=== PATIENT | male | born 1935 | race Two or more races ===

== ENCOUNTER 2019-01-18 22:38 | Inpatient (IN) | payer MEDICAID ==
[~2019-01-18] VITALS: Ht 167.6 cm; Wt 70.4 kg
[2019-01-18 23:00] VITALS: BP 146/59
[2019-01-18] MEDS ORDERED: Sodium Bicarbonate 50ml Carp IV ONE (23:00)
--- NOTE | 2019-01-18 23:00 | NUR ---
ER Nurse Note: Pt [facility] c/o lethargy. Pt EMS, pt missed his appointment d/t increasing lethargy. Pt unable to assess mental status, VSS, on NC with O2 >94%. No skin breakdown; red and purple discoloration on RT groin area. Pt unable to turn, incontinent. Active HD shunt in RT upper arm; former shunt in LT upper arm. IV established by Jade Charge Nurse. Will continue to [facility].
--- NOTE | 2019-01-18 23:19 | Emergency Room Report ---
History of Present Illness General Chief Complaint: Generalized Weakness Source: Medical Record, EMS Present Illness HPI Is an 83-year-old male with multiple medical problems including renal failure on hemodialysis. He was brought in by EMS with chief complaint of lethargy. He missed dialysis today because of increasing lethargy. At baseline he is confused but able to talk. Now he is now unresponsive with sonorous pollock. Unable to get any other history. There is no fever chills but no cough congestion. No pain complaint. No vomiting. Allergies: Coded Allergies: MORPHINE (Verified Allergy, Unknown, 01/18/19) Patient History Past Medical History: see triage record, old chart reviewed Past Surgical History: other Pertinent Family History: none Social History: Denies: smoking Immunizations: other Reviewed Nursing Documentation: PMH: Agreed; PSxH: Agreed Nursing Documentation-PMH Past Medical History: No History, Except For Hx Dialysis: Yes - RIGHT AND LEFT AV SHUNT, RIGHT SIDE ACTIVE Review of Systems All Other Systems: limited - SEcondary to patient's condition Physical Exam vitals with mild hypotension and bradycardia Sp02 EP Interpretation: reviewed, normal General Appearance: mild distress, cachetic, Chronically Ill, Stupor Head: normocephalic, atraumatic Eyes: bilateral eye PERRL, bilateral eye EOMI ENT: hearing grossly normal, normal pharynx Neck: full range of motion, supple, no meningismus Respiratory: chest non-tender, lungs clear, normal breath sounds Cardiovascular #1: regular rate, rhythm, systolic murmur Gastrointestinal: normal bowel sounds, non tender, no mass, no organomegaly, no bruit, non-distended Musculoskeletal: back normal Neurologic: grossly normal - Withdrawal to painful stimuli Procedures Critical Care Time Critical Care Time Critical care is mandated in this patient who presented with respiratory failure secondary to pulmonary edema. Patient require my urgent intervention to attenuate the risks of respiratory collapse which may lead to cardiovascular collapse and . Critical care time is 35 minutes excluding any reportable procedure. Critical care time included evaluation, multiple reevaluation, looking at old charts, interpreting laboratory and diagnostic data, discussing case with patient and family and consultants, and charting. Medical Decision Making Diagnostic Impression: Primary Impression: Respiratory failure with hypoxia and hypercapnia Qualified Codes: J96.01 - Acute respiratory failure with hypoxia; J96.02 - Acute respiratory failure with hypercapnia Additional Impressions: Pulmonary edema Qualified Codes: J81.0 - Acute pulmonary edema Hyperkalemia Anemia in chronic kidney disease Qualified Codes: N18.6 - End stage renal disease; D63.1 - Anemia in chronic kidney disease; Z99.2 - Dependence on renal dialysis UTI (urinary tract infection) Qualified Codes: N30.00 - Acute cystitis without hematuria ACS (acute coronary syndrome) ER Course Patient with respiratory failure secondary to pulmonary edema. Initial ABG show respiratory acidosis with high CO2. Repeat ABG showed worsening acidosis and CO2. Pt intubated for airway protection. Potassium is slightly elevated. No EKG changes. Initially he was bradycardic but with 2 A of bicarb heart rate went from 50s to 70s. He will need dialysis. Clinically no evidence of pneumonia. His chest x-ray show pulmonary edema and pleural effusion mostly right-sided. Antibiotics given for UTI. I discussed the case with Dr. Samson at his insurance. Agreed that patient is unstable for transfer. Will be admitted here. I discussed case with Dr. Villa who is covering for Dr. Conley for admission. Pt admitted to Dr. Conley service due to insurance. Lab Results Impression Labs with elevated BNP and potassium EKG Diagnostic Results Rate: bradycardiac Rhythm: NSR ST Segments: other - ST depression anteriorly. RBBB Rhythm Strip Diag. Results EP Interpretation: yes Rate: 76 Chest X-Ray Diagnostic Results Chest X-Ray Diagnostic Results #1: Chest X-Ray Ordered: Yes # of Views/Limited/Complete: 1 View Indication: Shortness of Breath EP Interpretation: Yes Interpretation: no pneumothorax, other - Cardiomegaly with pulmonary edema and large right-sided pleural effusion Impression: Other - large right effusion Electronically Signed by: Onofre Hector MD Chest X-Ray Diagnostic Results #2: Chest X-Ray Ordered: Yes # of Views/Limited/Complete: 1 View Indication: Shortness of Breath EP Interpretation: Yes Interpretation: no pneumothorax, other - s/p ETT. large rt effusion Impression: Other - s/p intubation. Electronically Signed by: Onofre Hector MD Status: improved Disposition: ADMITTED INPATIENT Condition: Critical Onofre Hector MD Jan 18, 2019 23:19
[2019-01-18 23:21] LABS: HEMATOCRIT 34.3 % (42.0-52.0); HEMOGLOBIN 11.3 G/DL (14.2-18.0); LYMPHOCYTES % (AUTO) 10.7 % (20.0-45.0); MEAN CORPUSCULAR VOLUME 102 FL (80-99); MONOCYTES % (AUTO) 6.9 % (1.0-10.0); NEUTROPHILS % (AUTO) 78.3 % (45.0-75.0); PLATELET COUNT 297 K/UL (150-450); RED BLOOD COUNT 3.38 M/UL (4.70-6.10); RED CELL DISTRIBUTION WIDTH 14.9 % (11.6-14.8); WHITE BLOOD COUNT 9.1 K/UL (4.8-10.8)
[2019-01-18 23:30] LABS: ANION GAP 7 mmol/L (5-15); BLOOD UREA NITROGEN 75 mg/dL (7-18); CALCIUM 8.8 MG/DL (8.5-10.1); CARBON DIOXIDE 30 MMOL/L (21-32); CHLORIDE 93 MMOL/L (98-107); CREATININE 8.8 MG/DL (0.55-1.30); POTASSIUM 5.7 MMOL/L (3.5-5.1); SODIUM 130 MMOL/L (136-145)
[2019-01-18 23:44] LABS: ALANINE AMINOTRANSFERASE 22 U/L (12-78); ALBUMIN/GLOBULIN RATIO 0.5 (1.0-2.7); ALKALINE PHOSPHATASE 141 U/L (46-116); ASPARTATE AMINO TRANSFERASE 38 U/L (15-37); BILIRUBIN,TOTAL 0.4 MG/DL (0.2-1.0); CKMB 8.5 NG/ML (0.0-3.6); CREATINE KINASE 232 U/L (26-308)
[2019-01-18 23:55] LABS: APPEARANCE,URINE TURBID; BILIRUBIN, URINE NEGATIVE (NEGATIVE); GLUCOSE, URINE (UA) 1+ (NEGATIVE); KETONES,URINE NEGATIVE (NEGATIVE); LEUKOCYTE ESTERASE ,URINE 3+ (NEGATIVE); NITRITE,URINE NEGATIVE (NEGATIVE); PH,URINE 8 (4.5-8.0); PROTEIN,URINE 4+ (NEGATIVE); UROBILINOGEN,URINE NORMAL MG/DL (0.0-1.0)
[2019-01-19] VITALS (53 sets, daily range): BP systolic 92–169; BP diastolic 22–126
--- NOTE | 2019-01-19 | NUR ---
ED Nurse Note: Dr. Hector informed of ABG results.
--- NOTE | 2019-01-19 00:03 | NUR ---
RESPIRATORY NOTE: reported ABG results to MD Hector and Placed Bipap per MD Hector order Settings of IPAP 20, EPAP 5, FiO2 16 and backup rate of 16. pt tolerating so far. pt on Full facial mask. no s/s of respiratory distress noted. will continue to monitor pt. ABG in an hour.
[2019-01-19 00:12] LABS: COLOR,URINE RED
[2019-01-19] MEDS ORDERED: cefTRIAXone 1 GM in NS 55 ML IVPB ONE (00:30)
--- NOTE | 2019-01-19 00:38 | NUR ---
ER Nurse Note: All orders completed per ERMD orders. Pt on BiPap, ABG collected and results with MD. Will continue to markos.
--- NOTE | 2019-01-19 01:09 | NUR ---
ER Nurse Note: Pt asleep, calm. Pt on Bipap. Repeat ABG taken, awaiting results. Pending admission. All safety measrues met; will continue to motnitor.
--- NOTE | 2019-01-19 01:35 | NUR ---
RESPIRATORY NOTE: Pt was intubated and placed on vent settings of AC/VC 15, 500 Vt, 100% FiO2, PEEP +5. Bilateral rales breath sounds upon auscultation. Airway is secured by anchorfast and patent. ETT is 7.5 cm and 24 at the lip. Ambubag present at bedside. Alarms on and audible. ABG to be drawn. Will continue to monitor.
--- NOTE | 2019-01-19 01:43 | NUR ---
ER Nurse Note: ERMD aware of ABG results; pH 6.9, pCO2 142. Pt intubated at 0135 by ERMD, RT and RN at bedside. 7 1/2 size tube, 24 at lip; vent settings: rate 15, vol 500, peep 5. X-ray being taken for confirmation. Will continue to montior.
[2019-01-19] MEDS ORDERED: AMLODIPINE BESYL5 MG ORAL (01:50)
[2019-01-19] MEDS ORDERED: ATIVAN2 MG ORAL (01:50)
[2019-01-19] MEDS ORDERED: ASPIRIN EC81 MG ORAL (01:50)
[2019-01-19] MEDS ORDERED: Midazolam 2mg/2ml Inj IVP ONE (02:00)
[2019-01-19] MEDS ORDERED: Succinylcholine 20mg/ml 10ml vial IV ONE (02:00)
[2019-01-19] MEDS ORDERED: Sodium Bicarbonate 50ml Carp IV ONE (02:00)
--- NOTE | 2019-01-19 02:00 | NUR ---
ER Nurse Note: 1mg Versed given; tolerating well. Verbal order to hold sodium bicarb but administer 100 mg of succinylcholine. Pt calm and relaxed.
[2019-01-19] MEDS ORDERED: LACTULOSE20 GM/301 ORAL (02:13)
[2019-01-19] MEDS ORDERED: NEXIUM40 MG ORAL (02:13)
[2019-01-19] MEDS ORDERED: GABAPENTIN100 MG ORAL (02:13)
[2019-01-19] MEDS ORDERED: CALCITRIOL1 MCG/1 ML PO (02:13)
[2019-01-19] MEDS ORDERED: BISACODYL5 MG RC (02:13)
[2019-01-19] MEDS ORDERED: VITAMIN D250000 UNI1 ORAL (02:13)
[2019-01-19] MEDS ORDERED: ATORVASTATIN CA40 MG ORAL (02:13)
[2019-01-19] MEDS ORDERED: Calcium Gluconate 10% 1 GM in NS 110 ML IVPB ONE (02:15)
--- NOTE | 2019-01-19 02:29 | NUR ---
ER Nurse Note: Report given to TESHA Wetzel in ICU for continuity of care. All belongings given. Med recon completed, swabs sent. Salvador in place per ERMD orders.
[2019-01-19] MEDS ORDERED: PRO-STAT LIQUID30 ML ORAL (02:31)
[2019-01-19] MEDS ORDERED: LEVOTHYROXINE125 MCG ORAL (02:31)
[2019-01-19] MEDS ORDERED: TRAMADOL HCL50 MG ORAL (02:31)
[2019-01-19] MEDS ORDERED: QUETIAPINE FUMA25 MG ORAL (02:31)
[2019-01-19] MEDS ORDERED: SEROQUEL100 MG ORAL (02:31)
[2019-01-19] MEDS ORDERED: MELATONIN 3 MG1 EAC1 PO (02:31)
[2019-01-19] MEDS ORDERED: ACETAMINOPHEN500 M3 ORAL (02:31)
[2019-01-19] MEDS ORDERED: LIDODERM700 M1 TOPIC (02:31)
[2019-01-19] MEDS ORDERED: RENA-VITE RX T1 EAC1 PO (02:31)
[2019-01-19] MEDS ORDERED: RENVELA0.8 GM ORAL (02:31)
[2019-01-19] MEDS ORDERED: NITROSTAT0.4 M1 SL (02:31)
--- NOTE | 2019-01-19 04:30 | NUR ---
NURSE NOTES: hemodilysis started pt tolerated well
[2019-01-19] MEDS ORDERED: NS 250 ML IVPB PRN (06:15)
--- NOTE | 2019-01-19 06:34 | NUR ---
NURSE NOTES: Received various telephone orders from Dr. Frausto. Will follow through orders.
--- NOTE | 2019-01-19 07:15 | NUR ---
RESPIRATORY NOTE: received pt orally intubated with ETT 7.5, placed 24cm at the lip. ETT secured via anchor fast with no redness or skin tears visible around mouth. pt currently receiving dialysis with no resp distress noted at this time. vent plugged into redoutlet with alarms set and audible. will cont to monitor
--- NOTE | 2019-01-19 07:39 | NUR ---
HAND-OFF: Report given to humble mccarty.
--- NOTE | 2019-01-19 07:40 | NUR ---
NURSE NOTES: Received patient from TESHA Leone. Patient witnessed lying in bed with eyes closed. Patient reported to be slightly restless at this time. Patient on bilateral soft wrist restraint. Patient witnessed trying to pull out ETT. Patient admitted for altered mental status and respiratory distress. Patient intubated with ETT 7.5 with 24cm at the lip line. Patient on ventilator with setting AC 18, tidal volume 500, FiO2 80%, and PEEP 5. Patient NPO at this time. Patient receiving dialysis at this time. Blood pressure 138/105, cafeteria monitor showing sinus rhythm with rate of 65, RR 18, and SpO2 100%. Patient tolerating ventilator setting with no sign of acute distress. Patient on dialysis at this time. Patient has an order for fentanyl drip to be started this morning. Will clarify with MD if fentanyl is still necessary. Patient skin intact except for perineal redness. patient has right and left upper arm AV shunt. right AV shunt being used for dialysis at this time. Patient has left hand peripheral IV that is patent and saline locked at this time. Patient has orders for repeat labs, urine culture, sputum culture, PICC line insertion, thoracentesis, ad NGT insertion post dialysis. Will follow up. Patient bed in low position with bed alarm on and call light in reach.
[2019-01-19] MEDS ORDERED: Heparin1,000 units/500ml Premix(Conc:2 units/ml) IV PRN (08:00)
[2019-01-19] MEDS ORDERED: Lidocaine 1% Plain 30 ml INJ PRN (08:00)
--- NOTE | 2019-01-19 08:11 | Pulmonolgy Critical Care Note ---
Critical Care - Asmt/Plan Assessment/Plan: Pulmonary CCM Consultation HPI Patient is a 83-year-old man with past medical history of chronic renal failure on hemodialysis. Admitted in lethargic state, note to have Respiratory and Metabolic acidosis, large right pleural effusion, Urinary Tract Infection. He previously missed dialysis because of increasing lethargy. At baseline he is confused but able to talk. No history available, per chart review no fever chills,no cough congestion, no pain complain, no vomiting. Noted to have elevated troponin Allergies: MORPHINE Past Medical History: CKD on HD Past Surgical History: Bilateral AV shunt All Other Systems: limited Physical Exam General Appearance: Sedated on mechanical ventilator. chronically ill appearing , cachetic Head: normocephalic, atraumatic Eyes: bilateral eye PERRL, bilateral eye EOMI ENT: intubated, moist mm Neck: no masses, no LN Respiratory: chest non-tender, lungs clear,breath sounds noted bilaterally anteriorly, reduced BS RLZ Cardiovascular: regular rate, rhythm, HS1, HS2 normal, systolic murmur Gastrointestinal: normal bowel sounds, non tender, no mass, no organomegaly, no bruit, non-distended Musculoskeletal: No edema, wasted Neurologic: Sedated, no focal signs,no seizures Impression: Respiratory failure with hypoxia and hypercapnia Large right pleural effusion End stage renal disease on HD Pulmonary edema Hyperkalemia Anemia in chronic kidney disease Urinary tract infection Acute coronary syndrome Plan AC ventilation, increase RR Wean FIO2 Right US guided thoracentesis HD per Renal Monitor labs IVF PRN Continue Ceftriaxone PICC line - may need pressors 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 RBBB Chest X-Ray: no pneumothorax, other - Cardiomegaly with pulmonary edema and large right-sided pleural effusion, no pneumothorax, other, s/p ETT. Respiratory: monitor respiratory rate, CXR Infectious Disease: check cultures, continue antibiotics, add antibiotics Disposition: keep in ICU Time Spent (Minutes): 70 Critical Care - Objective Last 24 Hour Vital Signs Date Time Temp Pulse Resp B/P (MAP) Pulse Ox O2 Delivery O2 Flow Rate FiO2 01/19/19 07:08 55 18 50 01/19/19 07:00 97.4 148 16 148/56 (86) 98 01/19/19 06:30 60 16 98/40 (59) 98 01/19/19 06:00 60 16 95/33 (53) 98 01/19/19 05:30 60 16 99/33 (55) 98 01/19/19 05:25 73 17 50 01/19/19 05:00 60 16 95/29 (51) 98 01/19/19 04:00 96.6 60 16 95/45 (62) 98 01/19/19 04:00 96.6 60 16 95/45 (62) 98 01/19/19 04:00 57 01/19/19 04:00 Mechanical Ventilator 01/19/19 03:58 Mechanical Ventilator 01/19/19 03:54 67 15 100 01/19/19 03:52 100 01/19/19 03:30 96.6 60 16 96/36 (56) 98 01/19/19 03:00 96.6 64 16 111/36 (61) 98 01/19/19 03:00 96.6 01/19/19 02:30 97.6 61 20 121/60 99 Mechanical Ventilator 100 01/19/19 02:30 97.6 61 20 121/60 99 Mechanical Ventilator 100 01/19/19 01:35 61 23 121/60 99 Mechanical Ventilator 01/19/19 01:35 49 23 100 01/19/19 01:14 70 16 154/80 95 Bi-pap 50 01/19/19 00:13 73 14 143/62 Bi-pap 01/19/19 00:03 74 16 90 Bi-Pap 50 01/19/19 00:03 74 16 90 Full Face 50 01/18/19 23:00 78 12 Bi-pap 01/18/19 23:00 78 12 146/59 95 Bi-pap 50 Micro: Microbiology Date/Time Source Procedure Growth Status 01/19/19 00:20 Rectum Received Critical Care - Subjective ROS Limited/Unobtainable: Yes Condition: critical FI02: 50 Vent Support Breath Rate: 18 Vent Support Mode: AC Vent Tidal Volume: 500 Sputum Amount: Scant PEEP: 5.0 PIP: 27 I&O: Intake and Output 01/18/19 01/19/19 19:00 07:00 Intake Total 110 ml Balance 110 ml Intake Oral 0 ml IV Total 110 ml # Voids 50 ET-Tube: 7.5 ET Position: 24 Eric Frausto MD Jan 19, 2019 08:11
--- NOTE | 2019-01-19 08:39 | NUR ---
NURSE NOTES: Hemodialysis complete. Blood pressure 158/55, HR 61, SpO2 100%, and RR 18. Total 2L out. Addendum: 01/19/19 at 0842 by Marly Samano RN Fentanyl held at this time. Patient only restless when he is being touched or suctioned. Patient eyes closed. Patient tolerating ventilator setting and is not fighting the ventilator or biting the ET tube.
[2019-01-19] MEDS: Heparin 5000 units/ml inj SUBQ SCH ×2 (09:00→20:45)
[2019-01-19 09:40] LABS: ALANINE AMINOTRANSFERASE 19 U/L (12-78); ALBUMIN 2.4 G/DL (3.4-5.0); ALBUMIN/GLOBULIN RATIO 0.5 (1.0-2.7); ALKALINE PHOSPHATASE 120 U/L (46-116); ANION GAP 6 mmol/L (5-15); ASPARTATE AMINO TRANSFERASE 39 U/L (15-37); BILIRUBIN,TOTAL 0.4 MG/DL (0.2-1.0); BLOOD UREA NITROGEN 35 mg/dL (7-18); CALCIUM 8.3 MG/DL (8.5-10.1); CARBON DIOXIDE 31 MMOL/L (21-32); CHLORIDE 99 MMOL/L (98-107); CREATININE 4.4 MG/DL (0.55-1.30); POTASSIUM 3.5 MMOL/L (3.5-5.1); SODIUM 136 MMOL/L (136-145)
[2019-01-19 10:07] LABS: HEMATOCRIT 29.4 % (42.0-52.0); HEMOGLOBIN 9.9 G/DL (14.2-18.0); MEAN CORPUSCULAR VOLUME 99 FL (80-99); PLATELET COUNT 183 K/UL (150-450); RED BLOOD COUNT 2.98 M/UL (4.70-6.10); RED CELL DISTRIBUTION WIDTH 15.5 % (11.6-14.8); WHITE BLOOD COUNT 7.7 K/UL (4.8-10.8)
--- NOTE | 2019-01-19 10:39 | NUR ---
NURSE NOTES: Patient has not voided since last night. Upon bladder scan, patient found to have 206mL of retained urine. Dr Villa notified. He stated that he would be here to see the patient soon. Will follow up when he arrives. OGT placed at this time. Placement verified with aspiration and auscultation. Will follow up with abdominal x-ray. Patient restless at this time. When patient is touched for any reason, he starts to move and kick but his eyes remain closed. Fentanyl held at this time due to low HR of 61-65. Will ask MD if it is safe to give.
--- NOTE | 2019-01-19 10:44 | NUR ---
Social Work This SW met with patient, currently in the ICU who is confused, intubated, and requires total care. Patient is from [facility] and remains full code, full treatment (chart reviewed). Patient has son, Mingo Vaca listed as her decision maker @ [phone]. There is no family currently at bedside; SW to follow for emotional support, as needed. Addendum: 01/19/19 at 1111 by OLIVIA TONY This SW left a message for son to verify any needs or concerns (awaiting call back at this time).
[2019-01-19] MEDS: Aspirin Baby 81mg NG SCH (11:15)
--- NOTE | 2019-01-19 12:00 | NUR ---
NURSE NOTES: Patient witnessed lying in bed with eyes closed. Patient on bilateral soft wrist restraint. Patient combative and strong. Patient witnessed trying to pull out ETT. Patient Fentanyl drip held due to low HR of <65. Will follow up with prepress technician if it is safe to give. ETT 7.5 with 24cm at the lip line. Patient on ventilator with setting AC 16, tidal volume 450, FiO2 40%, and PEEP 5. Patient now has OGT with placement verified with abdominal x-ray. Patient has right side rib fracture and pleural effusion. Blood pressure 150/57, telemetry monitor showing sinus rhythm with rate of 63, RR 20, and SpO2 100%. Patient tolerating ventilator setting with no sign of acute distress except occasional coughing at which time patient attempts to remove ET tube. Patient skin remains intact. No perineal redness noted. patient has right and left upper arm AV shunt. right AV shunt has pressure dressing from dialysis this morning. Dressing intact with no sign of bleeding. Patient has left hand 20 gauge peripheral IV that is patent and saline locked at this time. Patient has an order for thoracentesis. Will follow up. Patient bed in low position with bed alarm on and call light in reach.
[2019-01-19] MEDS ORDERED: Etomidate 40mg/20ml Inj IV ONE (12:30)
[2019-01-19] MEDS ORDERED: Succinylcholine 20mg/ml 10ml vial ONE (12:30)
[2019-01-19] MEDS: Calcitriol 0.25mcg Cap NG SCH (12:44)
--- NOTE | 2019-01-19 12:56 | Cardiac Electrophysiology PN ---
Subjective Subjective [id number] Objective Last 24 Hour Vital Signs Date Time Temp Pulse Resp B/P (MAP) Pulse Ox O2 Delivery O2 Flow Rate FiO2 01/19/19 12:44 61 153/53 01/19/19 12:44 153/53 01/19/19 12:00 61 01/19/19 11:08 63 20 50 01/19/19 09:06 58 18 50 01/19/19 08:00 63 01/19/19 08:00 50 01/19/19 08:00 Mechanical Ventilator 01/19/19 07:08 55 18 50 01/19/19 07:00 97.4 148 16 148/56 (86) 98 01/19/19 06:30 60 16 98/40 (59) 98 01/19/19 06:00 60 16 95/33 (53) 98 01/19/19 05:30 60 16 99/33 (55) 98 01/19/19 05:25 73 17 50 01/19/19 05:00 60 16 95/29 (51) 98 01/19/19 04:00 96.6 60 16 95/45 (62) 98 01/19/19 04:00 96.6 60 16 95/45 (62) 98 01/19/19 04:00 57 01/19/19 04:00 Mechanical Ventilator 01/19/19 03:58 Mechanical Ventilator 01/19/19 03:54 67 15 100 01/19/19 03:52 100 01/19/19 03:30 96.6 60 16 96/36 (56) 98 01/19/19 03:00 96.6 64 16 111/36 (61) 98 01/19/19 03:00 96.6 01/19/19 02:30 97.6 61 20 121/60 99 Mechanical Ventilator 100 01/19/19 02:30 97.6 61 20 121/60 99 Mechanical Ventilator 100 01/19/19 01:35 61 23 121/60 99 Mechanical Ventilator 01/19/19 01:35 49 23 100 01/19/19 01:14 70 16 154/80 95 Bi-pap 50 01/19/19 00:13 73 14 143/62 Bi-pap 01/19/19 00:03 74 16 90 Bi-Pap 50 01/19/19 00:03 74 16 90 Full Face 50 01/18/19 23:00 78 12 Bi-pap 01/18/19 23:00 78 12 146/59 95 Bi-pap 50 Intake and Output 01/18/19 01/19/19 19:00 07:00 Intake Total 110 ml Balance 110 ml Intake Oral 0 ml IV Total 110 ml # Voids 50 Laboratory Tests Test 01/18/19 23:00 01/18/19 23:42 01/18/19 23:45 01/19/19 01:05 White Blood Count 9.1 K/UL (4.8-10.8) Red Blood Count 3.38 M/UL (4.70-6.10) L Hemoglobin 11.3 G/DL (14.2-18.0) L Hematocrit 34.3 % (42.0-52.0) L Mean Corpuscular Volume 102 FL (80-99) H Mean Corpuscular Hemoglobin 33.4 PG (27.0-31.0) H Mean Corpuscular Hemoglobin Concent 32.8 G/DL (32.0-36.0) Red Cell Distribution Width 14.9 % (11.6-14.8) H Platelet Count 297 K/UL (150-450) Mean Platelet Volume 5.5 FL (6.5-10.1) L Neutrophils (%) (Auto) 78.3 % (45.0-75.0) H Lymphocytes (%) (Auto) 10.7 % (20.0-45.0) L Monocytes (%) (Auto) 6.9 % (1.0-10.0) Eosinophils (%) (Auto) 3.0 % (0.0-3.0) Basophils (%) (Auto) 1.0 % (0.0-2.0) Prothrombin Time 10.6 SEC (9.30-11.50) Prothromb Time International Ratio 1.0 (0.9-1.1) Activated Partial Thromboplast Time 32 SEC (23-33) Sodium Level 130 MMOL/L (136-145) L Potassium Level 5.7 MMOL/L (3.5-5.1) H Chloride Level 93 MMOL/L (98-107) L Carbon Dioxide Level 30 MMOL/L (21-32) Anion Gap 7 mmol/L (5-15) Blood Urea Nitrogen 75 mg/dL (7-18) H Creatinine 8.8 MG/DL (0.55-1.30) H Estimat Glomerular Filtration Rate mL/min (>60) Glucose Level 121 MG/DL (74-106) H Calcium Level 8.8 MG/DL (8.5-10.1) Total Bilirubin 0.4 MG/DL (0.2-1.0) Aspartate Amino Transf (AST/SGOT) 38 U/L (15-37) H Alanine Aminotransferase (ALT/SGPT) 22 U/L (12-78) Alkaline Phosphatase 141 U/L (46-116) H Total Creatine Kinase 232 U/L (26-308) Creatine Kinase MB 8.5 NG/ML (0.0-3.6) H Creatine Kinase MB Relative Index 3.6 Troponin I 0.136 ng/mL (0.000-0.056) Pro-B-Type Natriuretic Peptide > 98802 pg/mL (0-125) H Total Protein 8.8 G/DL (6.4-8.2) H Albumin 3.0 G/DL (3.4-5.0) L Globulin 5.8 g/dL Albumin/Globulin Ratio 0.5 (1.0-2.7) L Arterial Blood pH 7.133 (7.350-7.450) 6.979 (7.350-7.450) Arterial Blood Partial Pressure CO2 95.2 mmHg (35.0-45.0) *H 142.5 mmHg (35.0-45.0) *H Arterial Blood Partial Pressure O2 85.0 mmHg (75.0-100.0) 62.4 mmHg (75.0-100.0) L Arterial Blood HCO3 31.2 mmol/L (22.0-26.0) H 32.7 mmol/L (22.0-26.0) H Arterial Blood Oxygen Saturation 93.4 % (95-100) L 79.0 % (95-100) *L Arterial Blood Base Excess 0.1 (-2-2) -2.0 (-2-2) Nino Test Positive Positive Urine Color Red Urine Appearance Turbid Urine pH 8 (4.5-8.0) Urine Specific [place] 1.010 (1.005-1.035) Urine Protein 4+ (NEGATIVE) H Urine Glucose (UA) 1+ (NEGATIVE) H Urine Ketones Negative (NEGATIVE) Urine Blood 5+ (NEGATIVE) H Urine Nitrite Negative (NEGATIVE) Urine Bilirubin Negative (NEGATIVE) Urine Urobilinogen Normal MG/DL (0.0-1.0) Urine Leukocyte Esterase 3+ (NEGATIVE) H Urine RBC Tntc /HPF (0 - 0) H Urine WBC 20-30 /HPF (0 - 0) H Urine Squamous Epithelial Cells None /LPF (NONE/OCC) Urine Bacteria Few /HPF (NONE) Test 01/19/19 04:18 01/19/19 07:35 Arterial Blood pH 7.322 (7.350-7.450) Arterial Blood Partial Pressure CO2 59.9 mmHg (35.0-45.0) *H Arterial Blood Partial Pressure O2 442.2 mmHg (75.0-100.0) H Arterial Blood HCO3 30.3 mmol/L (22.0-26.0) H Arterial Blood Oxygen Saturation 99.8 % (95-100) Arterial Blood Base Excess 3.3 (-2-2) H Nino Test Positive White Blood Count 7.7 K/UL (4.8-10.8) Red Blood Count 2.98 M/UL (4.70-6.10) L Hemoglobin 9.9 G/DL (14.2-18.0) L Hematocrit 29.4 % (42.0-52.0) L Mean Corpuscular Volume 99 FL (80-99) Mean Corpuscular Hemoglobin 33.1 PG (27.0-31.0) H Mean Corpuscular Hemoglobin Concent 33.5 G/DL (32.0-36.0) Red Cell Distribution Width 15.5 % (11.6-14.8) H Platelet Count 183 K/UL (150-450) Mean Platelet Volume 6.0 FL (6.5-10.1) L Neutrophils (%) (Auto) % (45.0-75.0) Lymphocytes (%) (Auto) % (20.0-45.0) Monocytes (%) (Auto) % (1.0-10.0) Eosinophils (%) (Auto) % (0.0-3.0) Basophils (%) (Auto) % (0.0-2.0) Differential Total Cells Counted 100 Neutrophils % (Manual) 87 % (45-75) H Lymphocytes % (Manual) 4 % (20-45) L Monocytes % (Manual) 5 % (1-10) Eosinophils % (Manual) 0 % (0-3) Basophils % (Manual) 0 % (0-2) Band Neutrophils 4 % (0-8) Platelet Estimate Adequate Platelet Morphology Normal Hypochromasia 1+ Anisocytosis 1+ Prothrombin Time 10.7 SEC (9.30-11.50) Prothromb Time International Ratio 1.0 (0.9-1.1) Activated Partial Thromboplast Time 29 SEC (23-33) Sodium Level 136 MMOL/L (136-145) Potassium Level 3.5 MMOL/L (3.5-5.1) Chloride Level 99 MMOL/L (98-107) Carbon Dioxide Level 31 MMOL/L (21-32) Anion Gap 6 mmol/L (5-15) Blood Urea Nitrogen 35 mg/dL (7-18) H Creatinine 4.4 MG/DL (0.55-1.30) H Estimat Glomerular Filtration Rate mL/min (>60) Glucose Level 73 MG/DL (74-106) L Calcium Level 8.3 MG/DL (8.5-10.1) L Total Bilirubin 0.4 MG/DL (0.2-1.0) Aspartate Amino Transf (AST/SGOT) 39 U/L (15-37) H Alanine Aminotransferase (ALT/SGPT) 19 U/L (12-78) Alkaline Phosphatase 120 U/L (46-116) H Troponin I 0.151 ng/mL (0.000-0.056) Total Protein 7.4 G/DL (6.4-8.2) Albumin 2.4 G/DL (3.4-5.0) L Globulin 5.0 g/dL Albumin/Globulin Ratio 0.5 (1.0-2.7) L Hepatitis B Surface Antigen Pending Microbiology Date/Time Source Procedure Growth Status 01/19/19 00:20 Rectum Received Sawyer Christie MD Jan 19, 2019 12:56
--- NOTE | 2019-01-19 13:34 | NUR ---
NURSE NOTES: Reported ABG result to Dr Frausto via telephone call. Received order for change of ventilator setting to AC 16, TV 450 and repeat ABG at 1999. Telephone order read back and verified. Order placed at this time.
--- NOTE | 2019-01-19 13:38 | NUR ---
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
--- NOTE | 2019-01-19 13:42 | Pre-Procedure Note/Attestation ---
Pre-Procedure Note/Attestation Complete Prior to Procedure Planned Procedure: right Procedure Narrative: Thoracentesis with ultrasound guidance Indications for Procedure Pre-Operative Diagnosis: Right pleural effusion Attestation I attest that appropriate consent obtained from patient's son was reviewed prior to procedure. Multiple attempts were made to reach the son for further discussion by telephone but he could not be reached prior to procedure. I attest that I re-evaluated the patient just prior to the surgery and that there has been no change in the patient's H&P, except as documented below: Gerson Roberts M.D. Jan 19, 2019 13:42
--- NOTE | 2019-01-19 14:00 | General Progress Note ---
Progress Note Progress Note Patient attended bedside with US technologists and ICU nursing. After initial US scan demonstrating large right pleural effusion and adjacent right anterolateral acute rib fractures, patient became combative and attempted to self-extubate even after temporary restraints placed. Patient is likely tender at area of acute right rib fractures. Recommend defering thoracentesis until patient's pain can be adequately managed and appropriate sedation considered. Gerson Roberts M.D. Jan 19, 2019 14:00
--- NOTE | 2019-01-19 14:35 | NUR ---
RD ASSESSMENT & RECOMMENDATIONS SEE CARE ACTIVITY FOR COMPLETE ASSESSMENT DAILY ESTIMATED NEEDS: Needs based on Critical care, HD/ 63.6kg 22-30 kcals/kg 9113-9838 total kcals 1.2-2 g protein/kg 76-127 g total protein 20-22 mL/kg 5943-1932 total fluid mLs NUTRITION DIAGNOSIS: * Swallowing difficulty R/T respiratory status as evidenced by orally intubated, on OGT feeding. * Increased kcal/prot needs R/T renal dysfunction as evidenced by ESRD dx, on HD. CURRENT TF:Nepro @ 40ml/hr x 24 hrs PO DIET RECOMMENDATIONS: INTERNET DEVELOPER eval post extubation ENTERAL NUTRITION RECOMMENDATIONS: Nepro @ 40ml/hr x 24 hrs to provide 960ml, 1728kcal, 78g prot, 698ml free water * Maintain current TF order * Initiate @ 20ml/hr x 6 hrs, advance 10ml q 4-6 hrs as tolerated to goal * HOB Over 30 degrees/ water flush per MD ADDITIONAL RECOMMENDATIONS: * Obtain dry, calibrated bedscale wt post HD : Per [facility], HT=68", EV=527oze (01/04/19) * Monitor lytes daily w/ TF, replete as needed
--- NOTE | 2019-01-19 14:45 | NUR ---
NURSE NOTES: Patient restless at this time. Radiologist attempted to start thoracentesis procedure but was unable to do so because the patient was restless and showing signs of pain on the right side where the procedure was to be done. Patient started on Fentanyl drip. Dr Christie consulted via phone call. Patient's HR is less than 65 and the fentanyl order states that the drip must be held if the patient's HR is less than 65. Per Dr Christie's telephone order, fentanyl can be given if HR is greater than 55. Order read back and order adjusted to reflect the new parameter. Fentanyl drip started at 10mcg/hr. Will monitor patient's sedation level and adjust every 5 minutes per protocol. Addendum: 01/19/19 at 1916 by Marly Samano RN Blood pressure 152/53, HR 64, SpO2 100% on ventilator, and RR 18. Sinus rhythm on the cardiac technologist. Patient repositioned and oral care performed at this time.
--- NOTE | 2019-01-19 16:30 | NUR ---
NURSE NOTES: Patient continues to be restless. RASS score -1 with fentanyl drip increased to 100mcg/hr. Will continue to monitor sedation level and titrate per protocol. Patient cleaned at this time. When patient turned, he immediately grabbed his ET tube and attempted to self extubate. Patient was restrained and ET tube was determined to be in place. Breath sounds heard bilaterally. Ventilator showing volumes received. Feeding held at this time. Stat chest x-ray and abdominal x-ray ordered at this time to ensure patency of ET tube and OGT. Will follow up with result. Patient on bilateral soft wrist restraint. Patient combative and strong. Patient on ventilator with setting AC 16, tidal volume 450, FiO2 40%, and PEEP 5. Patient now has OGT with placement verified with abdominal x-ray. Thoracentesis unable to be performed today. Radiologist will follow up tomorrow when patient's pain is better controlled. Blood pressure 128/23, phototypesetting equipment monitor showing sinus rhythm with rate of 67, RR 17, and SpO2 100%. Patient skin remains intact with ecchymosis and swelling on the right side from rib fractures. Condom catheter in place. Patient has not yet urinated. Dr Villa is aware. AM bladder scan ordered and in and out catheter when residual greater than 300. Right AV shunt has pressure dressing from dialysis this morning. Dressing intact with no sign of bleeding. Patient has left hand 20 gauge peripheral IV that is patent and saline locked at this time. Patient bed in low position with bed alarm on and call light in reach. Patient cleaned, repositioned, and oral care performed at this time.
--- NOTE | 2019-01-19 16:43 | NUR ---
RESPIRATORY NOTE: pt ETT was pulled out slightly out due to agitation and changing. RN and RT were in the room and able to catch pt. anchor fast was changed. Xray was order to confirm placement. will cont to monitor.
--- NOTE | 2019-01-19 17:33 | Cardiology Report ---
APPROVED REPORT EXAM: Two-dimensional and M-mode echocardiogram with Doppler and color Doppler. INDICATION Chest Pain M-Mode DIMENSIONS IVSd1.3 (0.7-1.1cm)Left Atrium (MM)5.0 (1.6-4.0cm) LVDd4.3 (3.5-5.6cm)Aortic Root3.2 (2.0-3.7cm) PWd0.8 (0.7-1.1cm)Aortic Cusp Exc.1.2 (1.5-2.0cm) IVSs1.3 cm LVDs2.4 (2.5-4.0cm) PWs1.2 cm Technically difficult study due to combative patient . Normal left ventricular chamber size, systolic function and wall motion to extent visualized. Left ventricular ejection fraction estimated to be 50%. Mild left ventricular hypertrophy . Moderate circumferential pericardial effusion. Mild left atrilar enlargement . Right cardiac chamber sizes are within normal limits. Aortic valve calcification with decreased cusp excursion c/w aortic stenosis. Thickened mitral valve leaflets with normal excursion. Mitral annulus and aortic root calcification. Pulmonic valve not well visualized. Normal tricuspid valve structure. IVC at size 1.8 cm with physiologic collapse . A color flow and spectral Doppler study was performed and revealed: Mild aortic regurgitation. Peak aortic valve gradient of 50 mm Hg and a mean of 26 mmHg. Aortic valve area 0.6 cm2 calculated by continuity equation, c/w severe A.S. Mild mitral regurgitation. Mitral diastolic velocities suggest reduced left ventricular relaxation c/w mild LV diastolic dysfunction (Grade I ). Mild tricuspid regurgitation. Tricuspid systolic velocities suggests peak right ventricular systolic pressure of 44mmHg,consistent with mild pulmonary HTN . Pulmonic regurgitation present . Note: notified.
--- NOTE | 2019-01-19 17:53 | Diagnostic Imaging Report ---
Indication: NG tube placement Comparison: None Single view of the abdomen obtained Findings: NG tube proximal port and tip are well situated several centimeters below the EG junction within the stomach lumen. Upper portions of bilateral ureteral stents are noted on this study. IMPRESSION: NG tube satisfactory in position
--- NOTE | 2019-01-19 17:57 | Diagnostic Imaging Report ---
Indication: Dyspnea Comparison: None A single view chest radiograph was obtained. Findings: Endotracheal tube is in the upper trachea approximately 7 cm above the sebastien. NG tube is in good position. Interstitial opacities likely pulmonary edema and a moderate to large right pleural effusion noted. IMPRESSION: Endotracheal tube is high in location. CHF
--- NOTE | 2019-01-19 18:00 | NUR ---
NURSE NOTES: Patient blood pressure 142/50, HR 69, RR 20, SpO2 100% on mechanical ventilator. Chest x-ray post attempted self-extubation shows that the ET tube is too high and OGT in good position. Radiologist ordered for the tube to be advanced 4cm. RT notified and will advance the tube. Repeat chest x-ray will be ordered at this time. Will follow up with repeat chest x-ray. Patient RASS score -1 at this time with fentanyl drip increased to 130mcg/hr. Patient repositioned at this time. Bed in low position with bed alarm on and call light in reach at this time.
[2019-01-19] MEDS: Metoprolol Tartrate 12.5mg TAB NG SCH (18:33)
--- NOTE | 2019-01-19 19:16 | NUR ---
RESPIRATORY NOTE: Received pt orally intubated on vent settings of AC/VC RR 16, Vt 450. FIO2 40%, and peep +5. Pt is intubated with 7.5 size ett at 24 at the lip. ETT secured by anchor fast. ABG scheduled at 1999. Pt on bilateral restraints. Ambu bag on the bed side. Vent is plugged into red outlet. Will continue to monitor
--- NOTE | 2019-01-19 19:29 | Diagnostic Imaging Report ---
Indication: Malpositioned endotracheal tube. The tube was repositioned. Respiratory failure. Dyspnea. Comparison: 17:08 A single view chest radiograph was obtained. Findings: 18:48 time of current exam. Endotracheal tube is 1 cm above the sebastien in good position. NG tube is stable in good position. No change otherwise. IMPRESSION: Endotracheal tube in good position
--- NOTE | 2019-01-19 19:40 | NUR ---
HAND-OFF: Report given to TESHA Mock. Patient RASS -2 on Fentanyl 130mcg/hr at this time. Still awaiting repeat chest x-ray to verify ET tube placement. Feeding held at this time for repeat chest x-ray result. Endorsed to follow up.
--- NOTE | 2019-01-19 19:46 | NUR ---
NURSE NOTES: pt orally intubated o2 sat 100 o/o usama soft wrest restraint nan complaint on fent drip at 120 mg/hr reposition and suction
[2019-01-19] MEDS: Atorvastatin 80mg tab NG SCH (20:42)
[2019-01-19] MEDS: Dyna-Hex 2% Top Sol 2oz TOPIC SCH (20:42)
--- NOTE | 2019-01-19 22:00 | NUR ---
NURSE NOTES: reposition and suction tube feeding started at 10 cc /hr verify with 2 rn ngt position no urinary out put
[2019-01-20] VITALS (37 sets, daily range): BP systolic 74–150; BP diastolic 18–88
--- NOTE | 2019-01-20 | NUR ---
NURSE NOTES: asleep on fent drip at 130mcg/hr hr 54-59 sb
[2019-01-20] MEDS: cefTRIAXone 1gm/D5W 55ml IVPB SCH ×2 (00:10)
--- NOTE | 2019-01-20 02:00 | NUR ---
NURSE NOTES: blader scan done 50 cc iin and out cath insertion not done
--- NOTE | 2019-01-20 03:51 | Consultation ---
DATE OF CONSULTATION: 01/19/2019 CARDIOLOGY CONSULTATION CONSULTING PHYSICIAN: Sawyer Christie M.D. REFERRING PHYSICIAN: Danis Conley M.D. ADDITIONAL REFERRING PHYSICIAN: David Villa M.D. REASON FOR CONSULTATION: Congestive heart failure and elevated troponin. HISTORY OF PRESENT ILLNESS: The patient is an 83-year-old gentleman with history of end-stage renal disease on hemodialysis, was admitted for lethargy and was found to be in presumed metabolic acidosis, large right-sided pleural effusion. The patient missed dialysis. He presented with increased lethargy. The patient was intubated in the ER and was admitted to intensive care unit. Also noted to have elevated troponin. Cardiology consultation was obtained for further evaluation. REVIEW OF SYSTEMS: Cannot be obtained. PAST MEDICAL HISTORY: 1. Hypertension. 2. End-stage renal disease, on hemodialysis. FAMILY HISTORY: Noncontributory. SOCIAL HISTORY: [facility] resident. Does not smoke or drink alcohol. PHYSICAL EXAMINATION: VITAL SIGNS: Show blood pressure of , pulse is , respirations 18, and he is afebrile. HEAD AND NECK: Shows positive JVD. He is orally intubated. LUNGS: Coarse rhonchi. CARDIOVASCULAR: Regular S1 and S2 with no gallop. ABDOMEN: Soft. EXTREMITIES: A 1+ pitting edema. LABORATORY DATA: White count 7.7, hemoglobin 9.9, hematocrit of 29, and platelet count 183. Sodium is 136, potassium 3.5, BUN of 35, creatinine , glucose of 73. Troponin is 0.123 and 0.151. ASSESSMENT AND PLAN: 1. Elevated troponin, possible acute coronary syndrome. Elevated troponin, however, could be due to dialysis. The patient will be on Lipitor and aspirin and add low-dose beta-winnie to his medical regimen. We will get an echocardiogram. 2. Respiratory failure. Echocardiogram will be repeated, likely due to volume overload. The patient will be getting dialysis. 3. Hypertension on amlodipine 5 mg daily and add metoprolol to the medical regimen. The patient will be getting hemodialysis also. 4. End-stage renal disease, on hemodialysis. 5. Respiratory failure, on the ventilator. 6. Large right-sided pleural effusion. 7. renal failure. Thank you very much for allowing me to participate in the care of this patient. Please do not hesitate to contact for any questions regarding my evaluation. Sincerely, Sawyer Christie M.D. DR: Caty JOB#: [id number] CC:
--- NOTE | 2019-01-20 03:51 | History and Physical Report ---
DATE OF ADMISSION: 01/19/2019 REASON FOR ADMISSION: 1. Hyperkalemia. 2. Respiratory failure. CONSULTANTS: 1. Rambo Llanos M.D., Pulmonary. 2. Sawyer Christie M.D., Cardiology. HISTORY OF PRESENT ILLNESS: The patient is an 83-year-old gentleman with multiple chronic medical problems on hemodialysis three times a week. He was brought in due to acute encephalopathy, lethargy by EMS. He had missed dialysis because of his worsening condition today. Upon presentation, noted to be hyperkalemic at 5.7. He was having difficulty breathing. With an elevated pCO2. He was intubated and placed on mechanical ventilation and transferred to the intensive care unit. ALLERGIES: Morphine. PAST MEDICAL HISTORY: 1. End-stage renal disease, on hemodialysis. 2. Hyperlipidemia. 3. Hypertension. 4. Secondary hyperparathyroidism. 5. Hypothyroidism. FAMILY HISTORY: Positive for diabetes and hypertension. PAST SURGICAL HISTORY: Dialysis access placement left and right AV shunt. REVIEW OF SYSTEMS: Cannot obtain as the patient intubated, sedated, on mechanical ventilation. LABORATORY AND DIAGNOSTIC DATA: Laboratories dated January 19, 2019, sodium 138, potassium 5.7, BUN 75, creatinine 8.8. BNP greater than 35,000. Hemoglobin 9.9, white cell count 7.7, and platelet count 183. The patient noted to have pleural effusion. PHYSICAL EXAMINATION: VITAL SIGNS: Blood pressure 148/56, respiratory rate 16, pulse 60, temperature 97.4. GENERAL: The patient intubated, sedated, mechanical ventilation. HEENT: Extraocular muscles intact. No lymphadenopathy noted. Oropharyngeal mucosa is clear and dry. CARDIOVASCULAR: S1, S2. No rubs or gallops. PULMONARY: Mild upper airway rhonchi with decreased breath sounds in bilateral lower lobes. ABDOMEN: Nondistended and nontender. EXTREMITIES: No edema noted. ASSESSMENT AND PLAN: 1. End-stage renal disease. The patient was emergently dialyzed overnight. 2. Severe hyperkalemia, potassium 5.7. The patient was emergently dialyzed overnight. 3. Respiratory failure, hypercapnic in origin with a pCO2 142. Much improved. The patient intubated, sedated on mechanical ventilation. 4. Hypertension. We will adjust medications as deemed appropriate. 5. Hypothyroidism. We will continue Synthroid. 6. DVT prophylaxis. Heparin subcutaneous. David Villa MD DR: Ayan JOB#: [id number] CC:
--- NOTE | 2019-01-20 04:00 | NUR ---
NURSE NOTES: complete bed bath done oral care done reposition and suction
[2019-01-20 05:18] LABS: HEMOGLOBIN 9.8 G/DL (14.2-18.0); MEAN CORPUSCULAR VOLUME 101 FL (80-99); PLATELET COUNT 181 K/UL (150-450); RED BLOOD COUNT 2.98 M/UL (4.70-6.10); RED CELL DISTRIBUTION WIDTH 15.2 % (11.6-14.8); WHITE BLOOD COUNT 8.8 K/UL (4.8-10.8)
[2019-01-20 05:51] LABS: ALANINE AMINOTRANSFERASE 20 U/L (12-78); ALBUMIN 2.2 G/DL (3.4-5.0); ALBUMIN/GLOBULIN RATIO 0.6 (1.0-2.7); ALKALINE PHOSPHATASE 102 U/L (46-116); ANION GAP 7 mmol/L (5-15); ASPARTATE AMINO TRANSFERASE 37 U/L (15-37); BILIRUBIN,TOTAL 0.4 MG/DL (0.2-1.0); BLOOD UREA NITROGEN 59 mg/dL (7-18); CARBON DIOXIDE 29 MMOL/L (21-32); CHLORIDE 99 MMOL/L (98-107); CREATININE 7.6 MG/DL (0.55-1.30); POTASSIUM 4.5 MMOL/L (3.5-5.1); SODIUM 135 MMOL/L (136-145)
[2019-01-20] MEDS: Levothyroxine 125mcg tab NG SCH (05:57)
--- NOTE | 2019-01-20 07:28 | NUR ---
HAND-OFF: Report given to michael mccarty using sbar.
--- NOTE | 2019-01-20 07:30 | NUR ---
NURSE NOTES: Received change of shift report from Jefry PARKINSON. Pt is lightly sedated on RASS score -2, while on Fentanyl drip currently at 130mcg/hr. Pt is orally intubated, ETT 7.5 at 24cm right lipline with vent settings at AC16, VT450, Peep 5.0, FIO2 40% with O2sat at 100% and bilateral diminished breath sounds on auscultation. ammunition assembly laborer displays SB with heart rate fluctuating in the upper 50's. Weak peripheral pulses on palpation with no edema noted. Oral gastric tube in place with feeding Nepro 1.8 infusing at a current rate of 30ml/hr. Pt is tolerating feeding well with no residual noted. Abdomen is round, soft, nontender to touch with hypoactive bowel sounds on auscultation. Pt has condom-cath in place currently with zero urine output. Bilateral soft wrist restraints are in place to prevent pt from self extubation due to pt attempting during previous shift and being at high risk to reattempt currently. Skin integrity at restraint site is within normal limits. Bed is locked with three side rails up, head of bed at 30 degrees, bed in lowest position and call light within reach. Will continue to monitor pt and follow plan of care per MD orders and protocol.
--- NOTE | 2019-01-20 08:20 | NUR ---
NURSE NOTES: ECG was done at bedside per Dr Christei's order. ECG tracing showed Sinus Bradycardia with right bundle branch block, same as the previous and current readings from the electronic operator. Bladder scan was also done per Dr Villa's order; 1st scan resulted in 173ml, 2nd scan was repeated immediately for confirmation was 234ml and 3rd scan for confirmation was also 234ml; will be reported to MD.
--- NOTE | 2019-01-20 08:35 | Critical Care Progress Note ---
Assessment/Plan Assessment/Plan Impression: Respiratory failure with hypoxia and hypercapnia Large right pleural effusion End stage renal disease on HD Pulmonary edema Hyperkalemia Anemia in chronic kidney disease Urinary tract infection Acute coronary syndrome Plan AC ventilation, hypervent Wean FIO2 as able Right US guided thoracentesis ordered HD per Renal Monitor labs keep negative antibiotics pressors as needed NGT feeds DVT prophylaxis medications/laboratory data/nursing notes/ICU care reviewed in detail note reviewed and edited care discussed with RN and RT ICU time spent 40 minutes Critical Care - Subjective ROS Limited/Unobtainable: Yes Condition: critical EKG Rhythm: Sinus Rhythm I&O: Intake and Output 01/19/19 01/20/19 19:00 07:00 Intake Total 155.5 ml 415 ml Output Total 2000 ml Balance -1844.5 ml 415 ml Intake Oral 0 ml Free Water 60 ml IV Total 95.5 ml 185 ml Tube Feeding 60 ml 170 ml Output Hemodialysis UF 2000 ml # Voids 20 Critical Care - Objective ET-Tube: 7.5 ET Position: 24 Last 24 Hour Vital Signs Date Time Temp Pulse Resp B/P (MAP) Pulse Ox O2 Delivery O2 Flow Rate FiO2 01/20/19 07:51 55 18 40 01/20/19 07:33 98.6 01/20/19 07:03 20 Mechanical Ventilator 40 01/20/19 07:00 56 20 141/46 (77) 100 01/20/19 06:30 56 20 131/48 (75) 100 01/20/19 06:00 22 Mechanical Ventilator 40 01/20/19 06:00 55 20 136/41 (72) 100 01/20/19 05:58 137/42 01/20/19 05:30 56 20 137/42 (73) 100 01/20/19 05:00 20 Mechanical Ventilator 01/20/19 05:00 56 20 136/43 (74) 100 01/20/19 04:59 58 16 40 01/20/19 04:30 56 20 131/48 (75) 100 01/20/19 04:00 58 01/20/19 04:00 98.6 54 20 130/46 (74) 100 01/20/19 04:00 20 Mechanical Ventilator 40 01/20/19 04:00 Mechanical Ventilator 01/20/19 04:00 40 01/20/19 03:30 63 22 150/46 (80) 100 01/20/19 03:14 59 20 40 01/20/19 03:00 53 20 147/26 (66) 100 01/20/19 03:00 21 Mechanical Ventilator 40 01/20/19 02:30 53 20 127/21 (56) 100 01/20/19 02:00 20 Mechanical Ventilator 40 01/20/19 02:00 53 21 129/18 (55) 100 01/20/19 01:30 54 20 119/26 (57) 100 01/20/19 01:00 53 17 119/26 (57) 100 01/20/19 01:00 17 Mechanical Ventilator 40 01/20/19 00:50 16 Mechanical Ventilator 40 01/20/19 00:49 63 17 40 01/20/19 00:30 53 17 126/26 (59) 100 01/20/19 00:00 40 01/20/19 00:00 60 01/20/19 00:00 98.4 53 17 119/23 (55) 100 01/20/19 00:00 17 Mechanical Ventilator 40 01/20/19 00:00 100/23 01/20/19 00:00 Mechanical Ventilator 01/19/19 23:30 53 17 100/22 (48) 100 01/19/19 23:01 15 40 01/19/19 23:00 53 17 110/80 (90) 100 01/19/19 22:54 56 16 40 01/19/19 22:00 56 17 128/24 (58) 100 01/19/19 21:30 56 17 110/26 (54) 100 01/19/19 21:00 56 17 127/30 (62) 100 01/19/19 21:00 17 Mechanical Ventilator 40 01/19/19 20:30 57 16 135/28 (63) 100 01/19/19 20:30 57 16 40 01/19/19 20:00 40 01/19/19 20:00 98.8 59 17 130/24 (59) 100 01/19/19 20:00 60 01/19/19 20:00 16 Mechanical Ventilator 40 01/19/19 20:00 Mechanical Ventilator 01/19/19 19:30 60 16 105/25 (51) 100 01/19/19 19:15 65 17 40 01/19/19 19:00 18 Mechanical Ventilator 40 01/19/19 19:00 63 16 113/39 (63) 100 01/19/19 18:45 74 17 153/53 (86) 100 01/19/19 18:33 66 152/136 01/19/19 18:33 152/136 01/19/19 18:30 65 20 153/53 (86) 100 01/19/19 18:30 18 Mechanical Ventilator 40 01/19/19 18:15 69 18 153/53 (86) 100 01/19/19 18:00 16 Mechanical Ventilator 40 01/19/19 18:00 69 17 142/50 (80) 100 01/19/19 17:51 70 19 40 01/19/19 17:45 63 17 113/96 (102) 100 01/19/19 17:30 62 17 131/40 (70) 100 01/19/19 17:15 61 16 125/36 (65) 100 01/19/19 17:00 68 17 169/49 (89) 100 01/19/19 17:00 Mechanical Ventilator 40 01/19/19 16:45 63 17 133/28 (63) 100 01/19/19 16:30 65 17 137/30 (65) 100 01/19/19 16:15 69 18 123/61 (81) 100 01/19/19 16:00 98.4 75 18 114/43 (66) 100 01/19/19 16:00 Mechanical Ventilator 01/19/19 16:00 18 Mechanical Ventilator 40 01/19/19 16:00 40 01/19/19 16:00 69 01/19/19 15:45 73 19 125/86 (99) 100 01/19/19 15:30 63 17 140/47 (78) 100 01/19/19 15:15 62 16 105/53 (70) 100 01/19/19 15:15 18 Mechanical Ventilator 40 01/19/19 15:10 18 Mechanical Ventilator 40 01/19/19 15:05 18 Mechanical Ventilator 40 01/19/19 15:01 64 18 40 01/19/19 15:00 62 17 122/50 (74) 100 01/19/19 15:00 18 Mechanical Ventilator 40 01/19/19 14:55 18 Mechanical Ventilator 40 01/19/19 14:50 18 Mechanical Ventilator 40 01/19/19 14:45 64 17 133/44 (73) 100 01/19/19 14:45 20 Mechanical Ventilator 40 01/19/19 14:40 20 Mechanical Ventilator 40 01/19/19 14:31 18 Mechanical Ventilator 40 01/19/19 14:30 66 17 102/65 (77) 100 01/19/19 14:00 65 16 125/49 (74) 100 01/19/19 13:57 40 01/19/19 13:30 68 19 128/49 (75) 100 01/19/19 13:25 68 19 50 01/19/19 13:00 67 21 92/72 (79) 100 01/19/19 12:44 61 153/53 01/19/19 12:44 153/53 01/19/19 12:30 61 17 125/61 (82) 100 01/19/19 12:00 61 01/19/19 12:00 Mechanical Ventilator 01/19/19 12:00 40 01/19/19 12:00 98.4 61 19 153/53 (86) 100 01/19/19 11:30 61 21 150/57 (88) 100 01/19/19 11:08 63 20 50 01/19/19 11:00 63 21 150/51 (84) 100 01/19/19 10:30 65 20 161/63 (95) 100 01/19/19 10:00 63 19 158/60 (92) 100 01/19/19 09:30 58 17 141/75 (97) 100 01/19/19 09:06 58 18 50 01/19/19 09:00 58 18 128/52 (77) 100 Labs: Labs Test 01/18/19 23:00 01/18/19 23:42 01/18/19 23:45 01/19/19 01:05 White Blood Count 9.1 K/UL (4.8-10.8) Red Blood Count 3.38 M/UL (4.70-6.10) Hemoglobin 11.3 G/DL (14.2-18.0) Hematocrit 34.3 % (42.0-52.0) Mean Corpuscular Volume 102 FL (80-99) Mean Corpuscular Hemoglobin 33.4 PG (27.0-31.0) Mean Corpuscular Hemoglobin Concent 32.8 G/DL (32.0-36.0) Red Cell Distribution Width 14.9 % (11.6-14.8) Platelet Count 297 K/UL (150-450) Mean Platelet Volume 5.5 FL (6.5-10.1) Neutrophils (%) (Auto) 78.3 % (45.0-75.0) Lymphocytes (%) (Auto) 10.7 % (20.0-45.0) Monocytes (%) (Auto) 6.9 % (1.0-10.0) Eosinophils (%) (Auto) 3.0 % (0.0-3.0) Basophils (%) (Auto) 1.0 % (0.0-2.0) Prothrombin Time 10.6 SEC (9.30-11.50) Prothromb Time International Ratio 1.0 (0.9-1.1) Activated Partial Thromboplast Time 32 SEC (23-33) Sodium Level 130 MMOL/L (136-145) Potassium Level 5.7 MMOL/L (3.5-5.1) Chloride Level 93 MMOL/L (98-107) Carbon Dioxide Level 30 MMOL/L (21-32) Anion Gap 7 mmol/L (5-15) Blood Urea Nitrogen 75 mg/dL (7-18) Creatinine 8.8 MG/DL (0.55-1.30) Estimat Glomerular Filtration Rate mL/min (>60) Glucose Level 121 MG/DL (74-106) Calcium Level 8.8 MG/DL (8.5-10.1) Total Bilirubin 0.4 MG/DL (0.2-1.0) Aspartate Amino Transf (AST/SGOT) 38 U/L (15-37) Alanine Aminotransferase (ALT/SGPT) 22 U/L (12-78) Alkaline Phosphatase 141 U/L (46-116) Total Creatine Kinase 232 U/L (26-308) Creatine Kinase MB 8.5 NG/ML (0.0-3.6) Creatine Kinase MB Relative Index 3.6 Troponin I 0.136 ng/mL (0.000-0.056) Pro-B-Type Natriuretic Peptide > 18415 pg/mL (0-125) Total Protein 8.8 G/DL (6.4-8.2) Albumin 3.0 G/DL (3.4-5.0) Globulin 5.8 g/dL Albumin/Globulin Ratio 0.5 (1.0-2.7) Arterial Blood pH 7.133 (7.350-7.450) 6.979 (7.350-7.450) Arterial Blood Partial Pressure CO2 95.2 mmHg (35.0-45.0) 142.5 mmHg (35.0-45.0) Arterial Blood Partial Pressure O2 85.0 mmHg (75.0-100.0) 62.4 mmHg (75.0-100.0) Arterial Blood HCO3 31.2 mmol/L (22.0-26.0) 32.7 mmol/L (22.0-26.0) Arterial Blood Oxygen Saturation 93.4 % (95-100) 79.0 % (95-100) Arterial Blood Base Excess 0.1 (-2-2) -2.0 (-2-2) Nino Test Positive Positive Urine Color Red Urine Appearance Turbid Urine pH 8 (4.5-8.0) Urine Specific [place] 1.010 (1.005-1.035) Urine Protein 4+ (NEGATIVE) Urine Glucose (UA) 1+ (NEGATIVE) Urine Ketones Negative (NEGATIVE) Urine Blood 5+ (NEGATIVE) Urine Nitrite Negative (NEGATIVE) Urine Bilirubin Negative (NEGATIVE) Urine Urobilinogen Normal MG/DL (0.0-1.0) Urine Leukocyte Esterase 3+ (NEGATIVE) Urine RBC Tntc /HPF (0 - 0) Urine WBC 20-30 /HPF (0 - 0) Urine Squamous Epithelial Cells None /LPF (NONE/OCC) Urine Bacteria Few /HPF (NONE) Test 01/19/19 04:18 01/19/19 07:35 01/19/19 10:30 01/19/19 13:20 Arterial Blood pH 7.322 (7.350-7.450) 7.500 (7.350-7.450) Arterial Blood Partial Pressure CO2 59.9 mmHg (35.0-45.0) 32.9 mmHg (35.0-45.0) Arterial Blood Partial Pressure O2 442.2 mmHg (75.0-100.0) 172.7 mmHg (75.0-100.0) Arterial Blood HCO3 30.3 mmol/L (22.0-26.0) 25.3 mmol/L (22.0-26.0) Arterial Blood Oxygen Saturation 99.8 % (95-100) 99.1 % (95-100) Arterial Blood Base Excess 3.3 (-2-2) 2.4 (-2-2) Nino Test Positive Positive White Blood Count 7.7 K/UL (4.8-10.8) Red Blood Count 2.98 M/UL (4.70-6.10) Hemoglobin 9.9 G/DL (14.2-18.0) Hematocrit 29.4 % (42.0-52.0) Mean Corpuscular Volume 99 FL (80-99) Mean Corpuscular Hemoglobin 33.1 PG (27.0-31.0) Mean Corpuscular Hemoglobin Concent 33.5 G/DL (32.0-36.0) Red Cell Distribution Width 15.5 % (11.6-14.8) Platelet Count 183 K/UL (150-450) Mean Platelet Volume 6.0 FL (6.5-10.1) Neutrophils (%) (Auto) % (45.0-75.0) Lymphocytes (%) (Auto) % (20.0-45.0) Monocytes (%) (Auto) % (1.0-10.0) Eosinophils (%) (Auto) % (0.0-3.0) Basophils (%) (Auto) % (0.0-2.0) Differential Total Cells Counted 100 Neutrophils % (Manual) 87 % (45-75) Lymphocytes % (Manual) 4 % (20-45) Monocytes % (Manual) 5 % (1-10) Eosinophils % (Manual) 0 % (0-3) Basophils % (Manual) 0 % (0-2) Band Neutrophils 4 % (0-8) Platelet Estimate Adequate Platelet Morphology Normal Hypochromasia 1+ Anisocytosis 1+ Prothrombin Time 10.7 SEC (9.30-11.50) Prothromb Time International Ratio 1.0 (0.9-1.1) Activated Partial Thromboplast Time 29 SEC (23-33) Sodium Level 136 MMOL/L (136-145) Potassium Level 3.5 MMOL/L (3.5-5.1) Chloride Level 99 MMOL/L (98-107) Carbon Dioxide Level 31 MMOL/L (21-32) Anion Gap 6 mmol/L (5-15) Blood Urea Nitrogen 35 mg/dL (7-18) Creatinine 4.4 MG/DL (0.55-1.30) Estimat Glomerular Filtration Rate mL/min (>60) Glucose Level 73 MG/DL (74-106) Calcium Level 8.3 MG/DL (8.5-10.1) Total Bilirubin 0.4 MG/DL (0.2-1.0) Aspartate Amino Transf (AST/SGOT) 39 U/L (15-37) Alanine Aminotransferase (ALT/SGPT) 19 U/L (12-78) Alkaline Phosphatase 120 U/L (46-116) Troponin I 0.151 ng/mL (0.000-0.056) Total Protein 7.4 G/DL (6.4-8.2) Albumin 2.4 G/DL (3.4-5.0) Globulin 5.0 g/dL Albumin/Globulin Ratio 0.5 (1.0-2.7) Hepatitis B Surface Antigen Negative (Negative) Lactate Dehydrogenase 258 U/L (81-234) Test 01/19/19 20:10 01/20/19 04:20 Arterial Blood pH 7.380 (7.350-7.450) Arterial Blood Partial Pressure CO2 48.6 mmHg (35.0-45.0) Arterial Blood Partial Pressure O2 114.9 mmHg (75.0-100.0) Arterial Blood HCO3 28.1 mmol/L (22.0-26.0) Arterial Blood Oxygen Saturation 98.0 % (95-100) Arterial Blood Base Excess 2.5 (-2-2) Nino Test Positive White Blood Count 8.8 K/UL (4.8-10.8) Red Blood Count 2.98 M/UL (4.70-6.10) Hemoglobin 9.8 G/DL (14.2-18.0) Hematocrit 30.0 % (42.0-52.0) Mean Corpuscular Volume 101 FL (80-99) Mean Corpuscular Hemoglobin 33.1 PG (27.0-31.0) Mean Corpuscular Hemoglobin Concent 32.9 G/DL (32.0-36.0) Red Cell Distribution Width 15.2 % (11.6-14.8) Platelet Count 181 K/UL (150-450) Mean Platelet Volume 5.4 FL (6.5-10.1) Neutrophils (%) (Auto) % (45.0-75.0) Lymphocytes (%) (Auto) % (20.0-45.0) Monocytes (%) (Auto) % (1.0-10.0) Eosinophils (%) (Auto) % (0.0-3.0) Basophils (%) (Auto) % (0.0-2.0) Sodium Level 135 MMOL/L (136-145) Potassium Level 4.5 MMOL/L (3.5-5.1) Chloride Level 99 MMOL/L (98-107) Carbon Dioxide Level 29 MMOL/L (21-32) Anion Gap 7 mmol/L (5-15) Blood Urea Nitrogen 59 mg/dL (7-18) Creatinine 7.6 MG/DL (0.55-1.30) Estimat Glomerular Filtration Rate mL/min (>60) Glucose Level 55 MG/DL (74-106) Calcium Level 8.0 MG/DL (8.5-10.1) Total Bilirubin 0.4 MG/DL (0.2-1.0) Aspartate Amino Transf (AST/SGOT) 37 U/L (15-37) Alanine Aminotransferase (ALT/SGPT) 20 U/L (12-78) Alkaline Phosphatase 102 U/L (46-116) Troponin I 0.201 ng/mL (0.000-0.056) Total Protein 6.1 G/DL (6.4-8.2) Albumin 2.2 G/DL (3.4-5.0) Globulin 3.9 g/dL Albumin/Globulin Ratio 0.6 (1.0-2.7) Objective: WDWN NAD reduced breath sounds R>L without rhonchi or wheeze [id number] without MRG NABS nontender no HSM no CCE nonfocal Micro: Microbiology Date/Time Source Procedure Growth Status 01/19/19 00:20 Rectum Received 01/18/19 23:22 Arm Left Blood Culture - Preliminary NO GROWTH AFTER 24 HOURS Resulted 01/18/19 23:07 Arm Left Blood Culture - Preliminary NO GROWTH AFTER 24 HOURS Resulted Rambo Llanos MD Jan 20, 2019 08:35
[2019-01-20] MEDS: Heparin 5000 units/ml inj SUBQ SCH ×2 (09:00→20:48)
[2019-01-20] MEDS: Aspirin Baby 81mg NG SCH (09:00)
[2019-01-20] MEDS: Metoprolol Tartrate 12.5mg TAB NG SCH ×2 (09:00→18:00)
--- NOTE | 2019-01-20 09:00 | NUR ---
RESPIRATORY NOTE: Received pt orally intubated on vent settings of AC 16, Vt 450. FIO2 40%, and peep +5. Pt is intubated with ETT 7.5 size at 24 lips line, secured by anchor fast. Pt is sedated, Pt on bilateral wrist restraints to prevent self extubation. Alarms are set and audiblr, ambu bag on the bed side, vent is plugged into red outlet. Vent circuits and suction tubing are secured and out of the way. Will try to wean pt later after thoracentesis procedure and off sedation. TESHA uRbio aware. Will continue to monitor
--- NOTE | 2019-01-20 09:05 | NUR ---
NURSE NOTES: Fentanyl drip was titrated down/decreased to 110mcg/hr to maintain pt on -2 light sedation on RASS score.
[2019-01-20] MEDS: Calcitriol 0.25mcg Cap NG SCH (09:06)
--- NOTE | 2019-01-20 09:15 | NUR ---
NURSE NOTES: AM meds were administered with the exception of Heparin and ASA held for pending thoracentesis planned for later this morning. Also Metoprolol was held due to pt's heart rate being in the lower 50's. Oral care was done. Pt was repositioned, and currently with stable VS and in no apparent distress.
--- NOTE | 2019-01-20 10:00 | NUR ---
NURSE NOTES: Pt is maintained on -2 light sedation per RASS score while on Fentanyl drip, currently at 110mcg/hr. RT was at bedside this morning to attempt weaning, however per RT pt unable to be weaned right now, resp rate increased significantly. Pt is scheduled for bedside ultrasound guided thoracentesis, which is planned for after 1100 today per civil drafting technician. Plan is to maintain pt on -2 light sedation for the procedure, then we can titrate Fentanyl down further and reattempt weaning once pt is more awake.
--- NOTE | 2019-01-20 11:10 | Cardiac Electrophysiology PN ---
Assessment/Plan Assessment/Plan 1. Elevated troponin, possible acute coronary syndrome but could be due to dialysis. The patient will be on Lipitor and aspirin and add Lopressor 12.5 bid Echocardiogram EF 50% 2. Respiratory failure. Due to volume overload. The patient will be getting dialysis. 3. Hypertension on amlodipine 5 mg daily and metoprolol The patient will be getting hemodialysis also. 4. End-stage renal disease, on hemodialysis. 5. Respiratory failure, on the ventilator. 6. Large right-sided pleural effusion.Thoracentesis pending DW RN Subjective Subjective On the Vent AC 16 TV 450. Thoracentesis pending. Off pressor. On fentanyl drip Objective Last 24 Hour Vital Signs Date Time Temp Pulse Resp B/P (MAP) Pulse Ox O2 Delivery O2 Flow Rate FiO2 01/20/19 11:00 56 18 129/43 (71) 100 01/20/19 10:30 57 18 134/47 (76) 100 01/20/19 10:00 19 Mechanical Ventilator 100 01/20/19 10:00 55 18 127/46 (73) 100 01/20/19 09:09 55 141/46 01/20/19 09:00 19 Mechanical Ventilator 100 01/20/19 09:00 56 19 146/44 (78) 100 01/20/19 09:00 56 19 40 01/20/19 08:30 58 19 138/72 (94) 100 01/20/19 08:00 56 01/20/19 08:00 40 01/20/19 08:00 19 Mechanical Ventilator 100 01/20/19 08:00 Mechanical Ventilator 01/20/19 08:00 98.8 57 19 74/51 (59) 100 01/20/19 07:51 55 18 40 01/20/19 07:33 98.6 01/20/19 07:03 20 Mechanical Ventilator 40 01/20/19 07:00 56 20 141/46 (77) 100 01/20/19 06:30 56 20 131/48 (75) 100 01/20/19 06:00 22 Mechanical Ventilator 40 01/20/19 06:00 55 20 136/41 (72) 100 01/20/19 05:58 137/42 01/20/19 05:30 56 20 137/42 (73) 100 01/20/19 05:00 20 Mechanical Ventilator 01/20/19 05:00 56 20 136/43 (74) 100 01/20/19 04:59 58 16 40 01/20/19 04:30 56 20 131/48 (75) 100 01/20/19 04:00 58 01/20/19 04:00 98.6 54 20 130/46 (74) 100 01/20/19 04:00 20 Mechanical Ventilator 40 01/20/19 04:00 Mechanical Ventilator 01/20/19 04:00 40 01/20/19 03:30 63 22 150/46 (80) 100 01/20/19 03:14 59 20 40 01/20/19 03:00 53 20 147/26 (66) 100 01/20/19 03:00 21 Mechanical Ventilator 40 01/20/19 02:30 53 20 127/21 (56) 100 01/20/19 02:00 20 Mechanical Ventilator 40 01/20/19 02:00 53 21 129/18 (55) 100 01/20/19 01:30 54 20 119/26 (57) 100 01/20/19 01:00 53 17 119/26 (57) 100 01/20/19 01:00 17 Mechanical Ventilator 40 01/20/19 00:50 16 Mechanical Ventilator 40 01/20/19 00:49 63 17 40 01/20/19 00:30 53 17 126/26 (59) 100 01/20/19 00:00 40 01/20/19 00:00 60 01/20/19 00:00 98.4 53 17 119/23 (55) 100 01/20/19 00:00 17 Mechanical Ventilator 40 01/20/19 00:00 100/23 01/20/19 00:00 Mechanical Ventilator 01/19/19 23:30 53 17 100/22 (48) 100 01/19/19 23:01 15 40 01/19/19 23:00 53 17 110/80 (90) 100 01/19/19 22:54 56 16 40 01/19/19 22:00 56 17 128/24 (58) 100 01/19/19 21:30 56 17 110/26 (54) 100 01/19/19 21:00 56 17 127/30 (62) 100 01/19/19 21:00 17 Mechanical Ventilator 40 01/19/19 20:30 57 16 135/28 (63) 100 01/19/19 20:30 57 16 40 01/19/19 20:00 40 01/19/19 20:00 98.8 59 17 130/24 (59) 100 01/19/19 20:00 60 01/19/19 20:00 16 Mechanical Ventilator 40 01/19/19 20:00 Mechanical Ventilator 01/19/19 19:30 60 16 105/25 (51) 100 01/19/19 19:15 65 17 40 01/19/19 19:00 18 Mechanical Ventilator 40 01/19/19 19:00 63 16 113/39 (63) 100 01/19/19 18:45 74 17 153/53 (86) 100 01/19/19 18:33 66 152/136 01/19/19 18:33 152/136 01/19/19 18:30 65 20 153/53 (86) 100 01/19/19 18:30 18 Mechanical Ventilator 40 01/19/19 18:15 69 18 153/53 (86) 100 01/19/19 18:00 16 Mechanical Ventilator 40 01/19/19 18:00 69 17 142/50 (80) 100 01/19/19 17:51 70 19 40 01/19/19 17:45 63 17 113/96 (102) 100 01/19/19 17:30 62 17 131/40 (70) 100 01/19/19 17:15 61 16 125/36 (65) 100 01/19/19 17:00 68 17 169/49 (89) 100 01/19/19 17:00 Mechanical Ventilator 40 01/19/19 16:45 63 17 133/28 (63) 100 01/19/19 16:30 65 17 137/30 (65) 100 01/19/19 16:15 69 18 123/61 (81) 100 01/19/19 16:00 98.4 75 18 114/43 (66) 100 01/19/19 16:00 Mechanical Ventilator 01/19/19 16:00 18 Mechanical Ventilator 40 01/19/19 16:00 40 01/19/19 16:00 69 01/19/19 15:45 73 19 125/86 (99) 100 01/19/19 15:30 63 17 140/47 (78) 100 01/19/19 15:15 62 16 105/53 (70) 100 01/19/19 15:15 18 Mechanical Ventilator 40 01/19/19 15:10 18 Mechanical Ventilator 40 01/19/19 15:05 18 Mechanical Ventilator 40 01/19/19 15:01 64 18 40 01/19/19 15:00 62 17 122/50 (74) 100 01/19/19 15:00 18 Mechanical Ventilator 40 01/19/19 14:55 18 Mechanical Ventilator 40 01/19/19 14:50 18 Mechanical Ventilator 40 01/19/19 14:45 64 17 133/44 (73) 100 01/19/19 14:45 20 Mechanical Ventilator 40 01/19/19 14:40 20 Mechanical Ventilator 40 01/19/19 14:31 18 Mechanical Ventilator 40 01/19/19 14:30 66 17 102/65 (77) 100 01/19/19 14:00 65 16 125/49 (74) 100 01/19/19 13:57 40 01/19/19 13:30 68 19 128/49 (75) 100 01/19/19 13:25 68 19 50 01/19/19 13:00 67 21 92/72 (79) 100 01/19/19 12:44 61 153/53 01/19/19 12:44 153/53 01/19/19 12:30 61 17 125/61 (82) 100 01/19/19 12:00 61 01/19/19 12:00 Mechanical Ventilator 01/19/19 12:00 40 01/19/19 12:00 98.4 61 19 153/53 (86) 100 01/19/19 11:30 61 21 150/57 (88) 100 01/19/19 11:08 63 20 50 Intake and Output 01/19/19 01/20/19 19:00 07:00 Intake Total 155.5 ml 415 ml Output Total 2000 ml Balance -1844.5 ml 415 ml Intake Oral 0 ml Free Water 60 ml IV Total 95.5 ml 185 ml Tube Feeding 60 ml 170 ml Hemodialysis UF 2000 ml # Voids 20 Laboratory Tests Test 01/19/19 13:20 01/19/19 20:10 01/20/19 04:20 Arterial Blood pH 7.500 (7.350-7.450) 7.380 (7.350-7.450) Arterial Blood Partial Pressure CO2 32.9 mmHg (35.0-45.0) L 48.6 mmHg (35.0-45.0) H Arterial Blood Partial Pressure O2 172.7 mmHg (75.0-100.0) H 114.9 mmHg (75.0-100.0) H Arterial Blood HCO3 25.3 mmol/L (22.0-26.0) 28.1 mmol/L (22.0-26.0) H Arterial Blood Oxygen Saturation 99.1 % (95-100) 98.0 % (95-100) Arterial Blood Base Excess 2.4 (-2-2) H 2.5 (-2-2) H Nino Test Positive Positive White Blood Count 8.8 K/UL (4.8-10.8) Red Blood Count 2.98 M/UL (4.70-6.10) L Hemoglobin 9.8 G/DL (14.2-18.0) L Hematocrit 30.0 % (42.0-52.0) L Mean Corpuscular Volume 101 FL (80-99) H Mean Corpuscular Hemoglobin 33.1 PG (27.0-31.0) H Mean Corpuscular Hemoglobin Concent 32.9 G/DL (32.0-36.0) Red Cell Distribution Width 15.2 % (11.6-14.8) H Platelet Count 181 K/UL (150-450) Mean Platelet Volume 5.4 FL (6.5-10.1) L Neutrophils (%) (Auto) % (45.0-75.0) Lymphocytes (%) (Auto) % (20.0-45.0) Monocytes (%) (Auto) % (1.0-10.0) Eosinophils (%) (Auto) % (0.0-3.0) Basophils (%) (Auto) % (0.0-2.0) Sodium Level 135 MMOL/L (136-145) L Potassium Level 4.5 MMOL/L (3.5-5.1) Chloride Level 99 MMOL/L (98-107) Carbon Dioxide Level 29 MMOL/L (21-32) Anion Gap 7 mmol/L (5-15) Blood Urea Nitrogen 59 mg/dL (7-18) H Creatinine 7.6 MG/DL (0.55-1.30) #H Estimat Glomerular Filtration Rate mL/min (>60) Glucose Level 55 MG/DL (74-106) L Calcium Level 8.0 MG/DL (8.5-10.1) L Total Bilirubin 0.4 MG/DL (0.2-1.0) Aspartate Amino Transf (AST/SGOT) 37 U/L (15-37) Alanine Aminotransferase (ALT/SGPT) 20 U/L (12-78) Alkaline Phosphatase 102 U/L (46-116) Troponin I 0.201 ng/mL (0.000-0.056) Total Protein 6.1 G/DL (6.4-8.2) L Albumin 2.2 G/DL (3.4-5.0) L Globulin 3.9 g/dL Albumin/Globulin Ratio 0.6 (1.0-2.7) L Microbiology Date/Time Source Procedure Growth Status 01/18/19 23:45 Urine,Clean Catch Urine Culture - Preliminary NO GROWTH AFTER 24 HOURS Resulted 01/19/19 00:20 Rectum Received 01/18/19 23:22 Arm Left Blood Culture - Preliminary NO GROWTH AFTER 24 HOURS Resulted 01/18/19 23:07 Arm Left Blood Culture - Preliminary NO GROWTH AFTER 24 HOURS Resulted Objective HEAD AND NECK: Shows positive JVD. He is orally intubated. LUNGS: Coarse rhonchi. CARDIOVASCULAR: Regular S1 and S2 with no gallop. ABDOMEN: Soft. EXTREMITIES: A 1+ pitting edema. Sawyer Christie MD Jan 20, 2019 11:09
--- NOTE | 2019-01-20 11:30 | NUR ---
NURSE NOTES: Pt remains -2 lightly sedated on RASS score. VS stable. Ultrasound techs are at bedside preparing pt for bedside thoracentesis, and waiting for radiologist arrival.
--- NOTE | 2019-01-20 12:30 | NUR ---
NURSE NOTES: Bedside ultrasound-guided thoracentesis was done by radiologist, 3L of fluid was removed per small electric engine technician. Follow up chest xray order is in place. During the procedure pt was maintained on RASS score of -2 light sedation. Pt tolerated procedure well with slight elevation of BP, which went back to baseline reading. Temp now 98.9F axillary. Vent settings maintained at AC 16, VT450, Peep 5.0, FIO2 40% with O2sat at 100%.
--- NOTE | 2019-01-20 12:31 | Nephrology Progress Note ---
Assessment/Plan Assessment/Plan: 1. End-stage renal disease. - HD tomorrow 2. Severe hyperkalemia- resolved post HD 3. Respiratory failure, hypercapnic in origin with a pCO2 142. - intubated per Pulm mgmt 4. Hypertension. We will adjust medications as deemed appropriate. 5. Hypothyroidism. We will continue Synthroid. 6. DVT prophylaxis. Heparin subcutaneous. 7. PL effusion- s/p 3L right thoracentesis Subjective Date patient seen: Jan 20, 2019 Time patient seen: 12:28 ROS Limited/Unobtainable: Yes Allergies: Coded Allergies: MORPHINE (Verified Allergy, Unknown, 01/18/19) Subjective patient remains intubated. 3L thoracentesis Objective Last 24 Hour Vital Signs Date Time Temp Pulse Resp B/P (MAP) Pulse Ox O2 Delivery O2 Flow Rate FiO2 01/20/19 12:02 22 Mechanical Ventilator 100 01/20/19 12:00 64 01/20/19 12:00 40 01/20/19 12:00 Mechanical Ventilator 01/20/19 11:00 19 Mechanical Ventilator 100 01/20/19 11:00 56 18 129/43 (71) 100 01/20/19 10:45 56 17 40 01/20/19 10:30 57 18 134/47 (76) 100 01/20/19 10:00 19 Mechanical Ventilator 100 01/20/19 10:00 55 18 127/46 (73) 100 01/20/19 09:09 55 141/46 01/20/19 09:00 19 Mechanical Ventilator 100 01/20/19 09:00 56 19 146/44 (78) 100 01/20/19 09:00 56 19 40 01/20/19 08:30 58 19 138/72 (94) 100 01/20/19 08:00 56 01/20/19 08:00 40 01/20/19 08:00 19 Mechanical Ventilator 100 01/20/19 08:00 Mechanical Ventilator 01/20/19 08:00 98.8 57 19 74/51 (59) 100 01/20/19 07:51 55 18 40 01/20/19 07:33 98.6 01/20/19 07:03 20 Mechanical Ventilator 40 01/20/19 07:00 56 20 141/46 (77) 100 01/20/19 06:30 56 20 131/48 (75) 100 01/20/19 06:00 22 Mechanical Ventilator 40 01/20/19 06:00 55 20 136/41 (72) 100 01/20/19 05:58 137/42 01/20/19 05:30 56 20 137/42 (73) 100 01/20/19 05:00 20 Mechanical Ventilator 01/20/19 05:00 56 20 136/43 (74) 100 01/20/19 04:59 58 16 40 01/20/19 04:30 56 20 131/48 (75) 100 01/20/19 04:00 58 01/20/19 04:00 98.6 54 20 130/46 (74) 100 01/20/19 04:00 20 Mechanical Ventilator 40 01/20/19 04:00 Mechanical Ventilator 01/20/19 04:00 40 01/20/19 03:30 63 22 150/46 (80) 100 01/20/19 03:14 59 20 40 01/20/19 03:00 53 20 147/26 (66) 100 01/20/19 03:00 21 Mechanical Ventilator 40 01/20/19 02:30 53 20 127/21 (56) 100 01/20/19 02:00 20 Mechanical Ventilator 40 01/20/19 02:00 53 21 129/18 (55) 100 01/20/19 01:30 54 20 119/26 (57) 100 01/20/19 01:00 53 17 119/26 (57) 100 01/20/19 01:00 17 Mechanical Ventilator 40 01/20/19 00:50 16 Mechanical Ventilator 40 01/20/19 00:49 63 17 40 01/20/19 00:30 53 17 126/26 (59) 100 01/20/19 00:00 40 01/20/19 00:00 60 01/20/19 00:00 98.4 53 17 119/23 (55) 100 01/20/19 00:00 17 Mechanical Ventilator 40 01/20/19 00:00 100/23 01/20/19 00:00 Mechanical Ventilator 01/19/19 23:30 53 17 100/22 (48) 100 01/19/19 23:01 15 40 01/19/19 23:00 53 17 110/80 (90) 100 01/19/19 22:54 56 16 40 01/19/19 22:00 56 17 128/24 (58) 100 01/19/19 21:30 56 17 110/26 (54) 100 01/19/19 21:00 56 17 127/30 (62) 100 01/19/19 21:00 17 Mechanical Ventilator 40 01/19/19 20:30 57 16 135/28 (63) 100 01/19/19 20:30 57 16 40 01/19/19 20:00 40 01/19/19 20:00 98.8 59 17 130/24 (59) 100 01/19/19 20:00 60 01/19/19 20:00 16 Mechanical Ventilator 40 01/19/19 20:00 Mechanical Ventilator 01/19/19 19:30 60 16 105/25 (51) 100 01/19/19 19:15 65 17 40 01/19/19 19:00 18 Mechanical Ventilator 40 01/19/19 19:00 63 16 113/39 (63) 100 01/19/19 18:45 74 17 153/53 (86) 100 01/19/19 18:33 66 152/136 01/19/19 18:33 152/136 01/19/19 18:30 65 20 153/53 (86) 100 01/19/19 18:30 18 Mechanical Ventilator 40 01/19/19 18:15 69 18 153/53 (86) 100 01/19/19 18:00 16 Mechanical Ventilator 40 01/19/19 18:00 69 17 142/50 (80) 100 01/19/19 17:51 70 19 40 01/19/19 17:45 63 17 113/96 (102) 100 01/19/19 17:30 62 17 131/40 (70) 100 01/19/19 17:15 61 16 125/36 (65) 100 01/19/19 17:00 68 17 169/49 (89) 100 01/19/19 17:00 Mechanical Ventilator 40 01/19/19 16:45 63 17 133/28 (63) 100 01/19/19 16:30 65 17 137/30 (65) 100 01/19/19 16:15 69 18 123/61 (81) 100 01/19/19 16:00 98.4 75 18 114/43 (66) 100 01/19/19 16:00 Mechanical Ventilator 01/19/19 16:00 18 Mechanical Ventilator 40 01/19/19 16:00 40 01/19/19 16:00 69 01/19/19 15:45 73 19 125/86 (99) 100 01/19/19 15:30 63 17 140/47 (78) 100 01/19/19 15:15 62 16 105/53 (70) 100 01/19/19 15:15 18 Mechanical Ventilator 40 01/19/19 15:10 18 Mechanical Ventilator 40 01/19/19 15:05 18 Mechanical Ventilator 40 01/19/19 15:01 64 18 40 01/19/19 15:00 62 17 122/50 (74) 100 01/19/19 15:00 18 Mechanical Ventilator 40 01/19/19 14:55 18 Mechanical Ventilator 40 01/19/19 14:50 18 Mechanical Ventilator 40 01/19/19 14:45 64 17 133/44 (73) 100 01/19/19 14:45 20 Mechanical Ventilator 40 01/19/19 14:40 20 Mechanical Ventilator 40 01/19/19 14:31 18 Mechanical Ventilator 40 01/19/19 14:30 66 17 102/65 (77) 100 01/19/19 14:00 65 16 125/49 (74) 100 01/19/19 13:57 40 01/19/19 13:30 68 19 128/49 (75) 100 01/19/19 13:25 68 19 50 01/19/19 13:00 67 21 92/72 (79) 100 01/19/19 12:44 61 153/53 01/19/19 12:44 153/53 01/19/19 12:30 61 17 125/61 (82) 100 Intake and Output 01/19/19 01/20/19 19:00 07:00 Intake Total 155.5 ml 415 ml Output Total 2000 ml Balance -1844.5 ml 415 ml Intake Oral 0 ml Free Water 60 ml IV Total 95.5 ml 185 ml Tube Feeding 60 ml 170 ml Hemodialysis UF 2000 ml # Voids 20 Laboratory Tests 01/19/19 13:20: Arterial Blood pH 7.500H, Arterial Blood Partial Pressure CO2 32.9L, Arterial Blood Partial Pressure O2 172.7H, Arterial Blood HCO3 25.3, Arterial Blood Oxygen Saturation 99.1, Arterial Blood Base Excess 2.4H, Nino Test Positive 01/19/19 20:10: Arterial Blood pH 7.380, Arterial Blood Partial Pressure CO2 48.6H, Arterial Blood Partial Pressure O2 114.9H, Arterial Blood HCO3 28.1H, Arterial Blood Oxygen Saturation 98.0, Arterial Blood Base Excess 2.5H, Nino Test Positive 01/20/19 04:20: White Blood Count 8.8, Red Blood Count 2.98L, Hemoglobin 9.8L, Hematocrit 30.0L , Mean Corpuscular Volume 101H, Mean Corpuscular Hemoglobin 33.1H, Mean Corpuscular Hemoglobin Concent 32.9, Red Cell Distribution Width 15.2H, Platelet Count 181, Mean Platelet Volume 5.4L, Neutrophils (%) (Auto) , Lymphocytes (%) (Auto) , Monocytes (%) (Auto) , Eosinophils (%) (Auto) , Basophils (%) (Auto) , Sodium Level 135L, Potassium Level 4.5, Chloride Level 99 , Carbon Dioxide Level 29, Anion Gap 7, Blood Urea Nitrogen 59H, Creatinine 7.6# H, Estimat Glomerular Filtration Rate , Glucose Level 55L, Calcium Level 8.0L, Total Bilirubin 0.4, Aspartate Amino Transf (AST/SGOT) 37, Alanine Aminotransferase (ALT/SGPT) 20, Alkaline Phosphatase 102, Troponin I 0.201H, Total Protein 6.1L, Albumin 2.2L, Globulin 3.9, Albumin/Globulin Ratio 0.6L Height (Feet): 5 Height (Inches): 6.00 Weight (Pounds): 145 General Appearance: other - intubated EENT: normal ENT inspection Neck: normal alignment, supple Cardiovascular: normal rate, regular rhythm Respiratory/Chest: rhonchi - bilaterally Abdomen: non tender, soft Edema: no edema noted Arm (L), no edema noted Arm (R), no edema noted Leg (L), no edema noted Leg (R), no edema noted Pedal (L), no edema noted Pedal (R), no edema noted Generalized David Villa MD Jan 20, 2019 12:30
--- NOTE | 2019-01-20 12:35 | NUR ---
NURSE NOTES: Post thoracentesis chest xray follow up result is reviewed/noted, shows no pneumothorax.
--- NOTE | 2019-01-20 12:46 | Diagnostic Imaging Report ---
Indications: Pleural effusion Technique: Ultrasound used to localize optimal puncture site. Sterile prepping and draping of the right lower chest performed. Local anesthesia with 1% lidocaine. Dermatotomy made. Puncture of the pleural space using thoracentesis needle. Stylet removed. Catheter placed to vacuum bottle suction. Fluid was aspirated. Patient tolerated procedure well, without immediate complication. Findings: Followup sonography demonstrates complete resolution of pleural fluid. Followup chest x-ray is pending. Impression: Successful ultrasound-guided right thoracentesis, yielding 3 liters of fluid
--- NOTE | 2019-01-20 12:48 | Diagnostic Imaging Report ---
Indication: Dyspnea Comparison: 01/19/2019 A single view chest radiograph was obtained. Findings: Endotracheal tube is in good position as is NG tube. Cardiomegaly and pulmonary vascular congestion demonstrated and showing some improvement. Right pleural effusion was aspirated by volume of about 3 L. There is no pneumothorax. IMPRESSION: Postthoracentesis chest x-ray showing no pneumothorax
--- NOTE | 2019-01-20 13:20 | NUR ---
RADIOLOGY DEPT., CHEST X-RAY POST THORA COMPLETED.-P.DYE
--- NOTE | 2019-01-20 13:30 | NUR ---
NURSE NOTES: OG feeding Nepro 1.8 bottle/tubing was replaced at 1230. Oral care done and pt was repositioned. BP was sporadically elevated to diastolic above 200 with facial frowning noted on pt and restless movements of extremities. Fentanyl drip was titrated up to 160mcg/hr during the last hour, and PRN dose of IV Hydralazine 10mg was administered however only 1/4 of the dose. While IV Hydralazine was being slowly pushed, pt's BP fluctuated down to normal baseline rate; the remaining Hydralazine dose in the syringe was discarded/wasted in the sharps container at the pt's bedside. Pt is now maintained at -2 light sedation on RASS score, currently resting in no apparent distress, while on Fentanyl drip at 110mcg/hr at this minute.
--- NOTE | 2019-01-20 15:00 | NUR ---
NURSE NOTES: Fentanyl drip has been titrated down to 90mcg/hr, pt remains at -2 light sedation RASS score. VS stable. Pt was repositioned and is now resting in no apparent distress.
--- NOTE | 2019-01-20 15:03 | NUR ---
ELECTRONIC TECHNICIANMAT ROLLER SI: RESP FAILURE ETT/VENT SUPPORT,PULMONARY EDEMA S/P THORACENTESIS T. 98.9 HR 55 RR 20 B/P 127/46 AC 16 TV 450 FIO2 100% PEEP 5 GLU 55 TROP 0.201 THORACENTESIS- 3LITERS REMOVED IS: CEFTRIAXONE IV FENTANYL GTT ICU STATUS
--- NOTE | 2019-01-20 15:11 | NUR ---
*-* INSURANCE *-* ALL CLINICALS AND REVIEWS HAVE BEEN FAXED TO: [employer] [facility] (BUT IS AFTER HRS CM, WILL NOTIFY CM SO THEY MAY REVIEW ACCT) #[phone] FAX#[phone] REVIEWS/CLINICALS
--- NOTE | 2019-01-20 17:00 | NUR ---
NURSE NOTES: Fentanyl bag was replaced with a new bag, and previous bag was taken down to the pharmacy. Pt has been cleaned, gown/linens changed, dressing changed. Oral care done. VS stable.
[2019-01-20] MEDS ORDERED: CALAMINE LOTIO177 ML TP (17:44)
[2019-01-20] MEDS ORDERED: ROCATROL0.25 MCG PO (17:47)
[2019-01-20] MEDS ORDERED: CALCIUM ACETAT667 M1 PO (17:48)
[2019-01-20] MEDS ORDERED: NEXIUM40 M2 ORAL (17:50)
[2019-01-20] MEDS ORDERED: HYDROXYZINE HCL25 M1 PO (17:52)
[2019-01-20] MEDS ORDERED: MELATONIN1 MG PO (17:55)
[2019-01-20] MEDS ORDERED: ACETAMINOPHEN325 M1 ORAL (17:59)
--- NOTE | 2019-01-20 18:53 | NUR ---
NURSE NOTES: Pt is currently on Fentanyl drip at 70mcg/hr, -2 light sedation RASS score. VS stable. Lower extremities elevated on pillows. Afebrile and tolerating OG feeding well with no residual noted. Condom cath remains in place with no output. Pt is scheduled to have bedside hemodialysis tomorrow by [facility] dialysis; center was called and spoke with Omer to set up HD for tomorrow. Pt's son called the nurse's station and was updated regarding pt's status. Per pt's son's request, office contact info was provided for Dr Villa.
--- NOTE | 2019-01-20 19:00 | NUR ---
RESPIRATORY NOTE:RESPIRATORY NOTE: Pt recieved on set values, no SOB or discomfort noted, ett tube @ 24 lip line, 7.5 ETT tube on the left side, pt is alert, sx PRN, alarms are on x audible x vent plugged into red outlet, will continue to monitor pts progress
--- NOTE | 2019-01-20 19:30 | NUR ---
NURSE NOTES:Received pt orally intubated on AC mode, sedated with Fentanyl drip at 70mcg/hr infusing to left Forearm,SB-SR with BBB on the monitor, Bp stable, afbrile.Pt with 2+ arm and leg edema. Voiding well via condom , very minimal amt of zonia yellow urine. Monitor I and O. Monitor lyts. Tolerated OGT fdg at this time, Nepro 1.8 at 40cc/hr.residuals from 4-10ml. Also Pt has big ecchymsis on his Rt fLANK mDS are aware, Will continue to monitor.
--- NOTE | 2019-01-20 19:38 | NUR ---
HAND-OFF: Report given to Emma PARKINSON. VS stable. Endorsed plan of care.
[2019-01-20] MEDS: Dyna-Hex 2% Top Sol 2oz TOPIC SCH (20:27)
[2019-01-20] MEDS: Atorvastatin 80mg tab NG SCH (20:49)
--- NOTE | 2019-01-20 21:30 | NUR ---
NURSE NOTES:Pt remained sedated with RASS score <2. Pt easily ariousable to tactile stimulation,
--- NOTE | 2019-01-20 23:30 | NUR ---
NURSE NOTES:Partial bath given. Pt arousable to tactile stimulation.
[2019-01-21] VITALS (35 sets, daily range): BP systolic 100–171; BP diastolic 44–72
[2019-01-21] MEDS: cefTRIAXone 1gm/D5W 55ml IVPB SCH ×2 (00:38)
--- NOTE | 2019-01-21 04:00 | NUR ---
NURSE NOTES:Fentanyl drip down to 60 mcg/min.
[2019-01-21 04:56] LABS: HEMATOCRIT 29.5 % (42.0-52.0); HEMOGLOBIN 9.6 G/DL (14.2-18.0); MEAN CORPUSCULAR VOLUME 102 FL (80-99); PLATELET COUNT 165 K/UL (150-450); RED BLOOD COUNT 2.89 M/UL (4.70-6.10); RED CELL DISTRIBUTION WIDTH 15.3 % (11.6-14.8)
--- NOTE | 2019-01-21 05:00 | NUR ---
NURSE NOTES: Fentanyl drip down to 50mcg.min, to maintain Raas score -2
[2019-01-21 05:16] LABS: ALANINE AMINOTRANSFERASE 14 U/L (12-78); ALBUMIN 1.8 G/DL (3.4-5.0); ALBUMIN/GLOBULIN RATIO 0.4 (1.0-2.7); ALKALINE PHOSPHATASE 109 U/L (46-116); ANION GAP 6 mmol/L (5-15); ASPARTATE AMINO TRANSFERASE 27 U/L (15-37); BILIRUBIN,TOTAL 0.3 MG/DL (0.2-1.0); BLOOD UREA NITROGEN 71 mg/dL (7-18); CALCIUM 7.8 MG/DL (8.5-10.1); CARBON DIOXIDE 29 MMOL/L (21-32); CHLORIDE 99 MMOL/L (98-107); CREATININE 8.6 MG/DL (0.55-1.30); POTASSIUM 4.8 MMOL/L (3.5-5.1); SODIUM 134 MMOL/L (136-145)
[2019-01-21] MEDS: Levothyroxine 125mcg tab NG SCH (06:28)
--- NOTE | 2019-01-21 07:00 | NUR ---
NURSE NOTES:Fentanyl drip down to 40mcg/min. to maintain Raas score <2. No resp distress noted.
--- NOTE | 2019-01-21 07:05 | NUR ---
RESPIRATORY NOTE: Received pt on ordered vent settings. Pt airway is patent and secured. No resp distress noted. Suctioned pt prn. Vent alarms are on and audible. Vent is plugged into red outlet. BVM at bedside. Will monitor pt progress.
--- NOTE | 2019-01-21 07:25 | NUR ---
HAND-OFF: Report given to Joanne PARKINSON.
--- NOTE | 2019-01-21 07:30 | NUR ---
NURSE NOTES: Received change of shift report from Emma PARKINSON. Pt is lightly sedated on RASS score -2, while on Fentanyl drip currently at 40mcg/hr. Pt is orally intubated, ETT 7.5 at 24cm left lipline with vent settings at AC16, VT450, Peep 5.0, FIO2 40% with O2sat at 100% and bilateral diminished breath sounds on auscultation. word processor operator displays SR with heart rate currently 60. Weak peripheral pulses with +2 edema on bilateral upper extremities. Oral gastric tube in place with feeding Nepro 1.8 infusing at a goal rate of 40ml/hr. Pt is tolerating feeding well with no residual noted. Abdomen is round, soft, nontender to touch with hypoactive bowel sounds on auscultation. Pt has condom-cath in place currently with zero urine output. Bilateral soft wrist restraints are in place to prevent pt from self extubation due to pt attempting during previous shift and being at high risk to reattempt currently. Skin integrity at restraint site is within normal limits. Bed is locked with three side rails up, head of bed at 30 degrees, bed in lowest position and call light within reach. Will continue to monitor pt and follow plan of care per MD orders and protocol.
--- NOTE | 2019-01-21 08:00 | NUR ---
NURSE NOTES: Fentanyl drip has been titrated down to 30mcg/hr to maintain -2 light sedation on RASS score. VS stable.
--- NOTE | 2019-01-21 08:13 | Diagnostic Imaging Report ---
Indication: Reason For Exam: MALPOSITN Technique: Single AP view of the chest. Comparison: Same day chest radiograph Findings: Cardiomediastinal silhouette is unchanged. Unchanged large right pleural effusion with associated airspace disease. Persistent mild interstitial edema. No significant change in position of endotracheal tube. Interval placement of enteric tube. Redemonstration of acute inferior right rib fractures. IMPRESSION: 1. Interval placement of enteric tube. 2. Unchanged endotracheal tube position.
--- NOTE | 2019-01-21 08:14 | Diagnostic Imaging Report ---
Indication: Reason For Exam: LINE Technique: 2 AP views of the abdomen Comparison: Same day chest radiograph Findings: Bowel gas pattern is nonobstructive. Enteric tube terminates below the diaphragm in the stomach. Bilateral ureteral stents in place. There is a moderate to large right pleural effusion with associated airspace disease. There are acute mildly displaced fractures of the right anterior ninth and 10th ribs. IMPRESSION: 1. Enteric tube in good position. 2. Moderate to large pleural effusion with associated airspace disease, as described on same-day chest radiograph. 3. Acute mildly displaced right ninth and tenth rib fractures; rib radiograph series is recommended for more complete evaluation if there is suspicion of additional fractures.
--- NOTE | 2019-01-21 08:14 | Diagnostic Imaging Report ---
Indication: Reason For Exam: SOB Technique: Single AP view of the chest. Comparison: Chest radiograph dated 01/18/2019 Findings: The cardiomediastinal silhouette is unchanged. Reinsertion of mild interstitial edema with large right pleural effusion and associated consolidations/atelectasis. Interval placement of endotracheal tube, which terminates 2 cm from the sebastien. No pneumothorax. Again seen are multiple acute inferior right rib fractures. IMPRESSION: 1. Interval placement of endotracheal tube. 2. Persistent large right pleural effusion with associated airspace disease likely representing atelectasis or pneumonia.
--- NOTE | 2019-01-21 08:14 | Diagnostic Imaging Report ---
Indication: Reason For Exam: SOB Technique: Single AP view of the chest. Comparison: None. Findings: The heart is enlarged. Low lung volumes. There is near complete opacification of the right hemithorax, likely due to combination of large right pleural effusion and atelectasis. Likely trace left pleural effusion. There is mild interstitial edema. No pneumothorax. IMPRESSION: 1. Large right pleural effusion with associated atelectasis; superimposed pneumonia is not excluded. 2. Mild interstitial edema. 3. Cardiomegaly.
[2019-01-21] MEDS: Aspirin Baby 81mg NG SCH (08:17)
[2019-01-21] MEDS: Heparin 5000 units/ml inj SUBQ SCH ×2 (08:19→21:00)
[2019-01-21] MEDS: Metoprolol Tartrate 12.5mg TAB NG SCH ×3 (08:20→20:59)
[2019-01-21] MEDS: Calcitriol 0.25mcg Cap NG SCH (08:22)
--- NOTE | 2019-01-21 09:00 | NUR ---
NURSE NOTES: Fentanyl drip has been titrated down to 10mcg/hr -2 light sedation RASS score. AM meds were administered with the except of BP meds in anticipation of hemodialysis treatment scheduled today. VS stable. Pt was repositioned, oral care done. Pt is resting in no apparent distress.
--- NOTE | 2019-01-21 09:30 | NUR ---
NURSE NOTES: Fentanyl drip has been stopped to allow pt to wake up, and attempt weaning from vent. VS stable.
[2019-01-21] MEDS ORDERED: NS 275ml ONE ×2 (10:53→14:34)
--- NOTE | 2019-01-21 11:00 | NUR ---
NURSE NOTES: Pt is asleep currently, remains drowsy/sedated when attempting to wake up pt. Fentanyl drip remains on hold currently. BP has slowly elevated, to current reading of 175/61 (BP meds were held this morning in anticipation of bedside hemodialysis treatment today) by [facility] dialysis. Dialysis center has been contacted yesterday and this morning, awaiting for orthopedic nurse to call back to confirm treatment time. Pt has been repositioned, with bilateral extremities elevated on pillows. Recent temp 99F axillary, blanket and top cover sheet are off now for cooling measures.
--- NOTE | 2019-01-21 11:26 | NUR ---
NURSE NOTES: RT at bedside, attempted to wean pt, however pt remains sleepy/drowsy/sedated. Per RT, will attempt to wean pt this afternoon.
--- NOTE | 2019-01-21 12:27 | Nephrology Progress Note ---
Assessment/Plan Assessment/Plan: 1. End-stage renal disease. - HD today ordered 2. Severe hyperkalemia- resolved 3. Respiratory failure, hypercapnic in origin with a pCO2 142. - intubated, per Pulm mgmt - s/p thoracentesis 4. Hypertension. We will adjust medications as deemed appropriate. 5. Hypothyroidism. Synthroid. 6. DVT prophylaxis. Heparin subcutaneous. 7. PL effusion- s/p 3L right thoracentesis SW to review home situation Subjective Date patient seen: Jan 21, 2019 Time patient seen: 12:26 ROS Limited/Unobtainable: Yes Allergies: Coded Allergies: MORPHINE (Verified Allergy, Unknown, 01/18/19) Subjective patient remains intubated. Weaning in process Objective Last 24 Hour Vital Signs Date Time Temp Pulse Resp B/P (MAP) Pulse Ox O2 Delivery O2 Flow Rate FiO2 01/21/19 12:00 40 01/21/19 12:00 Mechanical Ventilator 01/21/19 11:05 67 22 40 01/21/19 11:00 64 19 163/60 (94) 100 01/21/19 10:00 64 21 148/55 (86) 100 01/21/19 09:30 63 21 165/63 (97) 100 01/21/19 09:30 18 Mechanical Ventilator 100 01/21/19 09:02 68 17 40 01/21/19 09:00 63 21 165/63 (97) 100 01/21/19 09:00 17 Mechanical Ventilator 100 01/21/19 08:54 98.8 01/21/19 08:30 64 19 145/57 (86) 100 01/21/19 08:24 17 Endotracheal Tube 100 01/21/19 08:00 Mechanical Ventilator 01/21/19 08:00 40 01/21/19 08:00 17 Mechanical Ventilator 100 01/21/19 08:00 99.0 62 19 131/53 (79) 100 01/21/19 08:00 65 01/21/19 07:30 64 19 126/46 (72) 100 01/21/19 07:05 67 19 40 01/21/19 07:00 65 20 136/53 (80) 100 01/21/19 07:00 17 Mechanical Ventilator 40 01/21/19 06:00 17 Mechanical Ventilator 40 01/21/19 06:00 64 18 141/55 (83) 100 01/21/19 06:00 69 18 140/55 (83) 100 01/21/19 05:30 69 18 132/51 (78) 100 01/21/19 05:16 69 17 40 01/21/19 05:00 18 Mechanical Ventilator 40 01/21/19 05:00 69 18 140/55 (83) 100 01/21/19 04:30 68 18 148/55 (86) 100 01/21/19 04:00 65 01/21/19 04:00 Mechanical Ventilator 01/21/19 04:00 18 Mechanical Ventilator 40 01/21/19 04:00 40 01/21/19 04:00 98.8 65 18 150/55 (86) 100 01/21/19 03:30 63 18 128/51 (76) 100 01/21/19 03:00 65 17 122/49 (73) 100 01/21/19 03:00 18 Mechanical Ventilator 40 01/21/19 02:40 64 17 40 01/21/19 02:30 64 17 118/50 (72) 100 01/21/19 02:00 65 17 122/49 (73) 100 01/21/19 02:00 20 Mechanical Ventilator 40 01/21/19 01:30 63 18 119/50 (73) 100 01/21/19 01:10 59 19 40 01/21/19 01:00 20 Mechanical Ventilator 100.0 01/21/19 01:00 63 18 122/50 (74) 100 01/21/19 00:30 62 18 120/49 (72) 100 01/21/19 00:00 Mechanical Ventilator 01/21/19 00:00 20 Mechanical Ventilator 40 01/21/19 00:00 99.0 62 18 122/49 (73) 100 01/21/19 00:00 40 01/21/19 00:00 61 01/20/19 23:30 63 19 114/46 (68) 100 01/20/19 23:00 60 18 40 01/20/19 23:00 60 19 111/43 (65) 100 01/20/19 23:00 18 Mechanical Ventilator 40 01/20/19 22:30 62 18 100/41 (60) 100 01/20/19 22:00 76 18 117/49 (71) 100 01/20/19 22:00 21 Mechanical Ventilator 40 01/20/19 22:00 17 Mechanical Ventilator 40 01/20/19 21:30 64 18 105/41 (62) 100 01/20/19 21:29 60 18 40 01/20/19 21:00 63 18 117/41 (66) 100 01/20/19 21:00 18 Mechanical Ventilator 40 01/20/19 20:30 59 19 129/48 (75) 100 01/20/19 20:00 Mechanical Ventilator 01/20/19 20:00 19 Mechanical Ventilator 40 01/20/19 20:00 59 01/20/19 20:00 40 01/20/19 20:00 98.4 57 19 103/38 (59) 100 01/20/19 19:22 57 18 40 01/20/19 19:00 18 Mechanical Ventilator 100 01/20/19 19:00 57 19 103/38 (59) 100 01/20/19 18:00 18 Mechanical Ventilator 100 01/20/19 18:00 58 18 119/44 (69) 100 01/20/19 17:01 56 17 40 01/20/19 17:00 62 20 137/52 (80) 100 01/20/19 16:52 16 Mechanical Ventilator 100 01/20/19 16:00 98.7 55 17 106/43 (64) 100 01/20/19 16:00 56 01/20/19 16:00 18 Mechanical Ventilator 100 01/20/19 16:00 Mechanical Ventilator 01/20/19 16:00 40 01/20/19 15:20 60 19 40 01/20/19 15:00 58 19 125/48 (73) 100 01/20/19 15:00 19 Mechanical Ventilator 100 01/20/19 14:00 18 Mechanical Ventilator 100 01/20/19 14:00 58 17 110/43 (65) 100 01/20/19 13:00 58 18 105/42 (63) 100 01/20/19 13:00 18 Mechanical Ventilator 100 01/20/19 12:50 63 20 40 01/20/19 12:48 247/200 01/20/19 12:30 20 Mechanical Ventilator 100 Intake and Output 01/20/19 01/21/19 19:00 07:00 Intake Total 767.5 ml 611 ml Output Total 50 ml 0 ml Balance 717.5 ml 611 ml Free Water 180 ml 30 ml IV Total 117.5 ml 141 ml Tube Feeding 470 ml 440 ml Output Urine Total 50 ml 0 ml Laboratory Tests 01/20/19 12:30: Body Fluid Glucose 78, Body Fluid Total Protein 4.1, Body Fluid Lactate Dehydrogenase 168 01/21/19 04:05: White Blood Count 10.0, Red Blood Count 2.89L, Hemoglobin 9.6L, Hematocrit 29.5L , Mean Corpuscular Volume 102H, Mean Corpuscular Hemoglobin 33.2H, Mean Corpuscular Hemoglobin Concent 32.6, Red Cell Distribution Width 15.3H, Platelet Count 165, Mean Platelet Volume 5.8L, Neutrophils (%) (Auto) , Lymphocytes (%) (Auto) , Monocytes (%) (Auto) , Eosinophils (%) (Auto) , Basophils (%) (Auto) , Sodium Level 134L, Potassium Level 4.8, Chloride Level 99 , Carbon Dioxide Level 29, Anion Gap 6, Blood Urea Nitrogen 71H, Creatinine 8.6H , Estimat Glomerular Filtration Rate , Glucose Level 131H, Calcium Level 7.8L, Total Bilirubin 0.3, Aspartate Amino Transf (AST/SGOT) 27, Alanine Aminotransferase (ALT/SGPT) 14, Alkaline Phosphatase 109, Total Protein 6.1L, Albumin 1.8L, Globulin 4.3, Albumin/Globulin Ratio 0.4L Height (Feet): 5 Height (Inches): 6.00 Weight (Pounds): 141 General Appearance: other - intubated EENT: normal ENT inspection Neck: normal alignment, supple Cardiovascular: normal rate, regular rhythm Respiratory/Chest: rhonchi - bilaterally Abdomen: non tender, soft Edema: no edema noted Arm (L), no edema noted Arm (R), no edema noted Leg (L), no edema noted Leg (R), no edema noted Pedal (L), no edema noted Pedal (R), no edema noted Generalized David Villa MD Jan 21, 2019 12:27
--- NOTE | 2019-01-21 13:30 | NUR ---
NURSE NOTES: rehabilitation assistant at bedside, HD treatment started. VS stable with slightly elevated BP. Pt remains afebrile. Pt has been repositioned. Fentanyl drip remains on hold.
--- NOTE | 2019-01-21 13:47 | Cardiac Electrophysiology PN ---
Assessment/Plan Assessment/Plan 1. Elevated troponin, possible ACS but likely due to dialysis. On Lipitor and aspirin and Lopressor 12.5 bid. EF 50% 2. Respiratory failure. Due to volume overload. On dialysis. 3. Hypertension on amlodipine 5 mg daily, metoprolol 12.5 bid and HD 4. End-stage renal disease, on hemodialysis. 5. Respiratory failure, on the ventilator. 6. Large right-sided pleural effusion. S/p 3 liters R Thoracentesis 01/20/19 MAGGIE RN Subjective Subjective On the Vent . Had 3 liters Thoracentesis from right lung yesterday. Off pressor. Off fentanyl drip now Objective Last 24 Hour Vital Signs Date Time Temp Pulse Resp B/P (MAP) Pulse Ox O2 Delivery O2 Flow Rate FiO2 01/21/19 12:00 40 01/21/19 12:00 Mechanical Ventilator 01/21/19 11:05 67 22 40 01/21/19 11:00 64 19 163/60 (94) 100 01/21/19 10:00 64 21 148/55 (86) 100 01/21/19 09:30 63 21 165/63 (97) 100 01/21/19 09:30 18 Mechanical Ventilator 100 01/21/19 09:02 68 17 40 01/21/19 09:00 63 21 165/63 (97) 100 01/21/19 09:00 17 Mechanical Ventilator 100 01/21/19 08:54 98.8 01/21/19 08:30 64 19 145/57 (86) 100 01/21/19 08:24 17 Endotracheal Tube 100 01/21/19 08:00 Mechanical Ventilator 01/21/19 08:00 40 01/21/19 08:00 17 Mechanical Ventilator 100 01/21/19 08:00 99.0 62 19 131/53 (79) 100 01/21/19 08:00 65 01/21/19 07:30 64 19 126/46 (72) 100 01/21/19 07:05 67 19 40 01/21/19 07:00 65 20 136/53 (80) 100 01/21/19 07:00 17 Mechanical Ventilator 40 01/21/19 06:00 17 Mechanical Ventilator 40 01/21/19 06:00 64 18 141/55 (83) 100 01/21/19 06:00 69 18 140/55 (83) 100 01/21/19 05:30 69 18 132/51 (78) 100 01/21/19 05:16 69 17 40 01/21/19 05:00 18 Mechanical Ventilator 40 01/21/19 05:00 69 18 140/55 (83) 100 01/21/19 04:30 68 18 148/55 (86) 100 01/21/19 04:00 65 01/21/19 04:00 Mechanical Ventilator 01/21/19 04:00 18 Mechanical Ventilator 40 01/21/19 04:00 40 01/21/19 04:00 98.8 65 18 150/55 (86) 100 01/21/19 03:30 63 18 128/51 (76) 100 01/21/19 03:00 65 17 122/49 (73) 100 01/21/19 03:00 18 Mechanical Ventilator 40 01/21/19 02:40 64 17 40 01/21/19 02:30 64 17 118/50 (72) 100 01/21/19 02:00 65 17 122/49 (73) 100 01/21/19 02:00 20 Mechanical Ventilator 40 01/21/19 01:30 63 18 119/50 (73) 100 01/21/19 01:10 59 19 40 01/21/19 01:00 20 Mechanical Ventilator 100.0 01/21/19 01:00 63 18 122/50 (74) 100 01/21/19 00:30 62 18 120/49 (72) 100 01/21/19 00:00 Mechanical Ventilator 01/21/19 00:00 20 Mechanical Ventilator 40 01/21/19 00:00 99.0 62 18 122/49 (73) 100 01/21/19 00:00 40 01/21/19 00:00 61 01/20/19 23:30 63 19 114/46 (68) 100 01/20/19 23:00 60 18 40 01/20/19 23:00 60 19 111/43 (65) 100 01/20/19 23:00 18 Mechanical Ventilator 40 01/20/19 22:30 62 18 100/41 (60) 100 01/20/19 22:00 76 18 117/49 (71) 100 01/20/19 22:00 21 Mechanical Ventilator 40 01/20/19 22:00 17 Mechanical Ventilator 40 01/20/19 21:30 64 18 105/41 (62) 100 01/20/19 21:29 60 18 40 01/20/19 21:00 63 18 117/41 (66) 100 01/20/19 21:00 18 Mechanical Ventilator 40 01/20/19 20:30 59 19 129/48 (75) 100 01/20/19 20:00 Mechanical Ventilator 01/20/19 20:00 19 Mechanical Ventilator 40 01/20/19 20:00 59 01/20/19 20:00 40 01/20/19 20:00 98.4 57 19 103/38 (59) 100 01/20/19 19:22 57 18 40 01/20/19 19:00 18 Mechanical Ventilator 100 01/20/19 19:00 57 19 103/38 (59) 100 01/20/19 18:00 18 Mechanical Ventilator 100 01/20/19 18:00 58 18 119/44 (69) 100 01/20/19 17:01 56 17 40 01/20/19 17:00 62 20 137/52 (80) 100 01/20/19 16:52 16 Mechanical Ventilator 100 01/20/19 16:00 98.7 55 17 106/43 (64) 100 01/20/19 16:00 56 01/20/19 16:00 18 Mechanical Ventilator 100 01/20/19 16:00 Mechanical Ventilator 01/20/19 16:00 40 01/20/19 15:20 60 19 40 01/20/19 15:00 58 19 125/48 (73) 100 01/20/19 15:00 19 Mechanical Ventilator 100 01/20/19 14:00 18 Mechanical Ventilator 100 01/20/19 14:00 58 17 110/43 (65) 100 Intake and Output 01/20/19 01/21/19 19:00 07:00 Intake Total 767.5 ml 611 ml Output Total 50 ml 0 ml Balance 717.5 ml 611 ml Free Water 180 ml 30 ml IV Total 117.5 ml 141 ml Tube Feeding 470 ml 440 ml Output Urine Total 50 ml 0 ml Laboratory Tests Test 01/21/19 04:05 White Blood Count 10.0 K/UL (4.8-10.8) Red Blood Count 2.89 M/UL (4.70-6.10) L Hemoglobin 9.6 G/DL (14.2-18.0) L Hematocrit 29.5 % (42.0-52.0) L Mean Corpuscular Volume 102 FL (80-99) H Mean Corpuscular Hemoglobin 33.2 PG (27.0-31.0) H Mean Corpuscular Hemoglobin Concent 32.6 G/DL (32.0-36.0) Red Cell Distribution Width 15.3 % (11.6-14.8) H Platelet Count 165 K/UL (150-450) Mean Platelet Volume 5.8 FL (6.5-10.1) L Neutrophils (%) (Auto) % (45.0-75.0) Lymphocytes (%) (Auto) % (20.0-45.0) Monocytes (%) (Auto) % (1.0-10.0) Eosinophils (%) (Auto) % (0.0-3.0) Basophils (%) (Auto) % (0.0-2.0) Sodium Level 134 MMOL/L (136-145) L Potassium Level 4.8 MMOL/L (3.5-5.1) Chloride Level 99 MMOL/L (98-107) Carbon Dioxide Level 29 MMOL/L (21-32) Anion Gap 6 mmol/L (5-15) Blood Urea Nitrogen 71 mg/dL (7-18) H Creatinine 8.6 MG/DL (0.55-1.30) H Estimat Glomerular Filtration Rate mL/min (>60) Glucose Level 131 MG/DL (74-106) H Calcium Level 7.8 MG/DL (8.5-10.1) L Total Bilirubin 0.3 MG/DL (0.2-1.0) Aspartate Amino Transf (AST/SGOT) 27 U/L (15-37) Alanine Aminotransferase (ALT/SGPT) 14 U/L (12-78) Alkaline Phosphatase 109 U/L (46-116) Total Protein 6.1 G/DL (6.4-8.2) L Albumin 1.8 G/DL (3.4-5.0) L Globulin 4.3 g/dL Albumin/Globulin Ratio 0.4 (1.0-2.7) L Microbiology Date/Time Source Procedure Growth Status 01/19/19 10:00 Sputum Gram Stain - Final Complete 01/19/19 10:00 Sputum Sputum Culture - Final NORMAL UPPER RESPIRATORY JEREMIAH PRESENT Complete 01/19/19 00:20 Nasal Nares MRSA Culture - Final NO METHICILLIN RESISTANT STAPH AUREUS... Complete 01/18/19 23:45 Urine,Clean Catch Urine Culture - Final NO GROWTH AFTER 48 HOURS Complete 01/19/19 00:20 Rectum - Final NO CARBAPENEM-RESISTANT ENTEROBACTERI... Complete 01/19/19 00:20 Rectum VRE Culture - Final NO VANCOMYCIN RESISTANT ENTEROCOCCUS ... Complete 01/18/19 23:22 Arm Left Blood Culture - Preliminary Staphylococcus Sp Coag Neg Resulted 01/18/19 23:07 Arm Left Blood Culture - Preliminary NO GROWTH AFTER 48 HOURS Resulted Objective HEAD AND NECK: Positive JVD. He is orally intubated. LUNGS: Coarse rhonchi. CARDIOVASCULAR: Regular S1 and S2 with no gallop. ABDOMEN: Soft. EXTREMITIES: 1+ pitting edema. Sawyer Christie MD Jan 21, 2019 13:47
[2019-01-21] MEDS ORDERED: Tubing IV Secondary IV ONE (14:34)
--- NOTE | 2019-01-21 15:12 | NUR ---
RD ASSESSMENT & RECOMMENDATIONS SEE CARE ACTIVITY FOR COMPLETE ASSESSMENT DAILY ESTIMATED NEEDS: Needs based on Critical care, HD/ 63.6kg 22-30 kcals/kg 9842-7849 total kcals 1.2-2 g protein/kg 76-127 g total protein 20-22 mL/kg 2157-7898 total fluid mLs NUTRITION DIAGNOSIS: * Swallowing difficulty R/T respiratory status as evidenced by orally intubated, on OGT feeding. * Increased kcal/prot needs R/T renal dysfunction as evidenced by ESRD dx, on HD. 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
--- NOTE | 2019-01-21 16:00 | NUR ---
NURSE NOTES: Bedside hemodialysis treatment is now near complete with total of 2L removed by HD RN. Pt is tolerating well with stable VS.
--- NOTE | 2019-01-21 16:21 | NUR ---
[employer]ed [employer] SI: Respiratory Failure (ETT/Vent Support), Pulmonary Edema S/P Thoracentesis BP:163/60 HR:64 RR:19 T:99.0 AC:16 TV:450 PEEP:5 FIO2:40% S/P Thoracentesis 01/20/19 (3 liters removed) IS:Rocephin IV Fentanyl Drip ICU [facility]
--- NOTE | 2019-01-21 17:00 | NUR ---
NURSE NOTES: Pt was seen by Dr Frausto at bedside. Order received to stop OG feeding at 0400 in preparation for AM weaning determination/trial. Pt is to remain off of sedation (if possible) ini preparation/anticipation for weaning. VS stable. Pt's son is also at bedside. Per pt's son's verbal report, "pt fell at SNF around 5am in the morning a few days before hospital admission, however did not report it to the SNF staff".
--- NOTE | 2019-01-21 18:30 | NUR ---
NURSE NOTES: Pt remains off Fentanyl drip, (currently on hold). VS stable while pt remains on same vent settings from this morning. Pt was cleaned, gown/linens changed, and pt was repositioned, bilateral extremities elevated on pillows.
--- NOTE | 2019-01-21 18:42 | Pulmonolgy Critical Care Note ---
Critical Care - Asmt/Plan Assessment/Plan: Pulmonary CCM Progress Note HPI Patient is a 83-year-old man with past medical history of chronic renal failure on hemodialysis. Admitted in lethargic state, note to have Respiratory and Metabolic acidosis, large right pleural effusion, Urinary Tract Infection. He previously missed dialysis because of increasing lethargy. At baseline he is confused but able to talk. No history available, per chart review no fever chills,no cough congestion, no pain complain, no vomiting. Noted to have elevated troponin Past Medical History: CKD on HD Past Surgical History: Bilateral AV shunt Assessment/Plan Impression: Respiratory failure with hypoxia and hypercapnia Large right pleural effusion End stage renal disease on HD Pulmonary edema Hyperkalemia Anemia in chronic kidney disease Urinary tract infection Acute coronary syndrome Plan AC ventilation, hypervent Wean FIO2 as able Right US guided thoracentesis ordered HD per Renal Monitor labs keep negative antibiotics pressors as needed NGT feeds DVT prophylaxis medications/laboratory data/nursing notes/ICU care reviewed in detail note reviewed and edited care discussed with RN and RT ICU time spent 40 minutes Critical Care - Subjective ROS Limited/Unobtainable: Yes Condition: critical EKG Rhythm: Sinus Rhythm Critical Care - Objective ET-Tube: 7.5 ET Position: 24 Vital Signs Noted Labs Test 01/18/19 23:00 01/18/19 23:42 01/18/19 23:45 01/19/19 01:05 White Blood Count 9.1 K/UL (4.8-10.8) Red Blood Count 3.38 M/UL (4.70-6.10) Hemoglobin 11.3 G/DL (14.2-18.0) Hematocrit 34.3 % (42.0-52.0) Mean Corpuscular Volume 102 FL (80-99) Mean Corpuscular Hemoglobin 33.4 PG (27.0-31.0) Mean Corpuscular Hemoglobin Concent 32.8 G/DL (32.0-36.0) Red Cell Distribution Width 14.9 % (11.6-14.8) Platelet Count 297 K/UL (150-450) Mean Platelet Volume 5.5 FL (6.5-10.1) Neutrophils (%) (Auto) 78.3 % (45.0-75.0) Lymphocytes (%) (Auto) 10.7 % (20.0-45.0) Monocytes (%) (Auto) 6.9 % (1.0-10.0) Eosinophils (%) (Auto) 3.0 % (0.0-3.0) Basophils (%) (Auto) 1.0 % (0.0-2.0) Prothrombin Time 10.6 SEC (9.30-11.50) Prothromb Time International Ratio 1.0 (0.9-1.1) Activated Partial Thromboplast Time 32 SEC (23-33) Sodium Level 130 MMOL/L (136-145) Potassium Level 5.7 MMOL/L (3.5-5.1) Chloride Level 93 MMOL/L (98-107) Carbon Dioxide Level 30 MMOL/L (21-32) Anion Gap 7 mmol/L (5-15) Blood Urea Nitrogen 75 mg/dL (7-18) Creatinine 8.8 MG/DL (0.55-1.30) Estimat Glomerular Filtration Rate mL/min (>60) Glucose Level 121 MG/DL (74-106) Calcium Level 8.8 MG/DL (8.5-10.1) Total Bilirubin 0.4 MG/DL (0.2-1.0) Aspartate Amino Transf (AST/SGOT) 38 U/L (15-37) Alanine Aminotransferase (ALT/SGPT) 22 U/L (12-78) Alkaline Phosphatase 141 U/L (46-116) Total Creatine Kinase 232 U/L (26-308) Creatine Kinase MB 8.5 NG/ML (0.0-3.6) Creatine Kinase MB Relative Index 3.6 Troponin I 0.136 ng/mL (0.000-0.056) Pro-B-Type Natriuretic Peptide > 42820 pg/mL (0-125) Total Protein 8.8 G/DL (6.4-8.2) Albumin 3.0 G/DL (3.4-5.0) Globulin 5.8 g/dL Albumin/Globulin Ratio 0.5 (1.0-2.7) Arterial Blood pH 7.133 (7.350-7.450) 6.979 (7.350-7.450) Arterial Blood Partial Pressure CO2 95.2 mmHg (35.0-45.0) 142.5 mmHg (35.0-45.0) Arterial Blood Partial Pressure O2 85.0 mmHg (75.0-100.0) 62.4 mmHg (75.0-100.0) Arterial Blood HCO3 31.2 mmol/L (22.0-26.0) 32.7 mmol/L (22.0-26.0) Arterial Blood Oxygen Saturation 93.4 % (95-100) 79.0 % (95-100) Arterial Blood Base Excess 0.1 (-2-2) -2.0 (-2-2) Nino Test Positive Positive Urine Color Red Urine Appearance Turbid Urine pH 8 (4.5-8.0) Urine Specific [place] 1.010 (1.005-1.035) Urine Protein 4+ (NEGATIVE) Urine Glucose (UA) 1+ (NEGATIVE) Urine Ketones Negative (NEGATIVE) Urine Blood 5+ (NEGATIVE) Urine Nitrite Negative (NEGATIVE) Urine Bilirubin Negative (NEGATIVE) Urine Urobilinogen Normal MG/DL (0.0-1.0) Urine Leukocyte Esterase 3+ (NEGATIVE) Urine RBC Tntc /HPF (0 - 0) Urine WBC 20-30 /HPF (0 - 0) Urine Squamous Epithelial Cells None /LPF (NONE/OCC) Urine Bacteria Few /HPF (NONE) Test 01/19/19 04:18 01/19/19 07:35 01/19/19 10:30 01/19/19 13:20 Arterial Blood pH 7.322 (7.350-7.450) 7.500 (7.350-7.450) Arterial Blood Partial Pressure CO2 59.9 mmHg (35.0-45.0) 32.9 mmHg (35.0-45.0) Arterial Blood Partial Pressure O2 442.2 mmHg (75.0-100.0) 172.7 mmHg (75.0-100.0) Arterial Blood HCO3 30.3 mmol/L (22.0-26.0) 25.3 mmol/L (22.0-26.0) Arterial Blood Oxygen Saturation 99.8 % (95-100) 99.1 % (95-100) Arterial Blood Base Excess 3.3 (-2-2) 2.4 (-2-2) Nino Test Positive Positive White Blood Count 7.7 K/UL (4.8-10.8) Red Blood Count 2.98 M/UL (4.70-6.10) Hemoglobin 9.9 G/DL (14.2-18.0) Hematocrit 29.4 % (42.0-52.0) Mean Corpuscular Volume 99 FL (80-99) Mean Corpuscular Hemoglobin 33.1 PG (27.0-31.0) Mean Corpuscular Hemoglobin Concent 33.5 G/DL (32.0-36.0) Red Cell Distribution Width 15.5 % (11.6-14.8) Platelet Count 183 K/UL (150-450) Mean Platelet Volume 6.0 FL (6.5-10.1) Neutrophils (%) (Auto) % (45.0-75.0) Lymphocytes (%) (Auto) % (20.0-45.0) Monocytes (%) (Auto) % (1.0-10.0) Eosinophils (%) (Auto) % (0.0-3.0) Basophils (%) (Auto) % (0.0-2.0) Differential Total Cells Counted 100 Neutrophils % (Manual) 87 % (45-75) Lymphocytes % (Manual) 4 % (20-45) Monocytes % (Manual) 5 % (1-10) Eosinophils % (Manual) 0 % (0-3) Basophils % (Manual) 0 % (0-2) Band Neutrophils 4 % (0-8) Platelet Estimate Adequate Platelet Morphology Normal Hypochromasia 1+ Anisocytosis 1+ Prothrombin Time 10.7 SEC (9.30-11.50) Prothromb Time International Ratio 1.0 (0.9-1.1) Activated Partial Thromboplast Time 29 SEC (23-33) Sodium Level 136 MMOL/L (136-145) Potassium Level 3.5 MMOL/L (3.5-5.1) Chloride Level 99 MMOL/L (98-107) Carbon Dioxide Level 31 MMOL/L (21-32) Anion Gap 6 mmol/L (5-15) Blood Urea Nitrogen 35 mg/dL (7-18) Creatinine 4.4 MG/DL (0.55-1.30) Estimat Glomerular Filtration Rate mL/min (>60) Glucose Level 73 MG/DL (74-106) Calcium Level 8.3 MG/DL (8.5-10.1) Total Bilirubin 0.4 MG/DL (0.2-1.0) Aspartate Amino Transf (AST/SGOT) 39 U/L (15-37) Alanine Aminotransferase (ALT/SGPT) 19 U/L (12-78) Alkaline Phosphatase 120 U/L (46-116) Troponin I 0.151 ng/mL (0.000-0.056) Total Protein 7.4 G/DL (6.4-8.2) Albumin 2.4 G/DL (3.4-5.0) Globulin 5.0 g/dL Albumin/Globulin Ratio 0.5 (1.0-2.7) Hepatitis B Surface Antigen Negative (Negative) Lactate Dehydrogenase 258 U/L (81-234) Test 01/19/19 20:10 01/20/19 04:20 Arterial Blood pH 7.380 (7.350-7.450) Arterial Blood Partial Pressure CO2 48.6 mmHg (35.0-45.0) Arterial Blood Partial Pressure O2 114.9 mmHg (75.0-100.0) Arterial Blood HCO3 28.1 mmol/L (22.0-26.0) Arterial Blood Oxygen Saturation 98.0 % (95-100) Arterial Blood Base Excess 2.5 (-2-2) Nino Test Positive White Blood Count 8.8 K/UL (4.8-10.8) Red Blood Count 2.98 M/UL (4.70-6.10) Hemoglobin 9.8 G/DL (14.2-18.0) Hematocrit 30.0 % (42.0-52.0) Mean Corpuscular Volume 101 FL (80-99) Mean Corpuscular Hemoglobin 33.1 PG (27.0-31.0) Mean Corpuscular Hemoglobin Concent 32.9 G/DL (32.0-36.0) Red Cell Distribution Width 15.2 % (11.6-14.8) Platelet Count 181 K/UL (150-450) Mean Platelet Volume 5.4 FL (6.5-10.1) Neutrophils (%) (Auto) % (45.0-75.0) Lymphocytes (%) (Auto) % (20.0-45.0) Monocytes (%) (Auto) % (1.0-10.0) Eosinophils (%) (Auto) % (0.0-3.0) Basophils (%) (Auto) % (0.0-2.0) Sodium Level 135 MMOL/L (136-145) Potassium Level 4.5 MMOL/L (3.5-5.1) Chloride Level 99 MMOL/L (98-107) Carbon Dioxide Level 29 MMOL/L (21-32) Anion Gap 7 mmol/L (5-15) Blood Urea Nitrogen 59 mg/dL (7-18) Creatinine 7.6 MG/DL (0.55-1.30) Estimat Glomerular Filtration Rate mL/min (>60) Glucose Level 55 MG/DL (74-106) Calcium Level 8.0 MG/DL (8.5-10.1) Total Bilirubin 0.4 MG/DL (0.2-1.0) Aspartate Amino Transf (AST/SGOT) 37 U/L (15-37) Alanine Aminotransferase (ALT/SGPT) 20 U/L (12-78) Alkaline Phosphatase 102 U/L (46-116) Troponin I 0.201 ng/mL (0.000-0.056) Total Protein 6.1 G/DL (6.4-8.2) Albumin 2.2 G/DL (3.4-5.0) Globulin 3.9 g/dL Albumin/Globulin Ratio 0.6 (1.0-2.7) Objective: WDWN NAD reduced breath sounds R>L without rhonchi or wheeze [id number] without MRG NABS nontender no HSM no CCE nonfocal Micro: Microbiology Date/Time Source Procedure Growth Status 01/19/19 00:20 Rectum Received 01/18/19 23:22 Arm Left Blood Culture - Preliminary NO GROWTH AFTER 24 HOURS Resulted 01/18/19 23:07 Arm Left Blood Culture - Preliminary NO GROWTH AFTER 24 HOURS Resulted Critical Care - Objective Last 24 Hour Vital Signs Date Time Temp Pulse Resp B/P (MAP) Pulse Ox O2 Delivery O2 Flow Rate FiO2 01/21/19 16:51 75 01/21/19 16:45 74 30 40 01/21/19 16:00 40 01/21/19 16:00 98.6 73 21 161/64 (96) 100 01/21/19 16:00 Mechanical Ventilator 01/21/19 15:19 78 22 40 01/21/19 15:00 76 22 161/67 (98) 100 01/21/19 14:00 66 22 168/68 (101) 100 01/21/19 13:10 64 23 40 01/21/19 13:00 69 22 171/65 (100) 100 01/21/19 12:00 64 01/21/19 12:00 98.8 66 21 159/67 (97) 100 01/21/19 12:00 40 01/21/19 12:00 Mechanical Ventilator 01/21/19 11:05 67 22 40 01/21/19 11:00 64 19 163/60 (94) 100 01/21/19 10:00 64 21 148/55 (86) 100 01/21/19 09:30 63 21 165/63 (97) 100 01/21/19 09:30 18 Mechanical Ventilator 100 01/21/19 09:02 68 17 40 01/21/19 09:00 63 21 165/63 (97) 100 01/21/19 09:00 17 Mechanical Ventilator 100 01/21/19 08:54 98.8 01/21/19 08:30 64 19 145/57 (86) 100 01/21/19 08:24 17 Endotracheal Tube 100 01/21/19 08:00 Mechanical Ventilator 01/21/19 08:00 40 01/21/19 08:00 17 Mechanical Ventilator 100 01/21/19 08:00 99.0 62 19 131/53 (79) 100 01/21/19 08:00 65 01/21/19 07:30 64 19 126/46 (72) 100 01/21/19 07:05 67 19 40 01/21/19 07:00 65 20 136/53 (80) 100 01/21/19 07:00 17 Mechanical Ventilator 40 01/21/19 06:00 17 Mechanical Ventilator 40 01/21/19 06:00 64 18 141/55 (83) 100 01/21/19 06:00 69 18 140/55 (83) 100 01/21/19 05:30 69 18 132/51 (78) 100 01/21/19 05:16 69 17 40 01/21/19 05:00 18 Mechanical Ventilator 40 01/21/19 05:00 69 18 140/55 (83) 100 01/21/19 04:30 68 18 148/55 (86) 100 01/21/19 04:00 65 01/21/19 04:00 Mechanical Ventilator 01/21/19 04:00 18 Mechanical Ventilator 40 01/21/19 04:00 40 01/21/19 04:00 98.8 65 18 150/55 (86) 100 01/21/19 03:30 63 18 128/51 (76) 100 01/21/19 03:00 65 17 122/49 (73) 100 01/21/19 03:00 18 Mechanical Ventilator 40 01/21/19 02:40 64 17 40 01/21/19 02:30 64 17 118/50 (72) 100 01/21/19 02:00 65 17 122/49 (73) 100 01/21/19 02:00 20 Mechanical Ventilator 40 01/21/19 01:30 63 18 119/50 (73) 100 01/21/19 01:10 59 19 40 01/21/19 01:00 20 Mechanical Ventilator 100.0 01/21/19 01:00 63 18 122/50 (74) 100 01/21/19 00:30 62 18 120/49 (72) 100 01/21/19 00:00 Mechanical Ventilator 01/21/19 00:00 20 Mechanical Ventilator 40 01/21/19 00:00 99.0 62 18 122/49 (73) 100 01/21/19 00:00 40 01/21/19 00:00 61 01/20/19 23:30 63 19 114/46 (68) 100 01/20/19 23:00 60 18 40 01/20/19 23:00 60 19 111/43 (65) 100 01/20/19 23:00 18 Mechanical Ventilator 40 01/20/19 22:30 62 18 100/41 (60) 100 01/20/19 22:00 76 18 117/49 (71) 100 01/20/19 22:00 21 Mechanical Ventilator 40 01/20/19 22:00 17 Mechanical Ventilator 40 01/20/19 21:30 64 18 105/41 (62) 100 01/20/19 21:29 60 18 40 01/20/19 21:00 63 18 117/41 (66) 100 01/20/19 21:00 18 Mechanical Ventilator 40 01/20/19 20:30 59 19 129/48 (75) 100 01/20/19 20:00 Mechanical Ventilator 01/20/19 20:00 19 Mechanical Ventilator 40 01/20/19 20:00 59 01/20/19 20:00 40 01/20/19 20:00 98.4 57 19 103/38 (59) 100 01/20/19 19:22 57 18 40 01/20/19 19:00 18 Mechanical Ventilator 100 01/20/19 19:00 57 19 103/38 (59) 100 Micro: Microbiology Date/Time Source Procedure Growth Status 01/19/19 10:00 Sputum Gram Stain - Final Complete 01/19/19 10:00 Sputum Sputum Culture - Final NORMAL UPPER RESPIRATORY JEREMIAH PRESENT Complete 01/19/19 00:20 Nasal Nares MRSA Culture - Final NO METHICILLIN RESISTANT STAPH AUREUS... Complete 01/18/19 23:45 Urine,Clean Catch Urine Culture - Final NO GROWTH AFTER 48 HOURS Complete 01/19/19 00:20 Rectum - Final NO CARBAPENEM-RESISTANT ENTEROBACTERI... Complete 01/19/19 00:20 Rectum VRE Culture - Final NO VANCOMYCIN RESISTANT ENTEROCOCCUS ... Complete 01/18/19 23:22 Arm Left Blood Culture - Preliminary Staphylococcus Sp Coag Neg Resulted 01/18/19 23:07 Arm Left Blood Culture - Preliminary NO GROWTH AFTER 48 HOURS Resulted Critical Care - Subjective ROS Limited/Unobtainable: No FI02: 40 Vent Support Breath Rate: 16 Vent Support Mode: AC Vent Tidal Volume: 450 Sputum Amount: Scant PEEP: 5.0 PIP: 22 Tube Feeding Amount: 40 I&O: Intake and Output 01/20/19 01/21/19 19:00 07:00 Intake Total 767.5 ml 611 ml Output Total 50 ml 0 ml Balance 717.5 ml 611 ml Free Water 180 ml 30 ml IV Total 117.5 ml 141 ml Tube Feeding 470 ml 440 ml Output Urine Total 50 ml 0 ml ET-Tube: 7.5 ET Position: 24 Eric Frausto MD Jan 21, 2019 18:41
--- NOTE | 2019-01-21 19:30 | NUR ---
HAND-OFF: Report given to Emma PARKINSON. VS stable. Endorsed plan of care including hold feeding at 0400 for weaning.
--- NOTE | 2019-01-21 19:30 | NUR ---
NURSE NOTES:Received pt with eyes close, pt is easily arousable to tactile stimulation, and been fro Levophed drip SB-SR on the monitor, bp stable afebrile. Tolerated OGT fdg at40ml/hr, no residuals. HOB kept elevated. On aspiration precaution. Bilateral soft wrist restrained for safety to avoid self extubation.- Will continue to observe.
[2019-01-21] MEDS: Dyna-Hex 2% Top Sol 2oz TOPIC SCH (20:15)
[2019-01-21] MEDS: Atorvastatin 80mg tab NG SCH (20:58)
--- NOTE | 2019-01-21 21:30 | NUR ---
NURSE NOTES:Suctioned tk brownish secretions minimal in amt. Oral care done. HOB kept elevated. Watch for ay resp,distress.
--- NOTE | 2019-01-21 23:00 | NUR ---
NURSE NOTES:Turned q 2hrs PRN with good skin care done.
[2019-01-22] VITALS (23 sets, daily range): BP systolic 101–161; BP diastolic 39–70
[2019-01-22] MEDS: cefTRIAXone 1gm/D5W 55ml IVPB SCH ×4 (00:03→23:58)
--- NOTE | 2019-01-22 01:00 | NUR ---
NURSE NOTES: Remained on SB-SR with BBB, bp stable. Resting well at this time.
--- NOTE | 2019-01-22 03:00 | NUR ---
NURSE NOTES:Complete bath with bed changed done. sacral area covered with optifoam for protection.
--- NOTE | 2019-01-22 03:57 | NUR ---
NURSE NOTES:Tube fdg on hold ,in preparation of weaning preparation.
--- NOTE | 2019-01-22 06:00 | NUR ---
NURSE NOTES: No resp distress noted for weaning determination this am.
[2019-01-22] MEDS: Levothyroxine 125mcg tab NG SCH (06:16)
[2019-01-22 06:31] LABS: HEMATOCRIT 32.9 % (42.0-52.0); HEMOGLOBIN 10.9 G/DL (14.2-18.0); MEAN CORPUSCULAR VOLUME 101 FL (80-99); PLATELET COUNT 174 K/UL (150-450); RED BLOOD COUNT 3.25 M/UL (4.70-6.10); RED CELL DISTRIBUTION WIDTH 14.9 % (11.6-14.8); WHITE BLOOD COUNT 11.7 K/UL (4.8-10.8)
--- NOTE | 2019-01-22 07:16 | NUR ---
RESPIRATORY NOTE: received pt orally intubate with ETT 7.5, placed 24cm at the lip. ETT secured via anchor fast with no redness or visible skin tears around facial area. pt is in no resp distress at this time. will attempt to wean later this morning. alarms are set and audible with ambu bag at bedside. will cont to monitor.
--- NOTE | 2019-01-22 07:21 | NUR ---
HAND-OFF: Report given to Theron PARKINSON.
--- NOTE | 2019-01-22 07:30 | NUR ---
NURSE NOTES: Received the patient from TESHA Carter. Patient is asleep, easily arousable. Orally intubated, ETT size 7.5, 24cm at lip line. vent settings: AC 16, TV 450, FIO2 40%, PEEP 5. O2 sat 100%. No acute distress noted. white secretion noted from endotracheal suction. SR noted on the cardiac exercise physiologist. OGT intact, tube feeding on hold for weaning trial today. HOB kept elevated. condom cath intact, no urine output. right upper arm AV shunt noted, left upper arm old AV shunt noted. left forearm 20G and left wrist 20G intact, patent, saline locked. On bilateral soft wrist restraints. Pulses present, no skin breakdown noted. bed in lowest position, locked, side rails upx3. Bed in lowest position. Call light within reach. Will continue to monitor.
[2019-01-22 07:47] LABS: ANION GAP 7 mmol/L (5-15); BLOOD UREA NITROGEN 53 mg/dL (7-18); CALCIUM 7.9 MG/DL (8.5-10.1); CARBON DIOXIDE 32 MMOL/L (21-32); CHLORIDE 97 MMOL/L (98-107); CREATININE 6.8 MG/DL (0.55-1.30); POTASSIUM 4.3 MMOL/L (3.5-5.1); SODIUM 136 MMOL/L (136-145)
--- NOTE | 2019-01-22 08:55 | NUR ---
RESPIRATORY NOTE: pt agitated at this time. will attempt to wean later again. RN notified
--- NOTE | 2019-01-22 09:18 | Critical Care Progress Note ---
Assessment/Plan Assessment/Plan Impression: Respiratory failure with hypoxia and hypercapnia Large right pleural effusion s/p tap End stage renal disease on HD Pulmonary edema Hyperkalemia Anemia in chronic kidney disease Urinary tract infection Acute coronary syndrome Plan AC ventilation, Wean FIO2 HD per Renal Monitor labs keep negative antibiotics wean NGT feeds DVT prophylaxis medications/laboratory data/nursing notes/ICU care reviewed in detail note reviewed and edited care discussed with RN and RT ICU time spent 40 minutes Critical Care - Subjective Interval Events: still on vent ROS Limited/Unobtainable: Yes Condition: critical EKG Rhythm: Sinus Rhythm I&O: Intake and Output 01/21/19 01/22/19 19:00 07:00 Intake Total 517 ml 350 ml Output Total 0 ml 0 ml Balance 517 ml 350 ml Free Water 30 ml 30 ml IV Total 7 ml Tube Feeding 480 ml 320 ml Output Urine Total 0 ml 0 ml Critical Care - Objective ET-Tube: 7.5 ET Position: 24 Last 24 Hour Vital Signs Date Time Temp Pulse Resp B/P (MAP) Pulse Ox O2 Delivery O2 Flow Rate FiO2 01/22/19 08:48 95 36 40 01/22/19 07:14 70 19 40 01/22/19 06:00 76 24 150/54 (86) 100 01/22/19 05:06 74 22 40 01/22/19 05:00 76 24 156/54 (88) 100 01/22/19 04:00 98.8 68 17 125/47 (73) 100 01/22/19 04:00 70 01/22/19 04:00 40 01/22/19 04:00 Mechanical Ventilator 01/22/19 03:22 69 22 40 01/22/19 02:00 64 17 108/70 (83) 100 01/22/19 01:44 64 20 40 01/22/19 01:00 63 18 120/49 (72) 100 01/22/19 00:00 40 01/22/19 00:00 Mechanical Ventilator 01/22/19 00:00 98.2 64 20 109/46 (67) 100 01/22/19 00:00 64 01/21/19 23:17 65 21 40 01/21/19 23:00 63 20 109/46 (67) 100 01/21/19 22:34 80 23 156/61 (92) 100 01/21/19 22:00 62 23 100/44 (62) 100 01/21/19 21:03 80 24 40 01/21/19 21:00 80 23 156/64 (94) 100 01/21/19 20:59 82 152/61 01/21/19 20:30 80 23 152/61 (91) 100 01/21/19 20:00 40 01/21/19 20:00 Mechanical Ventilator 01/21/19 20:00 75 01/21/19 20:00 98.0 77 23 148/58 (88) 100 01/21/19 20:00 75 01/21/19 19:19 77 19 40 01/21/19 19:00 77 21 166/58 (94) 100 01/21/19 18:00 73 21 154/57 (89) 100 01/21/19 17:00 73 24 168/72 (104) 100 01/21/19 16:51 75 01/21/19 16:45 74 30 40 01/21/19 16:00 40 01/21/19 16:00 98.6 73 21 161/64 (96) 100 01/21/19 16:00 Mechanical Ventilator 01/21/19 15:19 78 22 40 01/21/19 15:00 76 22 161/67 (98) 100 01/21/19 14:00 66 22 168/68 (101) 100 01/21/19 13:10 64 23 40 01/21/19 13:00 69 22 171/65 (100) 100 01/21/19 12:00 64 01/21/19 12:00 98.8 66 21 159/67 (97) 100 01/21/19 12:00 40 01/21/19 12:00 Mechanical Ventilator 01/21/19 11:05 67 22 40 01/21/19 11:00 64 19 163/60 (94) 100 01/21/19 10:00 64 21 148/55 (86) 100 01/21/19 09:30 63 21 165/63 (97) 100 01/21/19 09:30 18 Mechanical Ventilator 100 Labs: Laboratory Tests Test 01/22/19 05:30 White Blood Count 11.7 K/UL (4.8-10.8) H Red Blood Count 3.25 M/UL (4.70-6.10) L Hemoglobin 10.9 G/DL (14.2-18.0) L Hematocrit 32.9 % (42.0-52.0) L Mean Corpuscular Volume 101 FL (80-99) H Mean Corpuscular Hemoglobin 33.5 PG (27.0-31.0) H Mean Corpuscular Hemoglobin Concent 33.1 G/DL (32.0-36.0) Red Cell Distribution Width 14.9 % (11.6-14.8) H Platelet Count 174 K/UL (150-450) Mean Platelet Volume 5.9 FL (6.5-10.1) L Neutrophils (%) (Auto) % (45.0-75.0) Lymphocytes (%) (Auto) % (20.0-45.0) Monocytes (%) (Auto) % (1.0-10.0) Eosinophils (%) (Auto) % (0.0-3.0) Basophils (%) (Auto) % (0.0-2.0) Differential Total Cells Counted 100 Neutrophils % (Manual) 88 % (45-75) H Lymphocytes % (Manual) 3 % (20-45) L Monocytes % (Manual) 8 % (1-10) Eosinophils % (Manual) 1 % (0-3) Basophils % (Manual) 0 % (0-2) Band Neutrophils 0 % (0-8) Platelet Estimate Adequate Platelet Morphology Normal Anisocytosis 1+ Macrocytosis 1+ Sodium Level 136 MMOL/L (136-145) Potassium Level 4.3 MMOL/L (3.5-5.1) Chloride Level 97 MMOL/L (98-107) L Carbon Dioxide Level 32 MMOL/L (21-32) Anion Gap 7 mmol/L (5-15) Blood Urea Nitrogen 53 mg/dL (7-18) H Creatinine 6.8 MG/DL (0.55-1.30) H Estimat Glomerular Filtration Rate mL/min (>60) Glucose Level 139 MG/DL (74-106) H Calcium Level 7.9 MG/DL (8.5-10.1) L Objective: WDWN NAD reduced breath sounds without rhonchi or wheeze [id number] without MRG NABS nontender no HSM no CCE nonfocal on vent Micro: Microbiology Date/Time Source Procedure Growth Status 01/20/19 12:30 Pleural Fluid Gram Stain - Final Resulted 01/20/19 12:30 Pleural Fluid Body Fluid Culture - Preliminary NO GROWTH Resulted 01/19/19 10:00 Sputum Gram Stain - Final Complete 01/19/19 10:00 Sputum Sputum Culture - Final NORMAL UPPER RESPIRATORY JEREMIAH PRESENT Complete Rambo Llanos MD Jan 22, 2019 09:18
[2019-01-22] MEDS: Metoprolol Tartrate 12.5mg TAB NG SCH ×2 (09:24→20:58)
[2019-01-22] MEDS: Aspirin Baby 81mg NG SCH (09:24)
[2019-01-22] MEDS: Calcitriol 0.25mcg Cap NG SCH (09:24)
[2019-01-22] MEDS: Heparin 5000 units/ml inj SUBQ SCH ×2 (09:27→20:59)
[2019-01-22] MEDS: LORazepam Inj 2mg/ml 1ml IV PRN (09:51)
--- NOTE | 2019-01-22 09:55 | NUR ---
NURSE NOTES: Patient is agitated and restless. unable to try weaning. Ativan prn given. will continue to monitor.
--- NOTE | 2019-01-22 10:36 | NUR ---
RADIOLOGY DEPT., CHEST X-RAY DONE.-P.DYE
[2019-01-22] MEDS ORDERED: NS 500ML ONE (10:42)
[2019-01-22] MEDS ORDERED: Tubing IV Secondary IV ONE (10:42)
--- NOTE | 2019-01-22 10:52 | Diagnostic Imaging Report ---
EXAM: XR Chest, 1 View CLINICAL HISTORY: F/U TECHNIQUE: Frontal view of the chest. COMPARISON: No relevant prior studies available. FINDINGS: Lungs: Reduced lung volumes with accentuation of interstitial markings. Pleural space: Right pleural effusion or thickening. No pneumothorax. Heart: Unremarkable. No cardiomegaly. Mediastinum: Large paramediastinal silhouette. Bones/joints: No acute fracture. Tubes, lines and devices: Endotracheal tube in the distal trachea just above the orifice of the right mainstem bronchus. Enteric tube in the stomach. IMPRESSION: Endotracheal tube in the distal trachea just above the orifice of the right mainstem bronchus. <MYCVCSECTION> Critical Value Communications 01/22/19 11:18 Verify Receipt with Nurse Verified receipt with TESHA Crump on 01/22 11:19 (-07:00)
--- NOTE | 2019-01-22 11:20 | NUR ---
NURSE NOTES: Patient is resting in bed comfortably. VSS. No acute distress noted.
--- NOTE | 2019-01-22 11:35 | NUR ---
NURSE NOTES: Dr. Conley made aware of chest xray report. Per MD, ETT to be adjusted by RT. RT informed.
--- NOTE | 2019-01-22 11:59 | NUR ---
NURSE NOTES: ETT adjusted by RT. 22cm at lip line. no acute distress noted.
--- NOTE | 2019-01-22 12:00 | NUR ---
NURSE NOTES: Patient noted with axillary temp 99.5. cooling measure provided.
--- NOTE | 2019-01-22 12:26 | NUR ---
RESPIRATORY NOTE: withdrew ETT. now placed at 22cm at the lip.
--- NOTE | 2019-01-22 12:56 | Diagnostic Imaging Report ---
EXAM: XR Chest, 1 View CLINICAL HISTORY: MALPOSITION TECHNIQUE: Frontal view of the chest. COMPARISON: Chest x-ray, 01/22/19 1010 FINDINGS: Lungs: Similar bilateral interstitial prominence. No consolidation. Pleural space: Tiny right pleural effusion. No pneumothorax. Heart: Cardiomegaly. Mediastinum: Unremarkable. Bones/joints: Unremarkable. Tubes, lines and devices: Endotracheal tube has been pulled back and is now 2.7 cm above the sebastien. NG tube traverses diaphragm, tip is not seen. IMPRESSION: 1. Endotracheal tube has been pulled back and is now 2.7 cm above the sebastien. 2. Similar bilateral interstitial prominence and tiny right pleural effusion.
--- NOTE | 2019-01-22 13:00 | NUR ---
NURSE NOTES: Cooling measure provided. Resumed Nepro at 40ml/hr. no residual noted. HOB kept elevated. VSS.
--- NOTE | 2019-01-22 13:19 | Nephrology Progress Note ---
Assessment/Plan Assessment/Plan: 1. End-stage renal disease. - HD MWF 2. Severe hyperkalemia- resolved - HD MWF 3. Respiratory failure, hypercapnic in origin with a pCO2 142. - intubated, per Pulm mgmt - s/p thoracentesis 3 L 4. Hypertension. - stable 5. Hypothyroidism. Synthroid. 6. PL effusion- s/p 3L right thoracentesis Subjective Date patient seen: Jan 22, 2019 Time patient seen: 13:11 ROS Limited/Unobtainable: Yes Allergies: Coded Allergies: MORPHINE (Verified Allergy, Unknown, 01/18/19) Subjective Patient intubated. On vent. Weaning Objective Last 24 Hour Vital Signs Date Time Temp Pulse Resp B/P (MAP) Pulse Ox O2 Delivery O2 Flow Rate FiO2 01/22/19 13:00 64 19 117/50 (72) 100 01/22/19 12:33 69 21 40 01/22/19 12:00 99.5 66 18 143/52 (82) 100 01/22/19 12:00 67 01/22/19 12:00 40 01/22/19 12:00 Mechanical Ventilator 01/22/19 11:22 62 16 40 01/22/19 11:00 77 14 106/47 (66) 100 01/22/19 10:00 73 22 117/45 (69) 100 01/22/19 09:24 78 126/53 01/22/19 09:24 78 126/53 01/22/19 09:00 76 22 126/53 (77) 100 01/22/19 08:48 95 36 40 01/22/19 08:00 98.7 72 21 118/49 (72) 100 01/22/19 08:00 Mechanical Ventilator 01/22/19 08:00 69 01/22/19 08:00 40 01/22/19 07:14 70 19 40 01/22/19 07:00 70 20 124/46 (72) 100 01/22/19 06:00 76 24 150/54 (86) 100 01/22/19 05:06 74 22 40 01/22/19 05:00 76 24 156/54 (88) 100 01/22/19 04:00 98.8 68 17 125/47 (73) 100 01/22/19 04:00 70 01/22/19 04:00 40 01/22/19 04:00 Mechanical Ventilator 01/22/19 03:22 69 22 40 01/22/19 02:00 64 17 108/70 (83) 100 01/22/19 01:44 64 20 40 01/22/19 01:00 63 18 120/49 (72) 100 01/22/19 00:00 40 01/22/19 00:00 Mechanical Ventilator 01/22/19 00:00 98.2 64 20 109/46 (67) 100 01/22/19 00:00 64 01/21/19 23:17 65 21 40 01/21/19 23:00 63 20 109/46 (67) 100 01/21/19 22:34 80 23 156/61 (92) 100 01/21/19 22:00 62 23 100/44 (62) 100 01/21/19 21:03 80 24 40 01/21/19 21:00 80 23 156/64 (94) 100 01/21/19 20:59 82 152/61 01/21/19 20:30 80 23 152/61 (91) 100 01/21/19 20:00 40 01/21/19 20:00 Mechanical Ventilator 01/21/19 20:00 75 01/21/19 20:00 98.0 77 23 148/58 (88) 100 01/21/19 20:00 75 01/21/19 19:19 77 19 40 01/21/19 19:00 77 21 166/58 (94) 100 01/21/19 18:00 73 21 154/57 (89) 100 01/21/19 17:00 73 24 168/72 (104) 100 01/21/19 16:51 75 01/21/19 16:45 74 30 40 01/21/19 16:00 40 01/21/19 16:00 98.6 73 21 161/64 (96) 100 01/21/19 16:00 Mechanical Ventilator 01/21/19 15:19 78 22 40 01/21/19 15:00 76 22 161/67 (98) 100 01/21/19 14:00 66 22 168/68 (101) 100 Intake and Output 01/21/19 01/22/19 18:59 06:59 Intake Total 482 ml 390 ml Output Total 0 ml 0 ml Balance 482 ml 390 ml Free Water 30 ml 30 ml IV Total 12 ml Tube Feeding 440 ml 360 ml Output Urine Total 0 ml 0 ml Laboratory Tests 01/22/19 05:30: White Blood Count 11.7H, Red Blood Count 3.25L, Hemoglobin 10.9L, Hematocrit 32.9L, Mean Corpuscular Volume 101H, Mean Corpuscular Hemoglobin 33.5H, Mean Corpuscular Hemoglobin Concent 33.1, Red Cell Distribution Width 14.9H, Platelet Count 174, Mean Platelet Volume 5.9L, Neutrophils (%) (Auto) , Lymphocytes (%) (Auto) , Monocytes (%) (Auto) , Eosinophils (%) (Auto) , Basophils (%) (Auto) , Differential Total Cells Counted 100, Neutrophils % ( Manual) 88H, Lymphocytes % (Manual) 3L, Monocytes % (Manual) 8, Eosinophils % ( Manual) 1, Basophils % (Manual) 0, Band Neutrophils 0, Platelet Estimate Adequate, Platelet Morphology Normal, Anisocytosis 1+, Macrocytosis 1+, Sodium Level 136, Potassium Level 4.3, Chloride Level 97L, Carbon Dioxide Level 32, Anion Gap 7, Blood Urea Nitrogen 53H, Creatinine 6.8H, Estimat Glomerular Filtration Rate , Glucose Level 139H, Calcium Level 7.9L Height (Feet): 5 Height (Inches): 6.00 Weight (Pounds): 138 General Appearance: no apparent distress, alert EENT: normal ENT inspection Neck: normal alignment, supple Cardiovascular: normal rate, regular rhythm Respiratory/Chest: rhonchi - bilaterally Abdomen: non tender, soft Edema: no edema noted Arm (L), no edema noted Arm (R), no edema noted Leg (L), no edema noted Leg (R), no edema noted Pedal (L), no edema noted Pedal (R), no edema noted Generalized David Villa MD Jan 22, 2019 13:19
--- NOTE | 2019-01-22 15:30 | NUR ---
NURSE NOTES: Patient was turned and repositioned. On bilateral soft wrist restraints. Patient attempted to remove ETT. No skin breakdown noted, pulses present. Patient kept clean and dry.
--- NOTE | 2019-01-22 16:18 | Cardiac Electrophysiology PN ---
Assessment/Plan Assessment/Plan 1. Elevated troponin, possible ACS but likely due to ESRD on dialysis. On Lipitor and aspirin and Lopressor 12.5 bid. EF 50% 2. Respiratory failure. Due to volume overload. On dialysis. 3. Hypertension on amlodipine 5 mg daily, metoprolol 12.5 bid and HD 4. End-stage renal disease, on hemodialysis. 5. Respiratory failure, on the ventilator. 6. Large right-sided pleural effusion. S/p 3 liters R Thoracentesis 01/20/19 DW RN Subjective Subjective On the Vent in ICU . Had 3 liters Thoracentesis from right lung 01/20/19. Off pressor. Off fentanyl drip. Failed weaning today Objective Last 24 Hour Vital Signs Date Time Temp Pulse Resp B/P (MAP) Pulse Ox O2 Delivery O2 Flow Rate FiO2 01/22/19 16:00 Mechanical Ventilator 01/22/19 15:04 72 23 40 01/22/19 15:00 70 18 156/58 (90) 100 01/22/19 14:00 64 18 129/60 (83) 100 01/22/19 13:00 64 19 117/50 (72) 100 01/22/19 12:33 69 21 40 01/22/19 12:00 99.5 66 18 143/52 (82) 100 01/22/19 12:00 67 01/22/19 12:00 40 01/22/19 12:00 Mechanical Ventilator 01/22/19 11:22 62 16 40 01/22/19 11:00 77 14 106/47 (66) 100 01/22/19 10:00 73 22 117/45 (69) 100 01/22/19 09:24 78 126/53 01/22/19 09:24 78 126/53 01/22/19 09:00 76 22 126/53 (77) 100 01/22/19 08:48 95 36 40 01/22/19 08:00 98.7 72 21 118/49 (72) 100 01/22/19 08:00 Mechanical Ventilator 01/22/19 08:00 69 01/22/19 08:00 40 01/22/19 07:14 70 19 40 01/22/19 07:00 70 20 124/46 (72) 100 01/22/19 06:00 76 24 150/54 (86) 100 01/22/19 05:06 74 22 40 01/22/19 05:00 76 24 156/54 (88) 100 01/22/19 04:00 98.8 68 17 125/47 (73) 100 01/22/19 04:00 70 01/22/19 04:00 40 01/22/19 04:00 Mechanical Ventilator 01/22/19 03:22 69 22 40 01/22/19 02:00 64 17 108/70 (83) 100 01/22/19 01:44 64 20 40 01/22/19 01:00 63 18 120/49 (72) 100 01/22/19 00:00 40 01/22/19 00:00 Mechanical Ventilator 01/22/19 00:00 98.2 64 20 109/46 (67) 100 01/22/19 00:00 64 01/21/19 23:17 65 21 40 01/21/19 23:00 63 20 109/46 (67) 100 01/21/19 22:34 80 23 156/61 (92) 100 01/21/19 22:00 62 23 100/44 (62) 100 01/21/19 21:03 80 24 40 01/21/19 21:00 80 23 156/64 (94) 100 01/21/19 20:59 82 152/61 01/21/19 20:30 80 23 152/61 (91) 100 01/21/19 20:00 40 01/21/19 20:00 Mechanical Ventilator 01/21/19 20:00 75 01/21/19 20:00 98.0 77 23 148/58 (88) 100 01/21/19 20:00 75 01/21/19 19:19 77 19 40 01/21/19 19:00 77 21 166/58 (94) 100 01/21/19 18:00 73 21 154/57 (89) 100 01/21/19 17:00 73 24 168/72 (104) 100 01/21/19 16:51 75 01/21/19 16:45 74 30 40 Intake and Output 01/21/19 01/22/19 18:59 06:59 Intake Total 482 ml 390 ml Output Total 0 ml 0 ml Balance 482 ml 390 ml Free Water 30 ml 30 ml IV Total 12 ml Tube Feeding 440 ml 360 ml Output Urine Total 0 ml 0 ml Laboratory Tests Test 01/22/19 05:30 White Blood Count 11.7 K/UL (4.8-10.8) H Red Blood Count 3.25 M/UL (4.70-6.10) L Hemoglobin 10.9 G/DL (14.2-18.0) L Hematocrit 32.9 % (42.0-52.0) L Mean Corpuscular Volume 101 FL (80-99) H Mean Corpuscular Hemoglobin 33.5 PG (27.0-31.0) H Mean Corpuscular Hemoglobin Concent 33.1 G/DL (32.0-36.0) Red Cell Distribution Width 14.9 % (11.6-14.8) H Platelet Count 174 K/UL (150-450) Mean Platelet Volume 5.9 FL (6.5-10.1) L Neutrophils (%) (Auto) % (45.0-75.0) Lymphocytes (%) (Auto) % (20.0-45.0) Monocytes (%) (Auto) % (1.0-10.0) Eosinophils (%) (Auto) % (0.0-3.0) Basophils (%) (Auto) % (0.0-2.0) Differential Total Cells Counted 100 Neutrophils % (Manual) 88 % (45-75) H Lymphocytes % (Manual) 3 % (20-45) L Monocytes % (Manual) 8 % (1-10) Eosinophils % (Manual) 1 % (0-3) Basophils % (Manual) 0 % (0-2) Band Neutrophils 0 % (0-8) Platelet Estimate Adequate Platelet Morphology Normal Anisocytosis 1+ Macrocytosis 1+ Sodium Level 136 MMOL/L (136-145) Potassium Level 4.3 MMOL/L (3.5-5.1) Chloride Level 97 MMOL/L (98-107) L Carbon Dioxide Level 32 MMOL/L (21-32) Anion Gap 7 mmol/L (5-15) Blood Urea Nitrogen 53 mg/dL (7-18) H Creatinine 6.8 MG/DL (0.55-1.30) H Estimat Glomerular Filtration Rate mL/min (>60) Glucose Level 139 MG/DL (74-106) H Calcium Level 7.9 MG/DL (8.5-10.1) L Microbiology Date/Time Source Procedure Growth Status 01/20/19 12:30 Pleural Fluid Gram Stain - Final Resulted 01/20/19 12:30 Pleural Fluid Body Fluid Culture - Preliminary NO GROWTH Resulted Objective HEAD AND NECK: Positive JVD. He is orally intubated. LUNGS: Coarse rhonchi. CARDIOVASCULAR: Regular S1 and S2 with no gallop. ABDOMEN: Soft. EXTREMITIES: 1+ pitting edema. Sawyer Christie MD Jan 22, 2019 16:18
--- NOTE | 2019-01-22 17:00 | NUR ---
NURSE NOTES: Patient is asleep, easily arousable. no acute distress noted. tolerating tube feeding. HOB kept elevated.
--- NOTE | 2019-01-22 19:13 | NUR ---
HAND-OFF: Report given to TESHA Galicia.
--- NOTE | 2019-01-22 19:15 | History and Physical Report ---
DATE OF ADMISSION: 01/19/2019 HISTORY OF PRESENT ILLNESS: This is an 83-year-old male, who was admitted to the hospital with respiratory failure. He is on hemodialysis several times a week and he was brought in because of lethargy and altered mental status. He had missed dialysis because of this condition. In the ER, he was noted to be hyperkalemic. He is also having difficulty with breathing and was intubated due to elevated pCO2. Currently, he is on AC mode, poorly responsive this morning. The endotracheal tube was found to be in the right main stem and was pulled back appropriately. PAST MEDICAL HISTORY: ESRD on dialysis, hyperlipidemia, hypertension, and hypothyroidism. PREVIOUS SURGERY: Dialysis fistula placement. FAMILY HISTORY: Hypertension and diabetes. REVIEW OF SYSTEMS: Not obtainable. PHYSICAL EXAMINATION: GENERAL: Revealed an elderly male. HEENT: Unremarkable. CHEST: Clear breath sounds bilaterally. HEART: Normal heart sounds. ABDOMEN: Soft. EXTREMITIES: There is no peripheral edema. LABORATORY DATA: Potassium 5.7, now corrected to 4.3. Most recent ABG shows pH 7.38, pCO2 48, pO2 114. White count 11,000 and hemoglobin 10.9. IMAGING: X-ray of the chest obtained today shows right pleural effusion, enlarged mediastinal silhouette, and endotracheal tube. IMPRESSION: 1. Respiratory failure. 2. Pulmonary edema. 3. COPD. 4. Hyperkalemia. 5. Hypertension. 6. Hypothyroidism. DISCUSSION: Continue present medications and care. Of note, the patient has been started on dialysis, which I will continue. He is also on empiric antibiotics and antihypertensives. Continue DVT and GI prophylaxis. We will follow carefully. Danis Conley M.D. DR: IBAN JOB#: [id number] CC:
--- NOTE | 2019-01-22 19:30 | NUR ---
NURSE NOTES: Recvd.on a Vent.orally intubated.See settings.Lungs few scatt.Rh.Diminished BS at bases.P.Ox.-100%.Suctioned Tk.beige sec.NS Lavaged.Pos.chg.Kept comfortable.Agitated Off/On.Bila.soft wrist restraints on prev.self-injury.OGT intact.Feeding to Re-started.Anuric HD patient.None Odilon.for Tomorrow.AVF (R) arm pos.Thrill and Bruit.
[2019-01-22] MEDS: Dyna-Hex 2% Top Sol 2oz TOPIC SCH (19:52)
[2019-01-22] MEDS: Atorvastatin 80mg tab NG SCH (20:57)
--- NOTE | 2019-01-22 22:10 | NUR ---
NURSE NOTES: HS Care provided.Pos.chg.Suctioned.Due Meds admin.No distress.
[2019-01-23] VITALS (24 sets, daily range): BP systolic 105–150; BP diastolic 43–62
--- NOTE | 2019-01-23 00:10 | NUR ---
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
--- NOTE | 2019-01-23 02:10 | NUR ---
NURSE NOTES: Pos.chg.Suctioned.Prema.OGT Feeding.No distress.Cont.Plan of care.
--- NOTE | 2019-01-23 04:30 | NUR ---
NURSE NOTES: Mehnaz Steen.Blood drawn for BMP spec.to lab.Suctioned.Prema.Vent settings.VSS.Scope rhythm same.No CP.
[2019-01-23] MEDS: Levothyroxine 125mcg tab NG SCH (06:25)
--- NOTE | 2019-01-23 06:34 | NUR ---
RESPIRATORY NOTE: Received pt on current vent settings: AC 16-450ml- 40%- peep 5. Pt orally intubated with ETT size 7.5 @23cm lips line, secured by anchor fast. Rodolfo diminished breath sounds heard upon auscultation, suctioned scant thick white/oliva secretions, oral suctioned moderated amt of thick frothy white clear secretions without incidents. Alarms are set and audible, vent is plugged into the red outlet, ambu bag is at bedside. Pt is stable, open eyes but unable to follow commands, agitated when touch but no SOB or resp distress noted. Will continue to monitor pt.
--- NOTE | 2019-01-23 07:16 | NUR ---
HAND-OFF: Report given to MG KEY.
[2019-01-23 07:28] LABS: ANION GAP 9 mmol/L (5-15); BLOOD UREA NITROGEN 68 mg/dL (7-18); CARBON DIOXIDE 27 MMOL/L (21-32); CHLORIDE 97 MMOL/L (98-107); POTASSIUM 5.1 MMOL/L (3.5-5.1); SODIUM 133 MMOL/L (136-145)
--- NOTE | 2019-01-23 07:30 | NUR ---
NURSE NOTES: Received the patient from TESHA Carter. Patient is asleep, easily arousable. Orally intubated, ETT size 7.5, 22cm at lip line. vent settings: AC 16, TV 450, FIO2 40%, PEEP 5. O2 sat 100%. No acute distress noted. white secretion noted from endotracheal suction. SR noted on the horizontal drill operator. OGT intact, tube feeding on hold for weaning trial today. HOB kept elevated. Right upper arm AV shunt noted, left upper arm old AV shunt noted. left forearm 20G and left wrist 20G intact, patent, saline locked. On bilateral soft wrist restraints. Pulses present, no skin breakdown noted. bed in lowest position, locked, side rails upx3. Bed alarm on. Call light within reach. Will continue to monitor.
[2019-01-23] MEDS: Heparin 5000 units/ml inj SUBQ SCH ×2 (08:32→20:32)
[2019-01-23] MEDS: Calcitriol 0.25mcg Cap NG SCH (08:32)
[2019-01-23] MEDS: Metoprolol Tartrate 12.5mg TAB NG SCH ×2 (08:32→20:30)
[2019-01-23] MEDS: Aspirin Baby 81mg NG SCH (08:32)
--- NOTE | 2019-01-23 09:02 | NUR ---
RESPIRATORY NOTE: Placed pt on CPAP PS 8 per weaning protocol to see if pt can be wean. Pt failed weaning criteria: RR 19- Vt 245ml- RSBI 83- NIF -10. Pt is unable to follow commands. 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 Placed pt back on ACVC mode with the same previous settings. Pt still agitated, Ppeak went up to 50. Changed to ACVC+ mode with the same ordered settings with It=1.1s. Pt calms down, Ppeak went down to 25, resting in bed, no SOB or resp distress noted. RN Francheska Corley made aware.
--- NOTE | 2019-01-23 09:22 | NUR ---
NURSE NOTES: patient failed weaning per RT. resumed tube feeding at 40ml/hr. HOB kept elevated.
--- NOTE | 2019-01-23 11:52 | NUR ---
NURSE NOTES: Patient seen by Dr. Conley. made aware that patient failed weaning this am. To try weaning tomorrow.
--- NOTE | 2019-01-23 11:55 | Pulmonology Progress Note ---
Assessment/Plan Assessment/Plan IMPRESSION: 1. Respiratory failure. 2. Pulmonary edema. 3. COPD. 4. Hyperkalemia. 5. Hypertension. 6. Hypothyroidism. DISCUSSION: Continue present medications and care. Dialysis per renal. He is also on empiric antibiotics and antihypertensives. Continue DVT and GI prophylaxis. I will follow carefully. Attempt wean Continue tube feedings HD in AM Ativan prn Danis Conley M.D. Subjective Interval Events: Remains intubated; failed wean today Constitutional: Reports: no symptoms HEENT: Repors: no symptoms Respiratory: Reports: no symptoms Cardiovascular: Reports: no symptoms Gastrointestinal/Abdominal: Reports: no symptoms Allergies: Coded Allergies: MORPHINE (Verified Allergy, Unknown, 01/18/19) Objective Last 24 Hour Vital Signs Date Time Temp Pulse Resp B/P (MAP) Pulse Ox O2 Delivery O2 Flow Rate FiO2 01/23/19 11:07 62 17 30 01/23/19 11:00 60 17 143/62 (89) 100 01/23/19 10:00 61 16 125/43 (70) 100 01/23/19 09:05 62 19 40 01/23/19 09:00 61 16 150/57 (88) 100 01/23/19 08:59 61 18 40 01/23/19 08:32 64 142/51 01/23/19 08:32 64 142/51 01/23/19 08:00 40 01/23/19 08:00 64 17 142/51 (81) 100 01/23/19 08:00 69 01/23/19 08:00 Mechanical Ventilator 01/23/19 07:00 98.7 70 22 143/51 (81) 100 01/23/19 06:34 66 18 40 01/23/19 06:00 64 22 129/50 (76) 100 01/23/19 05:24 69 19 40 01/23/19 05:00 68 19 130/50 (76) 100 01/23/19 04:00 Mechanical Ventilator 01/23/19 04:00 40 01/23/19 04:00 65 01/23/19 04:00 63 19 121/49 (73) 100 01/23/19 03:25 68 20 40 01/23/19 03:00 66 18 134/48 (76) 100 01/23/19 02:00 58 18 115/45 (68) 100 01/23/19 01:28 58 19 40 01/23/19 01:00 62 21 113/44 (67) 100 01/23/19 00:00 98.9 58 18 115/45 (68) 100 01/23/19 00:00 58 01/23/19 00:00 Mechanical Ventilator 01/23/19 00:00 40 01/22/19 23:55 59 20 40 01/22/19 23:00 57 19 109/44 (65) 100 01/22/19 22:00 56 15 101/39 (59) 100 01/22/19 21:10 65 22 40 01/22/19 21:00 60 15 145/50 (81) 100 01/22/19 20:58 62 148/54 01/22/19 20:00 69 01/22/19 20:00 40 01/22/19 20:00 99.2 69 20 148/54 (85) 100 01/22/19 20:00 Mechanical Ventilator 01/22/19 19:58 69 21 40 01/22/19 19:00 70 15 157/57 (90) 100 01/22/19 18:00 71 19 161/62 (95) 100 01/22/19 17:18 62 20 40 01/22/19 17:00 69 21 130/53 (78) 100 01/22/19 16:00 69 01/22/19 16:00 Mechanical Ventilator 01/22/19 16:00 98.8 64 19 135/50 (78) 100 01/22/19 16:00 40 01/22/19 15:04 72 23 40 01/22/19 15:00 70 18 156/58 (90) 100 01/22/19 14:00 64 18 129/60 (83) 100 01/22/19 13:00 64 19 117/50 (72) 100 01/22/19 12:33 69 21 40 01/22/19 12:00 99.5 66 18 143/52 (82) 100 01/22/19 12:00 67 01/22/19 12:00 40 01/22/19 12:00 Mechanical Ventilator Intake and Output 01/22/19 01/23/19 19:00 07:00 Intake Total 350 ml 625 ml Output Total 0 ml 0 ml Balance 350 ml 625 ml Free Water 70 ml 90 ml IV Total 55 ml Tube Feeding 280 ml 480 ml Output Urine Total 0 ml 0 ml Bladder Scan Volume Amount 153ml General Appearance: no acute distress HEENT: normocephalic Respiratory/Chest: chest wall non-tender Cardiovascular: normal rate Abdomen: normal bowel sounds Microbiology Date/Time Source Procedure Growth Status 01/20/19 12:30 Pleural Fluid Gram Stain - Final Resulted 01/20/19 12:30 Pleural Fluid Body Fluid Culture - Preliminary NO GROWTH AFTER 48 HOURS Resulted Laboratory Tests 01/23/19 05:30: Sodium Level 133L, Potassium Level 5.1, Chloride Level 97L, Carbon Dioxide Level 27, Anion Gap 9, Blood Urea Nitrogen 68H, Creatinine 8.0H, Estimat Glomerular Filtration Rate , Glucose Level 87, Calcium Level 8.0L Current Medications Medications (Trade) Dose Ordered Sig/Odilon Route PRN Reason Start Time Stop Time Status Last Admin Dose Admin Amlodipine Besylate (Norvasc) 5 mg DAILY NG 01/19/19 11:15 02/18/19 11:14 01/23/19 08:32 Aspirin (ASA) 81 mg DAILY NG 01/19/19 11:15 02/18/19 11:14 01/23/19 08:32 Atorvastatin Calcium (Lipitor) 40 mg BEDTIME NG 01/19/19 21:00 02/18/19 20:59 01/22/19 20:57 Calcitriol (Rocatrol) 0.25 mcg DAILY NG 01/19/19 11:15 02/18/19 11:14 01/23/19 08:32 Ceftriaxone Sodium 1 gm/ Dextrose 55 ml @ 110 mls/hr Q24H IVPB 01/20/19 00:00 01/27/19 00:00 01/22/19 23:58 Chlorhexidine Gluconate (Cecily-Hex 2%) 1 applic DAILY@2000 TOPIC 01/19/19 20:00 02/18/19 19:59 01/22/19 19:52 Dextrose (Dextrose 50%) 25 ml Q30M PRN IV Hypoglycemia 01/19/19 02:00 02/18/19 01:59 Dextrose (Dextrose 50%) 50 ml Q30M PRN IV Hypoglycemia 01/19/19 02:00 02/18/19 01:59 Fentanyl Citrate 1000 mcg/Sodium Chloride 100 ml @ 0 mls/hr Q24H IV 01/19/19 14:24 01/26/19 14:23 01/21/19 08:24 Heparin Sodium (Porcine) (Heparin 5000 units/ml) 5,000 units EVERY 12 HOURS SUBQ 01/19/19 09:00 02/18/19 08:59 01/23/19 08:32 Hydralazine HCl (Apresoline) 10 mg Q4H PRN IV For High Blood Pressure 01/20/19 11:15 02/19/19 11:14 01/20/19 12:48 Levothyroxine Sodium (Synthroid) 125 mcg DAILY@0630 NG 01/20/19 06:30 02/19/19 06:29 01/23/19 06:25 Lorazepam (Ativan 2mg/ml 1ml) 0.5 mg Q4H PRN IV For Anxiety 01/19/19 06:15 01/26/19 06:14 01/22/19 09:51 Metoprolol Tartrate (Lopressor) 12.5 mg Q12HR NG 01/21/19 12:00 02/18/19 17:59 01/23/19 08:32 Pantoprazole (Protonix) 40 mg DAILY ORAL 01/20/19 09:00 02/19/19 08:59 01/23/19 08:32 Quetiapine Fumarate (SEROquel) 100 mg QHS NG 01/19/19 21:00 02/18/19 20:59 01/22/19 20:58 Danis Conley MD Jan 23, 2019 11:55
--- NOTE | 2019-01-23 12:00 | NUR ---
NURSE NOTES: Patient was turned and repositioned. Oral care provided. VSS.
--- NOTE | 2019-01-23 13:03 | Nephrology Progress Note ---
Assessment/Plan Assessment/Plan: 1. End-stage renal disease. - HD MWF. Orders placed for tomorrow 2. Severe hyperkalemia- resolved - HD MWF 3. Respiratory failure, hypercapnic in origin with a pCO2 142. - intubated, per Pulm mgmt 4. Hypertension. - stable 5. Hypothyroidism. Synthroid. 6. PL effusion- s/p 3L right thoracentesis Subjective Date patient seen: Jan 23, 2019 Time patient seen: 13:00 ROS Limited/Unobtainable: Yes Allergies: Coded Allergies: MORPHINE (Verified Allergy, Unknown, 01/18/19) Subjective Patient remains intubated. On vent. Objective Last 24 Hour Vital Signs Date Time Temp Pulse Resp B/P (MAP) Pulse Ox O2 Delivery O2 Flow Rate FiO2 01/23/19 12:00 Mechanical Ventilator 01/23/19 12:00 40 01/23/19 12:00 98.8 61 18 150/50 (83) 100 01/23/19 11:07 62 17 30 01/23/19 11:00 60 17 143/62 (89) 100 01/23/19 10:00 61 16 125/43 (70) 100 01/23/19 09:05 62 19 40 01/23/19 09:00 61 16 150/57 (88) 100 01/23/19 08:59 61 18 40 01/23/19 08:32 64 142/51 01/23/19 08:32 64 142/51 01/23/19 08:00 40 01/23/19 08:00 64 17 142/51 (81) 100 01/23/19 08:00 69 01/23/19 08:00 Mechanical Ventilator 01/23/19 07:00 98.7 70 22 143/51 (81) 100 01/23/19 06:34 66 18 40 01/23/19 06:00 64 22 129/50 (76) 100 01/23/19 05:24 69 19 40 01/23/19 05:00 68 19 130/50 (76) 100 01/23/19 04:00 Mechanical Ventilator 01/23/19 04:00 40 01/23/19 04:00 65 01/23/19 04:00 63 19 121/49 (73) 100 01/23/19 03:25 68 20 40 01/23/19 03:00 66 18 134/48 (76) 100 01/23/19 02:00 58 18 115/45 (68) 100 01/23/19 01:28 58 19 40 01/23/19 01:00 62 21 113/44 (67) 100 01/23/19 00:00 98.9 58 18 115/45 (68) 100 01/23/19 00:00 58 01/23/19 00:00 Mechanical Ventilator 01/23/19 00:00 40 01/22/19 23:55 59 20 40 01/22/19 23:00 57 19 109/44 (65) 100 01/22/19 22:00 56 15 101/39 (59) 100 01/22/19 21:10 65 22 40 01/22/19 21:00 60 15 145/50 (81) 100 01/22/19 20:58 62 148/54 01/22/19 20:00 69 01/22/19 20:00 40 01/22/19 20:00 99.2 69 20 148/54 (85) 100 01/22/19 20:00 Mechanical Ventilator 01/22/19 19:58 69 21 40 01/22/19 19:00 70 15 157/57 (90) 100 01/22/19 18:00 71 19 161/62 (95) 100 01/22/19 17:18 62 20 40 01/22/19 17:00 69 21 130/53 (78) 100 01/22/19 16:00 69 01/22/19 16:00 Mechanical Ventilator 01/22/19 16:00 98.8 64 19 135/50 (78) 100 01/22/19 16:00 40 01/22/19 15:04 72 23 40 01/22/19 15:00 70 18 156/58 (90) 100 01/22/19 14:00 64 18 129/60 (83) 100 Intake and Output 01/22/19 01/23/19 19:00 07:00 Intake Total 350 ml 625 ml Output Total 0 ml 0 ml Balance 350 ml 625 ml Free Water 70 ml 90 ml IV Total 55 ml Tube Feeding 280 ml 480 ml Output Urine Total 0 ml 0 ml Bladder Scan Volume Amount 153ml Laboratory Tests 01/23/19 05:30: Sodium Level 133L, Potassium Level 5.1, Chloride Level 97L, Carbon Dioxide Level 27, Anion Gap 9, Blood Urea Nitrogen 68H, Creatinine 8.0H, Estimat Glomerular Filtration Rate , Glucose Level 87, Calcium Level 8.0L Height (Feet): 5 Height (Inches): 6.00 Weight (Pounds): 141 General Appearance: no apparent distress, alert EENT: normal ENT inspection Neck: normal alignment, supple Cardiovascular: normal rate Respiratory/Chest: rhonchi - bilaterally Abdomen: non tender, soft Edema: no edema noted Arm (L), no edema noted Arm (R), no edema noted Leg (L), no edema noted Leg (R), no edema noted Pedal (L), no edema noted Pedal (R), no edema noted Generalized David Villa MD Jan 23, 2019 13:03
--- NOTE | 2019-01-23 13:10 | NUR ---
NURSE NOTES: Called [facility] dialysis center, notified HD order for tomorrow.
--- NOTE | 2019-01-23 14:28 | NUR ---
NURSE NOTES: Patient resting in bed comfortably. Tube feeding running at 40ml/hr. HOB kept elevated. No acute distress noted.
--- NOTE | 2019-01-23 14:56 | Cardiology Report ---
APPROVED REPORT EKG Measurement Heart [id number] Normal sinus rhythm Right bundle branch block T wave abnormality, consider inferolateral ischemia Abnormal ECG
--- NOTE | 2019-01-23 16:00 | NUR ---
NURSE NOTES: Patient was turned and repositioned. patient attempted to pull out ETT. Patient on bilateral soft wrist restraints for safety. No skin breakdown noted, pulses present.
--- NOTE | 2019-01-23 17:53 | NUR ---
NURSE NOTES: Patient is asleep, easily arousable. No acute distress noted. oral care and mujica care provided. VSS. patient kept clean and dry. patient tolerating tube feeding, HOB kept clean and dry.
--- NOTE | 2019-01-23 19:27 | NUR ---
HAND-OFF: Report given to TESHA Batista.
--- NOTE | 2019-01-23 19:35 | NUR ---
NURSE NOTES: Received the patient and report from TESHA Crump. Patient is asleep, easily arousable. Orally intubated, ETT size 7.5, 22cm at lip line, vent settings: AC 16, TV 450, FIO2 30%, PEEP 5. O2 sat 100%. No acute distress noted. SR noted on the radiation monitor. OGT intact, tube feeding Nepro running at 40ml/hr. HOB kept elevated. Right upper arm AV shunt noted, left upper arm old AV shunt noted. left forearm 20G and left wrist 20G intact, patent, saline locked. On bilateral soft wrist restraints. Pulses present, no skin breakdown noted. bed in lowest position, locked, side rails upx3. Bed alarm on. Call light within reach. Will continue to monitor.
[2019-01-23] MEDS: Dyna-Hex 2% Top Sol 2oz TOPIC SCH (20:30)
[2019-01-23] MEDS: Atorvastatin 80mg tab NG SCH (20:31)
--- NOTE | 2019-01-23 22:00 | NUR ---
NURSE NOTES: Pt's resting in bed, asleep, in no acute distress. VS stable. Will continue to monitor.
[2019-01-24] VITALS (24 sets, daily range): BP systolic 93–173; BP diastolic 24–63
--- NOTE | 2019-01-24 | NUR ---
NURSE NOTES: Pt's resting in bed, asleep, in no acute distress. VS stable. Will continue to monitor.
[2019-01-24] MEDS: cefTRIAXone 1gm/D5W 55ml IVPB SCH ×2 (00:19)
--- NOTE | 2019-01-24 02:00 | NUR ---
NURSE NOTES: Pt's resting in bed, asleep, in no acute distress. VS stable. Will continue to monitor.
--- NOTE | 2019-01-24 04:00 | NUR ---
NURSE NOTES: Pt's resting in bed, in no acute distress. VS stable. Will continue to monitor.
[2019-01-24] MEDS: LORazepam Inj 2mg/ml 1ml IV PRN ×3 (04:48→18:33)
[2019-01-24] MEDS: Levothyroxine 125mcg tab NG SCH (05:59)
--- NOTE | 2019-01-24 07:00 | NUR ---
HAND-OFF: Report given to TESHA Luke.
--- NOTE | 2019-01-24 07:18 | NUR ---
NURSE NOTES: Received patient from TESHA Batista. Patient receiving hemodialysis at this time. Blood pressure 98/52, HR 74 with sinus rhythm with BBB on the bus monitor, oxygen saturation 100%, and RR 21. Will continue to monitor blood pressure during dialysis. Patient eyes closed with no sign of acute distress. Patient was given Ativan to calm him at 0448 this morning. Patient intubated with 22cm at the lip line with ventilator setting AC 16, tidal volume, FiO2 30%, and PEEP 5. Patient breathing against the ventilator at this time with stable oxygen saturation of 100%. Patient has bilateral upper arm AV shunt. The right AV shunt is functional and currently being used for dialysis at this time. Patient has oral gastric tube that is patent, asymptomatic, and clamped at this time. Patient has an order for tube feeding of Nepro at 40mL/hr. Tube feeding held for ventilator weaning trial this morning. Will follow up with respiratory therapist after hemodialysis. Patent has bruises on his right side from rib fractures. Fractures occurred prior to admission. Patient has bilateral soft wrist restraint with intact skin and pulses. Patient witnessed attempting to self-extubate multiple times. Patient has left wrist and left forearm 20 gauge peripheral IV that are both patent, asymptomatic, and saline locked at this time. Patient is oliguric with an order to bladder scan every am. Will follow up with bladder scan and straight catheter if needed. Patient has a serum potassium level of 5.1 this morning. Patient on dialysis at this time. Will ask MD if they want to order post dialysis labs. Bed in low position with bed alarm on and call light in reach at this time. Addendum: 01/24/19 at 1034 by Marly Samano RN Patient has non-pitting edema of the right upper extremity. NO redness, tenderness, or warmth noted. Patient receiving dialysis via the AV shunt on this arm. Will continue to monitor and ensure MD aware.
--- NOTE | 2019-01-24 07:39 | NUR ---
RESPIRATORY NOTES: Received Patient on Vent settings ACVC 16, VT 450, Fio2 30%, PEEP +5. Patient currently intubated with 7.5 ETT at 23 cm lip line. Patient awake, disorientated and combative. Breath sounds are bilateral diminished throughout both lung joya. Suctioned small amount of clear thin secretions. Will continue to monitor throughout the day.
--- NOTE | 2019-01-24 07:48 | Nephrology Progress Note ---
Assessment/Plan Assessment/Plan: 1. End-stage renal disease. - HD MWF. - tolerating HD session 2. Severe hyperkalemia- resolved - HD today 3. Respiratory failure - intubated 4. Hypertension. - stable 5. Hypothyroidism. - Synthroid. 6. PL effusion- s/p 3L right thoracentesis Subjective Date patient seen: Jan 24, 2019 Time patient seen: 07:44 ROS Limited/Unobtainable: Yes Allergies: Coded Allergies: MORPHINE (Verified Allergy, Unknown, 01/18/19) Subjective Patient intubated on vent. Undergoing HD Objective Last 24 Hour Vital Signs Date Time Temp Pulse Resp B/P (MAP) Pulse Ox O2 Delivery O2 Flow Rate FiO2 01/24/19 07:02 75 24 30 01/24/19 07:00 75 19 101/52 (68) 100 01/24/19 06:00 98.9 66 19 110/53 (72) 100 01/24/19 05:15 80 24 30 01/24/19 05:00 75 19 134/56 (82) 100 01/24/19 04:00 76 01/24/19 04:00 Mechanical Ventilator 01/24/19 04:00 75 19 133/63 (86) 100 01/24/19 04:00 30 01/24/19 03:10 65 18 30 01/24/19 03:00 69 19 140/53 (82) 100 01/24/19 02:00 63 19 134/56 (82) 100 01/24/19 01:00 61 19 134/48 (76) 100 01/24/19 00:56 60 18 30 01/24/19 00:00 Mechanical Ventilator 01/24/19 00:00 62 18 132/55 (80) 100 01/24/19 00:00 30 01/24/19 00:00 62 01/23/19 23:00 61 19 112/50 (70) 100 01/23/19 22:57 60 18 30 01/23/19 22:00 60 19 115/53 (73) 100 01/23/19 21:00 58 17 105/48 (67) 100 01/23/19 20:48 67 18 30 01/23/19 20:30 68 142/55 01/23/19 20:00 30 01/23/19 20:00 Mechanical Ventilator 01/23/19 20:00 68 01/23/19 20:00 63 17 120/56 (77) 100 01/23/19 19:10 62 16 30 01/23/19 19:00 63 17 139/56 (83) 100 01/23/19 18:00 60 17 149/54 (85) 100 01/23/19 17:00 98.6 65 18 132/53 (79) 99 01/23/19 16:41 65 19 30 01/23/19 16:00 66 01/23/19 16:00 62 18 134/53 (80) 100 01/23/19 16:00 30 01/23/19 16:00 Mechanical Ventilator 01/23/19 15:01 68 18 30 01/23/19 15:00 64 20 141/52 (81) 100 01/23/19 14:00 63 18 143/56 (85) 100 01/23/19 13:18 67 18 30 01/23/19 13:00 63 19 124/50 (74) 100 01/23/19 12:00 Mechanical Ventilator 01/23/19 12:00 40 01/23/19 12:00 98.8 61 18 150/50 (83) 100 01/23/19 12:00 62 01/23/19 11:07 62 17 30 01/23/19 11:00 60 17 143/62 (89) 100 01/23/19 10:00 61 16 125/43 (70) 100 01/23/19 09:05 62 19 40 01/23/19 09:00 61 16 150/57 (88) 100 01/23/19 08:59 61 18 40 01/23/19 08:32 64 142/51 01/23/19 08:32 64 142/51 01/23/19 08:00 40 01/23/19 08:00 64 17 142/51 (81) 100 01/23/19 08:00 62 01/23/19 08:00 Mechanical Ventilator Intake and Output 01/23/19 01/24/19 19:00 07:00 Intake Total 480 ml 375 ml Output Total 0 ml 0 ml Balance 480 ml 375 ml Free Water 80 ml IV Total 55 ml Tube Feeding 400 ml 320 ml Output Urine Total 0 ml 0 ml Bladder Scan Volume Amount 251ml Height (Feet): 5 Height (Inches): 6.00 Weight (Pounds): 141 General Appearance: no apparent distress EENT: normal ENT inspection Neck: normal alignment, supple Cardiovascular: normal rate, regular rhythm Respiratory/Chest: lungs clear, normal breath sounds Abdomen: non tender, soft Edema: no edema noted Arm (L), no edema noted Arm (R), no edema noted Leg (L), no edema noted Leg (R), no edema noted Pedal (L), no edema noted Pedal (R), no edema noted Generalized David Villa MD Jan 24, 2019 07:48
[2019-01-24] MEDS: Metoprolol Tartrate 12.5mg TAB NG SCH ×2 (08:39→20:36)
[2019-01-24] MEDS: Aspirin Baby 81mg NG SCH (08:39)
[2019-01-24] MEDS: Heparin 5000 units/ml inj SUBQ SCH ×2 (08:40→20:31)
[2019-01-24] MEDS: Calcitriol 0.25mcg Cap NG SCH (08:40)
--- NOTE | 2019-01-24 08:51 | NUR ---
NURSE NOTES: Hemodialysis complete with 2L out. Patient blood pressure 134/83 at this time. Patient showing no sign of acute distress. Rhonchi heard in bilateral upper and lower lobes of lungs. Will follow up with RT regarding weaning trial. OGT verified prior to medication administration with aspiration of stomach content which was green in color and auscultation. Protonix is ordered in PO form at this time. Dr Villa notified that this medication cannot be crushed in order to be administered through the OGT. Dr Villa ordered for the medication to be given IV. Order read back and verified via telephone order/read back. Order placed at this time. Feeding remains held at this time for ventilator weaning trial. Oral care and repositioning done.
[2019-01-24] MEDS: Pantoprazole Inj IVP SCH (08:56)
--- NOTE | 2019-01-24 09:09 | Pulmonology Progress Note ---
Assessment/Plan Assessment/Plan IMPRESSION: 1. Respiratory failure. 2. Pulmonary edema. 3. COPD. 4. Hyperkalemia. 5. Hypertension. 6. Hypothyroidism. DISCUSSION: Continue present medications and care. Dialysis per renal. He is also on empiric antibiotics and antihypertensives. Continue DVT and GI prophylaxis. I will follow carefully. Attempt wean today; he is now post HD Continue tube feedings Ativan prn Danis Conley M.D. Subjective Interval Events: none new Constitutional: Reports: no symptoms HEENT: Repors: no symptoms Respiratory: Reports: no symptoms Cardiovascular: Reports: no symptoms Gastrointestinal/Abdominal: Reports: no symptoms Allergies: Coded Allergies: MORPHINE (Verified Allergy, Unknown, 01/18/19) Objective Last 24 Hour Vital Signs Date Time Temp Pulse Resp B/P (MAP) Pulse Ox O2 Delivery O2 Flow Rate FiO2 01/24/19 08:39 70 149/77 01/24/19 08:39 70 149/77 01/24/19 08:00 Mechanical Ventilator 01/24/19 08:00 75 01/24/19 08:00 30 01/24/19 08:00 98.0 74 24 93/41 (58) 100 01/24/19 07:02 75 24 30 01/24/19 07:00 75 19 101/52 (68) 100 01/24/19 06:00 98.9 66 19 110/53 (72) 100 01/24/19 05:15 80 24 30 01/24/19 05:00 75 19 134/56 (82) 100 01/24/19 04:00 76 01/24/19 04:00 Mechanical Ventilator 01/24/19 04:00 75 19 133/63 (86) 100 01/24/19 04:00 30 01/24/19 03:10 65 18 30 01/24/19 03:00 69 19 140/53 (82) 100 01/24/19 02:00 63 19 134/56 (82) 100 01/24/19 01:00 61 19 134/48 (76) 100 01/24/19 00:56 60 18 30 01/24/19 00:00 Mechanical Ventilator 01/24/19 00:00 62 18 132/55 (80) 100 01/24/19 00:00 30 01/24/19 00:00 62 01/23/19 23:00 61 19 112/50 (70) 100 01/23/19 22:57 60 18 30 01/23/19 22:00 60 19 115/53 (73) 100 01/23/19 21:00 58 17 105/48 (67) 100 01/23/19 20:48 67 18 30 01/23/19 20:30 68 142/55 01/23/19 20:00 30 01/23/19 20:00 Mechanical Ventilator 01/23/19 20:00 68 01/23/19 20:00 63 17 120/56 (77) 100 01/23/19 19:10 62 16 30 01/23/19 19:00 63 17 139/56 (83) 100 01/23/19 18:00 60 17 149/54 (85) 100 01/23/19 17:00 98.6 65 18 132/53 (79) 99 01/23/19 16:41 65 19 30 01/23/19 16:00 66 01/23/19 16:00 62 18 134/53 (80) 100 01/23/19 16:00 30 01/23/19 16:00 Mechanical Ventilator 01/23/19 15:01 68 18 30 01/23/19 15:00 64 20 141/52 (81) 100 01/23/19 14:00 63 18 143/56 (85) 100 01/23/19 13:18 67 18 30 01/23/19 13:00 63 19 124/50 (74) 100 01/23/19 12:00 Mechanical Ventilator 01/23/19 12:00 40 01/23/19 12:00 98.8 61 18 150/50 (83) 100 01/23/19 12:00 62 01/23/19 11:07 62 17 30 01/23/19 11:00 60 17 143/62 (89) 100 01/23/19 10:00 61 16 125/43 (70) 100 Intake and Output 01/23/19 01/24/19 19:00 07:00 Intake Total 480 ml 375 ml Output Total 0 ml 0 ml Balance 480 ml 375 ml Free Water 80 ml IV Total 55 ml Tube Feeding 400 ml 320 ml Output Urine Total 0 ml 0 ml Bladder Scan Volume Amount 251ml General Appearance: no acute distress HEENT: normocephalic Respiratory/Chest: chest wall non-tender, lungs clear Cardiovascular: normal peripheral pulses, normal rate Abdomen: soft, non tender Current Medications Medications (Trade) Dose Ordered Sig/Odilon Route PRN Reason Start Time Stop Time Status Last Admin Dose Admin Amlodipine Besylate (Norvasc) 5 mg DAILY NG 01/19/19 11:15 02/18/19 11:14 01/24/19 08:39 Aspirin (ASA) 81 mg DAILY NG 01/19/19 11:15 02/18/19 11:14 01/24/19 08:39 Atorvastatin Calcium (Lipitor) 40 mg BEDTIME NG 01/19/19 21:00 02/18/19 20:59 01/23/19 20:31 Calcitriol (Rocatrol) 0.25 mcg DAILY NG 01/19/19 11:15 02/18/19 11:14 01/24/19 08:40 Ceftriaxone Sodium 1 gm/ Dextrose 55 ml @ 110 mls/hr Q24H IVPB 01/20/19 00:00 01/27/19 00:00 01/24/19 00:19 Chlorhexidine Gluconate (Cecily-Hex 2%) 1 applic DAILY@2000 TOPIC 01/19/19 20:00 02/18/19 19:59 01/23/19 20:30 Dextrose (Dextrose 50%) 25 ml Q30M PRN IV Hypoglycemia 01/19/19 02:00 02/18/19 01:59 Dextrose (Dextrose 50%) 50 ml Q30M PRN IV Hypoglycemia 01/19/19 02:00 02/18/19 01:59 Fentanyl Citrate 1000 mcg/Sodium Chloride 100 ml @ 0 mls/hr Q24H IV 01/19/19 14:24 01/26/19 14:23 01/21/19 08:24 Heparin Sodium (Porcine) (Heparin 5000 units/ml) 5,000 units EVERY 12 HOURS SUBQ 01/19/19 09:00 02/18/19 08:59 01/24/19 08:40 Hydralazine HCl (Apresoline) 10 mg Q4H PRN IV For High Blood Pressure 01/20/19 11:15 02/19/19 11:14 01/20/19 12:48 Levothyroxine Sodium (Synthroid) 125 mcg DAILY@0630 NG 01/20/19 06:30 02/19/19 06:29 01/24/19 05:59 Lorazepam (Ativan 2mg/ml 1ml) 0.5 mg Q4H PRN IV For Anxiety 01/19/19 06:15 01/26/19 06:14 01/24/19 04:48 Metoprolol Tartrate (Lopressor) 12.5 mg Q12HR NG 01/21/19 12:00 02/18/19 17:59 01/24/19 08:39 Pantoprazole (Protonix) 40 mg DAILY IVP 01/24/19 09:00 02/23/19 08:59 01/24/19 08:56 Quetiapine Fumarate (SEROquel) 100 mg QHS NG 01/19/19 21:00 02/18/19 20:59 01/23/19 20:31 Danis Conley MD Jan 24, 2019 09:09
--- NOTE | 2019-01-24 09:15 | Cardiac Electrophysiology PN ---
Assessment/Plan Assessment/Plan 1. Elevated troponin, possible ACS but likely due to ESRD on dialysis. On Lipitor, aspirin and Lopressor 12.5 bid. EF 50% 2. Respiratory failure. Due to volume overload. On dialysis. Failed weaning yesterday Being weaned again today 3. Hypertension on amlodipine 5 mg daily, metoprolol 12.5 bid and HD 4. End-stage renal disease, on hemodialysis. 5. Respiratory failure, on the ventilator. 6. Large right-sided pleural effusion. S/p 3 liters R Thoracentesis 01/20/19 DW RN Subjective Subjective On the Vent in ICU . Had 3 liters Thoracentesis from right lung 01/20/19. Off pressor. Off fentanyl drip. Failed weaning yesterday. Just had HD today with 2 liters out RN at bedside Objective Last 24 Hour Vital Signs Date Time Temp Pulse Resp B/P (MAP) Pulse Ox O2 Delivery O2 Flow Rate FiO2 01/24/19 08:39 70 149/77 01/24/19 08:39 70 149/77 01/24/19 08:00 Mechanical Ventilator 01/24/19 08:00 75 01/24/19 08:00 30 01/24/19 08:00 98.0 74 24 93/41 (58) 100 01/24/19 07:02 75 24 30 01/24/19 07:00 75 19 101/52 (68) 100 01/24/19 06:00 98.9 66 19 110/53 (72) 100 01/24/19 05:15 80 24 30 01/24/19 05:00 75 19 134/56 (82) 100 01/24/19 04:00 76 01/24/19 04:00 Mechanical Ventilator 01/24/19 04:00 75 19 133/63 (86) 100 01/24/19 04:00 30 01/24/19 03:10 65 18 30 01/24/19 03:00 69 19 140/53 (82) 100 01/24/19 02:00 63 19 134/56 (82) 100 01/24/19 01:00 61 19 134/48 (76) 100 01/24/19 00:56 60 18 30 01/24/19 00:00 Mechanical Ventilator 01/24/19 00:00 62 18 132/55 (80) 100 01/24/19 00:00 30 01/24/19 00:00 62 01/23/19 23:00 61 19 112/50 (70) 100 01/23/19 22:57 60 18 30 01/23/19 22:00 60 19 115/53 (73) 100 01/23/19 21:00 58 17 105/48 (67) 100 01/23/19 20:48 67 18 30 01/23/19 20:30 68 142/55 01/23/19 20:00 30 01/23/19 20:00 Mechanical Ventilator 01/23/19 20:00 68 01/23/19 20:00 63 17 120/56 (77) 100 01/23/19 19:10 62 16 30 01/23/19 19:00 63 17 139/56 (83) 100 01/23/19 18:00 60 17 149/54 (85) 100 01/23/19 17:00 98.6 65 18 132/53 (79) 99 01/23/19 16:41 65 19 30 01/23/19 16:00 66 01/23/19 16:00 62 18 134/53 (80) 100 01/23/19 16:00 30 01/23/19 16:00 Mechanical Ventilator 01/23/19 15:01 68 18 30 01/23/19 15:00 64 20 141/52 (81) 100 01/23/19 14:00 63 18 143/56 (85) 100 01/23/19 13:18 67 18 30 01/23/19 13:00 63 19 124/50 (74) 100 01/23/19 12:00 Mechanical Ventilator 01/23/19 12:00 40 01/23/19 12:00 98.8 61 18 150/50 (83) 100 01/23/19 12:00 62 01/23/19 11:07 62 17 30 01/23/19 11:00 60 17 143/62 (89) 100 01/23/19 10:00 61 16 125/43 (70) 100 Intake and Output 01/23/19 01/24/19 19:00 07:00 Intake Total 480 ml 375 ml Output Total 0 ml 0 ml Balance 480 ml 375 ml Free Water 80 ml IV Total 55 ml Tube Feeding 400 ml 320 ml Output Urine Total 0 ml 0 ml Bladder Scan Volume Amount 251ml Objective HEAD AND NECK: Positive JVD. He is orally intubated with NG tube in LUNGS: Coarse rhonchi. CARDIOVASCULAR: Regular S1 and S2 with no gallop. ABDOMEN: Soft. EXTREMITIES: 1+ pitting edema. Sawyer Christie MD Jan 24, 2019 09:15
--- NOTE | 2019-01-24 09:25 | NUR ---
RESPIRATORY NOTES: Patient failed weaning criteria. Patient will remain on ACVC.
--- NOTE | 2019-01-24 09:37 | NUR ---
NURSE NOTES: Patient failed weaning trial. Patient lasted 3 minutes per respiratory therapist and then became tachypneic, restless, and oxygen saturation began to drop. Patient placed back on AC 16, tidal volume 450, FiO2 30%, and PEEP 5. Will continue to monitor.
--- NOTE | 2019-01-24 10:00 | NUR ---
NURSE NOTES: Blood pressure elevated at 164/57 at this time. Patient receiving Norvasc and Lopressor scheduled medications at 0900 this morning. Will continue to monitor BP and administer PRN blood pressure medications as needed/per order parameters. Patient received Ativan at this time due to tachypnea and restlessness. Patient respiratory rate increased to a max of 40 breathes per minute for a short time. In addition to Ativan, tracheal suction was performed at this time. The bed that the patient was on was not functioning correctly. Patient was moved to a new bed. Patient resting with no sign of acute distress at this time. HOB at 30 degrees. Repositioning done at this time. HR 61, SpO2 100%, RR 17 post suction and ativan. Bed in low position with bed alarm on and call light in reach. Bilateral soft wrist restraints in place. Bilateral radial pulses present. Skin intact. Addendum: 01/24/19 at 1035 by Marly Samano RN Dr Conley made aware of the swelling in right arm. NO new orders received.
[2019-01-24] MEDS ORDERED: NS 275ml ONE (10:27)
--- NOTE | 2019-01-24 10:52 | NUR ---
GAGE MAKERKNIT GOODS PRESS HAND SI: PULMONARY EDEMA, RESP FAILURE ETT/VENT SUPPORT T. 98.0 HR 74 RR 29 B/P 149/77 AC 16 TV 450 FIO2 30% PEEP 5 CXR=Reduced lung volumes with basilar atelectasis/pneumonitis. IS: PROTONIX IVP CEFTRIAXONE IV HEPARIN SUBC SEROQUEL NGT ICU STATUS
--- NOTE | 2019-01-24 11:15 | NUR ---
RD ASSESSMENT & RECOMMENDATIONS SEE CARE ACTIVITY FOR COMPLETE ASSESSMENT DAILY ESTIMATED NEEDS: Needs based on Critical care, HD/ 63.6kg 22-30 kcals/kg 7531-7138 total kcals 1.2-2 g protein/kg 76-127 g total protein 20-22 mL/kg 7997-4501 total fluid mLs NUTRITION DIAGNOSIS: * Swallowing difficulty R/T respiratory status as evidenced by orally intubated, on OGT feeding. * Increased kcal/prot needs R/T renal dysfunction as evidenced by ESRD dx, on HD, w/ BL LE severe wasting. CURRENT TF: Nepro @ 40ml/hr x 22 hrs (PO DIET RECOMMENDATIONS: TOP POLISHER eval post extubation) ENTERAL NUTRITION RECOMMENDATIONS: Nepro @ 45ml/hr x 22 hrs to provide 990ml, 1782kcal, 80g prot, 720ml free water * Rec to increase TF rate to 45ml/hr (pt now on Synthroid, TF to run max 22 hrs, hold 1 hr before and after Synthroid med) * HOB Over 30 degrees/ water flush per MD ADDITIONAL RECOMMENDATIONS: * Obtain dry, calibrated bedscale wt post HD Per SNF, HT=68", OX=[id number] (01/04/19) * Monitor lytes daily w/ TF, replete as needed * Monitor for hypoglycemia- good glycemic control * Last bm possible [employer] SUPER[employer]OR, rec stool softener
--- NOTE | 2019-01-24 12:07 | NUR ---
NURSE NOTES: Patient resting with eyes closed. Patient arousable to shaking and light pain. Blood pressure 125/25, Temp 98.2 HR 67 with sinus rhythm with BBB on the director of cardiac cath lab, oxygen saturation 100%, and RR 19. no sign of acute distress. Patient was given Ativan to calm him and alleviate tachypnea around 10am. see eMAR for exact administration time. Will monitor patient for further signs of restlessness and administer ativan as ordered. Patient remains intubated with ETT with 22cm at the lip line with ventilator setting AC 16, tidal volume, FiO2 30%, and PEEP 5. Patient has copious oral and endotracheal secretions. Patient suctioned frequently. Bilateral upper arm AV shunt intact and asymptomatic at this time. Pressure dressing remains on right upper arm AV shunt post dialysis. No sign of bleeding at this time. oral gastric tube that is patent, asymptomatic, and verified with auscultation and aspiration at this time. Tube feeding of Nepro running at 40mL/hr with <20mL residual after first two hours of resumed feeding. Bruises remain on patient's right side from rib fractures. NO other evidence of skin breakdown. Bilateral soft wrist restraint in place to prevent patient from self-extubating. Bilateral wrist intact skin and pulses present. Left wrist and left forearm 20 gauge peripheral IVs remain patent, asymptomatic, and saline locked at this time. Patient has not voided or had a bowel movement yet this morning. Bladder scan was performed this morning with 209mL urine found in bladder. Patient repositioned, oral care performed, and endotracheal suctioned. Bed in low position with bed alarm on and call light in reach at this time. Bilateral heels floated.
--- NOTE | 2019-01-24 14:00 | NUR ---
NURSE NOTES: Blood pressure 137/52, HR 65, SpO2 100% on mechanical ventilator, and RR 18. Patient showing no sign of acute distress. Patient repositioned at this time. Tube feeding residual <20mL. Bed in low position with bed alarm on and call light in reach at this time. Will continue to monitor and administer Ativan as needed.
--- NOTE | 2019-01-24 16:00 | NUR ---
NURSE NOTES: Patient resting with eyes closed. Patient arousable to shaking and light pain. Blood pressure 145/52, Temp 98.9, HR 67 with sinus rhythm with BBB on the technical artist, oxygen saturation 100%, and RR 16. no sign of acute distress. Ativan has not been needed since 10am. Patient remains intubated with ETT with 22cm at the lip line with ventilator setting AC 16, tidal volume, FiO2 30%, and PEEP 5. Bilateral upper arm AV shunt intact and asymptomatic at this time. Pressure dressing remains on right upper arm AV shunt post dialysis. No sign of bleeding at this time. oral gastric tube that is patent, asymptomatic, and verified with auscultation and aspiration at this time. Tube feeding of Nepro running at 40mL/hr with <20mL residual. Bruises remain on patient's right side from rib fractures. NO other evidence of skin breakdown. Bilateral soft wrist restraint in place to prevent patient from self-extubating. Bilateral wrist intact skin and pulses present. Left wrist and left forearm 20 gauge peripheral IVs remain patent, asymptomatic, and saline locked at this time. Patient has not voided or had a bowel movement yet this morning. Bladder scan was performed this morning with 209mL urine found in bladder. Patient repositioned, oral care performed, and endotracheal suctioned. Bed in low position with bed alarm on and call light in reach at this time. Bilateral heels floated.
--- NOTE | 2019-01-24 18:00 | NUR ---
NURSE NOTES: Patient sleeping with no sign of acute distress. Vital signs stable.
--- NOTE | 2019-01-24 19:15 | NUR ---
HAND-OFF: Report given to TESHA Batista. Patient vital signs stable at this time. No sign of acute distress. Endorsed to follow up.
--- NOTE | 2019-01-24 19:30 | NUR ---
NURSE NOTES: Received the patient and report from TESHA Luke. Patient is asleep, easily arousable. Orally intubated, ETT size 7.5, 22cm at lip line, vent settings: AC 16, TV 450, FIO2 30%, PEEP 5. O2 sat 100%. No acute distress noted. SR noted on the manager cardiac cath. OGT intact, tube feeding Nepro running at 40ml/hr. HOB kept elevated. Right upper arm AV shunt noted, left upper arm old AV shunt noted. left forearm 20G and left wrist 20G intact, patent, saline locked. On bilateral soft wrist restraints. Pulses present, no skin breakdown noted. bed in lowest position, locked, side rails upx3. Bed alarm on. Call light within reach. Will continue to monitor.
[2019-01-24] MEDS: Dyna-Hex 2% Top Sol 2oz TOPIC SCH (20:29)
[2019-01-24] MEDS: Atorvastatin 80mg tab NG SCH (20:29)
--- NOTE | 2019-01-24 22:00 | NUR ---
NURSE NOTES: Pt's resting in bed, in no acute distress. VS stable. Will continue to monitor.
[2019-01-25] VITALS (24 sets, daily range): BP systolic 114–174; BP diastolic 41–71
--- NOTE | 2019-01-25 | NUR ---
NURSE NOTES: Pt's resting in bed, in no acute distress. VS stable. Will continue to monitor.
[2019-01-25] MEDS: cefTRIAXone 1gm/D5W 55ml IVPB SCH ×2 (00:15)
--- NOTE | 2019-01-25 02:00 | NUR ---
NURSE NOTES: Pt's resting in bed, in no acute distress. VS stable. Will continue to monitor.
--- NOTE | 2019-01-25 04:00 | NUR ---
NURSE NOTES: Pt's resting in bed, in no acute distress. VS stable. Will continue to monitor.
[2019-01-25] MEDS: Levothyroxine 125mcg tab NG SCH (05:55)
--- NOTE | 2019-01-25 06:00 | NUR ---
HAND-OFF: Pt's resting in bed, in no acute. VS stable. Will try to wean of the vent today.
[2019-01-25 06:16] LABS: ANION GAP 9 mmol/L (5-15); BLOOD UREA NITROGEN 66 mg/dL (7-18); CALCIUM 8.3 MG/DL (8.5-10.1); CARBON DIOXIDE 29 MMOL/L (21-32); CHLORIDE 98 MMOL/L (98-107); POTASSIUM 4.4 MMOL/L (3.5-5.1); SODIUM 136 MMOL/L (136-145)
--- NOTE | 2019-01-25 07:00 | NUR ---
RESPIRATORY NOTES: Received Patient on Vent settings ACVC 16, VT 450, Fio2 30%, PEEP +5. Patient currently intubated with 7.5 ETT at 23 cm lip line. Patient alert and awake. Breath sounds are bilateral diminished throughout both lung joya. Suctioned small amount of clear thin secretions. Vent plugged into red outlet. Alarms are on and audible. Will continue to monitor throughout the day.
--- NOTE | 2019-01-25 07:17 | NUR ---
HAND-OFF: Report given to Angie. PARKINSON .
--- NOTE | 2019-01-25 07:30 | NUR ---
NURSE NOTES: Received change of shift report from Lester RN. Pt is asleep, opens eyes to touch. Pt is orally intubated ETT 7.5 at 22cm left lipline with vent settings AC16, VT450, Peep 5.0, FIO2 30% with O2sat 100%. Bilateral inspiratory/expiratory rhonchi present on auscultation. telemetry monitor displays NSR with heart rate in the 80's with bounding pulses and no noted edema. Peripheral IV access is present on left FA #20G and left wrist #20G, both saline locks, patent/intact. Bilateral AV shunts present on upper extremities with noted thrill/bruit. Temp 98.2F axillary. Oral gastric tube is in place with feeding Nepro 1.8 infusing at 60ml/hr at goal rate. Pt is tolerating feeding well with only 5ml residual. Abdomen is round, soft/nontender to touch with hypoactive bowel sounds in all quadrants. Pt is anuric, last hemodialysis treatment was yesterday with 2L out. Bilateral soft wrist restraints are in place to prevent pt from self extubation as he is restless and attempting to reach for ET tube. Skin integrity at restraint site is within normal limits. Bed is locked, head of bed at 30degrees, three side rails up and call light within reach. Will continue to monitor pt and follow plan of care per MD orders and protocol.
--- NOTE | 2019-01-25 07:33 | NUR ---
RESPIRATORY NOTES: Placed patient on PS +8 PEEP +5 FIO2 30%. Patient failed weaning criteria, however he lasted 13 minutes on PS +8 PEEP +5 before i had to place him back onto ACVC settings. Yesterday, 01/24/19, he lasted only 3 minutes. Patient is showing slow progress. TESHA sweeney.
--- NOTE | 2019-01-25 07:40 | Nephrology Progress Note ---
Assessment/Plan Assessment/Plan: 1. End-stage renal disease. - HD MWF. 2. Severe hyperkalemia- resolved 3. Respiratory failure - intubated. Improving on weaning trials 4. Hypertension. - stable 5. Hypothyroidism. - Synthroid. 6. PL effusion- s/p 3L right thoracentesis Subjective Date patient seen: Jan 25, 2019 Time patient seen: 07:38 ROS Limited/Unobtainable: Yes Allergies: Coded Allergies: MORPHINE (Verified Allergy, Unknown, 01/18/19) Subjective Patient awake and intubated, slowly improving Objective Last 24 Hour Vital Signs Date Time Temp Pulse Resp B/P (MAP) Pulse Ox O2 Delivery O2 Flow Rate FiO2 01/25/19 07:23 81 40 30 01/25/19 07:00 98.8 69 19 149/54 (85) 100 01/25/19 06:00 62 19 145/56 (85) 100 01/25/19 05:03 74 19 30 01/25/19 05:00 66 19 132/45 (74) 100 01/25/19 04:00 62 19 130/45 (73) 100 01/25/19 04:00 Mechanical Ventilator 01/25/19 04:00 30 01/25/19 04:00 70 01/25/19 03:00 62 19 140/48 (78) 100 01/25/19 02:42 69 18 30 01/25/19 02:00 62 19 129/51 (77) 100 01/25/19 01:00 62 19 114/44 (67) 100 01/25/19 00:53 61 17 30 01/25/19 00:00 62 19 130/45 (73) 100 01/25/19 00:00 30 01/25/19 00:00 Mechanical Ventilator 01/25/19 00:00 62 01/24/19 23:00 63 19 123/45 (71) 100 01/24/19 22:45 65 18 30 01/24/19 22:00 62 19 122/48 (72) 100 01/24/19 21:04 62 18 30 01/24/19 21:00 63 19 106/46 (66) 100 01/24/19 20:36 74 173/60 01/24/19 20:00 66 19 173/60 (97) 100 01/24/19 20:00 Mechanical Ventilator 01/24/19 20:00 30 8/12/19 20:00 67 01/24/19 19:00 72 19 138/61 (86) 100 01/24/19 18:44 73 21 30 01/24/19 18:00 71 19 161/58 (92) 100 01/24/19 17:20 65 18 30 01/24/19 17:00 67 19 160/56 (90) 100 01/24/19 16:00 98.9 67 16 145/52 (83) 100 01/24/19 16:00 65 01/24/19 16:00 Mechanical Ventilator 01/24/19 16:00 30 01/24/19 15:41 68 20 30 01/24/19 15:00 67 18 136/49 (78) 100 01/24/19 14:00 65 18 137/52 (80) 100 01/24/19 13:10 72 27 30 01/24/19 13:00 66 20 135/47 (76) 100 01/24/19 12:00 Mechanical Ventilator 01/24/19 12:00 62 01/24/19 12:00 30 01/24/19 12:00 98.2 69 18 139/27 (64) 100 01/24/19 11:14 62 18 30 01/24/19 11:00 69 18 139/27 (64) 100 01/24/19 10:00 64 17 154/24 (67) 100 01/24/19 09:22 73 29 30 01/24/19 09:00 71 27 161/58 (92) 100 01/24/19 08:39 70 149/77 01/24/19 08:39 70 149/77 01/24/19 08:00 Mechanical Ventilator 01/24/19 08:00 75 01/24/19 08:00 30 01/24/19 08:00 98.0 74 24 93/41 (58) 100 Intake and Output 01/24/19 01/25/19 19:00 07:00 Intake Total 400 ml 375 ml Output Total 2000 ml 0 ml Balance -1600 ml 375 ml IV Total 55 ml Tube Feeding 400 ml 320 ml Output Urine Total 0 ml 0 ml Hemodialysis UF 2000 ml Bladder Scan Volume Amount 209mL # Bowel Movements 1 Laboratory Tests 01/25/19 05:10: Sodium Level 136, Potassium Level 4.4, Chloride Level 98, Carbon Dioxide Level 29, Anion Gap 9, Blood Urea Nitrogen 66H, Creatinine 7.0H, Estimat Glomerular Filtration Rate , Glucose Level 110H, Calcium Level 8.3L Height (Feet): 5 Height (Inches): 6.00 Weight (Pounds): 134 General Appearance: no apparent distress, agitated EENT: normal ENT inspection Neck: normal alignment, supple Cardiovascular: normal rate, regular rhythm Respiratory/Chest: rhonchi - bilaterally Abdomen: non tender, soft Edema: no edema noted Arm (L), no edema noted Arm (R), no edema noted Leg (L), no edema noted Leg (R), no edema noted Pedal (L), no edema noted Pedal (R), no edema noted Generalized David Villa MD Jan 25, 2019 07:40
--- NOTE | 2019-01-25 08:30 | NUR ---
NURSE NOTES: Pt was seen by Dr Masterson. aware regarding weaning trial today. Pt tolerated only 12 minutes, after which tidal volume dropped below 200 and pt became very tachypneic. Order in place for bedside hemodialysis to be scheduled for tomorrow. Pt is currently back on AC settings with stable VS.
[2019-01-25] MEDS: Metoprolol Tartrate 12.5mg TAB NG SCH ×2 (09:00→21:20)
[2019-01-25] MEDS: Pantoprazole Inj IVP SCH (09:08)
[2019-01-25] MEDS: Aspirin Baby 81mg NG SCH (09:09)
[2019-01-25] MEDS: Calcitriol 0.25mcg Cap NG SCH (09:09)
[2019-01-25] MEDS: Heparin 5000 units/ml inj SUBQ SCH ×2 (09:10→21:24)
--- NOTE | 2019-01-25 09:40 | NUR ---
*-* INSURANCE *-* UPDATED CLINICALS AND REVIEWS HAVE BEEN FAXED TO: [facility] [employer] [facility] (BUT IS AFTER HRS CM, WILL NOTIFY CM SO THEY MAY REVIEW ACCT) #[phone] FAX#[phone] REVIEWS/CLINICALS
--- NOTE | 2019-01-25 10:04 | Pulmonology Progress Note ---
Assessment/Plan Assessment/Plan IMPRESSION: 1. Respiratory failure. 2. Pulmonary edema. 3. COPD. 4. Hyperkalemia. 5. Hypertension. 6. Hypothyroidism. DISCUSSION: Continue present medications and care. Dialysis per renal. He is also on empiric antibiotics and antihypertensives. Continue DVT and GI prophylaxis. I will follow carefully. Continue weaning efforts; HD tomorrow Continue tube feedings Ativan prn Danis Conley M.D. Subjective Interval Events: Failed wean again today Constitutional: Reports: no symptoms HEENT: Repors: no symptoms Respiratory: Reports: no symptoms Cardiovascular: Reports: no symptoms Gastrointestinal/Abdominal: Reports: no symptoms Genitourinary: Reports: no symptoms Neurologic: Reports: no symptoms Allergies: Coded Allergies: MORPHINE (Verified Allergy, Unknown, 01/18/19) Objective Last 24 Hour Vital Signs Date Time Temp Pulse Resp B/P (MAP) Pulse Ox O2 Delivery O2 Flow Rate FiO2 01/25/19 09:09 64 161/54 01/25/19 09:00 66 20 139/41 (73) 100 01/25/19 08:42 64 19 30 01/25/19 08:00 98.2 69 21 160/55 (90) 100 01/25/19 07:23 81 40 30 01/25/19 07:00 98.8 69 19 149/54 (85) 100 01/25/19 06:00 62 19 145/56 (85) 100 01/25/19 05:03 74 19 30 01/25/19 05:00 66 19 132/45 (74) 100 01/25/19 04:00 62 19 130/45 (73) 100 01/25/19 04:00 Mechanical Ventilator 01/25/19 04:00 30 01/25/19 04:00 70 01/25/19 03:00 62 19 140/48 (78) 100 01/25/19 02:42 69 18 30 01/25/19 02:00 62 19 129/51 (77) 100 01/25/19 01:00 62 19 114/44 (67) 100 01/25/19 00:53 61 17 30 01/25/19 00:00 62 19 130/45 (73) 100 01/25/19 00:00 30 01/25/19 00:00 Mechanical Ventilator 01/25/19 00:00 62 01/24/19 23:00 63 19 123/45 (71) 100 01/24/19 22:45 65 18 30 01/24/19 22:00 62 19 122/48 (72) 100 01/24/19 21:04 62 18 30 01/24/19 21:00 63 19 106/46 (66) 100 01/24/19 20:36 74 173/60 01/24/19 20:00 66 19 173/60 (97) 100 01/24/19 20:00 Mechanical Ventilator 01/24/19 20:00 30 01/24/19 20:00 67 01/24/19 19:00 72 19 138/61 (86) 100 01/24/19 18:44 73 21 30 01/24/19 18:00 71 19 161/58 (92) 100 01/24/19 17:20 65 18 30 01/24/19 17:00 67 19 160/56 (90) 100 01/24/19 16:00 98.9 67 16 145/52 (83) 100 01/24/19 16:00 65 01/24/19 16:00 Mechanical Ventilator 01/24/19 16:00 30 01/24/19 15:41 68 20 30 01/24/19 15:00 67 18 136/49 (78) 100 01/24/19 14:00 65 18 137/52 (80) 100 01/24/19 13:10 72 27 30 01/24/19 13:00 66 20 135/47 (76) 100 01/24/19 12:00 Mechanical Ventilator 01/24/19 12:00 62 01/24/19 12:00 30 01/24/19 12:00 98.2 69 18 139/27 (64) 100 01/24/19 11:14 62 18 30 01/24/19 11:00 69 18 139/27 (64) 100 Intake and Output 01/24/19 01/25/19 19:00 07:00 Intake Total 400 ml 375 ml Output Total 2000 ml 0 ml Balance -1600 ml 375 ml IV Total 55 ml Tube Feeding 400 ml 320 ml Output Urine Total 0 ml 0 ml Hemodialysis UF 2000 ml Bladder Scan Volume Amount 209mL # Bowel Movements 1 General Appearance: no acute distress HEENT: normocephalic Respiratory/Chest: chest wall non-tender, lungs clear Cardiovascular: normal peripheral pulses, normal rate Abdomen: normal bowel sounds Laboratory Tests 01/25/19 05:10: Sodium Level 136, Potassium Level 4.4, Chloride Level 98, Carbon Dioxide Level 29, Anion Gap 9, Blood Urea Nitrogen 66H, Creatinine 7.0H, Estimat Glomerular Filtration Rate , Glucose Level 110H, Calcium Level 8.3L Current Medications Medications (Trade) Dose Ordered Sig/Odilon Route PRN Reason Start Time Stop Time Status Last Admin Dose Admin Amlodipine Besylate (Norvasc) 5 mg DAILY NG 01/19/19 11:15 02/18/19 11:14 01/25/19 09:09 Aspirin (ASA) 81 mg DAILY NG 01/19/19 11:15 02/18/19 11:14 01/25/19 09:09 Atorvastatin Calcium (Lipitor) 40 mg BEDTIME NG 01/19/19 21:00 02/18/19 20:59 01/24/19 20:29 Calcitriol (Rocatrol) 0.25 mcg DAILY NG 01/19/19 11:15 02/18/19 11:14 01/25/19 09:09 Ceftriaxone Sodium 1 gm/ Dextrose 55 ml @ 110 mls/hr Q24H IVPB 01/20/19 00:00 01/27/19 00:00 01/25/19 00:15 Chlorhexidine Gluconate (Cecily-Hex 2%) 1 applic DAILY@2000 TOPIC 01/19/19 20:00 02/18/19 19:59 01/24/19 20:29 Dextrose (Dextrose 50%) 25 ml Q30M PRN IV Hypoglycemia 01/19/19 02:00 02/18/19 01:59 Dextrose (Dextrose 50%) 50 ml Q30M PRN IV Hypoglycemia 01/19/19 02:00 02/18/19 01:59 Fentanyl Citrate 1000 mcg/Sodium Chloride 100 ml @ 0 mls/hr Q24H IV 01/19/19 14:24 01/26/19 14:23 01/21/19 08:24 Heparin Sodium (Porcine) (Heparin 5000 units/ml) 5,000 units EVERY 12 HOURS SUBQ 01/19/19 09:00 02/18/19 08:59 01/25/19 09:10 Hydralazine HCl (Apresoline) 10 mg Q4H PRN IV For High Blood Pressure 01/20/19 11:15 02/19/19 11:14 01/20/19 12:48 Levothyroxine Sodium (Synthroid) 125 mcg DAILY@0630 NG 01/20/19 06:30 02/19/19 06:29 01/25/19 05:55 Lorazepam (Ativan 2mg/ml 1ml) 0.5 mg Q4H PRN IV For Anxiety 01/19/19 06:15 01/26/19 06:14 01/24/19 18:33 Metoprolol Tartrate (Lopressor) 12.5 mg Q12HR NG 01/21/19 12:00 02/18/19 17:59 01/24/19 20:36 Pantoprazole (Protonix) 40 mg DAILY IVP 01/24/19 09:00 02/23/19 08:59 01/25/19 09:08 Quetiapine Fumarate (SEROquel) 100 mg QHS NG 01/19/19 21:00 02/18/19 20:59 01/24/19 20:29 Danis Conley MD Jan 25, 2019 10:04
--- NOTE | 2019-01-25 10:15 | NUR ---
NURSE NOTES: AM meds were administered with the exception of Metoprolol due to low heart rate fluctuating from 50's to low 60's. Oral care done and pt suctioned.
--- NOTE | 2019-01-25 12:20 | NUR ---
NURSE NOTES: Pt is awake, alert, confused, attempting to reach/pull out ET tube. Bilateral soft wrist restraints remain in place to prevent self-extubation. Oral care was done and pt repositioned. VS stable. Pt remains afebrile with Temp 98.2F axillary.
--- NOTE | 2019-01-25 12:42 | NUR ---
NURSE NOTES: Contacted [facility] nephrology and spoke with Wade to inform and set up tomorrow's bedside hemodialysis treatment per MD order. Per Wade, the astronautical engineer transition advisor will be notified.
--- NOTE | 2019-01-25 13:05 | NUR ---
Social Work Chart reviewed; met with patient currently in the ICU who remains intubated, sedated. Patient is from [facility] and remains full code at this time. This Sw left a message with son, Mingo Johnson @ [phone] (awaiting call return at this time).
--- NOTE | 2019-01-25 13:36 | NUR ---
RESPIRATORY NOTES: Weaning ended at 1320. Placed back onto ACVC per Dr. Frausto.
--- NOTE | 2019-01-25 13:42 | NUR ---
MAINTENANCE SERVICE DISPATCHER REVIEWCASE EXPRESS CLERK SI: PULMONARY EDEMA, RESP FAILURE ETT/VENT SUPPORT T. 98.2 HR 68 RR 21 B/P 136/50 AC 16 TV 450 FIO2 30% PEEP 5 WBC 11.7 IS: PROTONIX IVP CEFTRIAXONE IV HEPARIN SUBC SEROQUEL NGT ICU STATUS
--- NOTE | 2019-01-25 14:39 | NUR ---
SS note SonGeraldo [phone] contacted this SW. Son explains he has spoken with other son in [place] who is a nurse and they are both in agreement to change patient to DNR. This SW updated ICU nursing, Joanne.
--- NOTE | 2019-01-25 15:00 | NUR ---
NURSE NOTES: Pt is resting with stable VS. Pt is more awake and alert now, however still restless and attempting to reach and pull out the ET tube. Bilateral soft wrist restraints remain on to prevent self-extubation. Pt is tolerating OGT feeding well with no residual. Remains anuric. HD scheduled for tomorrow.
--- NOTE | 2019-01-25 16:43 | Cardiac Electrophysiology PN ---
Assessment/Plan Assessment/Plan 1. Elevated troponin, possible ACS but likely due to ESRD on dialysis. On Lipitor, aspirin and Lopressor 12.5 bid. EF 50% 2. Respiratory failure. Due to volume overload. On dialysis. Failed weaning 3. Hypertension on amlodipine 5 mg daily, metoprolol 12.5 bid and HD 4. End-stage renal disease, on hemodialysis. 5. Respiratory failure, on the ventilator. 6. Large right-sided pleural effusion. S/p 3 liters R Thoracentesis 01/20/19 7. DNR DW RN Subjective Subjective On the Vent in ICU . Had 3 liters Thoracentesis from right lung 01/20/19. Off pressor. Off fentanyl drip. Failed weaning today. Had HD yesterday with 2 liters out RN at bedside. Family made him DNR Objective Last 24 Hour Vital Signs Date Time Temp Pulse Resp B/P (MAP) Pulse Ox O2 Delivery O2 Flow Rate FiO2 01/25/19 16:00 71 21 139/58 (85) 100 01/25/19 15:29 70 21 30 01/25/19 15:00 70 21 155/56 (89) 100 01/25/19 14:00 68 23 166/56 (92) 100 01/25/19 13:00 66 23 141/48 (79) 100 01/25/19 12:56 67 24 30 01/25/19 12:00 67 01/25/19 12:00 Mechanical Ventilator 01/25/19 12:00 98.2 68 21 136/50 (78) 100 01/25/19 12:00 30 01/25/19 11:00 71 25 139/48 (78) 100 01/25/19 10:43 69 23 30 01/25/19 10:00 68 22 127/46 (73) 100 01/25/19 09:09 64 161/54 01/25/19 09:00 66 20 139/41 (73) 100 01/25/19 08:42 64 19 30 01/25/19 08:00 76 01/25/19 08:00 30 01/25/19 08:00 Mechanical Ventilator 01/25/19 08:00 98.2 69 21 160/55 (90) 100 01/25/19 07:23 81 40 30 01/25/19 07:00 98.8 69 19 149/54 (85) 100 01/25/19 06:00 62 19 145/56 (85) 100 01/25/19 05:03 74 19 30 01/25/19 05:00 66 19 132/45 (74) 100 01/25/19 04:00 62 19 130/45 (73) 100 01/25/19 04:00 Mechanical Ventilator 01/25/19 04:00 30 01/25/19 04:00 70 01/25/19 03:00 62 19 140/48 (78) 100 01/25/19 02:42 69 18 30 01/25/19 02:00 62 19 129/51 (77) 100 01/25/19 01:00 62 19 114/44 (67) 100 01/25/19 00:53 61 17 30 01/25/19 00:00 62 19 130/45 (73) 100 01/25/19 00:00 30 01/25/19 00:00 Mechanical Ventilator 01/25/19 00:00 62 01/24/19 23:00 63 19 123/45 (71) 100 01/24/19 22:45 65 18 30 01/24/19 22:00 62 19 122/48 (72) 100 01/24/19 21:04 62 18 30 01/24/19 21:00 63 19 106/46 (66) 100 01/24/19 20:36 74 173/60 01/24/19 20:00 66 19 173/60 (97) 100 01/24/19 20:00 Mechanical Ventilator 01/24/19 20:00 30 01/24/19 20:00 67 01/24/19 19:00 72 19 138/61 (86) 100 01/24/19 18:44 73 21 30 01/24/19 18:00 71 19 161/58 (92) 100 01/24/19 17:20 65 18 30 01/24/19 17:00 67 19 160/56 (90) 100 Intake and Output 01/24/19 01/25/19 19:00 07:00 Intake Total 400 ml 375 ml Output Total 2000 ml 0 ml Balance -1600 ml 375 ml IV Total 55 ml Tube Feeding 400 ml 320 ml Output Urine Total 0 ml 0 ml Hemodialysis UF 2000 ml Bladder Scan Volume Amount 209mL # Bowel Movements 1 Laboratory Tests Test 01/25/19 05:10 Sodium Level 136 MMOL/L (136-145) Potassium Level 4.4 MMOL/L (3.5-5.1) Chloride Level 98 MMOL/L (98-107) Carbon Dioxide Level 29 MMOL/L (21-32) Anion Gap 9 mmol/L (5-15) Blood Urea Nitrogen 66 mg/dL (7-18) H Creatinine 7.0 MG/DL (0.55-1.30) H Estimat Glomerular Filtration Rate mL/min (>60) Glucose Level 110 MG/DL (74-106) H Calcium Level 8.3 MG/DL (8.5-10.1) L Objective HEAD AND NECK: Positive JVD. He is orally intubated with NG tube in LUNGS: Coarse rhonchi. CARDIOVASCULAR: Regular S1 and S2 with no gallop. ABDOMEN: Soft. EXTREMITIES: 1+ pitting edema. Sawyer Christie MD Jan 25, 2019 16:43
--- NOTE | 2019-01-25 17:00 | NUR ---
NURSE NOTES: cinder crew worker contacted the nurse's station and informed me that pt's son is requesting to switch code status to DNR. Per child welfare social worker, son requests for now to keep pt intubated and reattempt weaning trials. Dr Conley was contacted and informed regarding pt's son's request. Telephone order was received from Dr Conley to officially switch code status to DNR. Order processed, charge nurse informed. Pt is now resting with stable VS. Addendum: 01/25/19 at 1935 by KIRBY DOMINGUEZ RN POLST form was filled out and filed in pt's paper chart awaiting for completion of form upon arrival of Md and pt's son to our facility.
--- NOTE | 2019-01-25 18:30 | NUR ---
NURSE NOTES: Pt had BM x1, formed/soft/brown moderate. Pt was cleaned, gown/linens were changed. Oral care done. Pt was repositioned with bilateral extremities elevated on pillows. VS stable.
--- NOTE | 2019-01-25 19:30 | NUR ---
HAND-OFF: Report given to Jefry PARKINSON. VS stable. Endorsed plan of care.
--- NOTE | 2019-01-25 20:00 | NUR ---
NURSE NOTES: pt awake follows simple command orraly intubated o2 sat 100 0/o no acute respiratory distress noted reposition and suctoin on usama soft restraint nan complaint
[2019-01-25] MEDS: Dyna-Hex 2% Top Sol 2oz TOPIC SCH (21:19)
[2019-01-25] MEDS: Atorvastatin 80mg tab NG SCH (21:25)
--- NOTE | 2019-01-25 23:02 | NUR ---
NURSE NOTES: reposition and suctionasleep
[2019-01-26] VITALS (24 sets, daily range): BP systolic 120–175; BP diastolic 50–85
[2019-01-26] MEDS: cefTRIAXone 1gm/D5W 55ml IVPB SCH ×4 (00:03→23:34)
--- NOTE | 2019-01-26 02:00 | NUR ---
NURSE NOTES: repositiom and suction tolerating tube feeding no residual
--- NOTE | 2019-01-26 04:00 | NUR ---
NURSE NOTES: complete bed batn done tube feeding off for loli myers
[2019-01-26 05:22] LABS: BASOPHILS % (AUTO) 0.9 % (0.0-2.0); EOSINOPHILS % (AUTO) 3.2 % (0.0-3.0); HEMATOCRIT 29.9 % (42.0-52.0); HEMOGLOBIN 9.7 G/DL (14.2-18.0); LYMPHOCYTES % (AUTO) 5.5 % (20.0-45.0); MEAN CORPUSCULAR VOLUME 100 FL (80-99); MONOCYTES % (AUTO) 8.7 % (1.0-10.0); NEUTROPHILS % (AUTO) 81.8 % (45.0-75.0); PLATELET COUNT 187 K/UL (150-450); RED BLOOD COUNT 2.98 M/UL (4.70-6.10); RED CELL DISTRIBUTION WIDTH 13.7 % (11.6-14.8); WHITE BLOOD COUNT 7.6 K/UL (4.8-10.8)
[2019-01-26] MEDS: Levothyroxine 125mcg tab NG SCH (05:55)
--- NOTE | 2019-01-26 07:20 | NUR ---
RESPIRATORY NOTE: Received patient on ACVC R 16, VT 450, FiO2 30%, PEEP +5. patient is currently intubated with 7.5 ETT at 23 cm lip line. Suctioned with moderate amount of white thick secretions through ETT. Vent plugged into red outlet. Alarms are on and audible. Will continue to monitor.
--- NOTE | 2019-01-26 07:36 | NUR ---
HAND-OFF: Report given to oralia mccarty using sbar.
--- NOTE | 2019-01-26 07:37 | NUR ---
NURSE NOTES: RECEIVED PATIENT FROM Lucian REID RN. PATIENT IS LYING IN BED, ASLEEP. HOOKED TO NURSE AIDE EVALUATOR. ORALLY INTUBATED 7.0. AT 22CM LIP LINE WITH VENT SETTINGS AC 16, TV 450, FiO2 30%, PEEP 5. NO SIGNS OF DISTRESS OF THE MOMENT. GT NOTED BUT HELD FEEDING FOR WEANING TODAY. SCHEDULED FOR DIALYSIS TODAY. ON OVERLAY MATTRESS. L FA AND L HAND G20, SL. R UA AV SHUNT NOTED FOR HD PORT AND L AV SHUNT. CALL LIGHT WITHIN REACH. BED AT LOWEST POSITION. SIDE RAILS UP. WILL CONTINUE TO MONITOR.
--- NOTE | 2019-01-26 07:59 | Nephrology Progress Note ---
Assessment/Plan Assessment/Plan: 1. End-stage renal disease. - HD today. MWF 2. Severe hyperkalemia- resolved. HD MWF 3. Respiratory failure - intubated. - failed Extubation 4. Hypertension. - stable 5. Hypothyroidism. - Synthroid. 6. PL effusion- s/p 3L right thoracentesis Subjective Date patient seen: Jan 26, 2019 Time patient seen: 07:57 ROS Limited/Unobtainable: Yes Allergies: Coded Allergies: MORPHINE (Verified Allergy, Unknown, 01/18/19) Subjective Patient remains intubated on vent Objective Last 24 Hour Vital Signs Date Time Temp Pulse Resp B/P (MAP) Pulse Ox O2 Delivery O2 Flow Rate FiO2 01/26/19 07:23 65 20 30 30 01/26/19 06:00 61 19 146/62 (90) 100 01/26/19 05:16 60 17 30 30 01/26/19 05:00 60 19 135/64 (87) 100 01/26/19 04:00 30 01/26/19 04:00 98.4 60 19 148/66 (93) 100 01/26/19 04:00 Mechanical Ventilator 01/26/19 04:00 141 01/26/19 03:21 66 17 30 30 01/26/19 03:00 68 15 120/62 (81) 100 01/26/19 02:00 66 14 132/53 (79) 100 01/26/19 01:15 65 25 30 30 01/26/19 01:00 60 19 120/62 (81) 100 01/26/19 00:00 141 01/26/19 00:00 Mechanical Ventilator 01/26/19 00:00 30 01/26/19 00:00 98.5 63 20 125/58 (80) 100 01/25/19 23:13 61 18 30 30 01/25/19 23:00 60 18 123/49 (73) 100 01/25/19 22:00 66 18 120/42 (68) 100 01/25/19 21:20 79 138/47 01/25/19 21:19 78 20 30 30 01/25/19 21:00 75 18 139/60 (86) 100 01/25/19 20:00 30 01/25/19 20:00 141 01/25/19 20:00 Mechanical Ventilator 01/25/19 20:00 65 18 141/56 (84) 100 01/25/19 19:00 66 18 174/62 (99) 100 01/25/19 18:57 71 30 30 30 01/25/19 18:00 68 18 150/63 (92) 100 01/25/19 17:16 66 21 30 01/25/19 17:00 98.1 67 20 158/71 (100) 100 01/25/19 16:00 68 01/25/19 16:00 Mechanical Ventilator 01/25/19 16:00 30 01/25/19 16:00 71 21 139/58 (85) 100 01/25/19 15:29 70 21 30 01/25/19 15:00 70 21 155/56 (89) 100 01/25/19 14:00 68 23 166/56 (92) 100 01/25/19 13:00 66 23 141/48 (79) 100 01/25/19 12:56 67 24 30 01/25/19 12:00 67 01/25/19 12:00 Mechanical Ventilator 01/25/19 12:00 98.2 68 21 136/50 (78) 100 01/25/19 12:00 30 01/25/19 11:00 71 25 139/48 (78) 100 01/25/19 10:43 69 23 30 01/25/19 10:00 68 22 127/46 (73) 100 01/25/19 09:09 64 161/54 01/25/19 09:00 66 20 139/41 (73) 100 01/25/19 08:42 64 19 30 01/25/19 08:00 76 01/25/19 08:00 30 01/25/19 08:00 Mechanical Ventilator 01/25/19 08:00 98.2 69 21 160/55 (90) 100 Intake and Output 01/25/19 01/26/19 19:00 07:00 Intake Total 570 ml 410 ml Output Total 0 ml 0 ml Balance 570 ml 410 ml Free Water 90 ml 50 ml Tube Feeding 480 ml 360 ml Output Urine Total 0 ml 0 ml Bladder Scan Volume Amount 221ml # Bowel Movements 1 1 Laboratory Tests 01/26/19 04:10: White Blood Count 7.6, Red Blood Count 2.98L, Hemoglobin 9.7L, Hematocrit 29.9L , Mean Corpuscular Volume 100H, Mean Corpuscular Hemoglobin 32.6H, Mean Corpuscular Hemoglobin Concent 32.5, Red Cell Distribution Width 13.7, Platelet Count 187, Mean Platelet Volume 5.8L, Neutrophils (%) (Auto) 81.8H, Lymphocytes (%) (Auto) 5.5L, Monocytes (%) (Auto) 8.7, Eosinophils (%) (Auto) 3.2H, Basophils (%) (Auto) 0.9 Height (Feet): 5 Height (Inches): 6.00 Weight (Pounds): 600 General Appearance: no apparent distress, alert EENT: normal ENT inspection Neck: normal alignment, supple Cardiovascular: normal rate, regular rhythm Respiratory/Chest: rhonchi - bilaterally Abdomen: non tender, soft Edema: no edema noted Arm (L), no edema noted Arm (R), no edema noted Leg (L), no edema noted Leg (R), no edema noted Pedal (L), no edema noted Pedal (R), no edema noted Generalized David Villa MD Jan 26, 2019 07:59
--- NOTE | 2019-01-26 08:02 | NUR ---
NURSE NOTES: SEEN AND EXAMINED BY DR CENTENO WITH NEW ORDERS MADE. CALLED AND SPOKE WITH VIC FROM [facility] FOR THE SCHEDULED DIALYSIS. WILL CONTINUE TO MONITOR.
--- NOTE | 2019-01-26 08:35 | NUR ---
RESPIRATORY NOTE: Placed patient on PS +5, PEEP +5 at 0835am. Patient is tolerating weaning well. Will continue to monitor.
--- NOTE | 2019-01-26 08:35 | Cardiology Progress Note ---
Assessment/Plan Status: stable Assessment/Plan Assessment/Plan Assessment/Plan 1. Elevated troponin, possible ACS but likely due to ESRD on dialysis. Continue to trend Stress test when stable Defer cardiac cath Continue aspirin Continue metoprolol LVEF preserved 2. Respiratory failure. Due to volume overload. On dialysis. Failed weaning HD per nephrology 3. Hypertension Continue amlodipine 5 mg daily, metoprolol 12.5 bid and HD 4. End-stage renal disease, on hemodialysis. 5. Respiratory failure, on the ventilator. 6. Large right-sided pleural effusion. S/p 3 liters R Thoracentesis 01/20/19 7. DNR Subjective Cardiovascular: Reports: no symptoms Respiratory: Reports: no symptoms Gastrointestinal/Abdominal: Reports: no symptoms Genitourinary: Reports: no symptoms Subjective Coverage for [place] Events reviewed, remains in ICU Objective Last 24 Hour Vital Signs Date Time Temp Pulse Resp B/P (MAP) Pulse Ox O2 Delivery O2 Flow Rate FiO2 01/26/19 07:23 65 20 30 30 01/26/19 06:00 61 19 146/62 (90) 100 01/26/19 05:16 60 17 30 30 01/26/19 05:00 60 19 135/64 (87) 100 01/26/19 04:00 30 01/26/19 04:00 98.4 60 19 148/66 (93) 100 01/26/19 04:00 Mechanical Ventilator 01/26/19 04:00 141 01/26/19 03:21 66 17 30 30 01/26/19 03:00 68 15 120/62 (81) 100 01/26/19 02:00 66 14 132/53 (79) 100 01/26/19 01:15 65 25 30 30 01/26/19 01:00 60 19 120/62 (81) 100 01/26/19 00:00 141 01/26/19 00:00 Mechanical Ventilator 01/26/19 00:00 30 01/26/19 00:00 98.5 63 20 125/58 (80) 100 01/25/19 23:13 61 18 30 30 01/25/19 23:00 60 18 123/49 (73) 100 01/25/19 22:00 66 18 120/42 (68) 100 01/25/19 21:20 79 138/47 01/25/19 21:19 78 20 30 30 01/25/19 21:00 75 18 139/60 (86) 100 01/25/19 20:00 30 01/25/19 20:00 141 01/25/19 20:00 Mechanical Ventilator 01/25/19 20:00 65 18 141/56 (84) 100 01/25/19 19:00 66 18 174/62 (99) 100 01/25/19 18:57 71 30 30 30 01/25/19 18:00 68 18 150/63 (92) 100 01/25/19 17:16 66 21 30 01/25/19 17:00 98.1 67 20 158/71 (100) 100 01/25/19 16:00 68 01/25/19 16:00 Mechanical Ventilator 01/25/19 16:00 30 01/25/19 16:00 71 21 139/58 (85) 100 01/25/19 15:29 70 21 30 01/25/19 15:00 70 21 155/56 (89) 100 01/25/19 14:00 68 23 166/56 (92) 100 01/25/19 13:00 66 23 141/48 (79) 100 01/25/19 12:56 67 24 30 01/25/19 12:00 67 01/25/19 12:00 Mechanical Ventilator 01/25/19 12:00 98.2 68 21 136/50 (78) 100 01/25/19 12:00 30 01/25/19 11:00 71 25 139/48 (78) 100 01/25/19 10:43 69 23 30 01/25/19 10:00 68 22 127/46 (73) 100 01/25/19 09:09 64 161/54 01/25/19 09:00 66 20 139/41 (73) 100 01/25/19 08:42 64 19 30 General Appearance: mild distress, on vent EENT: PERRL/EOMI, normal ENT inspection, TMs normal, pharynx normal Neck: non-tender, normal alignment, supple, normal inspection, no JVD Rhythm: NSR Cardiovascular: normal peripheral pulses, normal rate, regular rhythm Respiratory/Chest: chest wall non-tender, accessory muscle use, crackles/rales Abdomen: normal bowel sounds, non tender, soft, no organomegaly, no mass Extremities: normal range of motion, non-tender, normal inspection Neurologic: sail repairer II-XII grossly normal, no motor/sensory deficits Intake and Output 01/25/19 01/26/19 19:00 07:00 Intake Total 570 ml 410 ml Output Total 0 ml 0 ml Balance 570 ml 410 ml Free Water 90 ml 50 ml Tube Feeding 480 ml 360 ml Output Urine Total 0 ml 0 ml Bladder Scan Volume Amount 221ml # Bowel Movements 1 1 Laboratory Tests Test 01/26/19 04:10 White Blood Count 7.6 K/UL (4.8-10.8) Red Blood Count 2.98 M/UL (4.70-6.10) L Hemoglobin 9.7 G/DL (14.2-18.0) L Hematocrit 29.9 % (42.0-52.0) L Mean Corpuscular Volume 100 FL (80-99) H Mean Corpuscular Hemoglobin 32.6 PG (27.0-31.0) H Mean Corpuscular Hemoglobin Concent 32.5 G/DL (32.0-36.0) Red Cell Distribution Width 13.7 % (11.6-14.8) Platelet Count 187 K/UL (150-450) Mean Platelet Volume 5.8 FL (6.5-10.1) L Neutrophils (%) (Auto) 81.8 % (45.0-75.0) H Lymphocytes (%) (Auto) 5.5 % (20.0-45.0) L Monocytes (%) (Auto) 8.7 % (1.0-10.0) Eosinophils (%) (Auto) 3.2 % (0.0-3.0) H Basophils (%) (Auto) 0.9 % (0.0-2.0) Eric Thompson MD Jan 26, 2019 08:35
--- NOTE | 2019-01-26 08:35 | NUR ---
NURSE NOTES: STARTED WEANING TRIAL. ON PS 8, PEEP 5. WILL CONTINUE TO MONITOR.
[2019-01-26] MEDS: Metoprolol Tartrate 12.5mg TAB NG SCH ×2 (09:00→21:00)
--- NOTE | 2019-01-26 09:03 | Pulmonology Progress Note ---
Assessment/Plan Assessment/Plan IMPRESSION: 1. Respiratory failure. 2. Pulmonary edema. 3. COPD. 4. Hyperkalemia. 5. Hypertension. 6. Hypothyroidism. DISCUSSION: Continue present medications and care. Dialysis per renal. He is also on empiric antibiotics and antihypertensives. Continue DVT and GI prophylaxis. I will follow carefully. S/p thoracentesis on 01/20/19 Continue weaning efforts; HD per renal Continue tube feedings Ativan prn Now DNR Danis Conley M.D. Subjective Interval Events: Failed wean Constitutional: Reports: no symptoms HEENT: Repors: no symptoms Respiratory: Reports: no symptoms Cardiovascular: Reports: no symptoms Gastrointestinal/Abdominal: Reports: no symptoms Allergies: Coded Allergies: MORPHINE (Verified Allergy, Unknown, 01/18/19) Objective Last 24 Hour Vital Signs Date Time Temp Pulse Resp B/P (MAP) Pulse Ox O2 Delivery O2 Flow Rate FiO2 01/26/19 08:35 66 31 30 30 01/26/19 07:23 65 20 30 30 01/26/19 06:00 61 19 146/62 (90) 100 01/26/19 05:16 60 17 30 30 01/26/19 05:00 60 19 135/64 (87) 100 01/26/19 04:00 30 01/26/19 04:00 98.4 60 19 148/66 (93) 100 01/26/19 04:00 Mechanical Ventilator 01/26/19 04:00 141 01/26/19 03:21 66 17 30 30 01/26/19 03:00 68 15 120/62 (81) 100 01/26/19 02:00 66 14 132/53 (79) 100 01/26/19 01:15 65 25 30 30 01/26/19 01:00 60 19 120/62 (81) 100 01/26/19 00:00 141 01/26/19 00:00 Mechanical Ventilator 01/26/19 00:00 30 01/26/19 00:00 98.5 63 20 125/58 (80) 100 01/25/19 23:13 61 18 30 30 01/25/19 23:00 60 18 123/49 (73) 100 01/25/19 22:00 66 18 120/42 (68) 100 01/25/19 21:20 79 138/47 01/25/19 21:19 78 20 30 30 01/25/19 21:00 75 18 139/60 (86) 100 01/25/19 20:00 30 01/25/19 20:00 141 01/25/19 20:00 Mechanical Ventilator 01/25/19 20:00 65 18 141/56 (84) 100 01/25/19 19:00 66 18 174/62 (99) 100 01/25/19 18:57 71 30 30 30 01/25/19 18:00 68 18 150/63 (92) 100 01/25/19 17:16 66 21 30 01/25/19 17:00 98.1 67 20 158/71 (100) 100 01/25/19 16:00 68 01/25/19 16:00 Mechanical Ventilator 01/25/19 16:00 30 01/25/19 16:00 71 21 139/58 (85) 100 01/25/19 15:29 70 21 30 01/25/19 15:00 70 21 155/56 (89) 100 01/25/19 14:00 68 23 166/56 (92) 100 01/25/19 13:00 66 23 141/48 (79) 100 01/25/19 12:56 67 24 30 01/25/19 12:00 67 01/25/19 12:00 Mechanical Ventilator 01/25/19 12:00 98.2 68 21 136/50 (78) 100 01/25/19 12:00 30 01/25/19 11:00 71 25 139/48 (78) 100 01/25/19 10:43 69 23 30 01/25/19 10:00 68 22 127/46 (73) 100 01/25/19 09:09 64 161/54 Intake and Output 01/25/19 01/26/19 19:00 07:00 Intake Total 570 ml 410 ml Output Total 0 ml 0 ml Balance 570 ml 410 ml Free Water 90 ml 50 ml Tube Feeding 480 ml 360 ml Output Urine Total 0 ml 0 ml Bladder Scan Volume Amount 221ml # Bowel Movements 1 1 General Appearance: no acute distress HEENT: normocephalic Respiratory/Chest: chest wall non-tender, decreased breath sounds Cardiovascular: normal peripheral pulses, normal rate Abdomen: normal bowel sounds Laboratory Tests 01/26/19 04:10: White Blood Count 7.6, Red Blood Count 2.98L, Hemoglobin 9.7L, Hematocrit 29.9L , Mean Corpuscular Volume 100H, Mean Corpuscular Hemoglobin 32.6H, Mean Corpuscular Hemoglobin Concent 32.5, Red Cell Distribution Width 13.7, Platelet Count 187, Mean Platelet Volume 5.8L, Neutrophils (%) (Auto) 81.8H, Lymphocytes (%) (Auto) 5.5L, Monocytes (%) (Auto) 8.7, Eosinophils (%) (Auto) 3.2H, Basophils (%) (Auto) 0.9 Current Medications Medications (Trade) Dose Ordered Sig/Odilon Route PRN Reason Start Time Stop Time Status Last Admin Dose Admin Amlodipine Besylate (Norvasc) 5 mg DAILY NG 01/19/19 11:15 02/18/19 11:14 01/25/19 09:09 Aspirin (ASA) 81 mg DAILY NG 01/19/19 11:15 02/18/19 11:14 01/25/19 09:09 Atorvastatin Calcium (Lipitor) 40 mg BEDTIME NG 01/19/19 21:00 02/18/19 20:59 01/25/19 21:25 Calcitriol (Rocatrol) 0.25 mcg DAILY NG 01/19/19 11:15 02/18/19 11:14 01/25/19 09:09 Ceftriaxone Sodium 1 gm/ Dextrose 55 ml @ 110 mls/hr Q24H IVPB 01/20/19 00:00 01/27/19 00:00 01/26/19 00:03 Chlorhexidine Gluconate (Cecily-Hex 2%) 1 applic DAILY@2000 TOPIC 01/19/19 20:00 02/18/19 19:59 01/25/19 21:19 Dextrose (Dextrose 50%) 25 ml Q30M PRN IV Hypoglycemia 01/19/19 02:00 02/18/19 01:59 Dextrose (Dextrose 50%) 50 ml Q30M PRN IV Hypoglycemia 01/19/19 02:00 02/18/19 01:59 Fentanyl Citrate 1000 mcg/Sodium Chloride 100 ml @ 0 mls/hr Q24H IV 01/19/19 14:24 01/26/19 14:23 01/21/19 08:24 Heparin Sodium (Porcine) (Heparin 5000 units/ml) 5,000 units EVERY 12 HOURS SUBQ 01/19/19 09:00 02/18/19 08:59 01/25/19 21:24 Hydralazine HCl (Apresoline) 10 mg Q4H PRN IV For High Blood Pressure 01/20/19 11:15 02/19/19 11:14 01/20/19 12:48 Levothyroxine Sodium (Synthroid) 125 mcg DAILY@0630 NG 01/20/19 06:30 02/19/19 06:29 01/26/19 05:55 Metoprolol Tartrate (Lopressor) 12.5 mg Q12HR NG 01/21/19 12:00 02/18/19 17:59 01/25/19 21:20 Pantoprazole (Protonix) 40 mg DAILY IVP 01/24/19 09:00 02/23/19 08:59 01/25/19 09:08 Quetiapine Fumarate (SEROquel) 100 mg QHS NG 01/19/19 21:00 02/18/19 20:59 01/25/19 21:20 Danis Conley MD Jan 26, 2019 09:03
[2019-01-26] MEDS: Aspirin Baby 81mg NG SCH (09:46)
[2019-01-26] MEDS: Pantoprazole Inj IVP SCH (09:46)
[2019-01-26] MEDS: Heparin 5000 units/ml inj SUBQ SCH ×2 (09:47→22:29)
[2019-01-26] MEDS: Calcitriol 0.25mcg Cap NG SCH (10:02)
--- NOTE | 2019-01-26 10:40 | NUR ---
NURSE NOTES: TOLERATING WEANING. NO SIGNS OF DISTRESS OF THE MOMENT. TURNED AND REPOSITIONED PATIENT. WILL CONTINUE TO MONITOR.
--- NOTE | 2019-01-26 12:12 | NUR ---
NURSE NOTES: STILL TOLERATING WEANING. ON PS 5, PEEP 5. NO SIGNS OF DISTRESS. ON RESTRAINTS DUE TO PULLING OF ETT. TOLERATING TUBE FEEDING. WILL CONTINUE TO MONITOR.
--- NOTE | 2019-01-26 12:21 | NUR ---
RELIGIOUS ACTIVITIES DIRECTORFOLDER MACHINE OPERATOR SI: RESP FAILURE ETT/VENT SUPPORT T. 99.3 HR 72 RR 27 B/P 160/55 AC 16 TV 450 FIO2 30% PEEP 5 IS: CEFTRIAXONE IV PROTONIX IV LOPRESSOR HEPARIN SUBC ICU STATUS
--- NOTE | 2019-01-26 14:00 | NUR ---
NURSE NOTES: PATIENT KEPT DRY AND INTACT. NOTED 2 LARGE SOFT BM. SKIN ISSUE NOTED DUE TO INCONTINENCE. WILL CONTINUE TO MONITOR.
--- NOTE | 2019-01-26 14:02 | NUR ---
*-* INSURANCE *-* UPDATED CLINICALS AND REVIEWS HAVE BEEN FAXED TO: [employer] (BUT IS AFTER HRS CM, WILL NOTIFY CM SO THEY MAY REVIEW ACCT) #[phone] FAX#[phone] REVIEWS/CLINICALS
--- NOTE | 2019-01-26 15:26 | NUR ---
NURSE NOTES: TURNED AND REPOSITIONED PATIENT. ANOTHER SOFT BM NOTED. WILL CONTINUE TO MONITOR.
--- NOTE | 2019-01-26 16:25 | NUR ---
NURSE NOTES:WOUND CARE NOTES:Pt skin assessed along with primary nurse. Non-blanching erythema with partial thickness shearing noted to sacrococcygeal prominence(L)1.5cm x (W)1cm. Darker skin tone without induration noted to R and L ischium. Non-blanching erythema with fluctuance noted to R heel. Non-blanching erythema with fluctuance noted to L heel. Small ulcer noted to lateral L 1st metatarsal. Base of wound pink and dry.(L)0.8cm x (W)0.4cm. Small blood blister noted to dorsal L 4th metatarsal.(L)0.2cm x (W)0.2cm. Tx.Plan: Apply Triad Paste to sacrum. Cover with Optifoam drsg. Change every 3 days and prn. Apply Cavilon Skin Barrier to R and L heels. Cover each heel with Optifoam drsg. Change every 7 days and prn. Apply Cavilon Skin Barrier to L st metatarsal. Cover with Optifoam drsg. Change every 7 days and prn. APM/SCOTTY Mattress overlay. Reposition at least every 2hours or as tolerated. Off-load heels with pillow.
--- NOTE | 2019-01-26 16:45 | NUR ---
RESPIRATORY NOTE: Pt self extubated while being cleaned. Pt placed on CA 50% 12LPM. Dr ordered ABG after 1 hr.
--- NOTE | 2019-01-26 16:45 | NUR ---
NURSE NOTES: WHILE CLEANING THE PATIENT WITH ANOTHER NURSE, HE WAS TURNED ON HIS LEFT SIDE AND HE PULLED THE ETT OUT. PLACED THE PATIENT ON COOL AEROSOL AND SATING AT 100% AND NOTIFIED DR RUSSELL AND SIGIFREDO TO FOLLOW. WILL CONTINUE TO MONITOR.
--- NOTE | 2019-01-26 18:15 | NUR ---
NURSE NOTES: PATIENT TOLERATED COOL AEROSOL AT 30%, 12L. STILL AWAITING FOR DIALYSIS. NO SIGNS OF DISTRESS OF THE MOMENT. FOR ABG. WILL CONTINUE TO MONITOR.
--- NOTE | 2019-01-26 18:45 | NUR ---
NURSE NOTES: CALLED AND LEFT A MESSAGE TO DR RUSSELL RE ABG RESULT. NO SIGNS OF DISTRESS OF THE MOMENT. WILL CONTINUE TO MONITOR.
--- NOTE | 2019-01-26 19:22 | NUR ---
HAND-OFF: Report given to Kris Castellon RN.
--- NOTE | 2019-01-26 19:22 | NUR ---
RESPIRATORY NOTE: Received pt on 50% Cool Aerosol via mask. Pt is alert/awake, follows commands. Pt self-extubated earlier this afternoon. ABG already done(see lab for results). B/S usama. diminished, no stridor noted at this time. Ventilator on standby at bedside. Pt resting comfortably, in no apparent distress at this time. Will continue to monitor pt.
[2019-01-26] MEDS: Dyna-Hex 2% Top Sol 2oz TOPIC SCH (19:42)
--- NOTE | 2019-01-26 19:45 | NUR ---
NURSE NOTES: PT'S SON STAYED AT BEDSIDE, PATIENT AWOKE, DENIED PAIN AT THIS TIME, RESPIRATION REGULAR, ON O2 12LMP VIA COOL AEROSOL SIMPLE MASK, O2 SATURATION 100% NOTED, KEPT NPO, ABDOMEN SOFT, BOWEL MOVEMENT STATUS, AV SHUNT TO BOTH UPPER ARM, RIGHT ARM PRECAUTION, PERIPHERAL LINE TO LEFT FA AND HAND 20G INTACT AND PATENT, KEPT 2 POINT SOFT RESTRAINTS FOR SAFETY, MADE HOB 30 DEGREES, LOWER BED AND ON BED ALARM, PROVIDED CALL LIGHT WITHIN REACH, WAITING DIALYSIS STATUS, WILL CONTINUE TO MONITOR.
--- NOTE | 2019-01-26 20:00 | NUR ---
NURSE NOTES: DIALYSIS NURSE CAME AT THIS TIME.
[2019-01-26] MEDS: Atorvastatin 80mg tab NG SCH (21:00)
--- NOTE | 2019-01-26 22:20 | NUR ---
NURSE NOTES: FINISHED DIALYSIS AT THIS TIME, 2,000ML WAS REMOVED.
--- NOTE | 2019-01-26 22:40 | NUR ---
NURSE NOTES: PATIENT CALM, FOLLOWED COMMANDS AT THIS TIME, DISCONTINUED RESTRAINTS ORDERED.
--- NOTE | 2019-01-26 22:50 | NUR ---
NURSE NOTES: CHANGED O2 3LPM VIA NC BY RT, O2 SATURATION 100% NOTED AT THIS TIME.
[2019-01-27] VITALS (24 sets, daily range): BP systolic 138–176; BP diastolic 41–96
--- NOTE | 2019-01-27 00:12 | NUR ---
NURSE NOTES:, PATIENT ALERT, DISORIENTED TO PALACE, TIME AND SITUATION, TRIED TO OUT OF BED THAT DID NOT FOLLOWED COMMANDS, AGITATED AT THIS TIME, WILL CONTINUE TO MONITOR.
--- NOTE | 2019-01-27 00:17 | NUR ---
NURSE NOTES: PATIENT TRIED TO REMOVE LINE AND NC THAT APPLIED 2 POINT SOFT RESTRAINTS FOR SAFETY ORDERED.
--- NOTE | 2019-01-27 02:15 | NUR ---
NURSE NOTES: PATIENT TRIED TO OUT OF BED, RESIST TO CARE AND DID NOT FOLLOWED COMMANDS, WILL CONTINUE TO MONITOR.
--- NOTE | 2019-01-27 03:50 | NUR ---
NURSE NOTES: MORNING CARE WAS DONE, PATIENT TRIED TO OUT OF BED AND RESISTANCE TO CARE, SECURED 2 POINT RESTRAINTS, WILL CONTINUE TO MONITOR.
--- NOTE | 2019-01-27 05:40 | NUR ---
NURSE NOTES: NOTED SMALL BM SOFT BROWN COLOR, CLEANED THE PATIENT. PATIENT COMPLAINED BACK PAIN WHEN TURNING, WILL CONTINUE TO MONITOR.
[2019-01-27 05:49] LABS: ANION GAP 10 mmol/L (5-15); BLOOD UREA NITROGEN 61 mg/dL (7-18); CALCIUM 8.9 MG/DL (8.5-10.1); CARBON DIOXIDE 27 MMOL/L (21-32); CHLORIDE 97 MMOL/L (98-107); CREATININE 6.9 MG/DL (0.55-1.30); POTASSIUM 4.4 MMOL/L (3.5-5.1); SODIUM 134 MMOL/L (136-145)
[2019-01-27] MEDS: Levothyroxine 125mcg tab NG SCH (06:25)
--- NOTE | 2019-01-27 06:25 | NUR ---
NURSE NOTES: SBP OVER 170MMHG NOTED X2 THAT GIVEN APRESOLINE 10MG BY IVP PRN ORDER FOR HIGH BP, PATIENT5 DENIED PAIN AT THIS TIME, MADE HOB OVER 30 DEGREES, WILL CONTINUE TO MONITOR.
--- NOTE | 2019-01-27 07:18 | NUR ---
HAND-OFF: Report given to TESHA LEYVA.
--- NOTE | 2019-01-27 07:25 | NUR ---
NURSE NOTES: Received the patient from TESHA Ross. Patient is awake, confused, resting in bed. On 3L O2 via NC, O2 sat 100%. breathing even and unlabored. SR noted on the monitor. No acute distress noted. patient kept NPO. left forearm 20G and left wrist 20G intact, saline locked. on P200 mattress. right upper arm AV shunt and left upper arm AV shunt noted. Patient on bilateral soft wrist restraints. no skin breakdown noted, pulses present. Bed in lowest position, locked, side rails upx3. Bed alarm on. Call light within reach. Will continue to monitor.
[2019-01-27] MEDS: Metoprolol Tartrate 12.5mg TAB NG SCH ×2 (08:19→21:00)
[2019-01-27] MEDS: Aspirin Baby 81mg NG SCH (08:19)
[2019-01-27] MEDS: Calcitriol 0.25mcg Cap NG SCH (08:20)
--- NOTE | 2019-01-27 08:45 | NUR ---
NURSE NOTES: Dr. Thompson made aware that patient unable to take po meds. Per , okay to hold po meds and continue hydralazine prn.
[2019-01-27] MEDS: Pantoprazole Inj IVP SCH (08:53)
[2019-01-27] MEDS: Heparin 5000 units/ml inj SUBQ SCH ×2 (08:57→20:59)
--- NOTE | 2019-01-27 09:10 | NUR ---
NURSE NOTES: patient was turned and repositioned. patient kept clean and dry.
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
--- NOTE | 2019-01-27 09:51 | Nephrology Progress Note ---
Assessment/Plan Status: stable Assessment/Plan: 1. End-stage renal disease. - Continue Hd MWF 2. Severe hyperkalemia- resolved. 3. Respiratory failure - now extubated 4. Hypertension. - stable 5. Hypothyroidism. - Synthroid. 6. PL effusion- s/p 3L right thoracentesis Subjective Date patient seen: Jan 27, 2019 Time patient seen: 09:49 ROS Limited/Unobtainable: No Allergies: Coded Allergies: MORPHINE (Verified Allergy, Unknown, 01/18/19) Subjective Patient now extubated. try to verbalize Objective Last 24 Hour Vital Signs Date Time Temp Pulse Resp B/P (MAP) Pulse Ox O2 Delivery O2 Flow Rate FiO2 01/27/19 09:00 70 23 160/64 (96) 100 01/27/19 08:00 3.0 01/27/19 08:00 98.6 69 20 157/57 (90) 100 01/27/19 08:00 71 01/27/19 08:00 Nasal Cannula 3.0 01/27/19 07:00 75 23 138/41 (73) 100 01/27/19 06:25 173/56 01/27/19 06:00 69 19 176/57 (96) 100 01/27/19 05:00 70 18 164/50 (88) 100 01/27/19 04:00 Simple Mask 12.0 01/27/19 04:00 3.0 01/27/19 04:00 98.2 70 23 144/49 (80) 99 01/27/19 03:21 71 01/27/19 03:00 71 20 164/50 (88) 100 01/27/19 02:00 76 13 165/51 (89) 100 01/27/19 01:00 67 13 144/83 (103) 100 01/27/19 00:00 3.0 01/27/19 00:00 Simple Mask 12.0 01/27/19 00:00 97.8 69 20 156/69 (98) 100 01/26/19 23:34 175/56 01/26/19 23:24 68 01/26/19 23:00 67 20 175/56 (95) 100 01/26/19 22:00 68 23 143/60 (87) 100 01/26/19 21:00 71 25 157/62 (93) 100 01/26/19 21:00 66 140/58 01/26/19 20:00 Simple Mask 12.0 01/26/19 20:00 98.2 72 24 165/65 (98) 100 01/26/19 20:00 12.0 01/26/19 19:23 70 01/26/19 19:20 100 Cool Aerosol 12.0 50 01/26/19 19:00 70 18 164/58 (93) 100 01/26/19 18:00 70 28 164/62 (96) 100 01/26/19 17:00 71 25 170/85 (113) 100 01/26/19 16:53 71 17 01/26/19 16:45 Simple Mask 12.0 01/26/19 16:45 12.0 50 01/26/19 16:00 Mechanical Ventilator 01/26/19 16:00 99.0 64 20 161/60 (93) 100 01/26/19 16:00 30 01/26/19 16:00 65 01/26/19 15:22 64 20 30 01/26/19 15:00 66 20 153/80 (104) 100 01/26/19 14:00 68 17 170/68 (102) 100 01/26/19 13:21 30 01/26/19 13:08 69 24 30 01/26/19 13:00 70 22 162/60 (94) 100 01/26/19 12:00 Mechanical Ventilator 01/26/19 12:00 70 01/26/19 12:00 30 01/26/19 12:00 99.3 68 24 160/55 (90) 100 01/26/19 11:16 69 27 30 30 01/26/19 11:00 72 22 151/56 (87) 100 01/26/19 10:00 70 22 158/54 (88) 100 01/26/19 09:57 100 Intake and Output 01/26/19 01/27/19 19:00 07:00 Intake Total 370 ml 55 ml Output Total 2000 ml Balance 370 ml -1945 ml Free Water 50 ml IV Total 55 ml Tube Feeding 320 ml Hemodialysis UF 2000 ml Bladder Scan Volume Amount 233 # Bowel Movements 4 5 Laboratory Tests 01/26/19 13:06: Arterial Blood pH 7.345L, Arterial Blood Partial Pressure CO2 55.4*H, Arterial Blood Partial Pressure O2 110.7H, Arterial Blood HCO3 29.6H, Arterial Blood Oxygen Saturation 97.8, Arterial Blood Base Excess 2.9H, Nino Test Positive 01/26/19 18:23: Arterial Blood pH 7.400, Arterial Blood Partial Pressure CO2 44.6, Arterial Blood Partial Pressure O2 191.2H, Arterial Blood HCO3 27.0H, Arterial Blood Oxygen Saturation 99.0, Arterial Blood Base Excess 1.9, Nino Test 01/27/19 04:15: Sodium Level 134L, Potassium Level 4.4, Chloride Level 97L, Carbon Dioxide Level 27, Anion Gap 10, Blood Urea Nitrogen 61H, Creatinine 6.9H, Estimat Glomerular Filtration Rate , Glucose Level 74, Calcium Level 8.9 Height (Feet): 5 Height (Inches): 6.00 Weight (Pounds): 127 General Appearance: no apparent distress EENT: normal ENT inspection Neck: normal alignment, supple Cardiovascular: regular rhythm Respiratory/Chest: rhonchi - bilaterally Abdomen: non tender, soft Edema: no edema noted Arm (L), no edema noted Arm (R), no edema noted Leg (L), no edema noted Leg (R), no edema noted Pedal (L), no edema noted Pedal (R), no edema noted Generalized David Villa MD Jan 27, 2019 09:51
--- NOTE | 2019-01-27 09:53 | NUR ---
NURSE NOTES: Patient seen by Dr. Villa. Per , okay to discontinue daily bladder scan.
--- NOTE | 2019-01-27 10:06 | NUR ---
NURSE NOTES: Called [facility] dialysis center. notified HD order for tomorrow.
--- NOTE | 2019-01-27 10:29 | Cardiology Progress Note ---
Assessment/Plan Status: stable Assessment/Plan Assessment/Plan Assessment/Plan 1. Elevated troponin, possible ACS but likely due to ESRD on dialysis. Continue to trend Stress test when stable Defer cardiac cath Continue aspirin Continue metoprolol LVEF preserved 2. Respiratory failure. Due to volume overload. On dialysis. Failed weaning HD per nephrology 3. Hypertension Continue amlodipine 5 mg daily, metoprolol 12.5 bid and HD 4. End-stage renal disease, on hemodialysis. 5. Respiratory failure, on the ventilator. 6. Large right-sided pleural effusion. S/p 3 liters R Thoracentesis 01/20/19 7. DNR Subjective Cardiovascular: Reports: no symptoms Respiratory: Reports: no symptoms Gastrointestinal/Abdominal: Reports: no symptoms Genitourinary: Reports: no symptoms Subjective Coverage for [place] Events reviewed, remains in ICU altered and disoriented, HD scheduled for tomm Objective Last 24 Hour Vital Signs Date Time Temp Pulse Resp B/P (MAP) Pulse Ox O2 Delivery O2 Flow Rate FiO2 01/27/19 10:00 72 21 171/53 (92) 100 01/27/19 09:00 70 23 160/64 (96) 100 01/27/19 08:00 3.0 01/27/19 08:00 98.6 69 20 157/57 (90) 100 01/27/19 08:00 71 01/27/19 08:00 Nasal Cannula 3.0 01/27/19 07:00 75 23 138/41 (73) 100 01/27/19 06:25 173/56 01/27/19 06:00 69 19 176/57 (96) 100 01/27/19 05:00 70 18 164/50 (88) 100 01/27/19 04:00 Simple Mask 12.0 01/27/19 04:00 3.0 01/27/19 04:00 98.2 70 23 144/49 (80) 99 01/27/19 03:21 71 01/27/19 03:00 71 20 164/50 (88) 100 01/27/19 02:00 76 13 165/51 (89) 100 01/27/19 01:00 67 13 144/83 (103) 100 01/27/19 00:00 3.0 01/27/19 00:00 Simple Mask 12.0 01/27/19 00:00 97.8 69 20 156/69 (98) 100 01/26/19 23:34 175/56 01/26/19 23:24 68 01/26/19 23:00 67 20 175/56 (95) 100 01/26/19 22:00 68 23 143/60 (87) 100 01/26/19 21:00 71 25 157/62 (93) 100 01/26/19 21:00 66 140/58 01/26/19 20:00 Simple Mask 12.0 01/26/19 20:00 98.2 72 24 165/65 (98) 100 01/26/19 20:00 12.0 01/26/19 19:23 70 01/26/19 19:20 100 Cool Aerosol 12.0 50 01/26/19 19:00 70 18 164/58 (93) 100 01/26/19 18:00 70 28 164/62 (96) 100 01/26/19 17:00 71 25 170/85 (113) 100 01/26/19 16:53 71 17 01/26/19 16:45 Simple Mask 12.0 01/26/19 16:45 12.0 50 01/26/19 16:00 Mechanical Ventilator 01/26/19 16:00 99.0 64 20 161/60 (93) 100 01/26/19 16:00 30 01/26/19 16:00 65 01/26/19 15:22 64 20 30 01/26/19 15:00 66 20 153/80 (104) 100 01/26/19 14:00 68 17 170/68 (102) 100 01/26/19 13:21 30 01/26/19 13:08 69 24 30 01/26/19 13:00 70 22 162/60 (94) 100 01/26/19 12:00 Mechanical Ventilator 01/26/19 12:00 70 01/26/19 12:00 30 01/26/19 12:00 99.3 68 24 160/55 (90) 100 01/26/19 11:16 69 27 30 30 01/26/19 11:00 72 22 151/56 (87) 100 General Appearance: no apparent distress EENT: PERRL/EOMI, normal ENT inspection, TMs normal, pharynx normal Neck: non-tender, normal alignment, supple, normal inspection, no JVD Rhythm: NSR Cardiovascular: normal peripheral pulses, normal rate, regular rhythm Respiratory/Chest: chest wall non-tender, lungs clear Abdomen: normal bowel sounds, non tender, no organomegaly, no mass Extremities: normal range of motion, non-tender Neurologic: duct cleaner II-XII grossly normal, unresponsiveness Intake and Output 01/26/19 01/27/19 19:00 07:00 Intake Total 370 ml 55 ml Output Total 2000 ml Balance 370 ml -1945 ml Free Water 50 ml IV Total 55 ml Tube Feeding 320 ml Hemodialysis UF 2000 ml Bladder Scan Volume Amount 233 # Bowel Movements 4 5 Laboratory Tests Test 01/26/19 13:06 01/26/19 18:23 01/27/19 04:15 Arterial Blood pH 7.345 (7.350-7.450) 7.400 (7.350-7.450) Arterial Blood Partial Pressure CO2 55.4 mmHg (35.0-45.0) *H 44.6 mmHg (35.0-45.0) Arterial Blood Partial Pressure O2 110.7 mmHg (75.0-100.0) H 191.2 mmHg (75.0-100.0) H Arterial Blood HCO3 29.6 mmol/L (22.0-26.0) H 27.0 mmol/L (22.0-26.0) H Arterial Blood Oxygen Saturation 97.8 % (95-100) 99.0 % (95-100) Arterial Blood Base Excess 2.9 (-2-2) H 1.9 (-2-2) Nino Test Positive Sodium Level 134 MMOL/L (136-145) L Potassium Level 4.4 MMOL/L (3.5-5.1) Chloride Level 97 MMOL/L (98-107) L Carbon Dioxide Level 27 MMOL/L (21-32) Anion Gap 10 mmol/L (5-15) Blood Urea Nitrogen 61 mg/dL (7-18) H Creatinine 6.9 MG/DL (0.55-1.30) H Estimat Glomerular Filtration Rate mL/min (>60) Glucose Level 74 MG/DL (74-106) Calcium Level 8.9 MG/DL (8.5-10.1) Eric Thompson MD Jan 27, 2019 10:29
--- NOTE | 2019-01-27 10:35 | NUR ---
NURSE NOTES: hydralazine prn given for BP 171/53.
--- NOTE | 2019-01-27 11:10 | NUR ---
NURSE NOTES: Patient asleep in bed comfortably, no acute distress noted. BP 138/48.
--- NOTE | 2019-01-27 11:23 | NUR ---
RD ASSESSMENT & RECOMMENDATIONS SEE CARE ACTIVITY FOR COMPLETE ASSESSMENT DAILY ESTIMATED NEEDS: Needs based on ESRD on HD, pulmonary/ 63.6kg 30-35 kcals/kg 3145-9113 total kcals 1.25-1.8 g protein/kg 80-115 g total protein Fluid per MD, on HD NUTRITION DIAGNOSIS: * Swallowing difficulty R/T respiratory status as evidenced by orally intubated, on OGT feeding- pt now s/p extubation, NPO possible pending ESCALATOR ATTENDANT eval.(UPDATED) * Increased kcal/prot needs R/T renal dysfunction and wound healing as evidenced by ESRD dx, on HD, w/ BL LE severe wasting, w/ multiple areas of non blanching erythema (refer to wound care eval). PO DIET RECOMMENDATIONS: ESCALATOR ATTENDANT eval post extubation-> REC RENAL DIET ADDITIONAL RECOMMENDATIONS: * Obtain dry, calibrated bedscale wt post HD Per SNF, HT=68", XB=208sga (01/04/19) * Monitor lytes daily w/ TF, replete as needed * Monitor for hypoglycemia- good glycemic control * Add NEPRO 1 tetra krysta TID w/ meals for oral diet
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
--- NOTE | 2019-01-27 11:59 | Pulmonology Progress Note ---
Assessment/Plan Assessment/Plan IMPRESSION: 1. Respiratory failure. Extubated. 2. Pulmonary edema. Improved. 3. COPD. 4. Hyperkalemia. Corrected. 5. Hypertension. 6. Hypothyroidism. DISCUSSION: Continue present medications and care. Dialysis per renal. I will follow carefully. S/p thoracentesis on 01/20/19 To [facility] Now DNR/DNI Danis Conley M.D. Subjective Interval Events: Acidently extubated yesterdsay while being changed Constitutional: Reports: no symptoms HEENT: Repors: no symptoms Respiratory: Reports: no symptoms Cardiovascular: Reports: no symptoms Gastrointestinal/Abdominal: Reports: no symptoms Genitourinary: Reports: no symptoms Allergies: Coded Allergies: MORPHINE (Verified Allergy, Unknown, 01/18/19) Objective Last 24 Hour Vital Signs Date Time Temp Pulse Resp B/P (MAP) Pulse Ox O2 Delivery O2 Flow Rate FiO2 01/27/19 11:00 73 16 138/48 (78) 100 01/27/19 10:32 171/53 01/27/19 10:00 72 21 171/53 (92) 100 01/27/19 09:00 70 23 160/64 (96) 100 01/27/19 08:00 3.0 01/27/19 08:00 98.6 69 20 157/57 (90) 100 01/27/19 08:00 71 01/27/19 08:00 Nasal Cannula 3.0 01/27/19 07:00 75 23 138/41 (73) 100 01/27/19 06:25 173/56 01/27/19 06:00 69 19 176/57 (96) 100 01/27/19 05:00 70 18 164/50 (88) 100 01/27/19 04:00 Simple Mask 12.0 01/27/19 04:00 3.0 01/27/19 04:00 98.2 70 23 144/49 (80) 99 01/27/19 03:21 71 01/27/19 03:00 71 20 164/50 (88) 100 01/27/19 02:00 76 13 165/51 (89) 100 01/27/19 01:00 67 13 144/83 (103) 100 01/27/19 00:00 3.0 01/27/19 00:00 Simple Mask 12.0 01/27/19 00:00 97.8 69 20 156/69 (98) 100 01/26/19 23:34 175/56 01/26/19 23:24 68 01/26/19 23:00 67 20 175/56 (95) 100 01/26/19 22:00 68 23 143/60 (87) 100 01/26/19 21:00 71 25 157/62 (93) 100 01/26/19 21:00 66 140/58 01/26/19 20:00 Simple Mask 12.0 01/26/19 20:00 98.2 72 24 165/65 (98) 100 01/26/19 20:00 12.0 01/26/19 19:23 70 01/26/19 19:20 100 Cool Aerosol 12.0 50 01/26/19 19:00 70 18 164/58 (93) 100 01/26/19 18:00 70 28 164/62 (96) 100 01/26/19 17:00 71 25 170/85 (113) 100 01/26/19 16:53 71 17 01/26/19 16:45 Simple Mask 12.0 01/26/19 16:45 12.0 50 01/26/19 16:00 Mechanical Ventilator 01/26/19 16:00 99.0 64 20 161/60 (93) 100 01/26/19 16:00 30 01/26/19 16:00 65 01/26/19 15:22 64 20 30 01/26/19 15:00 66 20 153/80 (104) 100 01/26/19 14:00 68 17 170/68 (102) 100 01/26/19 13:21 30 01/26/19 13:08 69 24 30 01/26/19 13:00 70 22 162/60 (94) 100 01/26/19 12:00 Mechanical Ventilator 01/26/19 12:00 70 01/26/19 12:00 30 01/26/19 12:00 99.3 68 24 160/55 (90) 100 Intake and Output 01/26/19 01/27/19 19:00 07:00 Intake Total 370 ml 55 ml Output Total 2000 ml Balance 370 ml -1945 ml Free Water 50 ml IV Total 55 ml Tube Feeding 320 ml Hemodialysis UF 2000 ml Bladder Scan Volume Amount 233 # Bowel Movements 4 5 General Appearance: no acute distress HEENT: normocephalic Respiratory/Chest: chest wall non-tender Cardiovascular: normal peripheral pulses, normal rate Laboratory Tests 01/26/19 13:06: Arterial Blood pH 7.345L, Arterial Blood Partial Pressure CO2 55.4*H, Arterial Blood Partial Pressure O2 110.7H, Arterial Blood HCO3 29.6H, Arterial Blood Oxygen Saturation 97.8, Arterial Blood Base Excess 2.9H, Nino Test Positive 01/26/19 18:23: Arterial Blood pH 7.400, Arterial Blood Partial Pressure CO2 44.6, Arterial Blood Partial Pressure O2 191.2H, Arterial Blood HCO3 27.0H, Arterial Blood Oxygen Saturation 99.0, Arterial Blood Base Excess 1.9, Nino Test 01/27/19 04:15: Sodium Level 134L, Potassium Level 4.4, Chloride Level 97L, Carbon Dioxide Level 27, Anion Gap 10, Blood Urea Nitrogen 61H, Creatinine 6.9H, Estimat Glomerular Filtration Rate , Glucose Level 74, Calcium Level 8.9 Current Medications Medications (Trade) Dose Ordered Sig/Odilon Route PRN Reason Start Time Stop Time Status Last Admin Dose Admin Amlodipine Besylate (Norvasc) 5 mg DAILY NG 01/19/19 11:15 02/18/19 11:14 01/25/19 09:09 Aspirin (ASA) 81 mg DAILY NG 01/19/19 11:15 02/18/19 11:14 01/26/19 09:46 Atorvastatin Calcium (Lipitor) 40 mg BEDTIME NG 01/19/19 21:00 02/18/19 20:59 01/25/19 21:25 Calcitriol (Rocatrol) 0.25 mcg DAILY NG 01/19/19 11:15 02/18/19 11:14 01/26/19 10:02 Chlorhexidine Gluconate (Cecily-Hex 2%) 1 applic DAILY@2000 TOPIC 01/19/19 20:00 02/18/19 19:59 01/26/19 19:42 Dextrose (Dextrose 50%) 25 ml Q30M PRN IV Hypoglycemia 01/19/19 02:00 02/18/19 01:59 Dextrose (Dextrose 50%) 50 ml Q30M PRN IV Hypoglycemia 01/19/19 02:00 02/18/19 01:59 Heparin Sodium (Porcine) (Heparin 5000 units/ml) 5,000 units EVERY 12 HOURS SUBQ 01/19/19 09:00 02/18/19 08:59 01/27/19 08:57 Hydralazine HCl (Apresoline) 10 mg Q4H PRN IV For High Blood Pressure 01/20/19 11:15 02/19/19 11:14 01/27/19 10:32 Levothyroxine Sodium (Synthroid) 125 mcg DAILY@0630 NG 01/20/19 06:30 02/19/19 06:29 01/26/19 05:55 Metoprolol Tartrate (Lopressor) 12.5 mg Q12HR NG 01/21/19 12:00 02/18/19 17:59 01/25/19 21:20 Pantoprazole (Protonix) 40 mg DAILY IVP 01/24/19 09:00 02/23/19 08:59 01/27/19 08:53 Quetiapine Fumarate (SEROquel) 100 mg QHS NG 01/19/19 21:00 02/18/19 20:59 01/25/19 21:20 Danis Conley MD Jan 27, 2019 11:59
--- NOTE | 2019-01-27 12:00 | NUR ---
NURSE NOTES: BS 100 noted. Patient is resting in bed comfortably. No acute distress noted.
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
--- NOTE | 2019-01-27 14:19 | NUR ---
NURSE NOTES: spoke with speech therapist, Mayda. unable to evaluate the patient today, but undated on pt's condition. ST to be done in am tomorrow. Addendum: 01/27/19 at 1420 by GORDON LEMA RN keep NPO
--- NOTE | 2019-01-27 14:33 | NUR ---
*-* INSURANCE *-* UPDATED CLINICALS AND REVIEWS HAVE BEEN FAXED TO: [facility] (BUT IS AFTER HRS CM, WILL NOTIFY CM SO THEY MAY REVIEW ACCT) #[phone] FAX#[phone] REVIEWS/CLINICALS
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
--- NOTE | 2019-01-27 15:10 | NUR ---
NURSE NOTES: Patient is awake, confused, restless at times, patient tried to pull IV. patient on bilateral soft wrist restraints. No skin breakdown noted. pulses present. reality orientation provided.
--- NOTE | 2019-01-27 17:30 | NUR ---
NURSE NOTES: Patient was turned and repositioned. Patient had normal small bmx1. patient kept clean and dry. oral care provided.
--- NOTE | 2019-01-27 18:00 | NUR ---
NURSE NOTES: patient on room air, O2 sat 97-100%. Breathing even and unlabored. no acute distress noted.
--- NOTE | 2019-01-27 19:09 | NUR ---
HAND-OFF: Report given to TESHA Ross
[2019-01-27] MEDS: Dyna-Hex 2% Top Sol 2oz TOPIC SCH (19:40)
--- NOTE | 2019-01-27 19:50 | NUR ---
NURSE NOTES: PATIENT AWOKE, DENIED PAIN AT THIS TIME, RESPIRATION REGULAR, ON ROOM AIR, O2 SATURATION 100% NOTED, KEPT NPO, ABDOMEN SOFT, NO BM STATUS, AV SHUNT TO BOTH UPPER ARM, RIGHT ARM PRECAUTION, PERIPHERAL LINE TO LEFT FA AND HAND 20G INTACT AND PATENT, KEPT 2 POINT SOFT RESTRAINTS FOR SAFETY, MADE HOB 30 DEGREES, LOWER BED AND ON BED ALARM, PROVIDED CALL LIGHT WITHIN REACH, WAITING DIALYSIS STATUS, WILL CONTINUE TO MONITOR.
--- NOTE | 2019-01-27 20:30 | NUR ---
NURSE NOTES: PT'S SON STAYED AT BED SIDE, COMMUNICATION WITH PATIENT.
[2019-01-27] MEDS: Atorvastatin 80mg tab NG SCH (21:00)
--- NOTE | 2019-01-27 22:10 | NUR ---
NURSE NOTES: PATIENT AWOKE, DENIED PAIN OR SOB AT THIS TIME.
--- NOTE | 2019-01-27 22:55 | NUR ---
TRANSFER TO FLOOR: Patient transferred to SDU room 244-1 via hospital bed. Report given to TESHA YU. Belongings given to TESHA YU. Family/SON (MARIA ANTONIA)and or S/O informed of transfer.
--- NOTE | 2019-01-27 23:00 | NUR ---
NURSE NOTES: Received patient from TESHA Ross. patient is resting in bed, responsive to name, denies pain at this time. patient is on room air, tolerating well. no s/sx of respiratory distress noted at this time. IV sites are patent and intact, asymptomatic. Bilateral UA shunts noted; no thrill nor bruit noted on MARINA AV shunt; thrill and bruit present on EDSON AV shunt. child monitor applied, currently showing SR. patient is currently NPO. 2 point soft wrist restraints applied for safety. belongings reviewed and noted. placed at patient's bedside. bed in lowest position and locked, siderails up X3, call light within reach. will continue to monitor.
[2019-01-28] VITALS: BP 134/71
[2019-01-28 04:00] VITALS: BP 152/84
--- NOTE | 2019-01-28 05:40 | NUR ---
NURSE NOTES: Applied bilateral soft mittens d/t patient noncompliant,removing NGT,charge nurse aware. Addendum: 01/29/19 at 0515 by Raven Aparicio RN change time to 01/29/19
[2019-01-28] MEDS ORDERED: Levothyroxine 125mcg tab NG SCH (06:30)
--- NOTE | 2019-01-28 07:25 | NUR ---
NURSE NOTES: Received report from Marcela Dao RN. Patient alert and oriented x 1, confused, unable to make needs known and follow commands. On room air, respirations even and unlabored. Left forearm 20g saline lock patent and asymptomatic. Right upper arm AV shunt noted with bruit and thrill. Bed locked in lowest position with side rails up x 3. All needs attended to. Call light within reach. Will continue to monitor.
[2019-01-28 08:00] VITALS: BP 156/69
--- NOTE | 2019-01-28 08:11 | Nephrology Progress Note ---
Assessment/Plan Status: stable Assessment/Plan: 1. ESRD- MWF 2. Severe hyperkalemia- resolved. 3. Respiratory failure -resolved 4. Hypertension. - stable 5. Hypothyroidism. - Synthroid. 6. PL effusion- s/p 3L right thoracentesis 7. Swallow Evaluation and intiate DC Subjective Date patient seen: Jan 28, 2019 Time patient seen: 08:04 ROS Limited/Unobtainable: No Allergies: Coded Allergies: MORPHINE (Verified Allergy, Unknown, 01/18/19) Subjective Patient resting and transferred out of MICU Objective Last 24 Hour Vital Signs Date Time Temp Pulse Resp B/P (MAP) Pulse Ox O2 Delivery O2 Flow Rate FiO2 01/28/19 04:00 Room Air 01/28/19 04:00 97.5 85 20 152/84 (106) 100 01/28/19 03:35 80 01/28/19 00:00 97.7 76 18 134/71 (92) 100 01/28/19 00:00 76 01/28/19 00:00 Room Air 01/27/19 23:00 96.3 75 18 142/64 (90) 99 01/27/19 23:00 Room Air 01/27/19 22:00 75 20 151/51 (84) 100 01/27/19 21:00 74 23 163/54 (90) 100 01/27/19 20:58 174/56 01/27/19 20:00 98.1 70 19 170/55 (93) 100 01/27/19 20:00 Room Air 01/27/19 19:12 70 01/27/19 19:05 100 Room Air 01/27/19 19:00 72 24 157/53 (87) 100 01/27/19 18:00 76 20 155/52 (86) 99 01/27/19 17:00 78 19 147/96 (113) 100 01/27/19 16:00 Nasal Cannula 2.0 01/27/19 16:00 98.6 71 20 144/50 (81) 98 01/27/19 16:00 73 01/27/19 16:00 2.0 01/27/19 15:12 161/54 01/27/19 15:00 69 16 161/54 (89) 98 01/27/19 14:00 72 21 146/47 (80) 96 01/27/19 13:00 71 23 151/48 (82) 99 01/27/19 12:00 2.0 01/27/19 12:00 73 01/27/19 12:00 98.5 74 18 153/48 (83) 100 01/27/19 12:00 Nasal Cannula 2.0 01/27/19 11:00 73 16 138/48 (78) 100 01/27/19 10:32 171/53 01/27/19 10:00 72 21 171/53 (92) 100 01/27/19 09:00 70 23 160/64 (96) 100 Intake and Output 01/27/19 01/28/19 18:59 06:59 Bladder Scan Volume Amount 149 # Bowel Movements 1 1 Height (Feet): 5 Height (Inches): 6.00 Weight (Pounds): 135 General Appearance: WD/WN EENT: normal ENT inspection Neck: normal alignment, supple Cardiovascular: normal rate, regular rhythm Respiratory/Chest: lungs clear, normal breath sounds Abdomen: non tender, soft Edema: no edema noted Arm (L), no edema noted Arm (R), no edema noted Leg (L), no edema noted Leg (R), no edema noted Pedal (L), no edema noted Pedal (R), no edema noted Generalized David Villa MD Jan 28, 2019 08:11
--- NOTE | 2019-01-28 08:53 | Pulmonology Progress Note ---
Assessment/Plan Assessment/Plan IMPRESSION: 1. Respiratory failure. Extubated. 2. Pulmonary edema. Improved. 3. COPD. 4. Hyperkalemia. Corrected. 5. Hypertension. 6. Hypothyroidism. DISCUSSION: Continue present medications and care. Dialysis per renal. I will follow carefully. S/p thoracentesis on 01/20/19 In [facility] Now DNR/DNI DC planning to SNF Danis Conley M.D. Subjective Interval Events: Looking better; on nasal O2 Constitutional: Reports: no symptoms HEENT: Repors: no symptoms Respiratory: Reports: no symptoms Cardiovascular: Reports: no symptoms Gastrointestinal/Abdominal: Reports: no symptoms Genitourinary: Reports: no symptoms Allergies: Coded Allergies: MORPHINE (Verified Allergy, Unknown, 01/18/19) Objective Last 24 Hour Vital Signs Date Time Temp Pulse Resp B/P (MAP) Pulse Ox O2 Delivery O2 Flow Rate FiO2 01/28/19 08:00 97.7 82 18 156/69 (98) 95 01/28/19 04:00 Room Air 01/28/19 04:00 97.5 85 20 152/84 (106) 100 01/28/19 03:35 80 01/28/19 00:00 97.7 76 18 134/71 (92) 100 01/28/19 00:00 76 01/28/19 00:00 Room Air 01/27/19 23:00 96.3 75 18 142/64 (90) 99 01/27/19 23:00 Room Air 01/27/19 22:00 75 20 151/51 (84) 100 01/27/19 21:00 74 23 163/54 (90) 100 01/27/19 20:58 174/56 01/27/19 20:00 98.1 70 19 170/55 (93) 100 01/27/19 20:00 Room Air 01/27/19 19:12 70 01/27/19 19:05 100 Room Air 01/27/19 19:00 72 24 157/53 (87) 100 01/27/19 18:00 76 20 155/52 (86) 99 01/27/19 17:00 78 19 147/96 (113) 100 01/27/19 16:00 Nasal Cannula 2.0 01/27/19 16:00 98.6 71 20 144/50 (81) 98 01/27/19 16:00 73 01/27/19 16:00 2.0 01/27/19 15:12 161/54 01/27/19 15:00 69 16 161/54 (89) 98 01/27/19 14:00 72 21 146/47 (80) 96 01/27/19 13:00 71 23 151/48 (82) 99 01/27/19 12:00 2.0 01/27/19 12:00 73 01/27/19 12:00 98.5 74 18 153/48 (83) 100 01/27/19 12:00 Nasal Cannula 2.0 01/27/19 11:00 73 16 138/48 (78) 100 01/27/19 10:32 171/53 01/27/19 10:00 72 21 171/53 (92) 100 01/27/19 09:00 70 23 160/64 (96) 100 Intake and Output 01/27/19 01/28/19 18:59 06:59 Bladder Scan Volume Amount 149 # Bowel Movements 1 1 General Appearance: no acute distress HEENT: normocephalic Respiratory/Chest: chest wall non-tender, lungs clear Cardiovascular: normal peripheral pulses Current Medications Medications (Trade) Dose Ordered Sig/Odilon Route PRN Reason Start Time Stop Time Status Last Admin Dose Admin Amlodipine Besylate (Norvasc) 5 mg DAILY NG 01/28/19 09:00 02/18/19 11:14 Aspirin (ASA) 81 mg DAILY NG 01/28/19 09:00 02/18/19 11:14 Atorvastatin Calcium (Lipitor) 40 mg BEDTIME NG 01/28/19 21:00 02/18/19 20:59 Calcitriol (Rocatrol) 0.25 mcg DAILY NG 01/28/19 09:00 02/18/19 11:14 Chlorhexidine Gluconate (Cecily-Hex 2%) 1 applic DAILY@2000 TOPIC 01/28/19 20:00 02/18/19 19:59 Dextrose (Dextrose 50%) 25 ml Q30M PRN IV Hypoglycemia 01/27/19 23:30 02/18/19 01:59 Dextrose (Dextrose 50%) 50 ml Q30M PRN IV Hypoglycemia 01/27/19 23:30 02/18/19 01:59 Heparin Sodium (Porcine) (Heparin 5000 units/ml) 5,000 units EVERY 12 HOURS SUBQ 01/28/19 09:00 02/18/19 08:59 Hydralazine HCl (Apresoline) 10 mg Q4H PRN IV For High Blood Pressure 01/27/19 23:15 02/19/19 11:14 Levothyroxine Sodium (Synthroid) 125 mcg DAILY@0630 NG 01/28/19 06:30 02/19/19 06:29 Metoprolol Tartrate (Lopressor) 12.5 mg Q12HR NG 01/28/19 09:00 02/18/19 17:59 Pantoprazole (Protonix) 40 mg DAILY IVP 01/28/19 09:00 02/23/19 08:59 Quetiapine Fumarate (SEROquel) 100 mg QHS NG 01/28/19 21:00 02/18/19 20:59 Danis Conley MD Jan 28, 2019 08:53
[2019-01-28] MEDS: Aspirin Baby 81mg NG SCH ×2 (09:00→09:11)
[2019-01-28] MEDS: Metoprolol Tartrate 12.5mg TAB NG SCH ×2 (09:00→22:09)
[2019-01-28] MEDS: Calcitriol 0.25mcg Cap NG SCH ×2 (09:00→09:11)
[2019-01-28] MEDS ORDERED: Pantoprazole Inj IVP SCH (09:00)
[2019-01-28] MEDS ORDERED: NS 275ml ONE (09:07)
[2019-01-28] MEDS ORDERED: NS 500ML ONE (09:07)
[2019-01-28] MEDS ORDERED: Tubing IV Secondary IV ONE (09:07)
[2019-01-28] MEDS: Heparin 5000 units/ml inj SUBQ SCH ×2 (09:11→22:11)
--- NOTE | 2019-01-28 11:03 | NUR ---
ST NOTES: REFERRED FOR SWALLOW EVAL BY DR RUSSELL, SEE FULL REPORT TO FOLLOW DYSPHAGIA RISK FACTORS FOR THIS 83 Y.O. 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 H/O DEMENTIA, HTN, p-c MALNUTRITION, TIA, GALLS, RESP D/O PER POLST OK TO HAVE LT TF IF NEEDS NOW NPO EXCEPT ICE CHIPS AND CRUSHED MEDS VERY SLOW INTAKE WITH CRUSHED MEDS AND APPLESAUCE (10 SEC) AND COUGHED PER TESHA MUNOZ. AT SNF ON A SOFT BITE SIZE SELVIN RENAL 80 G PROTEIN DIET WITH THIN LIQUIDS INITIAL IMPRESSIONS S/S OF A MILD-MODERATE ORAL PREP AND OROPHARYNGEAL DYSPHAGIA WITH INCREASED OVERALL TRANSIT TIMES. ORAL APRAXIA FOR LIPS (POOR CLOSURE WITH TSP/CUP/STRAW EVEN WITH CUES IN EMIRATI HE WILL KEEP MOUTH OPEN SO BOLUS POURED INTO HIS MOUTH). POOR FOLLOWING ORAL COMMANDS TONGUES SLIGHTLY DISCOLORED NEEDS BRUSHING. DENTITION ADEQUATE VOICE ON ROOM AIR IS HOARSE TO BREATHY AT TIMES POOR SPEECH INTELLIGIBILITY S/S OF ASPIRATION WITH TSP THIN LIQUIDS MILDLY SLOWER BUT GROSSLY FUNCTIONAL WITH NECTAR THICK LIQUIDS TSP/CUP NEEDS 2ND SWALLOW FOR CUP, OR ORAL RESIDUE NOR OVERT ASP 7-10 SECONDS PRIOR TO SWALLOW WITH TSP PUDDING (CHEWS UNNECESSARILY ORAL AWARENESS SENSATION DEFICITS), NO ORAL RESIDUE NOR OVERT ASP. HAS SILENT ASP RECOMMENDATIONS: MOD BARIUM SWALLOW STUDY TO FULLY ASSESS SWALLOW, DETERMINE SILENT ASP RISK AND ATTEMPT TRIAL TX TECHNIQUES. IF PO GIVEN, RENAL LIQUIFIED PUREED LIKE NECTAR THICK SOUP TSP ONLY WITH POSTED ASP PREC AND ONE TO ONE FEEDING. SEND HIGH LORY SUP AND DO CALORIE COUNT PER RD SKILLED DYSPHAGIA MANAGEMENT AND TX AND COG-COM EVAL/TX PT IS CONFUSED AND VOICE/SPEECH DIFFICULT TO UNDERSTAND D/W TESHA MUNOZ WHO SAID DR RUSSELL AGREED WITH RECOMMENDATIONS.
[2019-01-28 12:00] VITALS: BP 163/78
--- NOTE | 2019-01-28 12:00 | NUR ---
NURSE NOTES: Unable to give oral medications d/t difficulty swallowing. Patient taken to video swallow study by [facility]. Patient unable to follow commands, bites spoon and closes mouth when fed. spoke with family and son is considering possible PEG placement. Dr. Conley made aware and consult with Dr. Ortega ordered. Awaiting for patient to be seen by Dr. Ortega for tube feeding recommendations.
--- NOTE | 2019-01-28 12:43 | GI Initial Consult Note ---
History of Present Illness General Date patient seen: Jan 28, 2019 Time patient seen: 12:37 Reason for Hospitalization: Generalized Weakness Referring physician: YVONNE Reason for Consultation: PEG EVALUATION Present Illness HPI Is an 83-year-old male with multiple medical problems including renal failure on hemodialysis. He was brought in by EMS with chief complaint of lethargy. He missed dialysis today because of increasing lethargy. At baseline he is confused but able to talk. Now he is now unresponsive with sonorous pollock. Unable to get any other history. There is no fever chills but no cough congestion. No pain complaint. No vomiting. GI consulted for PEG evaluation. ROS limited, patient is nonverbal unable to provide any other history at this time. All information obtained from medical record. The patient was initially admitted for generalized weakness and lethargy. Noted history of end-stage renal disease, CVA x2. Reported that the patient was on a soft chew diet prior to admission. He presents today with decreased p.o. intake, mild dysphasia versus swallowing deficit and high risk for aspiration as seen on video swallow study. Pertinent labs hemoglobin 9.7, hematocrit 29.9. Unknown history of endoscopic colonoscopy at this time. Home Meds Reported Medications Acetaminophen* (ACETAMINOPHEN 325MG TABLET*) 325 Mg Tablet, 650 MG ORAL Q6H PRN for Mild Pain (Pain Scale 1-3) 01/20/19 Melatonin (MELATONIN) 1 Mg Tablet, 3 TAB PO QHS 01/20/19 Hydroxyzine Hcl (HYDROXYZINE HCL) 25 Mg Tablet, 25 MG PO Q6HR PRN for Itching 01/20/19 Esomeprazole Magnesium (NEXIUM) 40 Mg Suspdr.pkt, 40 MG ORAL MORNING 01/20/19 Calcium Acetate (CALCIUM ACETATE) 667 Mg Capsule, 667 MG PO TID 01/20/19 Calcitriol (Calcitriol) 0.25 Mcg Capsule, 0.25 MCG PO MORNING 01/20/19 Calamine/Zinc Oxide (CALAMINE LOTION*) 177 Ml Suspension, 1 APPLIC TP Q6HR PRN for Itching/Pruritis 01/20/19 Acetaminophen* (ACETAMINOPHEN EXTRA STRENGTH*) 500 Mg Tablet, 1000 MG ORAL Q6H PRN for Moderate Pain (Pain Scale 4-6) 01/19/19 Tramadol Hcl* (ULTRAM*) 50 Mg Tablet, 50 MG ORAL Q6H PRN for Severe Pain (Pain Scale 7-10) 01/19/19 Sevelamer Carbonate* (RENVELA*) 0.8 Gm Powd.pack, 800 MG ORAL THREE TIMES A DAY , PACK 01/19/19 Quetiapine Fumarate* (SEROQUEL*) 25 Mg Tablet, 50 MG ORAL Q6HR PRN for Agitation , TAB 01/19/19 Quetiapine Fumarate* (SEROQUEL*) 100 Mg Tablet, 100 MG ORAL HS, TAB 01/19/19 Vit B Cmplx 3/Fa/Vit C/Biotin (SAVANAH-NEERU RX TABLET) 1 Each Tablet, 1 EACH PO DAILY, TAB 01/19/19 Amino Acids/Protein Hydrolys (PRO-STAT LIQUID) 30 Ml Liquid.pkt, 30 ML ORAL DAILY, ML 01/19/19 Nitroglycerin (NITROSTAT) 0.4 Mg Tab.subl, 0.4 MG SL Q5M X3 DOSES PRN for CHEST PAIN 01/19/19 Lidocaine Patch* (Lidoderm Patch*) 1 Each Adh..patch, 1 PATCH TOPIC DAILY APPLIED TO LEFT MID SPINAL AREA TOPICALLY Q24HRS FOR PAIN MGMT FOR 4 WEEKS. 12 HOURS ON/12 HOURS OFF. 01/19/19 Levothyroxine Sodium* (LEVOTHYROXINE SODIUM*) 125 Mcg Tablet, 100 MCG ORAL DAILY , TAB Take in the morning on an empty stomach, at least 30 minutes before food. 01/19/19 Lactulose (LACTULOSE*) 20 Gm/30 Ml Solution, 15 ML ORAL DAILY FOR ENCEPHALOPATHY 01/19/19 Gabapentin* (GABAPENTIN*) 100 Mg Capsule, 100 MG ORAL THREE TIMES A DAY PRN for Pain Scale (6-10), CAP 01/19/19 Ergocalciferol (Vitamin D2)* (VITAMIN D*) 50,000 Unit Capsule, 69964 UNIT ORAL ONCE A WEEK EVERY Thursday01/19/19 Bisacodyl* (DULCOLAX*) 5 Mg Tablet.dr, 10 MG RC DAILY PRN for Constipation 01/19/19 Atorvastatin Calcium* (ATORVASTATIN CALCIUM*) 40 Mg Tablet, 40 MG ORAL BEDTIME, TAB 01/19/19 Lorazepam* (ATIVAN*) 2 Mg Tablet, 2 MG ORAL 3XW EVERY , , AND SAT FOR ANXIETY 01/19/19 Aspirin Ec* (ASPIRIN EC*) 81 Mg Tablet.dr, 81 MG ORAL MORNING 01/19/19 Amlodipine Besylate* (AMLODIPINE BESYLATE*) 5 Mg Tablet, 5 MG ORAL DAILY HOLD FOR SBP<110 OR HR<60 01/19/19 Med list reviewed/reconciled: Yes Allergies: Coded Allergies: MORPHINE (Verified Allergy, Unknown, 01/18/19) Patient History Limited by: medical condition History Provided By: Patient, Medical Record PMH Narrative Past Medical History: see triage record, old chart reviewed Past Surgical History: other Pertinent Family History: none Social History: Denies: smoking Immunizations: other Reviewed Nursing Documentation: PMH: Agreed; PSxH: Agreed Nursing Documentation-PMH Past Medical History: No History, Except For Hx Dialysis: Yes - RIGHT AND LEFT AV SHUNT, RIGHT SIDE ACTIVE Review of Systems All Other Systems: limited Physical Exam Vital Signs Date Time Temp Pulse Resp B/P (MAP) Pulse Ox O2 Delivery O2 Flow Rate FiO2 01/24/19 07:00 75 19 101/52 (68) 100 01/24/19 07:02 30 01/24/19 08:00 98.0 01/24/19 08:00 Mechanical Ventilator 01/26/19 16:45 12.0 Sp02 EP Interpretation: reviewed, normal General Appearance: no apparent distress Head: normocephalic EENT: PERRL/EOMI, normal ENT inspection Neck: supple Respiratory: normal breath sounds, no respiratory distress Cardiovascular: normal rate Gastrointestinal: normal inspection, non tender, soft, normal bowel sounds, non -distended Rectal: deferred Genitourinary: deferred Musculoskeletal: decreased range of motion Neurologic: alert, responsive Skin: normal inspection, normal color, no rash, warm/dry, palpation normal, well hydrated Lymphatic: normal inspection, no adenopathy Current Medications Current Medications Medications (Trade) Dose Ordered Sig/Odilon Route PRN Reason Start Time Stop Time Status Last Admin Dose Admin Amlodipine Besylate (Norvasc) 5 mg DAILY NG 01/28/19 09:00 02/18/19 11:14 Aspirin (ASA) 81 mg DAILY NG 01/28/19 09:00 02/18/19 11:14 01/28/19 09:11 Atorvastatin Calcium (Lipitor) 40 mg BEDTIME NG 01/28/19 21:00 02/18/19 20:59 Calcitriol (Rocatrol) 0.25 mcg DAILY NG 01/28/19 09:00 02/18/19 11:14 01/28/19 09:11 Chlorhexidine Gluconate (Cecily-Hex 2%) 1 applic DAILY@2000 TOPIC 01/28/19 20:00 02/18/19 19:59 Dextrose (Dextrose 50%) 25 ml Q30M PRN IV Hypoglycemia 01/27/19 23:30 02/18/19 01:59 Dextrose (Dextrose 50%) 50 ml Q30M PRN IV Hypoglycemia 01/27/19 23:30 02/18/19 01:59 Heparin Sodium (Porcine) (Heparin 5000 units/ml) 5,000 units EVERY 12 HOURS SUBQ 01/28/19 09:00 02/18/19 08:59 01/28/19 09:11 Hydralazine HCl (Apresoline) 10 mg Q4H PRN IV For High Blood Pressure 01/27/19 23:15 02/19/19 11:14 Levothyroxine Sodium (Synthroid) 125 mcg DAILY@0630 NG 01/28/19 06:30 02/19/19 06:29 Metoprolol Tartrate (Lopressor) 12.5 mg Q12HR NG 01/28/19 09:00 02/18/19 17:59 Pantoprazole (Protonix) 40 mg DAILY IVP 01/28/19 09:00 02/23/19 08:59 01/28/19 09:04 Quetiapine Fumarate (SEROquel) 100 mg QHS NG 01/28/19 21:00 02/18/19 20:59 GI: Plan Problems: (1) Encounter for PEG (percutaneous endoscopic gastrostomy) (2) Failure to thrive (3) Dementia (4) Severe malnutrition (5) Anemia in chronic kidney disease Plan Spoke with the son regarding gastric tube placement, whom wishes to speak to the family first. We will schedule PEG if family agrees. Insert NGT, okay to start feedings after imaging confirmation PRN transfusions PPI Calorie count We will follow along with additional recommendations Discussed with Dr. Ortega. Thank you for this patient referral, we will follow. The patient was seen and examined at bedside and all new and available data was reviewed in the patients chart. I agree with the above findings, impression and plan. (Patient seen earlier today. Signature stamp does not reflect patient encounter time.). - MD Tawny Howard,[facility] [employer] INSPECTOR Jan 28, 2019 12:43
--- NOTE | 2019-01-28 12:49 | Cardiology Progress Note ---
Assessment/Plan Status: doing well, stable Assessment/Plan Assessment/Plan Assessment/Plan 1. Elevated troponin, possible ACS but likely due to ESRD on dialysis. Continue to trend Stress test when stable Defer cardiac cath Continue aspirin Continue metoprolol LVEF preserved 2. Respiratory failure. Due to volume overload. On dialysis. Failed weaning HD per nephrology Speech swallow evaluation - modified barium swallow pending 3. Hypertension Continue amlodipine 5 mg daily, metoprolol 12.5 bid and HD 4. End-stage renal disease, on hemodialysis. 5. Respiratory failure, on the ventilator. 6. Large right-sided pleural effusion. S/p 3 liters R Thoracentesis 01/20/19 7. DNR Subjective Cardiovascular: Reports: no symptoms Respiratory: Reports: no symptoms Gastrointestinal/Abdominal: Reports: no symptoms Genitourinary: Reports: no symptoms Subjective Coverage for [place] Events reviewed, vitals stable. Objective Last 24 Hour Vital Signs Date Time Temp Pulse Resp B/P (MAP) Pulse Ox O2 Delivery O2 Flow Rate FiO2 01/28/19 09:00 82 156/69 01/28/19 09:00 82 156/69 01/28/19 08:00 Room Air 01/28/19 08:00 97.7 82 18 156/69 (98) 95 01/28/19 07:42 78 01/28/19 04:00 Room Air 01/28/19 04:00 97.5 85 20 152/84 (106) 100 01/28/19 03:35 80 01/28/19 00:00 97.7 76 18 134/71 (92) 100 01/28/19 00:00 76 01/28/19 00:00 Room Air 01/27/19 23:00 96.3 75 18 142/64 (90) 99 01/27/19 23:00 Room Air 01/27/19 22:00 75 20 151/51 (84) 100 01/27/19 21:00 74 23 163/54 (90) 100 01/27/19 20:58 174/56 01/27/19 20:00 98.1 70 19 170/55 (93) 100 01/27/19 20:00 Room Air 01/27/19 19:12 70 01/27/19 19:05 100 Room Air 01/27/19 19:00 72 24 157/53 (87) 100 01/27/19 18:00 76 20 155/52 (86) 99 01/27/19 17:00 78 19 147/96 (113) 100 01/27/19 16:00 Nasal Cannula 2.0 01/27/19 16:00 98.6 71 20 144/50 (81) 98 01/27/19 16:00 73 01/27/19 16:00 2.0 01/27/19 15:12 161/54 01/27/19 15:00 69 16 161/54 (89) 98 01/27/19 14:00 72 21 146/47 (80) 96 01/27/19 13:00 71 23 151/48 (82) 99 General Appearance: no apparent distress, alert EENT: PERRL/EOMI, normal ENT inspection, TMs normal, pharynx normal Neck: non-tender, normal alignment, supple, normal inspection, no JVD Rhythm: NSR Cardiovascular: normal peripheral pulses, normal rate, regular rhythm Respiratory/Chest: chest wall non-tender, lungs clear, normal breath sounds, no respiratory distress Abdomen: normal bowel sounds, non tender, soft, no organomegaly, no mass Extremities: normal range of motion, non-tender, normal inspection, no calf tenderness, no swelling Neurologic: metal organ 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
--- NOTE | 2019-01-28 13:00 | NUR ---
NOTES: COMPLETED MOD BARIUM SWALLOW STUDY COMPLETED, SEE FULL REPORT TO FOLLOW IN CARE ACTIVITY SECTION. ROOM AIR AND IN BED. ALERT BUT SOMETIMES WOULD CLOSE EYES AND NOT PARTICIPATE. BIT DOWN ON SPOON AND STRAW. LIMITED STUDY SINCE PT REFUSED ALL CONSISTENCIES INITIALLY THEN ONLY TOOK SOME TRIALS, REFUSED HONEY THICK LIQUID TSP, PUREED TSP, AND MASTICATED SOLIDS. GIVEN THIN LIQUIDS TSP, CUP NECTAR THICK LIQUIDS TSP, CUP INITIAL IMPRESSIONS: MILD TO MODERATELY SEVERE ORAL PREP AND OROPHARYNGEAL DYSPHAGIA WITH OVERALL INCREASED OROPHARYNGEAL TRANSIT TIMES DUE TO SENSORIMOTOR DEFICITS AND COMPOUNDED BY COGNITIVE-BEHAVIORAL DEFICITS AND NONCOMPLIANCE. ? IF STILL SORE FROM INTUBATION X ONE WEEK AND ONE DAY POST EXTUBATION (BUT DID NOT C/O OF PROBLEM AND HE DID NOT RESPOND WHEN ASKED IF HIS THROAT HURT IN IRISH). NO ASPIRATION BUT HAD HIGH RISK PARTICULARLY IF PRECAUTIONS AT NOT FOLLOWED (POOR COMPLIANCE WITH COMMANDS AND CUES) THIN LIQUIDS TSP X2 NO ASP/LP OR LARYNGEAL PENETRATION BUT HAD RISK AFTER SWALLOW DUE TO OROPHARYNGEAL RESIDUE FROM OP DYSMOTILITY CUP - PENETRATION TRACE NOT EJECTED TO LEVEL OF VOCAL FOLDS DUE TO SWALLOW DELAY, LATE CLOSURE OF LARYNGEAL VESTIBULE, AND REDUCED TONGUE BASE RETRACTION AND HYOLARYNGEAL EXCURSION. ADDITIONAL ASP RISK AFTER SWALLOW DUE TO OROPHARYNGEAL DYSMOTILITY/RESIDUE. DELAYED AND CUED SWALLOW TO CLEAR. NECTAR THICK LIQUIDS TSP - NO ASP BUT APPEARED TO HAVE TRACE LP AFTER THE SWALLOW TO LEVEL OF VOCAL FOLDS W/O EJECTION DUE TO REDUCED TONGUE BASE RETRACTION. CUP - DEEP LP TRACE TO LEVEL OF VOCAL FOLDS APPEARED TO EJECT DUE TO LATE SWALLOW, LATE LVC, AND REDUCED HYOLARYNGEAL EXCURSION. DEFICITS/COMPONENTS INCLUDE THE FOLLOWING: DID NOT FOLLOW COMMANDS FOR STRATEGIES Oral Impairment Lip Closure ORAL APRAXIA Tongue Control Bolus singletary/lingual motion Oral residue Init. pharyngeal swallow Pharyngeal Impairment Laryngeal elevation (LE) Ant. hyoid excursion Epiglottic movement Laryngeal vestibule closure Pharyngeal stripping wave Pharyngoesophageal segment Opening Tongue base retraction Pharyngeal residue Decreased pharyngeal sensation GROSSLY FUNCTIONAL ESOPHAGEAL PHASE LIMITED TO LATERAL AND HAD SHOULDER OBSTRUCTION. BENEFITS FROM CUES TO SWALLOW HARD AND AGAIN, NEEDS MORE TIME TO SWALLOW, SAFEST WITH TSP (NECTAR THICK SAFEST AND MOST EFFICIENT) TENDS TO KEEP MOUTH OPEN WITH TSP/CUP AND BIT DOWN ON TSP AND STRAW REFUSED HONEY/PUREED TSP BY CLOSING HIS MOUTH DID NOT FOLLOW COMMANDS FOR STRATEGIES RECOMMENDATIONS: CONSERVATIVELY, REINSERT NGT 12 PANAMANIAN IF POSSIBLE AND CONTINUE WITH TUBE FEEDINGS FOR NOW PT IS UNLIKELY TO MEET NUTRITIONAL NEEDS DUE TO A SIGNIFICANT DYSPHAGIA, NOT RECEPTIVE TO SOME PO TRIALS, PERIODS OF LETHARGY AND RESTLESSNESS. PO TRIAL WITH INSIDE SALES CONSULTANT WITH NECTAR THICK TSP ONLY (LATER TRIAL OF LIQUIFIED PUREED LIKE NECTAR THICK SOUP CONSISTENCY WITH ASP/REFLUX PREC ON THURSDAY VERSUS PEG IF INDICATED). CONSIDER PEG CONSULT WITH GI SKILLED DYSPHAGIA MANAGEMENT / TX AND COG-COM EVAL/TX ON THURSDAY D/W RN WHO TOLD DR RUSSELL WHO AGREES WITH PLAN D/W GI SHIRT FINISHER OPAL WHO MAY CONSIDER PEG IF INDICATED ON THURSDAY D/W PATIENT'S SON WHO MAY CONSIDER PEG WITH SOME ORAL GRATIFICATION(POLST STATES OK WITH [facility] TF IF NEEDS).
--- NOTE | 2019-01-28 14:10 | NUR ---
HAND-OFF: Report given to Yeni Cloud RN.
[2019-01-28 16:00] VITALS: BP 131/62
--- NOTE | 2019-01-28 18:56 | NUR ---
NURSE NOTES: Dialysis done, with 2L output.
--- NOTE | 2019-01-28 19:20 | NUR ---
HAND-OFF: Report given to Raven Katz RN.
--- NOTE | 2019-01-28 19:21 | NUR ---
NURSE NOTES: Received bedside report from TESHA Hawley.Patient stable,in a bed,no c/o pin,no respiratory distress at this time,pt just finished dialysis,2 L out,pt confused,A&Ox 2,SR on desk monitor,tolerated r/air well,IV asymptomatic,intact on Lf/arm and L hand G 20 SL EDSON shunt for HD new and old one is on MARINA,bed secured in a low safety position,call light within a reach.Will continue to monitor and follow POC
[2019-01-28 20:00] VITALS: BP 143/71
[2019-01-28] MEDS ORDERED: Dyna-Hex 2% Top Sol 2oz TOPIC SCH (20:00)
[2019-01-28] MEDS ORDERED: Atorvastatin 80mg tab NG SCH (21:00)
--- NOTE | 2019-01-28 21:20 | NUR ---
NURSE NOTES: NG tube inserted,KUB ordered STAT,waiting for result.
--- NOTE | 2019-01-28 21:44 | Diagnostic Imaging Report ---
EXAM: XR Abdomen, 1 View CLINICAL HISTORY: NGT TECHNIQUE: Frontal supine view of the abdomen/pelvis. COMPARISON: No relevant prior studies available. FINDINGS: Gastrointestinal tract: Nonspecific bowel gas pattern. Contrast in the bowel. Bones/joints: No acute fracture. Tubes, lines and devices: Enteric tube in the proximal stomach. Bilateral ureteral stents with some uncoiling of the left distal coil. Other findings: Single view 01/28/19 at 2114. IMPRESSION: Enteric tube in the proximal stomach.
--- NOTE | 2019-01-28 22:30 | NUR ---
NURSE NOTES: VANESSA resulted,it's good to use,NGT in place.
[2019-01-29] VITALS (7 sets, daily range): BP systolic 138–162; BP diastolic 60–76
--- NOTE | 2019-01-29 04:00 | NUR ---
NURSE NOTES: Initiated non-behavioral bilateral soft restrains,pt combative removing devices,charge nurse aware.
--- NOTE | 2019-01-29 05:30 | NUR ---
NURSE NOTES: Patient pulled out NGT,new NG tube inserted,KUB ordered,transferred pt to 4E.
[2019-01-29 06:29] LABS: EOSINOPHILS % (AUTO) 1.9 % (0.0-3.0); HEMATOCRIT 39.1 % (42.0-52.0); HEMOGLOBIN 12.8 G/DL (14.2-18.0); LYMPHOCYTES % (AUTO) 7.9 % (20.0-45.0); MEAN CORPUSCULAR VOLUME 101 FL (80-99); MONOCYTES % (AUTO) 8.2 % (1.0-10.0); NEUTROPHILS % (AUTO) 80.9 % (45.0-75.0); PLATELET COUNT 262 K/UL (150-450); RED BLOOD COUNT 3.87 M/UL (4.70-6.10); RED CELL DISTRIBUTION WIDTH 13.4 % (11.6-14.8); WHITE BLOOD COUNT 6.2 K/UL (4.8-10.8)
--- NOTE | 2019-01-29 06:45 | NUR ---
NURSE NOTES: Transferred pt to 4E,no s/s of pain,no respiratory distress noted at this time,tolerated r/air well,report given to TESHA Medel.Belongings list signed,waiting for KUB.
[2019-01-29 06:49] LABS: ANION GAP 13 mmol/L (5-15); BLOOD UREA NITROGEN 57 mg/dL (7-18); CALCIUM 9.1 MG/DL (8.5-10.1); CARBON DIOXIDE 26 MMOL/L (21-32); CHLORIDE 100 MMOL/L (98-107); CREATININE 6.4 MG/DL (0.55-1.30); POTASSIUM 4.8 MMOL/L (3.5-5.1); SODIUM 139 MMOL/L (136-145)
--- NOTE | 2019-01-29 06:50 | NUR ---
NURSE NOTES: Patient transferred from [facility]. Received report from TESHA Carbajal. Patient stable condition with no signs of distress or SOB. Belongings checked and form signed. Wound care photos taken. Both IVs intact. Bed locked and in lowest position. Alarm on. Call light in reach. Will continue to monitor.
--- NOTE | 2019-01-29 08:02 | Diagnostic Imaging Report ---
EXAM: XR Abdomen, 2 Views CLINICAL HISTORY: NGT TECHNIQUE: Frontal view of the abdomen/pelvis with upright view of the abdomen. COMPARISON: At 2018 FINDINGS: Intraperitoneal space: No free air. Gastrointestinal tract: Residual oral contrast is again seen within the colon. There is no evidence of bowel obstruction. There are a few prominent air-filled loops of small bowel in the left abdomen, possibly representing an enteritis or ileus. Bones/joints: Unremarkable. Tubes, lines and devices: Bilateral ureteral stents are unchanged in position. An enteric tube has been advanced with the tip now overlying the region of the gastric antrum and the proximal port overlying the region of the gastric body. IMPRESSION: 1. Interval advancement of the enteric tube as described. Stable bilateral ureteral stents. 2. No bowel obstruction. Persistent prominent air-filled small bowel loops in the left upper quadrant could represent an enteritis/mild focal ileus.
--- NOTE | 2019-01-29 08:20 | General Progress Note ---
Assessment/Plan Status: doing well, stable Assessment/Plan: (1) Encounter for PEG (percutaneous endoscopic gastrostomy) (2) Failure to thrive (3) Dementia (4) Severe malnutrition (5) Anemia in chronic kidney disease Plan Spoke with the son regarding gastric tube placement, whom wishes to speak to the family first. We will schedule PEG if family agrees. Insert NGT, okay to start feedings after imaging confirmation PRN transfusions PPI Calorie count We will follow along with additional recommendations Subjective ROS Limited/Unobtainable: No Allergies: Coded Allergies: MORPHINE (Verified Allergy, Unknown, 01/18/19) Objective Last 24 Hour Vital Signs Date Time Temp Pulse Resp B/P (MAP) Pulse Ox O2 Delivery O2 Flow Rate FiO2 01/29/19 04:00 97.3 79 24 138/76 (96) 97 01/29/19 03:31 74 01/29/19 00:00 97.6 79 24 138/76 (96) 97 01/28/19 23:40 74 01/28/19 22:09 82 143/71 01/28/19 21:00 Room Air 01/28/19 20:00 97.3 82 22 143/71 (95) 97 01/28/19 20:00 96 Room Air 21 01/28/19 20:00 75 01/28/19 16:00 97.5 77 21 131/62 (85) 95 01/28/19 16:00 76 01/28/19 12:00 97.7 74 19 163/78 (106) 97 01/28/19 12:00 Room Air 01/28/19 11:43 75 01/28/19 09:00 82 156/69 01/28/19 09:00 82 156/69 Intake and Output 01/28/19 01/29/19 19:00 07:00 Intake Total 0 ml 60 ml Output Total 2000 ml 2000 ml Balance -2000 ml -1940 ml Intake Oral 0 ml Tube Feeding 60 ml Hemodialysis UF 2000 ml 2000 ml # Bowel Movements 1 Laboratory Tests 01/29/19 03:52: White Blood Count 6.2, Red Blood Count 3.87L, Hemoglobin 12.8L, Hematocrit 39.1L , Mean Corpuscular Volume 101H, Mean Corpuscular Hemoglobin 33.1H, Mean Corpuscular Hemoglobin Concent 32.7, Red Cell Distribution Width 13.4, Platelet Count 262, Mean Platelet Volume 5.7L, Neutrophils (%) (Auto) 80.9H, Lymphocytes (%) (Auto) 7.9L, Monocytes (%) (Auto) 8.2, Eosinophils (%) (Auto) 1.9, Basophils (%) (Auto) 1.0, Sodium Level 139, Potassium Level 4.8, Chloride Level 100, Carbon Dioxide Level 26, Anion Gap 13, Blood Urea Nitrogen 57H, Creatinine 6.4H, Estimat Glomerular Filtration Rate , Glucose Level 71L, Calcium Level 9.1 Height (Feet): 5 Height (Inches): 6.00 Weight (Pounds): 133 General Appearance: no apparent distress EENT: normal ENT inspection Neck: supple Cardiovascular: normal rate Respiratory/Chest: decreased breath sounds Abdomen: normal bowel sounds, non tender, soft Extremities: non-tender Odin Ortega MD Jan 29, 2019 08:20
--- NOTE | 2019-01-29 08:48 | NUR ---
HAND-OFF: Report given to TESHA Coe.
--- NOTE | 2019-01-29 08:50 | NUR ---
NURSE NOTES: Received report from Lizy PARKINSON. Pt on restraints. AOx1 awake. Bed in lowest position and locked. Call light within reach. Pt on NG tube waiting for xray for placement. Will continue to monitor and follow plans of care
--- NOTE | 2019-01-29 09:51 | Cardiology Progress Note ---
Assessment/Plan Status: stable Assessment/Plan Assessment/Plan Assessment/Plan 1. Elevated troponin, possible ACS but likely due to ESRD on dialysis. Continue to trend Stress test when stable Defer cardiac cath Continue aspirin Continue metoprolol LVEF preserved 2. Respiratory failure. Due to volume overload. On dialysis. Failed weaning HD per nephrology Speech swallow evaluation - modified barium swallow pending NGT PEG pending 3. Hypertension Continue amlodipine 5 mg daily, metoprolol 12.5 bid and HD 4. End-stage renal disease, on hemodialysis. 5. Respiratory failure, on the ventilator. 6. Large right-sided pleural effusion. S/p 3 liters R Thoracentesis 01/20/19 7. DNR Subjective Cardiovascular: Reports: no symptoms Respiratory: Reports: no symptoms Gastrointestinal/Abdominal: Reports: no symptoms Genitourinary: Reports: no symptoms Subjective Coverage for [place] Events reviewed, vitals stable. NGT replaced PEG tube pending Objective Last 24 Hour Vital Signs Date Time Temp Pulse Resp B/P (MAP) Pulse Ox O2 Delivery O2 Flow Rate FiO2 01/29/19 04:00 97.3 79 24 138/76 (96) 97 01/29/19 03:31 74 01/29/19 00:00 97.6 79 24 138/76 (96) 97 01/28/19 23:40 74 01/28/19 22:09 82 143/71 01/28/19 21:00 Room Air 01/28/19 20:00 97.3 82 22 143/71 (95) 97 01/28/19 20:00 96 Room Air 21 01/28/19 20:00 75 01/28/19 16:00 97.5 77 21 131/62 (85) 95 01/28/19 16:00 76 01/28/19 12:00 97.7 74 19 163/78 (106) 97 01/28/19 12:00 Room Air 01/28/19 11:43 75 General Appearance: no apparent distress, lethargic EENT: PERRL/EOMI, normal ENT inspection, TMs normal Neck: non-tender, normal alignment, supple, normal inspection Rhythm: NSR Cardiovascular: normal peripheral pulses, normal rate Respiratory/Chest: lungs clear, no respiratory distress Abdomen: normal bowel sounds, non tender, soft, no organomegaly, no mass Extremities: normal range of motion, non-tender, normal inspection Neurologic: nursing assoc II-XII grossly normal, no motor/sensory deficits Intake and Output 01/28/19 01/29/19 19:00 07:00 Intake Total 0 ml 60 ml Output Total 2000 ml 2000 ml Balance -2000 ml -1940 ml Intake Oral 0 ml Tube Feeding 60 ml Hemodialysis UF 2000 ml 2000 ml # Bowel Movements 1 Laboratory Tests Test 01/29/19 03:52 White Blood Count 6.2 K/UL (4.8-10.8) Red Blood Count 3.87 M/UL (4.70-6.10) L Hemoglobin 12.8 G/DL (14.2-18.0) L Hematocrit 39.1 % (42.0-52.0) L Mean Corpuscular Volume 101 FL (80-99) H Mean Corpuscular Hemoglobin 33.1 PG (27.0-31.0) H Mean Corpuscular Hemoglobin Concent 32.7 G/DL (32.0-36.0) Red Cell Distribution Width 13.4 % (11.6-14.8) Platelet Count 262 K/UL (150-450) Mean Platelet Volume 5.7 FL (6.5-10.1) L Neutrophils (%) (Auto) 80.9 % (45.0-75.0) H Lymphocytes (%) (Auto) 7.9 % (20.0-45.0) L Monocytes (%) (Auto) 8.2 % (1.0-10.0) Eosinophils (%) (Auto) 1.9 % (0.0-3.0) Basophils (%) (Auto) 1.0 % (0.0-2.0) Sodium Level 139 MMOL/L (136-145) Potassium Level 4.8 MMOL/L (3.5-5.1) Chloride Level 100 MMOL/L (98-107) Carbon Dioxide Level 26 MMOL/L (21-32) Anion Gap 13 mmol/L (5-15) Blood Urea Nitrogen 57 mg/dL (7-18) H Creatinine 6.4 MG/DL (0.55-1.30) H Estimat Glomerular Filtration Rate mL/min (>60) Glucose Level 71 MG/DL (74-106) L Calcium Level 9.1 MG/DL (8.5-10.1) Eric Thompson MD Jan 29, 2019 09:51
[2019-01-29] MEDS: Pantoprazole Inj IVP SCH (10:38)
[2019-01-29] MEDS: Metoprolol Tartrate 12.5mg TAB NG SCH ×2 (10:39→22:41)
[2019-01-29] MEDS: Aspirin Baby 81mg NG SCH (10:39)
[2019-01-29] MEDS: Calcitriol 0.25mcg Cap NG SCH (10:39)
[2019-01-29] MEDS: Heparin 5000 units/ml inj SUBQ SCH ×2 (10:41→22:52)
--- NOTE | 2019-01-29 10:48 | Pulmonology Progress Note ---
Assessment/Plan Assessment/Plan IMPRESSION: 1. Respiratory failure. Extubated. 2. Pulmonary edema. Improved. 3. COPD. 4. Hyperkalemia. Corrected. 5. Hypertension. 6. Hypothyroidism. DISCUSSION: Continue present medications and care. Dialysis per renal. I will follow carefully. S/p thoracentesis on 01/20/19 In [place] Now DNR/DNI DC planning to SNF Needs PEG Danis Conley M.D. Subjective Interval Events: None new Constitutional: Reports: no symptoms HEENT: Repors: no symptoms Respiratory: Reports: no symptoms Cardiovascular: Reports: no symptoms Gastrointestinal/Abdominal: Reports: no symptoms Allergies: Coded Allergies: MORPHINE (Verified Allergy, Unknown, 01/18/19) Objective Last 24 Hour Vital Signs Date Time Temp Pulse Resp B/P (MAP) Pulse Ox O2 Delivery O2 Flow Rate FiO2 01/29/19 10:40 76 142/67 01/29/19 10:39 76 142/67 01/29/19 10:09 97 Room Air 21 01/29/19 04:00 97.3 79 24 138/76 (96) 97 01/29/19 03:31 74 01/29/19 00:00 97.6 79 24 138/76 (96) 97 01/28/19 23:40 74 01/28/19 22:09 82 143/71 01/28/19 21:00 Room Air 01/28/19 20:00 97.3 82 22 143/71 (95) 97 01/28/19 20:00 96 Room Air 21 01/28/19 20:00 75 01/28/19 16:00 97.5 77 21 131/62 (85) 95 01/28/19 16:00 76 01/28/19 12:00 97.7 74 19 163/78 (106) 97 01/28/19 12:00 Room Air 01/28/19 11:43 75 Intake and Output 01/28/19 01/29/19 19:00 07:00 Intake Total 0 ml 60 ml Output Total 2000 ml 2000 ml Balance -2000 ml -1940 ml Intake Oral 0 ml Tube Feeding 60 ml Hemodialysis UF 2000 ml 2000 ml # Bowel Movements 1 General Appearance: no acute distress HEENT: normocephalic Respiratory/Chest: chest wall non-tender, lungs clear Cardiovascular: normal peripheral pulses, normal rate Abdomen: normal bowel sounds Laboratory Tests 01/29/19 03:52: White Blood Count 6.2, Red Blood Count 3.87L, Hemoglobin 12.8L, Hematocrit 39.1L , Mean Corpuscular Volume 101H, Mean Corpuscular Hemoglobin 33.1H, Mean Corpuscular Hemoglobin Concent 32.7, Red Cell Distribution Width 13.4, Platelet Count 262, Mean Platelet Volume 5.7L, Neutrophils (%) (Auto) 80.9H, Lymphocytes (%) (Auto) 7.9L, Monocytes (%) (Auto) 8.2, Eosinophils (%) (Auto) 1.9, Basophils (%) (Auto) 1.0, Sodium Level 139, Potassium Level 4.8, Chloride Level 100, Carbon Dioxide Level 26, Anion Gap 13, Blood Urea Nitrogen 57H, Creatinine 6.4H, Estimat Glomerular Filtration Rate , Glucose Level 71L, Calcium Level 9.1 Current Medications Medications (Trade) Dose Ordered Sig/Odilon Route PRN Reason Start Time Stop Time Status Last Admin Dose Admin Amlodipine Besylate (Norvasc) 5 mg DAILY NG 01/29/19 09:00 02/18/19 11:14 01/29/19 10:40 Aspirin (ASA) 81 mg DAILY NG 01/29/19 09:00 02/18/19 11:14 01/29/19 10:39 Atorvastatin Calcium (Lipitor) 40 mg BEDTIME NG 01/29/19 21:00 02/18/19 20:59 Calcitriol (Rocatrol) 0.25 mcg DAILY NG 01/29/19 09:00 02/18/19 11:14 01/29/19 10:39 Dextrose (Dextrose 50%) 25 ml Q30M PRN IV Hypoglycemia 01/29/19 07:00 02/18/19 01:59 Dextrose (Dextrose 50%) 50 ml Q30M PRN IV Hypoglycemia 01/29/19 07:00 02/18/19 01:59 Heparin Sodium (Porcine) (Heparin 5000 units/ml) 5,000 units EVERY 12 HOURS SUBQ 01/29/19 09:00 02/18/19 08:59 01/29/19 10:41 Hydralazine HCl (Apresoline) 10 mg Q4H PRN IV For High Blood Pressure 01/29/19 07:15 02/19/19 11:14 Levothyroxine Sodium (Synthroid) 125 mcg DAILY@0630 NG 01/30/19 06:30 02/19/19 06:29 Metoprolol Tartrate (Lopressor) 12.5 mg Q12HR NG 01/29/19 09:00 02/18/19 17:59 01/29/19 10:39 Pantoprazole (Protonix) 40 mg DAILY IVP 01/29/19 09:00 02/23/19 08:59 01/29/19 10:38 Quetiapine Fumarate (SEROquel) 100 mg QHS NG 01/29/19 21:00 02/18/19 20:59 Danis Conley MD Jan 29, 2019 10:48
--- NOTE | 2019-01-29 10:52 | Nephrology Progress Note ---
Assessment/Plan Status: stable Assessment/Plan: 1. ESRD- MWF 2. Severe hyperkalemia - resolved 3. Respiratory failure -resolved 4. Hypertension. - stable 5. Hypothyroidism. - Synthroid. 6. PEG on Thursday, failed swallow evaluation Subjective Date patient seen: Jan 29, 2019 Time patient seen: 10:50 ROS Limited/Unobtainable: No Allergies: Coded Allergies: MORPHINE (Verified Allergy, Unknown, 01/18/19) Subjective Patient NG in place. PEG Thursday Objective Last 24 Hour Vital Signs Date Time Temp Pulse Resp B/P (MAP) Pulse Ox O2 Delivery O2 Flow Rate FiO2 01/29/19 10:40 76 142/67 01/29/19 10:39 76 142/67 01/29/19 10:09 97 Room Air 21 01/29/19 04:00 97.3 79 24 138/76 (96) 97 01/29/19 03:31 74 01/29/19 00:00 97.6 79 24 138/76 (96) 97 01/28/19 23:40 74 01/28/19 22:09 82 143/71 01/28/19 21:00 Room Air 01/28/19 20:00 97.3 82 22 143/71 (95) 97 01/28/19 20:00 96 Room Air 21 01/28/19 20:00 75 01/28/19 16:00 97.5 77 21 131/62 (85) 95 01/28/19 16:00 76 01/28/19 12:00 97.7 74 19 163/78 (106) 97 01/28/19 12:00 Room Air 01/28/19 11:43 75 Intake and Output 01/28/19 01/29/19 19:00 07:00 Intake Total 0 ml 60 ml Output Total 2000 ml 2000 ml Balance -2000 ml -1940 ml Intake Oral 0 ml Tube Feeding 60 ml Hemodialysis UF 2000 ml 2000 ml # Bowel Movements 1 Laboratory Tests 01/29/19 03:52: White Blood Count 6.2, Red Blood Count 3.87L, Hemoglobin 12.8L, Hematocrit 39.1L , Mean Corpuscular Volume 101H, Mean Corpuscular Hemoglobin 33.1H, Mean Corpuscular Hemoglobin Concent 32.7, Red Cell Distribution Width 13.4, Platelet Count 262, Mean Platelet Volume 5.7L, Neutrophils (%) (Auto) 80.9H, Lymphocytes (%) (Auto) 7.9L, Monocytes (%) (Auto) 8.2, Eosinophils (%) (Auto) 1.9, Basophils (%) (Auto) 1.0, Sodium Level 139, Potassium Level 4.8, Chloride Level 100, Carbon Dioxide Level 26, Anion Gap 13, Blood Urea Nitrogen 57H, Creatinine 6.4H, Estimat Glomerular Filtration Rate , Glucose Level 71L, Calcium Level 9.1 Height (Feet): 5 Height (Inches): 6.00 Weight (Pounds): 133 General Appearance: no apparent distress EENT: normal ENT inspection Neck: normal alignment, supple Cardiovascular: normal rate, regular rhythm Respiratory/Chest: lungs clear, normal breath sounds Abdomen: non tender, soft Edema: no edema noted Arm (L), no edema noted Arm (R), no edema noted Leg (L), no edema noted Leg (R), no edema noted Pedal (L), no edema noted Pedal (R), no edema noted Generalized David Villa MD Jan 29, 2019 10:52
[2019-01-29] MEDS ORDERED: NS 275ml ONE (17:22)
--- NOTE | 2019-01-29 19:35 | NUR ---
HAND-OFF: Report given to Lizy/rn. Endorsed pt is still on restrains, and Ng feeding started around 1100. Pt tolerating feeding of 20ml/hr. Increased feeding to 30m/ around 6pm. Applied additional foam dressing to pt's bony areas. Sacral wound is not open. Calazime ointment applied and covered with optifoam for protection.
--- NOTE | 2019-01-29 19:44 | NUR ---
NURSE NOTES: Received report from TESHA Coe. Patient is in bed and confused. Patient is on bilateral soft wrist restraints for observed removal of devices. NG tube intacts and running Nephra tube feeding at 30 ml/hr. Will follow protoc and increase to goal of 40 ml/hr as indicated. IVs are intact and patent. Bed locked and in lowest position with alarm on. Will continue to monitor.
--- NOTE | 2019-01-29 22:31 | NUR ---
NURSE NOTES: Patient NG tube tolerating fluids well, no residual. Started at 30 ml/hr at beginning of shift. At 2200 increased rate to the goal of 40 ml/hr per protocol.
[2019-01-29] MEDS: Atorvastatin 80mg tab NG SCH (22:39)
--- NOTE | 2019-01-29 23:40 | NUR ---
NURSE NOTES: Patient tolerating NG tube fluids well with no residual.
[2019-01-30] VITALS: BP 135/72
[2019-01-30 04:00] VITALS: BP 137/55
--- NOTE | 2019-01-30 05:51 | General Progress Note ---
Assessment/Plan Status: stable Assessment/Plan: (1) Encounter for PEG (percutaneous endoscopic gastrostomy) (2) Failure to thrive (3) Dementia (4) Severe malnutrition (5) Anemia in chronic kidney disease Plan We will schedule PEG if family agrees. NGTF PRN transfusions PPI We will follow along with additional recommendations Subjective ROS Limited/Unobtainable: No Allergies: Coded Allergies: MORPHINE (Verified Allergy, Unknown, 01/18/19) Objective Last 24 Hour Vital Signs Date Time Temp Pulse Resp B/P (MAP) Pulse Ox O2 Delivery O2 Flow Rate FiO2 01/30/19 04:00 97.5 73 20 137/55 (82) 95 01/30/19 00:00 98.0 72 20 135/72 (93) 96 01/29/19 22:41 73 148/60 01/29/19 20:00 97.8 73 20 148/60 (89) 96 01/29/19 19:59 96 Room Air 21 01/29/19 16:21 71 139/66 (90) 01/29/19 16:00 97.2 73 17 162/69 (100) 94 01/29/19 12:00 98.0 71 18 147/73 (97) 98 01/29/19 10:40 76 142/67 01/29/19 10:39 76 142/67 01/29/19 10:09 97 Room Air 21 01/29/19 08:00 97.0 76 18 142/67 (92) 96 Intake and Output 01/29/19 01/30/19 19:00 07:00 Intake Total 30 ml 380 ml Balance 30 ml 380 ml Tube Feeding 30 ml 380 ml # Voids 2 # Bowel Movements 2 Height (Feet): 5 Height (Inches): 6.00 Weight (Pounds): 148 General Appearance: no apparent distress EENT: normal ENT inspection Neck: supple Cardiovascular: normal rate Respiratory/Chest: decreased breath sounds Abdomen: normal bowel sounds, non tender, soft Extremities: non-tender Odin Ortega MD Jan 30, 2019 05:51
[2019-01-30] MEDS: Levothyroxine 125mcg tab NG SCH (06:18)
--- NOTE | 2019-01-30 07:21 | Nephrology Progress Note ---
Assessment/Plan Status: stable Assessment/Plan: 1. ESRD- MWF. Hd tomor. Orders placed 2. Severe hyperkalemia - resolved - continue HD 3. Respiratory failure -resolved 4. Hypertension. - stable 5. Hypothyroidism. - Synthroid. 6. PEG on Thursday, failed swallow evaluation Subjective Date patient seen: Jan 30, 2019 Time patient seen: 07:20 ROS Limited/Unobtainable: Yes Allergies: Coded Allergies: MORPHINE (Verified Allergy, Unknown, 01/18/19) Subjective Patient NG in place. Poor oral intake Objective Last 24 Hour Vital Signs Date Time Temp Pulse Resp B/P (MAP) Pulse Ox O2 Delivery O2 Flow Rate FiO2 01/30/19 04:00 97.5 73 20 137/55 (82) 95 01/30/19 00:00 98.0 72 20 135/72 (93) 96 01/29/19 22:41 73 148/60 01/29/19 20:00 97.8 73 20 148/60 (89) 96 01/29/19 19:59 96 Room Air 21 01/29/19 16:21 71 139/66 (90) 01/29/19 16:00 97.2 73 17 162/69 (100) 94 01/29/19 12:00 98.0 71 18 147/73 (97) 98 01/29/19 10:40 76 142/67 01/29/19 10:39 76 142/67 01/29/19 10:09 97 Room Air 21 01/29/19 08:00 97.0 76 18 142/67 (92) 96 Intake and Output 01/29/19 01/30/19 19:00 07:00 Intake Total 30 ml 420 ml Output Total 0 ml Balance 30 ml 420 ml Tube Feeding 30 ml 420 ml Output Urine Total 0 ml # Voids 2 # Bowel Movements 2 3 Height (Feet): 5 Height (Inches): 6.00 Weight (Pounds): 148 General Appearance: lethargic EENT: normal ENT inspection Neck: normal alignment Cardiovascular: normal rate, regular rhythm Respiratory/Chest: rhonchi - bilaterally Abdomen: non tender, soft Edema: no edema noted Arm (L), no edema noted Arm (R), no edema noted Leg (L), no edema noted Leg (R), no edema noted Pedal (L), no edema noted Pedal (R), no edema noted Generalized De Janneth,David MD Jan 30, 2019 07:21
--- NOTE | 2019-01-30 07:48 | NUR ---
HAND-OFF: Report given to TESHA Ramírez.
[2019-01-30 08:00] VITALS: BP 151/81
--- NOTE | 2019-01-30 08:17 | NUR ---
NURSE NOTES: Received report from TESHA Wu. The patient is resting on the bed without acute distress or shortness of breath. The patient's bed in the lowest position, call light in reach, and fall, aspiration, seizure precaution reinforced. IV site intact and patent. The patient is on bilateral soft restraints and the circulation is intact. The patient is on tube feeding Nephro @40mL/hr without residual. Will continue plan of care.
--- NOTE | 2019-01-30 08:20 | Pulmonology Progress Note ---
Assessment/Plan Assessment/Plan IMPRESSION: 1. Respiratory failure. Extubated. 2. Pulmonary edema. Improved. 3. COPD. 4. Hyperkalemia. Corrected. 5. Hypertension. 6. Hypothyroidism. DISCUSSION: Continue present medications and care. Dialysis per renal. I will follow carefully. S/p thoracentesis on 01/20/19 In [facility] Now DNR/DNI DC planning to SNF Needs PEG; discussed with GI Danis Conley M.D. Subjective Interval Events: No new reported events. Constitutional: Reports: no symptoms HEENT: Repors: no symptoms Respiratory: Reports: no symptoms Cardiovascular: Reports: no symptoms Gastrointestinal/Abdominal: Reports: no symptoms Genitourinary: Reports: no symptoms Allergies: Coded Allergies: MORPHINE (Verified Allergy, Unknown, 01/18/19) Objective Last 24 Hour Vital Signs Date Time Temp Pulse Resp B/P (MAP) Pulse Ox O2 Delivery O2 Flow Rate FiO2 01/30/19 04:00 97.5 73 20 137/55 (82) 95 01/30/19 00:00 98.0 72 20 135/72 (93) 96 01/29/19 22:41 73 148/60 01/29/19 20:00 97.8 73 20 148/60 (89) 96 01/29/19 19:59 96 Room Air 21 01/29/19 16:21 71 139/66 (90) 01/29/19 16:00 97.2 73 17 162/69 (100) 94 01/29/19 12:00 98.0 71 18 147/73 (97) 98 01/29/19 10:40 76 142/67 01/29/19 10:39 76 142/67 01/29/19 10:09 97 Room Air 21 Intake and Output 01/29/19 01/30/19 19:00 07:00 Intake Total 30 ml 420 ml Output Total 0 ml Balance 30 ml 420 ml Tube Feeding 30 ml 420 ml Output Urine Total 0 ml # Voids 2 # Bowel Movements 2 3 General Appearance: no acute distress HEENT: normocephalic Respiratory/Chest: chest wall non-tender, lungs clear Cardiovascular: normal peripheral pulses Abdomen: normal bowel sounds Current Medications Medications (Trade) Dose Ordered Sig/Odilon Route PRN Reason Start Time Stop Time Status Last Admin Dose Admin Amlodipine Besylate (Norvasc) 5 mg DAILY NG 01/29/19 09:00 02/18/19 11:14 01/29/19 10:40 Aspirin (ASA) 81 mg DAILY NG 01/29/19 09:00 02/18/19 11:14 01/29/19 10:39 Atorvastatin Calcium (Lipitor) 40 mg BEDTIME NG 01/29/19 21:00 02/18/19 20:59 01/29/19 22:39 Calcitriol (Rocatrol) 0.25 mcg DAILY NG 01/29/19 09:00 02/18/19 11:14 01/29/19 10:39 Dextrose (Dextrose 50%) 25 ml Q30M PRN IV Hypoglycemia 01/29/19 07:00 02/18/19 01:59 Dextrose (Dextrose 50%) 50 ml Q30M PRN IV Hypoglycemia 01/29/19 07:00 02/18/19 01:59 Heparin Sodium (Porcine) (Heparin 5000 units/ml) 5,000 units EVERY 12 HOURS SUBQ 01/29/19 09:00 02/18/19 08:59 01/29/19 22:52 Hydralazine HCl (Apresoline) 10 mg Q4H PRN IV For High Blood Pressure 01/29/19 07:15 02/19/19 11:14 Levothyroxine Sodium (Synthroid) 125 mcg DAILY@0630 NG 01/30/19 06:30 02/19/19 06:29 01/30/19 06:18 Metoprolol Tartrate (Lopressor) 12.5 mg Q12HR NG 01/29/19 09:00 02/18/19 17:59 01/29/19 22:41 Pantoprazole (Protonix) 40 mg DAILY IVP 01/29/19 09:00 02/23/19 08:59 01/29/19 10:38 Quetiapine Fumarate (SEROquel) 100 mg QHS NG 01/29/19 21:00 02/18/19 20:59 01/29/19 22:39 Danis Conley MD Jan 30, 2019 08:20
[2019-01-30] MEDS: Heparin 5000 units/ml inj SUBQ SCH ×2 (09:00→21:00)
[2019-01-30] MEDS: Aspirin Baby 81mg NG SCH (09:31)
[2019-01-30] MEDS: Pantoprazole Inj IVP SCH (09:31)
[2019-01-30] MEDS: Metoprolol Tartrate 12.5mg TAB NG SCH ×2 (09:32→21:00)
[2019-01-30] MEDS: Calcitriol 0.25mcg Cap NG SCH (09:32)
--- NOTE | 2019-01-30 09:42 | Cardiology Progress Note ---
Assessment/Plan Status: stable Assessment/Plan Assessment/Plan Assessment/Plan 1. Elevated troponin, possible ACS but likely due to ESRD on dialysis. Continue to trend Stress test when stable Defer cardiac cath Continue aspirin Continue metoprolol LVEF preserved 2. Respiratory failure. Due to volume overload. On dialysis. Failed weaning HD per nephrology Speech swallow evaluation - modified barium swallow pending NGT PEG pending thursday, cleared to proceed 3. Hypertension Continue amlodipine 5 mg daily, metoprolol 12.5 bid and HD 4. End-stage renal disease, on hemodialysis. 5. Respiratory failure, on the ventilator. 6. Large right-sided pleural effusion. S/p 3 liters R Thoracentesis 01/20/19 7. DNR Subjective Cardiovascular: Reports: no symptoms Respiratory: Reports: no symptoms Gastrointestinal/Abdominal: Reports: no symptoms Genitourinary: Reports: no symptoms Subjective Coverage for [place] Events reviewed, vitals stable. NGT replaced, tolerating feeds no distress PEG tube pending thursday prior to d/c SNF Objective Last 24 Hour Vital Signs Date Time Temp Pulse Resp B/P (MAP) Pulse Ox O2 Delivery O2 Flow Rate FiO2 01/30/19 09:32 79 151/81 01/30/19 09:32 79 151/81 01/30/19 08:57 96 Room Air 21 01/30/19 08:00 97.0 79 20 151/81 (104) 98 01/30/19 04:00 97.5 73 20 137/55 (82) 95 01/30/19 00:00 98.0 72 20 135/72 (93) 96 01/29/19 22:41 73 148/60 01/29/19 20:00 97.8 73 20 148/60 (89) 96 01/29/19 19:59 96 Room Air 21 01/29/19 16:21 71 139/66 (90) 01/29/19 16:00 97.2 73 17 162/69 (100) 94 01/29/19 12:00 98.0 71 18 147/73 (97) 98 01/29/19 10:40 76 142/67 01/29/19 10:39 76 142/67 01/29/19 10:09 97 Room Air 21 General Appearance: no apparent distress, alert EENT: PERRL/EOMI, normal ENT inspection, TMs normal, pharynx normal Neck: non-tender, normal alignment, supple, normal inspection, no JVD Rhythm: NSR Cardiovascular: normal peripheral pulses, normal rate, regular rhythm Respiratory/Chest: chest wall non-tender, lungs clear Abdomen: normal bowel sounds, non tender, soft, no organomegaly, no mass Extremities: normal range of motion, non-tender, normal inspection, no calf tenderness, no swelling Neurologic: dough raiser II-XII grossly normal, no motor/sensory deficits Intake and Output 01/29/19 01/30/19 19:00 07:00 Intake Total 30 ml 420 ml Output Total 0 ml Balance 30 ml 420 ml Tube Feeding 30 ml 420 ml Output Urine Total 0 ml # Voids 2 # Bowel Movements 2 3 Eric Thompson MD Jan 30, 2019 09:42
[2019-01-30 12:00] VITALS: BP 157/63
--- NOTE | 2019-01-30 13:12 | NUR ---
NURSE NOTES: Called and spoke with dialysis nurse and confirmed HD schedule for tomorrow(01/31).
--- NOTE | 2019-01-30 13:54 | NUR ---
NURSE NOTES: Notified SAVANNA Schrader and Dr. Ortega regarding self removal of NG tube by the patient. Tried insert new one multiple times but failed. Notified to SAVANNA Schrader and Dr. Ortega. Will continue to monitor the patient. Will carry out the order as soon as receives it. Will continue plan of care.
--- NOTE | 2019-01-30 13:57 | NUR ---
NURSE NOTES: Spoke with Richard, dialysis nurse, regarding dialysis schedule on 01/31/2019. Will continue plan of care.
--- NOTE | 2019-01-30 14:03 | NUR ---
NURSE NOTES: Dr. Ortega order not to insert NG tube again since the patient is scheduled for gastrostomy tomorrow. Will continue plan of care.
[2019-01-30] MEDS: D5NS 1,000 ML IV SCH (15:08)
--- NOTE | 2019-01-30 15:09 | NUR ---
NURSE NOTES: Notified Dr. Ortega, Dr. Villa, and SAVANNA Schrader regarding removal of NG. Dr. Ortega and SAVANNA Schrader ordered not to insert new NG tube but keep as NPO as he planned to do procedure tomorrow. Dr. Villa ordered D5NS 50mL/hr. Carried out the order. Will continue plan of care.
[2019-01-30 16:00] VITALS: BP 112/47
--- NOTE | 2019-01-30 17:37 | NUR ---
NURSE NOTES: The patient is stable without acute distress or shortness of breath. The patient is on NPO with D5NS @50mL/hr as ordered. Will continue plan of care.
--- NOTE | 2019-01-30 19:26 | NUR ---
HAND-OFF: Report given to TESHA Macias. The patient is resting on the bed without acute ditress or shortness of breath. The patient's bed in the lowest position, call light in reach, and fall and aspiration precaution reinforced. IV site is intact and patent. Endorsed plan of care.
[2019-01-30 20:00] VITALS: BP 164/79
--- NOTE | 2019-01-30 20:00 | NUR ---
NURSE NOTES: Received patient asleep,no SOB noted, on bilateral soft wrist restraints,kept on NPO.
[2019-01-30] MEDS: Atorvastatin 80mg tab NG SCH (21:00)
[2019-01-31] VITALS (10 sets, daily range): BP systolic 105–157; BP diastolic 25–79
[2019-01-31] MEDS: Levothyroxine 125mcg tab NG SCH (06:30)
[2019-01-31 06:49] LABS: INR 1.1 (0.9-1.1)
[2019-01-31 06:55] LABS: HEMATOCRIT 37.2 % (42.0-52.0); HEMOGLOBIN 12.2 G/DL (14.2-18.0); MEAN CORPUSCULAR VOLUME 100 FL (80-99); PLATELET COUNT 287 K/UL (150-450); RED BLOOD COUNT 3.72 M/UL (4.70-6.10); RED CELL DISTRIBUTION WIDTH 13.3 % (11.6-14.8); WHITE BLOOD COUNT 8.8 K/UL (4.8-10.8)
[2019-01-31 06:59] LABS: ANION GAP 11 mmol/L (5-15); BLOOD UREA NITROGEN 84 mg/dL (7-18); CALCIUM 8.8 MG/DL (8.5-10.1); CARBON DIOXIDE 27 MMOL/L (21-32); CHLORIDE 99 MMOL/L (98-107); CREATININE 8.9 MG/DL (0.55-1.30); POTASSIUM 4.7 MMOL/L (3.5-5.1); SODIUM 137 MMOL/L (136-145)
--- NOTE | 2019-01-31 07:19 | NUR ---
HAND-OFF: Report given to TESHA Torres.
--- NOTE | 2019-01-31 07:41 | NUR ---
NURSE NOTES received report from TESHA Langston. patient in bed. sleeping. no respiratory distress noted. NPO for egd with possible biopsy. consent done by son. HD today, EDSON av shunt. condom cath draining. IV on LFA 20g running d5ns @50. bed in the lowest position . call light within reach. alarm on. will continue to provide plan of care.
--- NOTE | 2019-01-31 07:49 | Anethesia Preoperative Eval ---
Anesthesia Pre-op PMH/ROS General Date of Evaluation: Jan 31, 2019 Time of Evaluation: 07:49 Anesthesiologist: helene ASA Score: ASA 4 Mallampati Score Class I : Soft palate, uvula, fauces, pillars visible Class II: Soft palate, uvula, fauces visible Class III: Soft palate, base of uvula visible Class IV: Only hard plate visible Mallampati Classification: Class II Surgeon: tammy Diagnosis: severe malnutrition Surgical Procedure: egd/peg Anesthesia History: none Social History: smoking - nonsmoker Family History: no anesthesia problems Allergies: Coded Allergies: MORPHINE (Verified Allergy, Unknown, 01/18/19) Medications: see eMAR Patient NPO?: Yes Past Medical History Cardiovascular: Reports: other - acute coronary syndrome Pulmonary: Reports: other - hx/o respiratory failure, pilmonary edema Gastrointestinal/Genitourinary: Reports: ESRD, other - uti Neurologic/Psychiatric: Reports: dementia Anesthesia Pre-op Phys. Exam Physician Exam Last Vital Signs Date Time Temp Pulse Resp B/P (MAP) Pulse Ox O2 Delivery O2 Flow Rate FiO2 01/31/19 04:00 98.0 75 20 143/69 (93) 95 01/30/19 21:59 Room Air 21 01/27/19 16:00 2.0 Constitutional: NAD Neurologic: other Cardiovascular: RRR Respiratory: CTA Gastrointestinal: S/NT/ND Airway Exam Mallampati Score: Class II MO: limited Neck: decreased rom to flexion TMD: 2fb ROM: limited Teeth: missing Anesthesia Pre-op A/P Labs Hematology Test 01/31/19 05:30 White Blood Count 8.8 K/UL (4.8-10.8) Red Blood Count 3.72 M/UL (4.70-6.10) L Hemoglobin 12.2 G/DL (14.2-18.0) L Hematocrit 37.2 % (42.0-52.0) L Mean Corpuscular Volume 100 FL (80-99) H Mean Corpuscular Hemoglobin 32.7 PG (27.0-31.0) H Mean Corpuscular Hemoglobin Concent 32.7 G/DL (32.0-36.0) Red Cell Distribution Width 13.3 % (11.6-14.8) Platelet Count 287 K/UL (150-450) Mean Platelet Volume 5.2 FL (6.5-10.1) L Neutrophils (%) (Auto) % (45.0-75.0) Lymphocytes (%) (Auto) % (20.0-45.0) Monocytes (%) (Auto) % (1.0-10.0) Eosinophils (%) (Auto) % (0.0-3.0) Basophils (%) (Auto) % (0.0-2.0) Neutrophils % (Manual) Pending Lymphocytes % (Manual) Pending Platelet Estimate Pending Platelet Morphology Pending Coagulation Test 01/31/19 05:30 Prothrombin Time 11.3 SEC (9.30-11.50) Prothromb Time International Ratio 1.1 (0.9-1.1) Activated Partial Thromboplast Time 30 SEC (23-33) Chemistry Test 01/31/19 05:30 Sodium Level 137 MMOL/L (136-145) Potassium Level 4.7 MMOL/L (3.5-5.1) Chloride Level 99 MMOL/L (98-107) Carbon Dioxide Level 27 MMOL/L (21-32) Anion Gap 11 mmol/L (5-15) Blood Urea Nitrogen 84 mg/dL (7-18) H Creatinine 8.9 MG/DL (0.55-1.30) H Estimat Glomerular Filtration Rate mL/min (>60) Glucose Level 108 MG/DL (74-106) H Calcium Level 8.8 MG/DL (8.5-10.1) Risk Assessment & Plan Assessment: [email or web address] Plan: mac Status Change Before Surgery: No Pre-Antibiotics Drug: Dorota Jay MD Jan 31, 2019 07:49
--- NOTE | 2019-01-31 07:59 | Nephrology Progress Note ---
Assessment/Plan Status: stable Assessment/Plan: 1. ESRD- MWF. HD today 2. Severe hyperkalemia - resolved - continue HD 3. Respiratory failure -resolved 4. Hypertension. - stable 5. Hypothyroidism. - Synthroid. 6. PEG today, failed swallow evaluation. Pulled out NG Subjective Date patient seen: Jan 31, 2019 Time patient seen: 07:56 ROS Limited/Unobtainable: Yes Allergies: Coded Allergies: MORPHINE (Verified Allergy, Unknown, 01/18/19) Subjective Patient slightly agitated. PEG planned for today Objective Last 24 Hour Vital Signs Date Time Temp Pulse Resp B/P (MAP) Pulse Ox O2 Delivery O2 Flow Rate FiO2 01/31/19 04:00 98.0 75 20 143/69 (93) 95 01/31/19 00:00 97.8 77 20 156/79 (104) 95 01/30/19 21:59 96 Room Air 21 01/30/19 21:00 73 112/47 01/30/19 21:00 Room Air 01/30/19 20:00 97.2 75 18 164/79 (107) 98 01/30/19 16:00 98.2 73 20 112/47 (68) 98 01/30/19 12:00 97.0 66 20 157/63 (94) 96 01/30/19 09:32 79 151/81 01/30/19 09:32 79 151/81 01/30/19 09:00 Room Air 01/30/19 08:57 96 Room Air 21 01/30/19 08:00 97.0 79 20 151/81 (104) 98 Intake and Output 01/30/19 01/31/19 19:00 07:00 Intake Total 290 ml 745 ml Output Total 2300 ml Balance 290 ml -1555 ml Intake Oral 0 ml Free Water 50 ml IV Total 50 ml 655 ml Tube Feeding 240 ml 40 ml Output Urine Total 300 ml Hemodialysis UF 2000 ml # Voids 3 # Bowel Movements 3 1 Laboratory Tests 01/31/19 05:30: White Blood Count 8.8, Red Blood Count 3.72L, Hemoglobin 12.2L, Hematocrit 37.2L , Mean Corpuscular Volume 100H, Mean Corpuscular Hemoglobin 32.7H, Mean Corpuscular Hemoglobin Concent 32.7, Red Cell Distribution Width 13.3, Platelet Count 287, Mean Platelet Volume 5.2L, Neutrophils (%) (Auto) , Lymphocytes (%) ( Auto) , Monocytes (%) (Auto) , Eosinophils (%) (Auto) , Basophils (%) (Auto) , Neutrophils % (Manual) [Pending], Lymphocytes % (Manual) [Pending], Platelet Estimate [Pending], Platelet Morphology [Pending], Prothrombin Time 11.3, Prothromb Time International Ratio 1.1, Activated Partial Thromboplast Time 30, Sodium Level 137, Potassium Level 4.7, Chloride Level 99, Carbon Dioxide Level 27, Anion Gap 11, Blood Urea Nitrogen 84H, Creatinine 8.9H, Estimat Glomerular Filtration Rate , Glucose Level 108H, Calcium Level 8.8 Height (Feet): 5 Height (Inches): 6.00 Weight (Pounds): 147 General Appearance: no apparent distress EENT: normal ENT inspection Neck: normal alignment, supple Cardiovascular: normal rate, regular rhythm Respiratory/Chest: lungs clear, normal breath sounds Abdomen: non tender, soft Edema: no edema noted Arm (L), no edema noted Arm (R), no edema noted Leg (L), no edema noted Leg (R), no edema noted Pedal (L), no edema noted Pedal (R), no edema noted Generalized David Villa MD Jan 31, 2019 07:59
[2019-01-31] MEDS ORDERED: fentaNYL 100 mcg/2 mL IV PRN (08:00)
[2019-01-31] MEDS ORDERED: DiphenhydrAMINE 50mg/ml Inj IVP PRN (08:00)
[2019-01-31] MEDS ORDERED: Midazolam 2mg/2ml Inj IVP PRN (08:00)
[2019-01-31] MEDS ORDERED: Atropine Inj 1mg/10ml Syr IV PRN (08:00)
[2019-01-31] MEDS: Heparin 5000 units/ml inj SUBQ SCH ×2 (08:37→21:00)
[2019-01-31] MEDS: Aspirin Baby 81mg NG SCH (08:37)
[2019-01-31] MEDS: Pantoprazole Inj IVP SCH (08:46)
[2019-01-31] MEDS: Metoprolol Tartrate 12.5mg TAB NG SCH ×2 (09:00→21:26)
[2019-01-31] MEDS: Calcitriol 0.25mcg Cap NG SCH (09:00)
[2019-01-31] MEDS ORDERED: ceFAZolin sod 1 GM in D5W 55 ML IVPB SCH (09:00)
--- NOTE | 2019-01-31 09:28 | Pulmonology Progress Note ---
Assessment/Plan Assessment/Plan IMPRESSION: 1. Respiratory failure. Extubated. 2. Pulmonary edema. Improved. 3. COPD. 4. Hyperkalemia. Corrected. 5. Hypertension. 6. Hypothyroidism. DISCUSSION: Continue present medications and care. Dialysis per renal. I will follow carefully. S/p thoracentesis on 01/20/19 Now DNR/DNI DC planning to SNF Needs PEG; discussed with GI; scheduled today Danis Conley M.D. Subjective Interval Events: For PEG today Constitutional: Reports: no symptoms HEENT: Repors: no symptoms Respiratory: Reports: no symptoms Cardiovascular: Reports: no symptoms Gastrointestinal/Abdominal: Reports: no symptoms Genitourinary: Reports: no symptoms Allergies: Coded Allergies: MORPHINE (Verified Allergy, Unknown, 01/18/19) Objective Last 24 Hour Vital Signs Date Time Temp Pulse Resp B/P (MAP) Pulse Ox O2 Delivery O2 Flow Rate FiO2 01/31/19 04:00 98.0 75 20 143/69 (93) 95 01/31/19 00:00 97.8 77 20 156/79 (104) 95 01/30/19 21:59 96 Room Air 21 01/30/19 21:00 73 112/47 01/30/19 21:00 Room Air 01/30/19 20:00 97.2 75 18 164/79 (107) 98 01/30/19 16:00 98.2 73 20 112/47 (68) 98 01/30/19 12:00 97.0 66 20 157/63 (94) 96 01/30/19 09:32 79 151/81 01/30/19 09:32 79 151/81 Intake and Output 01/30/19 01/31/19 19:00 07:00 Intake Total 290 ml 745 ml Output Total 2300 ml Balance 290 ml -1555 ml Intake Oral 0 ml Free Water 50 ml IV Total 50 ml 655 ml Tube Feeding 240 ml 40 ml Output Urine Total 300 ml Hemodialysis UF 2000 ml # Voids 3 # Bowel Movements 3 1 General Appearance: no acute distress HEENT: normocephalic Respiratory/Chest: chest wall non-tender, lungs clear Cardiovascular: normal peripheral pulses, normal rate Abdomen: normal bowel sounds, soft, non tender Laboratory Tests 01/31/19 05:30: White Blood Count 8.8, Red Blood Count 3.72L, Hemoglobin 12.2L, Hematocrit 37.2L , Mean Corpuscular Volume 100H, Mean Corpuscular Hemoglobin 32.7H, Mean Corpuscular Hemoglobin Concent 32.7, Red Cell Distribution Width 13.3, Platelet Count 287, Mean Platelet Volume 5.2L, Neutrophils (%) (Auto) , Lymphocytes (%) ( Auto) , Monocytes (%) (Auto) , Eosinophils (%) (Auto) , Basophils (%) (Auto) , Neutrophils % (Manual) [Pending], Lymphocytes % (Manual) [Pending], Platelet Estimate [Pending], Platelet Morphology [Pending], Prothrombin Time 11.3, Prothromb Time International Ratio 1.1, Activated Partial Thromboplast Time 30, Sodium Level 137, Potassium Level 4.7, Chloride Level 99, Carbon Dioxide Level 27, Anion Gap 11, Blood Urea Nitrogen 84H, Creatinine 8.9H, Estimat Glomerular Filtration Rate , Glucose Level 108H, Calcium Level 8.8 Current Medications Medications (Trade) Dose Ordered Sig/Odilon Route PRN Reason Start Time Stop Time Status Last Admin Dose Admin Acetaminophen (Tylenol) 650 mg Q4H PRN ORAL Mild Pain (Pain Scale 1-3) 01/31/19 08:00 01/31/19 16:00 Al Hydroxide/Mg Hydroxide (Mylanta) 15 ml Q1H PRN ORAL gi upset 01/31/19 08:00 01/31/19 16:00 Amlodipine Besylate (Norvasc) 5 mg DAILY NG 01/29/19 09:00 02/18/19 11:14 01/30/19 09:32 Aspirin (ASA) 81 mg DAILY NG 01/29/19 09:00 02/18/19 11:14 01/30/19 09:31 Atorvastatin Calcium (Lipitor) 40 mg BEDTIME NG 01/29/19 21:00 02/18/19 20:59 01/29/19 22:39 Atropine Sulfate (Atropine) 0.5 mg Q5M PRN IV bpm less than 45 01/31/19 08:00 01/31/19 16:00 Calcitriol (Rocatrol) 0.25 mcg DAILY NG 01/29/19 09:00 02/18/19 11:14 01/30/19 09:32 Cefazolin Sodium 1 gm/Dextrose 55 ml @ 110 mls/hr ONCE IVPB 01/31/19 09:00 01/31/19 11:00 Dextrose (Dextrose 50%) 25 ml Q30M PRN IV Hypoglycemia 01/29/19 07:00 02/18/19 01:59 Dextrose (Dextrose 50%) 50 ml Q30M PRN IV Hypoglycemia 01/29/19 07:00 02/18/19 01:59 Dextrose/Sodium Chloride 1,000 ml @ 50 mls/hr Q20H IV 01/30/19 15:00 03/01/19 14:59 01/30/19 15:08 Diphenhydramine HCl (Benadryl) 25 mg Q15M PRN IVP Itching 01/31/19 08:00 01/31/19 16:00 Fentanyl Citrate (Sublimaze 100 mcg/2 mL) 25 mcg Q10M PRN IV Moderate Pain (Pain Scale 4-6) 01/31/19 08:00 01/31/19 16:00 Heparin Sodium (Porcine) (Heparin 5000 units/ml) 5,000 units EVERY 12 HOURS SUBQ 01/29/19 09:00 02/18/19 08:59 01/29/19 22:52 Hydralazine HCl (Apresoline) 5 mg Q30M PRN IV SBP>160 OR___/DBP>90 OR___ 01/31/19 08:00 01/31/19 16:00 Hydralazine HCl (Apresoline) 10 mg Q4H PRN IV For High Blood Pressure 01/29/19 07:15 02/19/19 11:14 Levothyroxine Sodium (Synthroid) 125 mcg DAILY@0630 NG 01/30/19 06:30 02/19/19 06:29 01/30/19 06:18 Metoprolol Tartrate (Lopressor) 12.5 mg Q12HR NG 01/29/19 09:00 02/18/19 17:59 01/30/19 09:32 Midazolam HCl (Versed 2mg/2ml vial) 1 mg Q15M PRN IVP For Anxiety 01/31/19 08:00 01/31/19 16:00 Ondansetron HCl (Zofran) 4 mg Q1H PRN IVP Nausea & Vomiting 01/31/19 08:00 01/31/19 16:00 Pantoprazole (Protonix) 40 mg DAILY IVP 01/29/19 09:00 02/23/19 08:59 01/31/19 08:46 Quetiapine Fumarate (SEROquel) 100 mg QHS NG 01/29/19 21:00 02/18/19 20:59 01/29/19 22:39 Sodium Chloride 1,000 ml @ 10 mls/hr Q24H IVLG 01/31/19 07:49 01/31/19 09:48 Danis Conley MD Jan 31, 2019 09:28
--- NOTE | 2019-01-31 10:06 | NUR ---
NURSE NOTES: held po morning medications d/t patient refused and resisted nursing cares, not open mouth, NPO for egd and peg placement. IV intact. restraint on both hand for safety. held asa and heparin prior procedures.
--- NOTE | 2019-01-31 10:10 | Pre-Procedure Note/Attestation ---
Pre-Procedure Note/Attestation Complete Prior to Procedure Planned Procedure: not applicable Procedure Narrative: egd/peg Indications for Procedure Pre-Operative Diagnosis: dysphagia Attestation I attest that I discussed the nature of the procedure; its benefits; risks and complications; and alternatives (and the risks and benefits of such alternatives ), prior to the procedure, with the patient (or the patient's legal territory service representative). I attest that, if there was a reasonable possibility of needing a blood transfusion, the patient (or the patient's legal territory service representative) was given the [facility] standardized written summary, pursuant to the Isaías Leigh Ann Blood Safety Act ([place] Health and Safety Code # 1645, as amended). I attest that I re-evaluated the patient just prior to the surgery and that there has been no change in the patient's H&P, except as documented below: Odin Ortega MD Jan 31, 2019 10:10
--- NOTE | 2019-01-31 10:11 | General Progress Note ---
Assessment/Plan Status: stable Assessment/Plan: (1) Encounter for PEG (percutaneous endoscopic gastrostomy) (2) Failure to thrive (3) Dementia (4) Severe malnutrition (5) Anemia in chronic kidney disease Plan We will schedule PEG ifor today NGTF PRN transfusions PPI We will follow along with additional recommendations Subjective ROS Limited/Unobtainable: No Allergies: Coded Allergies: MORPHINE (Verified Allergy, Unknown, 01/18/19) Objective Last 24 Hour Vital Signs Date Time Temp Pulse Resp B/P (MAP) Pulse Ox O2 Delivery O2 Flow Rate FiO2 01/31/19 09:00 75 143/69 01/31/19 09:00 68 134/69 01/31/19 04:00 98.0 75 20 143/69 (93) 95 01/31/19 00:00 97.8 77 20 156/79 (104) 95 01/30/19 21:59 96 Room Air 21 01/30/19 21:00 73 112/47 01/30/19 21:00 Room Air 01/30/19 20:00 97.2 75 18 164/79 (107) 98 01/30/19 16:00 98.2 73 20 112/47 (68) 98 01/30/19 12:00 97.0 66 20 157/63 (94) 96 Intake and Output 01/30/19 01/31/19 19:00 07:00 Intake Total 290 ml 745 ml Output Total 2300 ml Balance 290 ml -1555 ml Intake Oral 0 ml Free Water 50 ml IV Total 50 ml 655 ml Tube Feeding 240 ml 40 ml Output Urine Total 300 ml Hemodialysis UF 2000 ml # Voids 3 # Bowel Movements 3 1 Laboratory Tests 01/31/19 05:30: White Blood Count 8.8, Red Blood Count 3.72L, Hemoglobin 12.2L, Hematocrit 37.2L , Mean Corpuscular Volume 100H, Mean Corpuscular Hemoglobin 32.7H, Mean Corpuscular Hemoglobin Concent 32.7, Red Cell Distribution Width 13.3, Platelet Count 287, Mean Platelet Volume 5.2L, Neutrophils (%) (Auto) , Lymphocytes (%) ( Auto) , Monocytes (%) (Auto) , Eosinophils (%) (Auto) , Basophils (%) (Auto) , Differential Total Cells Counted 100, Neutrophils % (Manual) 86H, Lymphocytes % (Manual) 10L, Monocytes % (Manual) 1, Eosinophils % (Manual) 1, Basophils % ( Manual) 0, Band Neutrophils 2, Platelet Estimate Adequate, Platelet Morphology Normal, Red Blood Cell Morphology Normal, Prothrombin Time 11.3, Prothromb Time International Ratio 1.1, Activated Partial Thromboplast Time 30, Sodium Level 137, Potassium Level 4.7, Chloride Level 99, Carbon Dioxide Level 27, Anion Gap 11, Blood Urea Nitrogen 84H, Creatinine 8.9H, Estimat Glomerular Filtration Rate , Glucose Level 108H, Calcium Level 8.8 Height (Feet): 5 Height (Inches): 6.00 Weight (Pounds): 147 General Appearance: alert EENT: normal ENT inspection Neck: supple Cardiovascular: normal rate Respiratory/Chest: decreased breath sounds Abdomen: normal bowel sounds, non tender, soft Extremities: non-tender Odin Ortega MD Jan 31, 2019 10:11
[2019-01-31] MEDS ORDERED: NS 500ML IVPB ONE (10:50)
[2019-01-31] MEDS ORDERED: Propofol 200mg/20ml IV ONE (11:00)
[2019-01-31] MEDS: D5NS 1,000 ML IV SCH ×2 (11:00→21:28)
[2019-01-31] MEDS ORDERED: Lidocaine 1% MPF 10mg/ml 5ml ONE (11:00)
--- NOTE | 2019-01-31 11:50 | NUR ---
NURSE NOTES: patient came back to unit post egd and peg replacement. received report from TESHA Samson. alert. disoriented. non verbal. no respiratory distress noted. GT site intact. no bleeding. HOB at all times.
--- NOTE | 2019-01-31 13:30 | NUR ---
NURSE NOTES: GTube site intact. no bleeding. no residual. provide abd binder as ordered. started Nephro @40/hr as ordered. HOB at all times.
--- NOTE | 2019-01-31 13:47 | Immediate Post-Op Evaluation ---
Immediate Post-Op Evalulation Immediate Post-Op Evalulation Procedure: egd/peg Date of Evaluation: Jan 31, 2019 Time of Evaluation: 11:23 IV Fluids: 125ml 0.9ns Blood Products: none Estimated Blood Loss: negligible Blood Pressure Systolic: 157 Blood Pressure Diastolic: 25 Pulse Rate: 72 Respiratory Rate: 18 O2 Sat by Pulse Oximetry: 100 Temperature (Fahrenheit): 97.5 Pain Score (1-10): 0 Nausea: No Vomiting: No Complications none Patient Status: awake, reacts, patent Hydration Status: adequate Drug: Dorota Jay MD Jan 31, 2019 13:47
--- NOTE | 2019-01-31 13:48 | 48 Hour Post Anesthesia Eval ---
Post Anesthesia Evaluation Procedure: egd/peg Date of Evaluation: Jan 31, 2019 Time of Evaluation: 11:25 Blood Pressure Systolic: 149 0: 34 Pulse Rate: 73 Respiratory Rate: 18 Temperature (Fahrenheit): 97.5 O2 Sat by Pulse Oximetry: 100 Airway: patent Nausea: No Vomiting: No Pain Intensity: 0 Hydration Status: adequate Cardiopulmonary Status: stable Mental Status/LOC: patient returned to baseline Post-Anesthesia Complications: none Follow-up care needed: N/A Dorota Casiano MD Jan 31, 2019 13:48
--- NOTE | 2019-01-31 14:41 | NUR ---
RD ASSESSMENT & RECOMMENDATIONS SEE CARE ACTIVITY FOR COMPLETE ASSESSMENT DAILY ESTIMATED NEEDS: Needs based on ESRD on HD, pulmonary/ 63.6kg 30-35 kcals/kg 8685-3908 total kcals 1.25-1.8 g protein/kg 80-115 g total protein Fluid per MD, on HD NUTRITION DIAGNOSIS: * Swallowing difficulty R/T respiratory status as evidenced by orally intubated, on OGT feeding- pt now s/p extubation, now s/p PEG placement. (UPDATED) * Increased kcal/prot needs R/T renal dysfunction and wound healing as evidenced by ESRD dx, on HD, w/ BL LE severe wasting, w/ multiple areas of non blanching erythema (refer to wound care eval). CURRENT TF:Nepro @40 ENTERAL NUTRITION RECOMMENDATIONS: NEPRO @48ml/hr x22 hrs to provide 1056ml, 1901 kcal, 86g pro, 768ml free H2O - Rec to increase goal rate as tolerated to better meet est kcal and pro needs. - Fluch per MD. HOB over 30 degrees ADDITIONAL RECOMMENDATIONS: * Obtain dry, calibrated bedscale wt post HD Per SNF, HT=68", VW=850dee (01/04/19) * Monitor lytes daily w/ TF, replete as needed * Monitor for hypoglycemia- good glycemic control * TF recs as above * Wound care: add KOFI in 4oz water BID
--- NOTE | 2019-01-31 15:00 | NUR ---
NURSE NOTES: episode of hypotension during HD. HD nurse called [facility] and stop the HD. positive1.2L, VS 120-58-76 post bolus IV fluid. patient had a EGD and GT placement procedure this morning at 1030. held bp meds this morning.
--- NOTE | 2019-01-31 15:50 | NUR ---
NURSE NOTES: patient had dark tarry stool and actual bleeding from rectal. notified SUPERVISOR FERTILIZER hong and no new order at this time. possible colonoscopy on Thursday.
--- NOTE | 2019-01-31 16:00 | NUR ---
CHARGE NURSE NOTE: Pt had a copious dark bloody stool. Pt cleaned, repositioned.Raciel Klein notified.
--- NOTE | 2019-01-31 16:16 | Cardiac Electrophysiology PN ---
Assessment/Plan Assessment/Plan 1. Elevated troponin, possible ACS but likely due to ESRD on dialysis. On Lipitor, aspirin and Lopressor 12.5 bid. EF 50% 2. Respiratory failure. Due to volume overload. On dialysis. Failed weaning 3. Hypertension on amlodipine 5 mg daily, metoprolol 12.5 bid and HD 4. End-stage renal disease, on hemodialysis. 5. S/P Respiratory failure, 6. Large right-sided pleural effusion. S/p 3 liters R Thoracentesis 01/20/19 7. DNR 8. S/P PEG today by Dr Shannon SERRANO RN Subjective Subjective On Medsurge in restraints. Had PEG placement today. DNR Objective Last 24 Hour Vital Signs Date Time Temp Pulse Resp B/P (MAP) Pulse Ox O2 Delivery O2 Flow Rate FiO2 01/31/19 13:48 73 18 100 01/31/19 13:47 72 18 100 01/31/19 12:00 97.5 75 18 129/26 100 Room Air 01/31/19 11:45 72 16 139/34 100 Room Air 01/31/19 11:30 71 20 142/28 100 Room Air 01/31/19 11:20 73 15 149/34 100 Room Air 01/31/19 11:11 97.5 72 18 157/25 100 Room Air 01/31/19 09:00 Room Air 01/31/19 09:00 75 143/69 01/31/19 09:00 68 134/69 01/31/19 08:00 96.2 68 20 134/69 (90) 98 01/31/19 07:15 97 Room Air 21 01/31/19 04:00 98.0 75 20 143/69 (93) 95 01/31/19 00:00 97.8 77 20 156/79 (104) 95 01/30/19 21:59 96 Room Air 21 01/30/19 21:00 73 112/47 01/30/19 21:00 Room Air 01/30/19 20:00 97.2 75 18 164/79 (107) 98 Intake and Output 01/30/19 01/31/19 19:00 07:00 Intake Total 290 ml 745 ml Output Total 2300 ml Balance 290 ml -1555 ml Intake Oral 0 ml Free Water 50 ml IV Total 50 ml 655 ml Tube Feeding 240 ml 40 ml Output Urine Total 300 ml Hemodialysis UF 2000 ml # Voids 3 # Bowel Movements 3 1 Laboratory Tests Test 01/31/19 05:30 White Blood Count 8.8 K/UL (4.8-10.8) Red Blood Count 3.72 M/UL (4.70-6.10) L Hemoglobin 12.2 G/DL (14.2-18.0) L Hematocrit 37.2 % (42.0-52.0) L Mean Corpuscular Volume 100 FL (80-99) H Mean Corpuscular Hemoglobin 32.7 PG (27.0-31.0) H Mean Corpuscular Hemoglobin Concent 32.7 G/DL (32.0-36.0) Red Cell Distribution Width 13.3 % (11.6-14.8) Platelet Count 287 K/UL (150-450) Mean Platelet Volume 5.2 FL (6.5-10.1) L Neutrophils (%) (Auto) % (45.0-75.0) Lymphocytes (%) (Auto) % (20.0-45.0) Monocytes (%) (Auto) % (1.0-10.0) Eosinophils (%) (Auto) % (0.0-3.0) Basophils (%) (Auto) % (0.0-2.0) Differential Total Cells Counted 100 Neutrophils % (Manual) 86 % (45-75) H Lymphocytes % (Manual) 10 % (20-45) L Monocytes % (Manual) 1 % (1-10) Eosinophils % (Manual) 1 % (0-3) Basophils % (Manual) 0 % (0-2) Band Neutrophils 2 % (0-8) Platelet Estimate Adequate Platelet Morphology Normal Red Blood Cell Morphology Normal Prothrombin Time 11.3 SEC (9.30-11.50) Prothromb Time International Ratio 1.1 (0.9-1.1) Activated Partial Thromboplast Time 30 SEC (23-33) Sodium Level 137 MMOL/L (136-145) Potassium Level 4.7 MMOL/L (3.5-5.1) Chloride Level 99 MMOL/L (98-107) Carbon Dioxide Level 27 MMOL/L (21-32) Anion Gap 11 mmol/L (5-15) Blood Urea Nitrogen 84 mg/dL (7-18) H Creatinine 8.9 MG/DL (0.55-1.30) H Estimat Glomerular Filtration Rate mL/min (>60) Glucose Level 108 MG/DL (74-106) H Calcium Level 8.8 MG/DL (8.5-10.1) Objective HEAD AND NECK: Mild JVD. LUNGS: Coarse rhonchi. CARDIOVASCULAR: Regular S1 and S2 with no gallop. ABDOMEN: Soft.PEG in place EXTREMITIES: 1+ pitting edema. Sawyer Christie MD Jan 31, 2019 16:16
--- NOTE | 2019-01-31 16:30 | Procedure Note ---
DATE OF PROCEDURE: 01/31/2019 SURGEON: Odin Ortega M.D. PROCEDURE: Upper endoscopy with PEG placement. ANESTHESIA: Per Dr. Schmidt. INSTRUMENT: Olympus adult flexible upper endoscope. INDICATION: Dysphagia. REASON FOR PROCEDURE: The procedure, risks, benefits, and possible consequences, including hemorrhage, aspiration, perforation and infection, and alternative treatments, were explained to the patient/legal guardian by Dr. Odin Ortega and the patient/legal guardian understood and accepted these risks. DESCRIPTION OF PROCEDURE: After informed consent was obtained and the patient was adequately sedated, Olympus upper endoscope was advanced from the mouth into the second portion of the duodenum and retroflexion was performed in the stomach. The patient has some mild duodenitis. Mild gastritis. Then, under endoscopic guidance, under sterile condition, a 20-Japanese pull type of G-tube was successfully placed in the epigastric area. The distance from the tip of the tube to skin was about 2.5 cm in size. The patient tolerated the procedure without any complication. SUMMARY OF FINDINGS: 1. Gastritis. 2. Duodenitis. 3. Status post successful PEG placement. RECOMMENDATION: 1. Abdominal binder. 2. Elevate head of the bed all the time. 3. G-tube flush, G-tube care. 4. Start tube feeding later today. 5. The patient received dose of antibiotics prior to this procedure. I want to thank Dr. Conley for this kind referral. Odin Ortega M.D. DR: ARLENE JOB#: [id number] CC: Danis Conley M.D.; Fax#: [phone]
--- NOTE | 2019-01-31 18:45 | NUR ---
NURSE NOTES: rectal bleeding getting heavier. notified KENNEL ATTENDANT hong and received order of Stat CBC. order noted and carried out.
--- NOTE | 2019-01-31 19:09 | NUR ---
CASE MANAGEMENT: REVIEW SI: PULMONARY EDEMA . SEVERE MALNUTRITION . ESRD ON HD EGD/PEG PLACEMENT 01/31 T 97.5 HR 75 RR 18 BP 129/26 SAT 100% ROOM AIR H/H 12.2/37.2 BUN 84 CR 8.9 IS: PROTONIX IV QD D5 NS IVF @50ML/HR HEPARIN SUBQ Q12HR NPO ABDOMINAL BINDER HD PRN MED/SURG STATUS DCP: PATIENT IS FROM [facility]
--- NOTE | 2019-01-31 19:26 | NUR ---
HAND-OFF: Report given to TESHA House.
--- NOTE | 2019-01-31 20:00 | NUR ---
NURSE NOTES: Pt report received from JURGEN. pt appears to have active bleeding, rectally, however, vital signs are stable. pt is alert and oriented times 0 and appears confused and unable to follow simple commands. pt has a monitor and storage bin tender showing SR with no other signs of distress/ abnormalities. pt is on 2 L NC and able to sat to 98%, other Resp abnormalities noted. brought up with all belongings and have been assessed. pt bed is locked and low, armed and bed railed up times 3 call light within reach. pt soft restrains are on, no abnormalities to skin (L and R wrist), perfusion is adequate, cap refill less than 3 sec. will follow plan of care.
--- NOTE | 2019-01-31 20:18 | NUR ---
NURSE NOTES: Received report from Pretty PARKINSON, patient is transferred to [facility] unit, per MD order, report is given to Yuan PARKINSON. Belongings list been reviewed, items accounted for.
--- NOTE | 2019-01-31 21:07 | NUR ---
NURSE NOTES: Hep on hold due to what appears to be active rectal bleeding.
[2019-01-31] MEDS: Atorvastatin 80mg tab NG SCH (21:27)
--- NOTE | 2019-01-31 22:40 | NUR ---
NURSE NOTES: Called LAB and spoke with Govenlock Green and relayed message that Pt needs a Stat CBC W Differential. awaiting lab results.
--- NOTE | 2019-01-31 23:05 | NUR ---
NURSE NOTES: Mingo Peralta (son of Pt) asked about pts condition. he also left a number for contact.
[2019-01-31 23:41] LABS: HEMATOCRIT 20.2 % (42.0-52.0); MEAN CORPUSCULAR VOLUME 98 FL (80-99); PLATELET COUNT 280 K/UL (150-450); RED BLOOD COUNT 2.06 M/UL (4.70-6.10); WHITE BLOOD COUNT 16.8 K/UL (4.8-10.8)
[2019-02-01] VITALS (7 sets, daily range): BP systolic 119–185; BP diastolic 53–63
[2019-02-01 00:08] LABS: HEMOGLOBIN 6.8 G/DL (14.2-18.0)
--- NOTE | 2019-02-01 00:19 | NUR ---
NURSE NOTES: Aly COLBY called, reported HGB 6.8. called MD BLACK to report lab value. he ordered 2u PRBC STAT. will carry out orders.
--- NOTE | 2019-02-01 00:32 | NUR ---
NURSE NOTES: contacted LAB, spoke with Populis and relayed message for stat 2U PRBC and a protocol type and cross (ABO) from (order given from WAYNE HUDSON).
--- NOTE | 2019-02-01 01:05 | NUR ---
NURSE NOTES: Called MARIA ANTONIA PRINCE son of pt in order to get consent for blood transfusion. left a message. awaiting call back.
--- NOTE | 2019-02-01 01:10 | NUR ---
NURSE NOTES: Called MARIA ANTONIA PRINCE (second time) son of pt in order to get consent for blood transfusion. left a message. awaiting call back.
[2019-02-01 01:11] LABS: ANION GAP 10 mmol/L (5-15); BLOOD UREA NITROGEN 71 mg/dL (7-18); CALCIUM 7.7 MG/DL (8.5-10.1); CARBON DIOXIDE 26 MMOL/L (21-32); CHLORIDE 104 MMOL/L (98-107); CREATININE 7.2 MG/DL (0.55-1.30); POTASSIUM 4.6 MMOL/L (3.5-5.1); SODIUM 140 MMOL/L (136-145)
--- NOTE | 2019-02-01 01:22 | NUR ---
NURSE NOTES: Called MARIA ANTONIA PRINCE (third time) son of pt in order to get consent for blood transfusion. left a message. awaiting call back.
--- NOTE | 2019-02-01 02:08 | NUR ---
NURSE NOTES: Called MARIA ANTONIA PRINCE (4th time) son of pt in order to get consent for blood transfusion. left a message. awaiting call back.
--- NOTE | 2019-02-01 04:40 | NUR ---
NURSE NOTES: Mingo Johnson (son of pt) called back and gave consent to give blood. will carry out orders.
[2019-02-01] MEDS: Levothyroxine 125mcg tab NG SCH (05:48)
--- NOTE | 2019-02-01 07:15 | NUR ---
HAND-OFF: Report given to LIZ PARKINSON, and Terra PARKINSON.
--- NOTE | 2019-02-01 07:15 | NUR ---
NURSE NOTES: RECEIVED BED SIDE REPORT FROM ROYAL PARKINSON OF NOC SHIFT. RECEIVED PT WITH HOB ELEVATED 30 DEGREE. PT ALERT TO NAME ONLY ,SEEMS VERY WEAK.PT RECEIVING BLOOD TRANSFUSION CONNECTED TO H.L ON LT FORE ARM.PT TOLERATING WELL BLOOD TRANSFUSION.NO S/S OF ANY ADVERSE REACTION NOTED AT THIS TIME. PT REPOSITIONED IN BED AND MADE COMFORTABLE POSSIBLE.FULL BODY ASSESSMENT DONE . NO ACUTE DISTRESS NOTED AT THIS TIME. WILL CONT TO MONITOR.
--- NOTE | 2019-02-01 07:19 | Nephrology Progress Note ---
Assessment/Plan Status: stable Assessment/Plan: 1. ESRD - HD yesterday terminatred mid way through due to hypotension - HD once patient active bleeding controlled 2. Severe hyperkalemia - resolved - continue HD when stable 3. Respiratory failure -resolved 4. Hypertension. - stable 5. Hypothyroidism. - Synthroid. 6. PEG placed 7. Active LGI bleed, receiving blood tx. Defer to GI Subjective Date patient seen: Feb 01, 2019 Time patient seen: 07:17 ROS Limited/Unobtainable: Yes Allergies: Coded Allergies: MORPHINE (Verified Allergy, Unknown, 01/18/19) Subjective Patient transferred to SDU for active rectal bleed. Objective Last 24 Hour Vital Signs Date Time Temp Pulse Resp B/P (MAP) Pulse Ox O2 Delivery O2 Flow Rate FiO2 02/01/19 04:00 98.1 85 20 119/55 (76) 99 02/01/19 04:00 Nasal Cannula 2.0 02/01/19 03:56 73 02/01/19 00:00 75 02/01/19 00:00 Nasal Cannula 2.0 02/01/19 00:00 98.0 80 19 148/53 (84) 99 01/31/19 21:26 76 121/59 01/31/19 21:00 Nasal Cannula 2.0 01/31/19 20:00 Nasal Cannula 2.0 01/31/19 20:00 95 01/31/19 20:00 94 Nasal Cannula 2.0 28 01/31/19 20:00 98.2 80 20 110/58 (75) 99 01/31/19 16:00 98.6 75 20 105/79 (88) 98 01/31/19 13:48 73 18 100 01/31/19 13:47 72 18 100 01/31/19 12:00 98.6 77 18 117/66 (83) 100 01/31/19 12:00 97.5 75 18 129/26 100 Room Air 01/31/19 11:45 72 16 139/34 100 Room Air 01/31/19 11:30 71 20 142/28 100 Room Air 01/31/19 11:20 73 15 149/34 100 Room Air 01/31/19 11:11 97.5 72 18 157/25 100 Room Air 01/31/19 09:00 Room Air 01/31/19 09:00 75 143/69 01/31/19 09:00 68 134/69 01/31/19 08:00 96.2 68 20 134/69 (90) 98 Intake and Output 01/31/19 02/01/19 19:00 07:00 Intake Total 1760 ml 350 ml Balance 1760 ml 350 ml Free Water 50 ml IV Total 350 ml 350 ml Tube Feeding 160 ml Hemodialysis 1200 ml # Bowel Movements 1 2 Laboratory Tests 01/31/19 23:20: White Blood Count 16.8#H, Red Blood Count 2.06L, Hemoglobin 6.8#*L, Hematocrit 20.2#L, Mean Corpuscular Volume 98, Mean Corpuscular Hemoglobin 33.0H, Mean Corpuscular Hemoglobin Concent 33.8, Red Cell Distribution Width 13.0, Platelet Count 280, Mean Platelet Volume 5.1L, Neutrophils (%) (Auto) , Lymphocytes (%) ( Auto) , Monocytes (%) (Auto) , Eosinophils (%) (Auto) , Basophils (%) (Auto) 02/01/19 00:50: Sodium Level 140, Potassium Level 4.6, Chloride Level 104, Carbon Dioxide Level 26, Anion Gap 10, Blood Urea Nitrogen 71H, Creatinine 7.2H, Estimat Glomerular Filtration Rate , Glucose Level 130H, Calcium Level 7.7L Height (Feet): 5 Height (Inches): 6.00 Weight (Pounds): 147 General Appearance: no apparent distress, lethargic EENT: normal ENT inspection Neck: normal alignment, supple Cardiovascular: normal rate, regular rhythm Respiratory/Chest: lungs clear, normal breath sounds Abdomen: non tender, soft Edema: no edema noted Arm (L), no edema noted Arm (R), no edema noted Leg (L), no edema noted Leg (R), no edema noted Pedal (L), no edema noted Pedal (R), no edema noted Generalized David Villa MD Feb 01, 2019 07:19
[2019-02-01] MEDS ORDERED: Heparin 5000 units/ml inj SUBQ SCH (09:00)
[2019-02-01] MEDS ORDERED: Aspirin Baby 81mg NG SCH (09:00)
[2019-02-01] MEDS ORDERED: Pantoprazole Inj IVP SCH (09:00)
--- NOTE | 2019-02-01 09:00 | NUR ---
NURSE NOTES: FIRST UNIT OF P-RBC COMPLETED .PT TOLERATED WELL BLOOD TRANSFUSION, NO S/S OF ANY ADVERSE REACTION NOTED. WILL CONT TO MONITOR.
[2019-02-01] MEDS: Metoprolol Tartrate 12.5mg TAB NG SCH ×2 (09:42→21:08)
[2019-02-01] MEDS: Calcitriol 0.25mcg Cap NG SCH (09:43)
--- NOTE | 2019-02-01 10:23 | GI Progress Note ---
Assessment/Plan Problems: (1) Anemia due to blood loss, acute ICD Codes: D62 - Acute posthemorrhagic anemia SNOMED: 766366587 (2) Encounter for PEG (percutaneous endoscopic gastrostomy) ICD Codes: Z43.1 - Encounter for attention to gastrostomy SNOMED: 534330743, 557951483 (3) Severe malnutrition ICD Codes: E43 - Unspecified severe protein-calorie malnutrition SNOMED: 18104151 (4) Failure to thrive SNOMED: 60564295 (5) Dementia ICD Codes: F03.90 - Unspecified dementia without behavioral disturbance SNOMED: 21879849 Status: unchanged Status Narrative Discussed with Dr. Ortega. Assessment/Plan SUMMARY OF FINDINGS: 1. Gastritis. 2. Duodenitis. 3. Status post successful PEG placement. reported bloody stools, most likely bleed from GT site RECOMMENDATION: maintain NPO + IVFs monitor H&H, prn transfusion >> receiving 2 units now hold all blood thinners GT site care daily/prn ppi BID follow labs The patient was seen and examined at bedside and all new and available data was reviewed in the patients chart. I agree with the above findings, impression and plan. (Patient seen earlier today. Signature stamp does not reflect patient encounter time.). - Odin Ortega MD Subjective Subjective limited Objective Last 24 Hour Vital Signs Date Time Temp Pulse Resp B/P (MAP) Pulse Ox O2 Delivery O2 Flow Rate FiO2 02/01/19 09:43 85 141/74 02/01/19 09:42 85 141/74 02/01/19 07:25 75 02/01/19 04:00 98.1 85 20 119/55 (76) 99 02/01/19 04:00 Nasal Cannula 2.0 02/01/19 03:56 73 02/01/19 00:00 75 02/01/19 00:00 Nasal Cannula 2.0 02/01/19 00:00 98.0 80 19 148/53 (84) 99 01/31/19 21:26 76 121/59 01/31/19 21:00 Nasal Cannula 2.0 01/31/19 20:00 Nasal Cannula 2.0 01/31/19 20:00 95 01/31/19 20:00 94 Nasal Cannula 2.0 28 01/31/19 20:00 98.2 80 20 110/58 (75) 99 01/31/19 16:00 98.6 75 20 105/79 (88) 98 01/31/19 13:48 73 18 100 01/31/19 13:47 72 18 100 01/31/19 12:00 98.6 77 18 117/66 (83) 100 01/31/19 12:00 97.5 75 18 129/26 100 Room Air 01/31/19 11:45 72 16 139/34 100 Room Air 01/31/19 11:30 71 20 142/28 100 Room Air 01/31/19 11:20 73 15 149/34 100 Room Air 01/31/19 11:11 97.5 72 18 157/25 100 Room Air Intake and Output 01/31/19 02/01/19 19:00 07:00 Intake Total 1760 ml 350 ml Balance 1760 ml 350 ml Free Water 50 ml IV Total 350 ml 350 ml Tube Feeding 160 ml Hemodialysis 1200 ml # Voids 1 # Bowel Movements 1 2 Laboratory Tests Test 01/31/19 23:20 02/01/19 00:50 White Blood Count 16.8 K/UL (4.8-10.8) #H Red Blood Count 2.06 M/UL (4.70-6.10) L Hemoglobin 6.8 G/DL (14.2-18.0) Hematocrit 20.2 % (42.0-52.0) #L Mean Corpuscular Volume 98 FL (80-99) Mean Corpuscular Hemoglobin 33.0 PG (27.0-31.0) H Mean Corpuscular Hemoglobin Concent 33.8 G/DL (32.0-36.0) Red Cell Distribution Width 13.0 % (11.6-14.8) Platelet Count 280 K/UL (150-450) Mean Platelet Volume 5.1 FL (6.5-10.1) L Neutrophils (%) (Auto) % (45.0-75.0) Lymphocytes (%) (Auto) % (20.0-45.0) Monocytes (%) (Auto) % (1.0-10.0) Eosinophils (%) (Auto) % (0.0-3.0) Basophils (%) (Auto) % (0.0-2.0) Sodium Level 140 MMOL/L (136-145) Potassium Level 4.6 MMOL/L (3.5-5.1) Chloride Level 104 MMOL/L (98-107) Carbon Dioxide Level 26 MMOL/L (21-32) Anion Gap 10 mmol/L (5-15) Blood Urea Nitrogen 71 mg/dL (7-18) H Creatinine 7.2 MG/DL (0.55-1.30) H Estimat Glomerular Filtration Rate mL/min (>60) Glucose Level 130 MG/DL (74-106) H Calcium Level 7.7 MG/DL (8.5-10.1) L Height (Feet): 5 Height (Inches): 6.00 Weight (Pounds): 147 General Appearance: alert Cardiovascular: normal rate Respiratory/Chest: normal breath sounds, no respiratory distress Abdominal Exam: normal bowel sounds, non tender, soft, GT site - dried blood around GT site Extremities: non-tender Liban Hector NP Feb 01, 2019 10:23
--- NOTE | 2019-02-01 11:59 | Pulmonology Progress Note ---
Assessment/Plan Assessment/Plan IMPRESSION: 1. Respiratory failure. Extubated. 2. Pulmonary edema. Improved. 3. COPD. 4. Hyperkalemia. Corrected. 5. Hypertension. 6. Hypothyroidism. 7. Acute blood loss anemia 8. Rectal bleeding s/p PEG DISCUSSION: Continue present medications and care. Dialysis per renal. I will follow carefully. S/p thoracentesis on 01/20/19 Now DNR/DNI DC planning to SNF Will transfuse Hold discharge Danis Conley M.D. Subjective Interval Events: Hgb dropped to 6gms; s/p PEG Constitutional: Reports: no symptoms HEENT: Repors: no symptoms Respiratory: Reports: no symptoms Cardiovascular: Reports: no symptoms Gastrointestinal/Abdominal: Reports: no symptoms Genitourinary: Reports: no symptoms Allergies: Coded Allergies: MORPHINE (Verified Allergy, Unknown, 01/18/19) Objective Last 24 Hour Vital Signs Date Time Temp Pulse Resp B/P (MAP) Pulse Ox O2 Delivery O2 Flow Rate FiO2 02/01/19 09:43 85 141/74 02/01/19 09:42 85 141/74 02/01/19 08:00 Nasal Cannula 2.0 02/01/19 07:25 75 02/01/19 04:00 98.1 85 20 119/55 (76) 99 02/01/19 04:00 Nasal Cannula 2.0 02/01/19 03:56 73 02/01/19 00:00 75 02/01/19 00:00 Nasal Cannula 2.0 02/01/19 00:00 98.0 80 19 148/53 (84) 99 01/31/19 21:26 76 121/59 01/31/19 21:00 Nasal Cannula 2.0 01/31/19 20:00 Nasal Cannula 2.0 01/31/19 20:00 95 01/31/19 20:00 94 Nasal Cannula 2.0 28 01/31/19 20:00 98.2 80 20 110/58 (75) 99 01/31/19 16:00 98.6 75 20 105/79 (88) 98 01/31/19 13:48 73 18 100 01/31/19 13:47 72 18 100 01/31/19 12:00 98.6 77 18 117/66 (83) 100 01/31/19 12:00 97.5 75 18 129/26 100 Room Air Intake and Output 01/31/19 02/01/19 19:00 07:00 Intake Total 1760 ml 350 ml Balance 1760 ml 350 ml Free Water 50 ml IV Total 350 ml 350 ml Tube Feeding 160 ml Hemodialysis 1200 ml # Voids 1 # Bowel Movements 1 2 General Appearance: no acute distress HEENT: normocephalic Respiratory/Chest: chest wall non-tender, lungs clear Cardiovascular: normal peripheral pulses, normal rate Abdomen: normal bowel sounds Laboratory Tests 01/31/19 23:20: White Blood Count 16.8#H, Red Blood Count 2.06L, Hemoglobin 6.8#*L, Hematocrit 20.2#L, Mean Corpuscular Volume 98, Mean Corpuscular Hemoglobin 33.0H, Mean Corpuscular Hemoglobin Concent 33.8, Red Cell Distribution Width 13.0, Platelet Count 280, Mean Platelet Volume 5.1L, Neutrophils (%) (Auto) , Lymphocytes (%) ( Auto) , Monocytes (%) (Auto) , Eosinophils (%) (Auto) , Basophils (%) (Auto) 02/01/19 00:50: Sodium Level 140, Potassium Level 4.6, Chloride Level 104, Carbon Dioxide Level 26, Anion Gap 10, Blood Urea Nitrogen 71H, Creatinine 7.2H, Estimat Glomerular Filtration Rate , Glucose Level 130H, Calcium Level 7.7L Current Medications Medications (Trade) Dose Ordered Sig/Odilon Route PRN Reason Start Time Stop Time Status Last Admin Dose Admin Amlodipine Besylate (Norvasc) 5 mg DAILY NG 02/01/19 09:00 02/18/19 11:14 02/01/19 09:43 Atorvastatin Calcium (Lipitor) 40 mg BEDTIME NG 01/31/19 21:00 03/02/19 20:59 01/31/19 21:27 Calcitriol (Rocatrol) 0.25 mcg DAILY NG 02/01/19 09:00 02/18/19 11:14 02/01/19 09:43 Dextrose (Dextrose 50%) 25 ml Q30M PRN IV Hypoglycemia 01/31/19 21:30 02/18/19 01:59 Dextrose (Dextrose 50%) 50 ml Q30M PRN IV Hypoglycemia 01/31/19 21:30 02/18/19 01:59 Dextrose/Sodium Chloride 1,000 ml @ 50 mls/hr Q20H IV 01/31/19 21:15 03/01/19 14:59 01/31/19 21:28 Hydralazine HCl (Apresoline) 10 mg Q4H PRN IV For High Blood Pressure 01/31/19 21:15 02/19/19 21:14 Levothyroxine Sodium (Synthroid) 125 mcg DAILY@0630 NG 02/01/19 06:30 02/19/19 06:29 02/01/19 05:48 Metoprolol Tartrate (Lopressor) 12.5 mg Q12HR NG 01/31/19 21:00 03/02/19 20:59 02/01/19 09:42 Pantoprazole (Protonix) 40 mg Q12HR IVP 02/01/19 21:00 03/03/19 20:59 Quetiapine Fumarate (SEROquel) 100 mg QHS NG 01/31/19 21:00 03/02/19 20:59 01/31/19 21:26 Danis Conley MD Feb 01, 2019 11:59
--- NOTE | 2019-02-01 13:16 | NUR ---
OUTPATIENT [employer] SI: PULMONARY EDEMA,S/P PEG PLACEMENT T. 97.5 HR 78 RR 20 B/P 145/55 IS: IVF D5NS @ 50ML/HR PROTONIX IV NORVASC PO STEP DOWN STATUS
--- NOTE | 2019-02-01 13:30 | NUR ---
NURSE NOTES: PT STARTED ON 2ND UNIT OF P-RBC PER M.D ORDERS.PT TOLERATING WELL BLOOD TRANSFUSION AT THIS TIME. WILL CONT TO MONITOR.
[2019-02-01] MEDS: D5NS 1,000 ML IV SCH (17:48)
[2019-02-01 18:38] LABS: HEMATOCRIT 24.4 % (42.0-52.0); HEMOGLOBIN 8.7 G/DL (14.2-18.0); MEAN CORPUSCULAR VOLUME 94 FL (80-99); PLATELET COUNT 225 K/UL (150-450); WHITE BLOOD COUNT 14.1 K/UL (4.8-10.8)
[2019-02-01 18:39] LABS: NEUTROPHILS % (AUTO) 93.2 % (45.0-75.0)
[2019-02-01 18:40] LABS: BASOPHILS % (AUTO) 0.3 % (0.0-2.0); EOSINOPHILS % (AUTO) 0.1 % (0.0-3.0); LYMPHOCYTES % (AUTO) 3.6 % (20.0-45.0); MONOCYTES % (AUTO) 2.8 % (1.0-10.0)
--- NOTE | 2019-02-01 18:45 | Cardiac Electrophysiology PN ---
Assessment/Plan Assessment/Plan 1. Elevated troponin, possible ACS but likely due to ESRD on dialysis. On Lipitor, aspirin and Lopressor 12.5 bid. EF 50% 2. Respiratory failure. Due to volume overload. On dialysis. Failed weaning 3. Hypertension on amlodipine 5 mg daily, metoprolol 12.5 bid and HD 4. End-stage renal disease, on hemodialysis. 5. S/P Respiratory failure, 6. Large right-sided pleural effusion. S/p 3 liters R Thoracentesis 01/20/19 7. DNR 8. S/P PEG 01/31/[address] Ortega 9. Severe anemia, getting prbc DW RN Subjective Subjective Getting 2 units of PRBC today and HD in am. DNR Objective Last 24 Hour Vital Signs Date Time Temp Pulse Resp B/P (MAP) Pulse Ox O2 Delivery O2 Flow Rate FiO2 02/01/19 16:00 Nasal Cannula 2.0 02/01/19 16:00 98.1 75 20 132/63 (86) 97 02/01/19 15:10 72 02/01/19 12:00 97.9 73 19 154/61 (92) 99 02/01/19 12:00 Nasal Cannula 2.0 02/01/19 11:38 73 02/01/19 09:43 85 141/74 02/01/19 09:42 85 141/74 02/01/19 08:00 Nasal Cannula 2.0 02/01/19 08:00 97.5 78 20 145/55 (85) 100 02/01/19 07:25 75 02/01/19 04:00 98.1 85 20 119/55 (76) 99 02/01/19 04:00 Nasal Cannula 2.0 02/01/19 03:56 73 02/01/19 00:00 75 02/01/19 00:00 Nasal Cannula 2.0 02/01/19 00:00 98.0 80 19 148/53 (84) 99 01/31/19 21:26 76 121/59 01/31/19 21:00 Nasal Cannula 2.0 01/31/19 20:00 Nasal Cannula 2.0 01/31/19 20:00 95 01/31/19 20:00 94 Nasal Cannula 2.0 28 01/31/19 20:00 98.2 80 20 110/58 (75) 99 Intake and Output 01/31/19 02/01/19 19:00 07:00 Intake Total 1760 ml 350 ml Balance 1760 ml 350 ml Free Water 50 ml IV Total 350 ml 350 ml Tube Feeding 160 ml Hemodialysis 1200 ml # Voids 1 # Bowel Movements 1 2 Laboratory Tests Test 01/31/19 23:20 02/01/19 00:50 02/01/19 18:20 White Blood Count 16.8 K/UL (4.8-10.8) #H 14.1 K/UL (4.8-10.8) H Red Blood Count 2.06 M/UL (4.70-6.10) L 2.60 M/UL (4.70-6.10) L Hemoglobin 6.8 G/DL (14.2-18.0) 8.7 G/DL (14.2-18.0) L Hematocrit 20.2 % (42.0-52.0) #L 24.4 % (42.0-52.0) L Mean Corpuscular Volume 98 FL (80-99) 94 FL (80-99) Mean Corpuscular Hemoglobin 33.0 PG (27.0-31.0) H 33.4 PG (27.0-31.0) H Mean Corpuscular Hemoglobin Concent 33.8 G/DL (32.0-36.0) 35.5 G/DL (32.0-36.0) Red Cell Distribution Width 13.0 % (11.6-14.8) 12.0 % (11.6-14.8) Platelet Count 280 K/UL (150-450) 225 K/UL (150-450) Mean Platelet Volume 5.1 FL (6.5-10.1) L 4.8 FL (6.5-10.1) L Neutrophils (%) (Auto) % (45.0-75.0) 93.2 % (45.0-75.0) H Lymphocytes (%) (Auto) % (20.0-45.0) 3.6 % (20.0-45.0) L Monocytes (%) (Auto) % (1.0-10.0) 2.8 % (1.0-10.0) Eosinophils (%) (Auto) % (0.0-3.0) 0.1 % (0.0-3.0) Basophils (%) (Auto) % (0.0-2.0) 0.3 % (0.0-2.0) Sodium Level 140 MMOL/L (136-145) Potassium Level 4.6 MMOL/L (3.5-5.1) Chloride Level 104 MMOL/L (98-107) Carbon Dioxide Level 26 MMOL/L (21-32) Anion Gap 10 mmol/L (5-15) Blood Urea Nitrogen 71 mg/dL (7-18) H Creatinine 7.2 MG/DL (0.55-1.30) H Estimat Glomerular Filtration Rate mL/min (>60) Glucose Level 130 MG/DL (74-106) H Calcium Level 7.7 MG/DL (8.5-10.1) L Objective HEAD AND NECK: Mild JVD. LUNGS: Coarse rhonchi. CARDIOVASCULAR: Regular S1 and S2 with no gallop. ABDOMEN: Soft.PEG in place EXTREMITIES: 1+ pitting edema. Sawyer Christie MD Feb 01, 2019 18:45
--- NOTE | 2019-02-01 19:00 | NUR ---
HAND-OFF: Report given to .DIANA PARKINSON.
--- NOTE | 2019-02-01 19:20 | NUR ---
NURSE NOTES: Report received from TESHA Chapman. Observed pt lying in the bed, awake, and A/O x1. No signs of pain noted. Family member at the bedside. SR with child monitor. On NC 2L, with no signs of sob. GT intact, no residual, flushing well. Condom cath intact and hematuria noted. IV on L FA 18G, running D5 NS at 50cc/hr. R AV shunt noted. L old AV shunt noted. Bed in the lowest position. Side rails up x3. Will continue to monitor.
--- NOTE | 2019-02-01 20:03 | NUR ---
NURSE NOTES: BP of 185/60 noted and PRN BP med given. SR with HR of 70s noted. Will continue to monitor.
[2019-02-01] MEDS: Atorvastatin 80mg tab NG SCH (21:07)
[2019-02-01] MEDS: Pantoprazole Inj IVP SCH (21:09)
--- NOTE | 2019-02-01 23:00 | NUR ---
NURSE NOTES: Called [facility] to confirm dialysis schedule tomorrow.
[2019-02-02] VITALS: BP 126/48
--- NOTE | 2019-02-02 | NUR ---
NURSE NOTES: Observed pt sleeping in the bed. No acute distress noted at this time. SR on property assessment monitor. Reposition done with pillow support. Will continue to monitor.
[2019-02-02 04:00] VITALS: BP 127/47
--- NOTE | 2019-02-02 04:15 | NUR ---
NURSE NOTES: Black tarry stool noted. Bed bath given. Oral care done. Repositioned with pillow supports. Will continue to monitor.
[2019-02-02 06:13] LABS: HEMOGLOBIN 8.4 G/DL (14.2-18.0); MEAN CORPUSCULAR VOLUME 98 FL (80-99); PLATELET COUNT 212 K/UL (150-450); RED BLOOD COUNT 2.55 M/UL (4.70-6.10); RED CELL DISTRIBUTION WIDTH 12.9 % (11.6-14.8); WHITE BLOOD COUNT 11.9 K/UL (4.8-10.8)
[2019-02-02] MEDS: Levothyroxine 125mcg tab NG SCH (06:24)
[2019-02-02 06:30] LABS: ANION GAP 12 mmol/L (5-15); BLOOD UREA NITROGEN 105 mg/dL (7-18); CALCIUM 8.4 MG/DL (8.5-10.1); CARBON DIOXIDE 23 MMOL/L (21-32); CHLORIDE 108 MMOL/L (98-107); CREATININE 8.3 MG/DL (0.55-1.30); PHOSPHORUS 6.8 MG/DL (2.5-4.9); POTASSIUM 4.6 MMOL/L (3.5-5.1); SODIUM 143 MMOL/L (136-145)
--- NOTE | 2019-02-02 07:15 | NUR ---
HAND-OFF: Report given to TESHA Ardon.
--- NOTE | 2019-02-02 07:16 | NUR ---
NURSE NOTES: received pt from Zaid RN, pt is awake and resting on the bed. bilateral wrist soft restrain noted. no dysrhythmia reported from the last shift. no respiratory distress noted, no SOB noted. will continue plan of care. call light within reach.
--- NOTE | 2019-02-02 07:28 | NUR ---
NURSE NOTES: dr farnsworth made aware that there is no order for HD today. dr farnsworth called back and stated that patient is for HD today vis [facility] and he will put the order in when he gets here.
[2019-02-02 08:00] VITALS: BP 155/69
--- NOTE | 2019-02-02 08:00 | NUR ---
NURSE NOTES: Patient on special overlay mattress to protect skin,skin care done
--- NOTE | 2019-02-02 08:01 | NUR ---
HAND-OFF: Report given to Nelsy PARKINSON.
--- NOTE | 2019-02-02 08:36 | Nephrology Progress Note ---
Assessment/Plan Status: unchanged Assessment/Plan: 1. ESRD - HD today - MWF 2. Severe hyperkalemia - resolved, continue HD when stable 3. Respiratory failure -resolved 4. Hypertension. - stable 5. Hypothyroidism. - Synthroid. 6. PEG placed 7. Active LGI bleed- s/p blood transfusion per GI mgmt Subjective Date patient seen: Feb 02, 2019 Time patient seen: 08:29 ROS Limited/Unobtainable: Yes Allergies: Coded Allergies: MORPHINE (Verified Allergy, Unknown, 01/18/19) Subjective Patient in no overt distress Objective Last 24 Hour Vital Signs Date Time Temp Pulse Resp B/P (MAP) Pulse Ox O2 Delivery O2 Flow Rate FiO2 02/02/19 04:00 75 02/02/19 04:00 Nasal Cannula 2.0 02/02/19 04:00 98.0 75 20 127/47 (73) 96 02/02/19 00:00 97.5 78 20 126/48 (74) 96 02/02/19 00:00 70 02/02/19 00:00 Nasal Cannula 2.0 02/01/19 22:28 96 Nasal Cannula 2.0 28 02/01/19 21:08 77 140/54 02/01/19 21:00 140/55 (83) 02/01/19 20:00 Nasal Cannula 2.0 02/01/19 20:00 97.5 76 24 185/60 (101) 98 02/01/19 20:00 75 02/01/19 19:55 185/60 02/01/19 16:00 Nasal Cannula 2.0 02/01/19 16:00 98.1 75 20 132/63 (86) 97 02/01/19 15:10 72 02/01/19 12:00 97.9 73 19 154/61 (92) 99 02/01/19 12:00 Nasal Cannula 2.0 02/01/19 11:38 73 02/01/19 09:43 85 141/74 02/01/19 09:42 85 141/74 Intake and Output 02/01/19 02/02/19 18:59 06:59 Intake Total 750 ml 650 ml Output Total 50 ml Balance 700 ml 650 ml Free Water 50 ml 50 ml IV Total 200 ml 600 ml Blood Product 500 ml Output Urine Total 50 ml # Bowel Movements 5 2 Laboratory Tests 02/01/19 18:20: White Blood Count 14.1H, Red Blood Count 2.60L, Hemoglobin 8.7L, Hematocrit 24.4L, Mean Corpuscular Volume 94, Mean Corpuscular Hemoglobin 33.4H, Mean Corpuscular Hemoglobin Concent 35.5, Red Cell Distribution Width 12.0, Platelet Count 225, Mean Platelet Volume 4.8L, Neutrophils (%) (Auto) 93.2H, Lymphocytes (%) (Auto) 3.6L, Monocytes (%) (Auto) 2.8, Eosinophils (%) (Auto) 0.1, Basophils (%) (Auto) 0.3 02/02/19 03:35: White Blood Count 11.9H, Red Blood Count 2.55L, Hemoglobin 8.4L, Hematocrit 25.0L, Mean Corpuscular Volume 98, Mean Corpuscular Hemoglobin 32.9H, Mean Corpuscular Hemoglobin Concent 33.6, Red Cell Distribution Width 12.9, Platelet Count 212, Mean Platelet Volume 5.5L, Neutrophils (%) (Auto) , Lymphocytes (%) ( Auto) , Monocytes (%) (Auto) , Eosinophils (%) (Auto) , Basophils (%) (Auto) , Sodium Level 143, Potassium Level 4.6, Chloride Level 108H, Carbon Dioxide Level 23, Anion Gap 12, Blood Urea Nitrogen 105H, Creatinine 8.3H, Estimat Glomerular Filtration Rate , Glucose Level 86, Calcium Level 8.4L, Phosphorus Level 6.8H, Magnesium Level 2.2 Height (Feet): 5 Height (Inches): 6.00 Weight (Pounds): 158 General Appearance: no apparent distress EENT: normal ENT inspection Neck: normal alignment Cardiovascular: normal rate, regular rhythm Respiratory/Chest: lungs clear, normal breath sounds Abdomen: non tender, soft Edema: no edema noted Arm (L), no edema noted Arm (R), no edema noted Leg (L), no edema noted Leg (R), no edema noted Pedal (L), no edema noted Pedal (R), no edema noted Generalized David Villa MD Feb 02, 2019 08:35
[2019-02-02] MEDS: Metoprolol Tartrate 12.5mg TAB NG SCH (09:00)
--- NOTE | 2019-02-02 09:00 | NUR ---
NURSE NOTES: Patients medications given thru G tube,tolerated
[2019-02-02] MEDS: Calcitriol 0.25mcg Cap NG SCH (09:02)
[2019-02-02] MEDS: Pantoprazole Inj IVP SCH ×2 (09:02→21:12)
--- NOTE | 2019-02-02 09:02 | NUR ---
CASE MANAGEMENT: REVIEW 02/02/2019 SI: CHRONIC PULMONARY EDEMA. ACUTE RIB FX. RIGHT SIDED PLEURAL EFFUSION DRAINED 01/20/19 3L. T 98 HR 75 RR 20 B/P 127/47 SATS 96% ON 2L/NC WBC 11.9 CL 108 BUN 105 CR 8.3 CA 8.4 PHOS 6.8 IS: IVF @ 50 mL/HR LIPITOR NG QHS NORVASC NG QD ROCATROL NG QD LOPRESSOR NG Q12H PROTONIX IV Q12H SEROQUEL NG QHS SDU DCP: PATIENT TO BE DISCHARGED TO SNF ONCE MEDICALLY CLEARED. PLAN OF CARE: HD TODAY DC PLANNING
--- NOTE | 2019-02-02 09:12 | Pulmonology Progress Note ---
Assessment/Plan Assessment/Plan IMPRESSION: 1. Respiratory failure. Extubated. 2. Pulmonary edema. Improved. 3. COPD. 4. Hyperkalemia. Corrected. 5. Hypertension. 6. Hypothyroidism. 7. Acute blood loss anemia 8. Rectal bleeding s/p PEG DISCUSSION: Continue present medications and care. Dialysis per renal. I will follow carefully. S/p thoracentesis on 01/20/19 Now DNR/DNI DC planning to SNF Will transfuse prn Hold discharge Danis Conley M.D. Subjective Interval Events: Still having rectal bleeding Constitutional: Reports: no symptoms HEENT: Repors: no symptoms Respiratory: Reports: no symptoms Cardiovascular: Reports: no symptoms Allergies: Coded Allergies: MORPHINE (Verified Allergy, Unknown, 01/18/19) Objective Last 24 Hour Vital Signs Date Time Temp Pulse Resp B/P (MAP) Pulse Ox O2 Delivery O2 Flow Rate FiO2 02/02/19 08:00 97.3 79 20 155/69 (97) 100 02/02/19 07:22 79 02/02/19 04:00 75 02/02/19 04:00 Nasal Cannula 2.0 02/02/19 04:00 98.0 75 20 127/47 (73) 96 02/02/19 00:00 97.5 78 20 126/48 (74) 96 02/02/19 00:00 70 02/02/19 00:00 Nasal Cannula 2.0 02/01/19 22:28 96 Nasal Cannula 2.0 28 02/01/19 21:08 77 140/54 02/01/19 21:00 140/55 (83) 02/01/19 20:00 Nasal Cannula 2.0 02/01/19 20:00 97.5 76 24 185/60 (101) 98 02/01/19 20:00 75 02/01/19 19:55 185/60 02/01/19 16:00 Nasal Cannula 2.0 02/01/19 16:00 98.1 75 20 132/63 (86) 97 02/01/19 15:10 72 02/01/19 12:00 97.9 73 19 154/61 (92) 99 02/01/19 12:00 Nasal Cannula 2.0 02/01/19 11:38 73 02/01/19 09:43 85 141/74 02/01/19 09:42 85 141/74 Intake and Output 02/01/19 02/02/19 19:00 07:00 Intake Total 750 ml 650 ml Output Total 50 ml Balance 700 ml 650 ml Free Water 50 ml 50 ml IV Total 250 ml 600 ml Blood Product 450 ml Output Urine Total 50 ml # Bowel Movements 5 2 General Appearance: no acute distress HEENT: normocephalic Respiratory/Chest: chest wall non-tender, lungs clear Cardiovascular: normal peripheral pulses Abdomen: normal bowel sounds Laboratory Tests 02/01/19 18:20: White Blood Count 14.1H, Red Blood Count 2.60L, Hemoglobin 8.7L, Hematocrit 24.4L, Mean Corpuscular Volume 94, Mean Corpuscular Hemoglobin 33.4H, Mean Corpuscular Hemoglobin Concent 35.5, Red Cell Distribution Width 12.0, Platelet Count 225, Mean Platelet Volume 4.8L, Neutrophils (%) (Auto) 93.2H, Lymphocytes (%) (Auto) 3.6L, Monocytes (%) (Auto) 2.8, Eosinophils (%) (Auto) 0.1, Basophils (%) (Auto) 0.3 02/02/19 03:35: White Blood Count 11.9H, Red Blood Count 2.55L, Hemoglobin 8.4L, Hematocrit 25.0L, Mean Corpuscular Volume 98, Mean Corpuscular Hemoglobin 32.9H, Mean Corpuscular Hemoglobin Concent 33.6, Red Cell Distribution Width 12.9, Platelet Count 212, Mean Platelet Volume 5.5L, Neutrophils (%) (Auto) , Lymphocytes (%) ( Auto) , Monocytes (%) (Auto) , Eosinophils (%) (Auto) , Basophils (%) (Auto) , Sodium Level 143, Potassium Level 4.6, Chloride Level 108H, Carbon Dioxide Level 23, Anion Gap 12, Blood Urea Nitrogen 105H, Creatinine 8.3H, Estimat Glomerular Filtration Rate , Glucose Level 86, Calcium Level 8.4L, Phosphorus Level 6.8H, Magnesium Level 2.2 Current Medications Medications (Trade) Dose Ordered Sig/Odilon Route PRN Reason Start Time Stop Time Status Last Admin Dose Admin Amlodipine Besylate (Norvasc) 5 mg DAILY NG 02/01/19 09:00 02/18/19 11:14 02/01/19 09:43 Atorvastatin Calcium (Lipitor) 40 mg BEDTIME NG 01/31/19 21:00 03/02/19 20:59 02/01/19 21:07 Calcitriol (Rocatrol) 0.25 mcg DAILY NG 02/01/19 09:00 02/18/19 11:14 02/02/19 09:02 Dextrose (Dextrose 50%) 25 ml Q30M PRN IV Hypoglycemia 01/31/19 21:30 02/18/19 01:59 Dextrose (Dextrose 50%) 50 ml Q30M PRN IV Hypoglycemia 01/31/19 21:30 02/18/19 01:59 Dextrose/Sodium Chloride 1,000 ml @ 50 mls/hr Q20H IV 01/31/19 21:15 03/01/19 14:59 02/01/19 17:48 Hydralazine HCl (Apresoline) 10 mg Q4H PRN IV For High Blood Pressure 01/31/19 21:15 02/19/19 21:14 02/01/19 19:55 Levothyroxine Sodium (Synthroid) 125 mcg DAILY@0630 NG 02/01/19 06:30 02/19/19 06:29 02/02/19 06:24 Metoprolol Tartrate (Lopressor) 12.5 mg Q12HR NG 01/31/19 21:00 03/02/19 20:59 02/01/19 21:08 Pantoprazole (Protonix) 40 mg Q12HR IVP 02/01/19 21:00 03/03/19 20:59 02/02/19 09:02 Quetiapine Fumarate (SEROquel) 100 mg QHS NG 01/31/19 21:00 03/02/19 20:59 02/01/19 21:07 Danis Conley MD Feb 02, 2019 09:12
--- NOTE | 2019-02-02 09:13 | NUR ---
[employer]UR[employer]IC[employer] FAXED TO FAX#[phone] REVIEWS/CLINICALS
--- NOTE | 2019-02-02 10:16 | GI Progress Note ---
Assessment/Plan Problems: (1) Anemia due to blood loss, acute ICD Codes: D62 - Acute posthemorrhagic anemia SNOMED: 277598000 (2) Encounter for PEG (percutaneous endoscopic gastrostomy) ICD Codes: Z43.1 - Encounter for attention to gastrostomy SNOMED: 582911799, 424020265 (3) Severe malnutrition ICD Codes: E43 - Unspecified severe protein-calorie malnutrition SNOMED: 89564746 (4) Failure to thrive SNOMED: 94510568 (5) Dementia ICD Codes: F03.90 - Unspecified dementia without behavioral disturbance SNOMED: 65277656 Status: stable Status Narrative Discussed with Dr. Ortega. Assessment/Plan SUMMARY OF FINDINGS: 1. Gastritis. 2. Duodenitis. 3. Status post successful PEG placement. no reported recurrent bleed, H&H stable RECOMMENDATION: start GTF low rate monitor H&H, prn transfusion resume blood thinners GT site care daily/prn ppi BID follow labs The patient was seen and examined at bedside and all new and available data was reviewed in the patients chart. I agree with the above findings, impression and plan. (Patient seen earlier today. Signature stamp does not reflect patient encounter time.). - Odin Ortega MD Subjective Subjective limited Objective Last 24 Hour Vital Signs Date Time Temp Pulse Resp B/P (MAP) Pulse Ox O2 Delivery O2 Flow Rate FiO2 02/02/19 08:00 97.3 79 20 155/69 (97) 100 02/02/19 07:22 79 02/02/19 04:00 75 02/02/19 04:00 Nasal Cannula 2.0 02/02/19 04:00 98.0 75 20 127/47 (73) 96 02/02/19 00:00 97.5 78 20 126/48 (74) 96 02/02/19 00:00 70 02/02/19 00:00 Nasal Cannula 2.0 02/01/19 22:28 96 Nasal Cannula 2.0 28 02/01/19 21:08 77 140/54 02/01/19 21:00 140/55 (83) 02/01/19 20:00 Nasal Cannula 2.0 02/01/19 20:00 97.5 76 24 185/60 (101) 98 02/01/19 20:00 75 02/01/19 19:55 185/60 02/01/19 16:00 Nasal Cannula 2.0 02/01/19 16:00 98.1 75 20 132/63 (86) 97 02/01/19 15:10 72 02/01/19 12:00 97.9 73 19 154/61 (92) 99 02/01/19 12:00 Nasal Cannula 2.0 02/01/19 11:38 73 Intake and Output 02/01/19 02/02/19 19:00 07:00 Intake Total 750 ml 650 ml Output Total 50 ml Balance 700 ml 650 ml Free Water 50 ml 50 ml IV Total 250 ml 600 ml Blood Product 450 ml Output Urine Total 50 ml # Bowel Movements 5 2 Laboratory Tests Test 02/01/19 18:20 02/02/19 03:35 White Blood Count 14.1 K/UL (4.8-10.8) H 11.9 K/UL (4.8-10.8) H Red Blood Count 2.60 M/UL (4.70-6.10) L 2.55 M/UL (4.70-6.10) L Hemoglobin 8.7 G/DL (14.2-18.0) L 8.4 G/DL (14.2-18.0) L Hematocrit 24.4 % (42.0-52.0) L 25.0 % (42.0-52.0) L Mean Corpuscular Volume 94 FL (80-99) 98 FL (80-99) Mean Corpuscular Hemoglobin 33.4 PG (27.0-31.0) H 32.9 PG (27.0-31.0) H Mean Corpuscular Hemoglobin Concent 35.5 G/DL (32.0-36.0) 33.6 G/DL (32.0-36.0) Red Cell Distribution Width 12.0 % (11.6-14.8) 12.9 % (11.6-14.8) Platelet Count 225 K/UL (150-450) 212 K/UL (150-450) Mean Platelet Volume 4.8 FL (6.5-10.1) L 5.5 FL (6.5-10.1) L Neutrophils (%) (Auto) 93.2 % (45.0-75.0) H % (45.0-75.0) Lymphocytes (%) (Auto) 3.6 % (20.0-45.0) L % (20.0-45.0) Monocytes (%) (Auto) 2.8 % (1.0-10.0) % (1.0-10.0) Eosinophils (%) (Auto) 0.1 % (0.0-3.0) % (0.0-3.0) Basophils (%) (Auto) 0.3 % (0.0-2.0) % (0.0-2.0) Sodium Level 143 MMOL/L (136-145) Potassium Level 4.6 MMOL/L (3.5-5.1) Chloride Level 108 MMOL/L (98-107) H Carbon Dioxide Level 23 MMOL/L (21-32) Anion Gap 12 mmol/L (5-15) Blood Urea Nitrogen 105 mg/dL (7-18) H Creatinine 8.3 MG/DL (0.55-1.30) H Estimat Glomerular Filtration Rate mL/min (>60) Glucose Level 86 MG/DL (74-106) Calcium Level 8.4 MG/DL (8.5-10.1) L Phosphorus Level 6.8 MG/DL (2.5-4.9) H Magnesium Level 2.2 MG/DL (1.8-2.4) Height (Feet): 5 Height (Inches): 6.00 Weight (Pounds): 158 General Appearance: alert Cardiovascular: normal rate Respiratory/Chest: normal breath sounds, no respiratory distress Abdominal Exam: GT site - c/d/i Objective no reported recurrent GI bleed Liban Hector NP Feb 02, 2019 10:15
--- NOTE | 2019-02-02 10:44 | NUR ---
DIPLOMATIC INTERPRETER NOTES SPOKE WITH CHARLES FROM [facility], DCP ONGOING. HEPATITIS PANEL PENDING FOR OUTPT HD. CHARLES (P) [phone] (F) [phone]
--- NOTE | 2019-02-02 11:00 | NUR ---
NURSE NOTES: Called [facility] to notify patient for dialysis today,spoke to Marcelo
--- NOTE | 2019-02-02 11:05 | NUR ---
NURSE NOTES: Patient no bleeding last night and today,Raciel Hector NP notified-ordered to resume feeding,with dieticians recommendations,Dr. Ortega notified 1030 started nepro 20 ml/hr Addendum: 02/02/19 at 1110 by Smitha HUGHES RN Dr. Conley notified no bleeding,patient stable,ordered labs in AM,will continue feeding,he plan to discharge patient if stable tomorrow
--- NOTE | 2019-02-02 11:34 | NUR ---
SPEECH PATHOLOGY: S: PATIENT CLEARED FOR ST INTERVENTION BY TESHA DILLON. PATIENT LETHARGIC AND ASKING FOR WATER O: DYSPHAGIA MANAGEMENT A: PATIENT EXPERIENCING RECTAL BLEEDING, PLACED ON NPO STATUS PEG PLACED 8/20 P.O. FOR ORAL GRATIFICATION ONLY AT THIS TIME SAFE FOR NECTAR THICK WATER P: CONTINUE PER PLAN
[2019-02-02 11:45] VITALS: BP 156/71
[2019-02-02] MEDS: D5NS 1,000 ML IV SCH (13:32)
--- NOTE | 2019-02-02 14:26 | Diagnostic Imaging Report ---
Indications: Dysphagia Technique: Patient ingested multiple substances under the supervision of speech pathology. Video fluoroscopic recording performed. Total fluoroscopy time 130.2 seconds. Total dose area product [id number] mGym2 Total number of images-7 Comparison: none Findings: Ingestion of thin liquid barium results in multiple episodes of supraglottic laryngeal penetration. Some delayed pooling in the vallecula is noted. With ingestion of nectar thick liquid barium, there is trace supraglottic laryngeal penetration. No bandar aspiration demonstrated. Impression: Positive for penetration of nectar thick and thin liquid barium. No bandar aspiration demonstrated. Please refer to speech pathology report for more detailed analysis
--- NOTE | 2019-02-02 14:31 | Cardiac Electrophysiology PN ---
Assessment/Plan Assessment/Plan 1. Elevated troponin, possible ACS but likely due to ESRD on dialysis. On Lipitor, aspirin and Lopressor 12.5 bid. EF 50% 2. S/P Respiratory failure. On Room air now On dialysis. 3. Hypertension on amlodipine 5 mg daily, metoprolol 12.5 bid and HD 4. End-stage renal disease, on hemodialysis. 5. S/P Respiratory failure, 6. Large right-sided pleural effusion. S/p 3 liters R Thoracentesis 01/20/19 7. DNR 8. S/P PEG 01/31/[address] Ortega 9. Severe anemia and black stool , s/p prbc DW RN Subjective Subjective S/P 2 units of PRBC. Transferred to [facility] as still having black stool. Objective Last 24 Hour Vital Signs Date Time Temp Pulse Resp B/P (MAP) Pulse Ox O2 Delivery O2 Flow Rate FiO2 02/02/19 12:00 79 02/02/19 12:00 Room Air 02/02/19 11:45 97.7 81 18 156/71 (99) 100 02/02/19 08:30 Room Air 02/02/19 08:00 97.3 79 20 155/69 (97) 100 02/02/19 07:22 79 02/02/19 04:00 75 02/02/19 04:00 Nasal Cannula 2.0 02/02/19 04:00 98.0 75 20 127/47 (73) 96 02/02/19 00:00 97.5 78 20 126/48 (74) 96 02/02/19 00:00 70 02/02/19 00:00 Nasal Cannula 2.0 02/01/19 22:28 96 Nasal Cannula 2.0 28 02/01/19 21:08 77 140/54 02/01/19 21:00 140/55 (83) 02/01/19 20:00 Nasal Cannula 2.0 02/01/19 20:00 97.5 76 24 185/60 (101) 98 02/01/19 20:00 75 02/01/19 19:55 185/60 02/01/19 16:00 Nasal Cannula 2.0 02/01/19 16:00 98.1 75 20 132/63 (86) 97 02/01/19 15:10 72 Intake and Output 02/01/19 02/02/19 19:00 07:00 Intake Total 750 ml 650 ml Output Total 50 ml Balance 700 ml 650 ml Free Water 50 ml 50 ml IV Total 250 ml 600 ml Blood Product 450 ml Output Urine Total 50 ml # Bowel Movements 5 2 Laboratory Tests Test 02/01/19 18:20 02/02/19 03:35 White Blood Count 14.1 K/UL (4.8-10.8) H 11.9 K/UL (4.8-10.8) H Red Blood Count 2.60 M/UL (4.70-6.10) L 2.55 M/UL (4.70-6.10) L Hemoglobin 8.7 G/DL (14.2-18.0) L 8.4 G/DL (14.2-18.0) L Hematocrit 24.4 % (42.0-52.0) L 25.0 % (42.0-52.0) L Mean Corpuscular Volume 94 FL (80-99) 98 FL (80-99) Mean Corpuscular Hemoglobin 33.4 PG (27.0-31.0) H 32.9 PG (27.0-31.0) H Mean Corpuscular Hemoglobin Concent 35.5 G/DL (32.0-36.0) 33.6 G/DL (32.0-36.0) Red Cell Distribution Width 12.0 % (11.6-14.8) 12.9 % (11.6-14.8) Platelet Count 225 K/UL (150-450) 212 K/UL (150-450) Mean Platelet Volume 4.8 FL (6.5-10.1) L 5.5 FL (6.5-10.1) L Neutrophils (%) (Auto) 93.2 % (45.0-75.0) H % (45.0-75.0) Lymphocytes (%) (Auto) 3.6 % (20.0-45.0) L % (20.0-45.0) Monocytes (%) (Auto) 2.8 % (1.0-10.0) % (1.0-10.0) Eosinophils (%) (Auto) 0.1 % (0.0-3.0) % (0.0-3.0) Basophils (%) (Auto) 0.3 % (0.0-2.0) % (0.0-2.0) Sodium Level 143 MMOL/L (136-145) Potassium Level 4.6 MMOL/L (3.5-5.1) Chloride Level 108 MMOL/L (98-107) H Carbon Dioxide Level 23 MMOL/L (21-32) Anion Gap 12 mmol/L (5-15) Blood Urea Nitrogen 105 mg/dL (7-18) H Creatinine 8.3 MG/DL (0.55-1.30) H Estimat Glomerular Filtration Rate mL/min (>60) Glucose Level 86 MG/DL (74-106) Calcium Level 8.4 MG/DL (8.5-10.1) L Phosphorus Level 6.8 MG/DL (2.5-4.9) H Magnesium Level 2.2 MG/DL (1.8-2.4) Hepatitis B Surface Antigen Pending Hepatitis B Surface Antibody, Quant Pending Hepatitis C Antibody Pending Objective HEAD AND NECK: Mild JVD. LUNGS: Coarse rhonchi. CARDIOVASCULAR: Regular S1 and S2 with no gallop. ABDOMEN: Soft.PEG in place EXTREMITIES: 1+ pitting edema. Sawyer Christie MD Feb 02, 2019 14:31
[2019-02-02 16:00] VITALS: BP 145/58
--- NOTE | 2019-02-02 16:29 | NUR ---
NURSE NOTES: Patient tolerating feeding,will increase rate 30 ml/hr,will discontinue IV once tube feeding is 48 ml/hr per Dr. Villa
--- NOTE | 2019-02-02 16:53 | NUR ---
NURSE NOTES: Dialysis nurse -[facility] called will do dialysis this afternoon around 1800
--- NOTE | 2019-02-02 18:00 | NUR ---
NURSE NOTES: Patient tolerating feeding, G tube feeding to 48 ml/hr,IV fluids discontinued
--- NOTE | 2019-02-02 19:28 | NUR ---
HAND-OFF: [facility] awake,endorse close watch ,high risk fall,pull device and try get out bed
--- NOTE | 2019-02-02 19:28 | NUR ---
NURSE NOTES: Report received from TESHA Whittington. Observed pt having dialysis at bedside. Family member at the bedside noted. A/O x1, denies any pain at this time. SR with radiation monitor. On room air with no SOB. Gtutbe intact and covered with abd binding, running Nepro at 48cc/hr. R AV shunt noted. IV on L FA 18G, SL, covered with kerlix. Bed in the lowest position. Side rails up x3. Will continue to monitor.
[2019-02-02 20:00] VITALS: BP 149/62
[2019-02-02] MEDS: Metoprolol Tartrate 12.5mg TAB GT SCH (21:13)
[2019-02-02] MEDS: Atorvastatin 20mg tab GT SCH (21:13)
[2019-02-03] VITALS: BP 137/56
[2019-02-03 04:00] VITALS: BP 155/60
[2019-02-03 06:18] LABS: HEMATOCRIT 25.7 % (42.0-52.0); HEMOGLOBIN 8.5 G/DL (14.2-18.0); MEAN CORPUSCULAR VOLUME 100 FL (80-99); PLATELET COUNT 202 K/UL (150-450); RED BLOOD COUNT 2.57 M/UL (4.70-6.10); RED CELL DISTRIBUTION WIDTH 13.2 % (11.6-14.8); WHITE BLOOD COUNT 12.1 K/UL (4.8-10.8)
[2019-02-03] MEDS ORDERED: Levothyroxine 125mcg tab GT SCH (06:30)
[2019-02-03 06:36] LABS: ANION GAP 18 mmol/L (5-15); BLOOD UREA NITROGEN 102 mg/dL (7-18); CALCIUM 8.3 MG/DL (8.5-10.1); CARBON DIOXIDE 20 MMOL/L (21-32); CHLORIDE 106 MMOL/L (98-107); CREATININE 8.3 MG/DL (0.55-1.30); POTASSIUM 4.7 MMOL/L (3.5-5.1); SODIUM 144 MMOL/L (136-145)
--- NOTE | 2019-02-03 07:30 | NUR ---
HAND-OFF: Report given to TESHA Bolden
--- NOTE | 2019-02-03 07:31 | NUR ---
NURSE NOTES: Received report from TESHA Salguero. Patient is resting in bed, in stable condition. No s/sx of SOB, breathing is even and unlabored, room air. Denies any presence of pain or discomfort at this time. Bed is in lowest position, brakes engaged. Call light is kept within easy reach. Will continue to monitor patient.
[2019-02-03 08:00] VITALS: BP 123/55
--- NOTE | 2019-02-03 08:52 | GI Progress Note ---
Assessment/Plan Problems: (1) Anemia due to blood loss, acute ICD Codes: D62 - Acute posthemorrhagic anemia SNOMED: 785548270 (2) Encounter for PEG (percutaneous endoscopic gastrostomy) ICD Codes: Z43.1 - Encounter for attention to gastrostomy SNOMED: 393249003, 153050679 (3) Severe malnutrition ICD Codes: E43 - Unspecified severe protein-calorie malnutrition SNOMED: 52185745 (4) Failure to thrive SNOMED: 30662686 (5) Dementia ICD Codes: F03.90 - Unspecified dementia without behavioral disturbance SNOMED: 51389930 Status: stable, progressing Status Narrative Discussed with Dr. Ortega. Assessment/Plan SUMMARY OF FINDINGS: 1. Gastritis. 2. Duodenitis. 3. Status post successful PEG placement. no reported recurrent bleed, H&H stable no bleeding at GT site patient tolerating goal feeds RECOMMENDATION: cont TF monitor H&H, prn transfusion resume blood thinners GT site care daily/prn ppi BID follow labs The patient was seen and examined at bedside and all new and available data was reviewed in the patients chart. I agree with the above findings, impression and plan. (Patient seen earlier today. Signature stamp does not reflect patient encounter time.). - Odin Ortega MD Subjective Subjective limited Objective Last 24 Hour Vital Signs Date Time Temp Pulse Resp B/P (MAP) Pulse Ox O2 Delivery O2 Flow Rate FiO2 02/03/19 07:06 97 Room Air 21 02/03/19 04:00 Room Air 02/03/19 04:00 82 02/03/19 04:00 97.8 89 20 155/60 (91) 98 02/03/19 00:00 97.5 70 20 137/56 (83) 100 02/03/19 00:00 71 02/03/19 00:00 Room Air 02/02/19 21:13 75 149/62 02/02/19 20:00 91 02/02/19 20:00 97.9 77 20 149/62 (91) 100 02/02/19 20:00 Room Air 02/02/19 19:46 98 Room Air 21 02/02/19 16:00 97.9 81 20 145/58 (87) 100 02/02/19 16:00 84 02/02/19 15:45 Room Air 02/02/19 12:00 79 02/02/19 12:00 Room Air 02/02/19 11:45 97.7 81 18 156/71 (99) 100 Intake and Output 02/02/19 02/03/19 18:59 06:59 Intake Total 638 ml 546 ml Output Total 0 ml Balance 638 ml 546 ml Free Water 40 ml 90 ml IV Total 350 ml Tube Feeding 248 ml 456 ml Output Urine Total 0 ml # Bowel Movements 3 1 Laboratory Tests Test 02/03/19 05:30 White Blood Count 12.1 K/UL (4.8-10.8) H Red Blood Count 2.57 M/UL (4.70-6.10) L Hemoglobin 8.5 G/DL (14.2-18.0) L Hematocrit 25.7 % (42.0-52.0) L Mean Corpuscular Volume 100 FL (80-99) H Mean Corpuscular Hemoglobin 33.2 PG (27.0-31.0) H Mean Corpuscular Hemoglobin Concent 33.1 G/DL (32.0-36.0) Red Cell Distribution Width 13.2 % (11.6-14.8) Platelet Count 202 K/UL (150-450) Mean Platelet Volume 5.0 FL (6.5-10.1) L Neutrophils (%) (Auto) % (45.0-75.0) Lymphocytes (%) (Auto) % (20.0-45.0) Monocytes (%) (Auto) % (1.0-10.0) Eosinophils (%) (Auto) % (0.0-3.0) Basophils (%) (Auto) % (0.0-2.0) Sodium Level 144 MMOL/L (136-145) Potassium Level 4.7 MMOL/L (3.5-5.1) Chloride Level 106 MMOL/L (98-107) Carbon Dioxide Level 20 MMOL/L (21-32) L Anion Gap 18 mmol/L (5-15) H Blood Urea Nitrogen 102 mg/dL (7-18) H Creatinine 8.3 MG/DL (0.55-1.30) H Estimat Glomerular Filtration Rate mL/min (>60) Glucose Level 64 MG/DL (74-106) L Calcium Level 8.3 MG/DL (8.5-10.1) L Height (Feet): 5 Height (Inches): 6.00 Weight (Pounds): 155 General Appearance: WD/WN, no apparent distress, alert Cardiovascular: normal rate Respiratory/Chest: normal breath sounds, no respiratory distress Abdominal Exam: normal bowel sounds, non tender, soft, GT site - c/d/i Extremities: non-tender Objective no reported recurrent GI bleed Liban Hector NP Feb 03, 2019 08:52
[2019-02-03] MEDS: Pantoprazole Inj IVP SCH ×2 (09:00→09:08)
[2019-02-03] MEDS: Calcitriol 0.25mcg Cap GT SCH ×2 (09:00→09:08)
[2019-02-03] MEDS: Metoprolol Tartrate 12.5mg TAB GT SCH ×2 (09:08→20:34)
--- NOTE | 2019-02-03 10:03 | NUR ---
CASE MANAGEMENT: REVIEW 02/03/2019 SI: CHRONIC PULMONARY EDEMA. ACUTE RIB FX. RIGHT SIDED PLEURAL EFFUSION DRAINED 01/20/19 3L. T 97.7 HR 87 RR 20 B/P 123/55 SATS 97% ON RA WBC 12.1 CO2 20 AGAP 18 BUN 102 CR 8.3 GLU 64 CA 8.3 IS: IVF @ 50 mL/HR LIPITOR NG QHS NORVASC NG QD ROCATROL NG QD LOPRESSOR NG Q12H PROTONIX IV Q12H SEROQUEL NG QHS SDU DCP: PATIENT TO BE DISCHARGED TO SNF ONCE MEDICALLY CLEARED.
--- NOTE | 2019-02-03 10:07 | NUR ---
INSURANCE CLINICALS FAXED TO FAX#[phone] REVIEWS/CLINICALS
--- NOTE | 2019-02-03 10:27 | Pulmonology Progress Note ---
Assessment/Plan Assessment/Plan IMPRESSION: 1. Respiratory failure. Extubated. 2. Pulmonary edema. Improved. 3. COPD. 4. Hyperkalemia. Corrected. 5. Hypertension. 6. Hypothyroidism. 7. Acute blood loss anemia 8. Rectal bleeding s/p PEG DISCUSSION: Continue present medications and care. Dialysis per renal. I will follow carefully. S/p thoracentesis on 01/20/19 Now DNR/DNI DC planning to SNF Will transfuse prn Stable for DC to SNF Await dialysis set up Danis Conley M.D. Subjective Interval Events: None new; stools brown Constitutional: Reports: no symptoms HEENT: Repors: no symptoms Respiratory: Reports: no symptoms Cardiovascular: Reports: no symptoms Gastrointestinal/Abdominal: Reports: no symptoms Genitourinary: Reports: no symptoms Allergies: Coded Allergies: MORPHINE (Verified Allergy, Unknown, 01/18/19) Objective Last 24 Hour Vital Signs Date Time Temp Pulse Resp B/P (MAP) Pulse Ox O2 Delivery O2 Flow Rate FiO2 02/03/19 09:08 87 123/55 02/03/19 09:08 87 123/55 02/03/19 08:00 97.7 87 20 123/55 (77) 97 02/03/19 08:00 Room Air 02/03/19 07:06 97 Room Air 21 02/03/19 04:00 Room Air 02/03/19 04:00 82 02/03/19 04:00 97.8 89 20 155/60 (91) 98 02/03/19 00:00 97.5 70 20 137/56 (83) 100 02/03/19 00:00 71 02/03/19 00:00 Room Air 02/02/19 21:13 75 149/62 02/02/19 20:00 91 02/02/19 20:00 97.9 77 20 149/62 (91) 100 02/02/19 20:00 Room Air 02/02/19 19:46 98 Room Air 21 02/02/19 16:00 97.9 81 20 145/58 (87) 100 02/02/19 16:00 84 02/02/19 15:45 Room Air 02/02/19 12:00 79 02/02/19 12:00 Room Air 02/02/19 11:45 97.7 81 18 156/71 (99) 100 Intake and Output 02/02/19 02/03/19 18:59 06:59 Intake Total 638 ml 546 ml Output Total 0 ml Balance 638 ml 546 ml Free Water 40 ml 90 ml IV Total 350 ml Tube Feeding 248 ml 456 ml Output Urine Total 0 ml # Bowel Movements 3 1 General Appearance: no acute distress HEENT: normocephalic Respiratory/Chest: chest wall non-tender Cardiovascular: normal peripheral pulses Abdomen: normal bowel sounds Laboratory Tests 02/03/19 05:30: White Blood Count 12.1H, Red Blood Count 2.57L, Hemoglobin 8.5L, Hematocrit 25.7L, Mean Corpuscular Volume 100H, Mean Corpuscular Hemoglobin 33.2H, Mean Corpuscular Hemoglobin Concent 33.1, Red Cell Distribution Width 13.2, Platelet Count 202, Mean Platelet Volume 5.0L, Neutrophils (%) (Auto) , Lymphocytes (%) ( Auto) , Monocytes (%) (Auto) , Eosinophils (%) (Auto) , Basophils (%) (Auto) , Sodium Level 144, Potassium Level 4.7, Chloride Level 106, Carbon Dioxide Level 20L, Anion Gap 18H, Blood Urea Nitrogen 102H, Creatinine 8.3H, Estimat Glomerular Filtration Rate , Glucose Level 64L, Calcium Level 8.3L Current Medications Medications (Trade) Dose Ordered Sig/Odilon Route PRN Reason Start Time Stop Time Status Last Admin Dose Admin Amlodipine Besylate (Norvasc) 5 mg DAILY GT 02/03/19 09:00 02/18/19 11:14 02/03/19 09:08 Atorvastatin Calcium (Lipitor) 40 mg BEDTIME GT 02/02/19 21:00 03/02/19 20:59 02/02/19 21:13 Calcitriol (Rocatrol) 0.25 mcg DAILY GT 02/03/19 09:00 02/18/19 11:14 Dextrose (Dextrose 50%) 25 ml Q30M PRN IV Hypoglycemia 01/31/19 21:30 02/18/19 01:59 Dextrose (Dextrose 50%) 50 ml Q30M PRN IV Hypoglycemia 01/31/19 21:30 02/18/19 01:59 Hydralazine HCl (Apresoline) 10 mg Q4H PRN IV For High Blood Pressure 01/31/19 21:15 02/19/19 21:14 02/01/19 19:55 Levothyroxine Sodium (Synthroid) 125 mcg DAILY@0630 GT 02/03/19 06:30 02/19/19 06:29 02/03/19 06:38 Metoprolol Tartrate (Lopressor) 12.5 mg Q12HR GT 02/02/19 21:00 03/02/19 20:59 02/03/19 09:08 Pantoprazole (Protonix) 40 mg Q12HR IVP 02/01/19 21:00 03/03/19 20:59 02/02/19 21:12 Quetiapine Fumarate (SEROquel) 100 mg QHS GT 02/02/19 21:00 03/02/19 20:59 02/02/19 21:13 Danis Conley MD Feb 03, 2019 10:27
[2019-02-03] MEDS ORDERED: ROCALTROL0.25 MCG GT (10:28)
[2019-02-03] MEDS ORDERED: SEROQUEL100 MG GT (10:28)
[2019-02-03] MEDS ORDERED: NORVASC5 MG GT (10:28)
[2019-02-03] MEDS ORDERED: LEVOTHYROXINE125 MCG GT (10:28)
[2019-02-03] MEDS ORDERED: LIPITOR20 MG GT (10:28)
[2019-02-03] MEDS ORDERED: LOPRESSOR25 M1 GT (10:28)
[2019-02-03] MEDS ORDERED: PROTONIX40 M2 GT (10:29)
--- NOTE | 2019-02-03 10:52 | NUR ---
RD ASSESSMENT & RECOMMENDATIONS SEE CARE ACTIVITY FOR COMPLETE ASSESSMENT DAILY ESTIMATED NEEDS: Needs based on ESRD on HD, pulmonary/ 63.6kg 30-35 kcals/kg 4255-7758 total kcals 1.25-1.8 g protein/kg 80-115 g total protein Fluid per MD, on HD NUTRITION DIAGNOSIS: * Swallowing difficulty R/T respiratory status as evidenced by orally intubated, on OGT feeding- pt now s/p extubation, now s/p PEG placement. (UPDATED) * Increased kcal/prot needs R/T renal dysfunction and wound healing as evidenced by ESRD dx, on HD, w/ BL LE severe wasting, w/ multiple areas of non blanching erythema (refer to wound care eval). 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 - Flush per MD. HOB over 30 degrees ADDITIONAL RECOMMENDATIONS: * Obtain dry, calibrated bedscale wt post HD Per SNF, HT=68", HK=026hsi (01/04/19) * Monitor lytes daily w/ TF, replete as needed * Monitor for hypoglycemia- good glycemic control * TF recs as above * Wound care: add KOFI in 4oz water BID
--- NOTE | 2019-02-03 11:32 | Nephrology Progress Note ---
Assessment/Plan Status: stable, progressing Assessment/Plan: 1. ESRD - MWF 2. Severe hyperkalemia - resolved, continue HD 3. Respiratory failure -resolved 4. Hypertension. - stable 5. Hypothyroidism. - Synthroid. 6. PEG placed 7. Anemia- per GI mgmt Subjective Date patient seen: Feb 03, 2019 Time patient seen: 11:30 ROS Limited/Unobtainable: Yes Allergies: Coded Allergies: MORPHINE (Verified Allergy, Unknown, 01/18/19) Subjective Patient resting, arousable Objective Last 24 Hour Vital Signs Date Time Temp Pulse Resp B/P (MAP) Pulse Ox O2 Delivery O2 Flow Rate FiO2 02/03/19 09:08 87 123/55 02/03/19 09:08 87 123/55 02/03/19 08:00 97.7 87 20 123/55 (77) 97 02/03/19 08:00 Room Air 02/03/19 07:06 97 Room Air 21 02/03/19 04:00 Room Air 02/03/19 04:00 82 02/03/19 04:00 97.8 89 20 155/60 (91) 98 02/03/19 00:00 97.5 70 20 137/56 (83) 100 02/03/19 00:00 71 02/03/19 00:00 Room Air 02/02/19 21:13 75 149/62 02/02/19 20:00 91 02/02/19 20:00 97.9 77 20 149/62 (91) 100 02/02/19 20:00 Room Air 02/02/19 19:46 98 Room Air 21 02/02/19 16:00 97.9 81 20 145/58 (87) 100 02/02/19 16:00 84 02/02/19 15:45 Room Air 02/02/19 12:00 79 02/02/19 12:00 Room Air 02/02/19 11:45 97.7 81 18 156/71 (99) 100 Intake and Output 02/02/19 02/03/19 18:59 06:59 Intake Total 638 ml 546 ml Output Total 0 ml Balance 638 ml 546 ml Free Water 40 ml 90 ml IV Total 350 ml Tube Feeding 248 ml 456 ml Output Urine Total 0 ml # Bowel Movements 3 1 Laboratory Tests 02/03/19 05:30: White Blood Count 12.1H, Red Blood Count 2.57L, Hemoglobin 8.5L, Hematocrit 25.7L, Mean Corpuscular Volume 100H, Mean Corpuscular Hemoglobin 33.2H, Mean Corpuscular Hemoglobin Concent 33.1, Red Cell Distribution Width 13.2, Platelet Count 202, Mean Platelet Volume 5.0L, Neutrophils (%) (Auto) , Lymphocytes (%) ( Auto) , Monocytes (%) (Auto) , Eosinophils (%) (Auto) , Basophils (%) (Auto) , Sodium Level 144, Potassium Level 4.7, Chloride Level 106, Carbon Dioxide Level 20L, Anion Gap 18H, Blood Urea Nitrogen 102H, Creatinine 8.3H, Estimat Glomerular Filtration Rate , Glucose Level 64L, Calcium Level 8.3L Height (Feet): 5 Height (Inches): 6.00 Weight (Pounds): 155 General Appearance: no apparent distress EENT: normal ENT inspection Neck: normal alignment, supple Cardiovascular: normal rate, regular rhythm Respiratory/Chest: lungs clear, normal breath sounds Abdomen: non tender, soft Edema: no edema noted Arm (L), no edema noted Arm (R), no edema noted Leg (L), no edema noted Leg (R), no edema noted Pedal (L), no edema noted Pedal (R), no edema noted Generalized David Villa MD Feb 03, 2019 11:32
[2019-02-03 12:00] VITALS: BP 135/55
--- NOTE | 2019-02-03 12:35 | Cardiology Report ---
APPROVED REPORT EKG Measurement Heart [id number] CT 156P68 [id number] Sinus bradycardia Right bundle branch block T wave abnormality, consider lateral ischemia Abnormal ECG
--- NOTE | 2019-02-03 12:48 | NUR ---
NURSE NOTES: Called [facility] and spoke with Zhanna. Informed Zhanna of dialysis order for tomorrow, 02/04/[address] Villa's orders. Zhanna acknowledged. Noted.
[2019-02-03 15:56] VITALS: BP 136/57
--- NOTE | 2019-02-03 16:28 | Cardiac Electrophysiology PN ---
Assessment/Plan Assessment/Plan 1. Elevated troponin, possible ACS but likely due to ESRD on dialysis. On Lipitor, aspirin and Lopressor 12.5 bid. EF 50% 2. S/P Respiratory failure. On dialysis. 3. Hypertension on amlodipine 5 mg daily, metoprolol 12.5 bid and HD 4. End-stage renal disease, on hemodialysis. 5. S/P Respiratory failure, 6. Large right-sided pleural effusion. S/p 3 liters R Thoracentesis 01/20/19 7. DNR 8. S/P PEG 01/31/[address] Ortega 9. Severe anemia and black stool , s/p prbc DW RN Subjective Subjective Had 2 units of PRBC. On LUCY for continuing having black stool. Objective Last 24 Hour Vital Signs Date Time Temp Pulse Resp B/P (MAP) Pulse Ox O2 Delivery O2 Flow Rate FiO2 02/03/19 15:56 98.2 81 20 136/57 (83) 97 02/03/19 12:00 76 02/03/19 12:00 Room Air 02/03/19 12:00 97.7 75 20 135/55 (81) 100 02/03/19 09:08 87 123/55 02/03/19 09:08 87 123/55 02/03/19 08:00 97.7 87 20 123/55 (77) 97 02/03/19 08:00 Room Air 02/03/19 07:37 85 02/03/19 07:06 97 Room Air 21 02/03/19 04:00 Room Air 02/03/19 04:00 82 02/03/19 04:00 97.8 89 20 155/60 (91) 98 02/03/19 00:00 97.5 70 20 137/56 (83) 100 02/03/19 00:00 71 02/03/19 00:00 Room Air 02/02/19 21:13 75 149/62 02/02/19 20:00 91 02/02/19 20:00 97.9 77 20 149/62 (91) 100 02/02/19 20:00 Room Air 02/02/19 19:46 98 Room Air 21 Intake and Output 02/02/19 02/03/19 19:00 07:00 Intake Total 612 ml 522 ml Output Total 0 ml Balance 612 ml 522 ml Free Water 40 ml 90 ml IV Total 300 ml Tube Feeding 272 ml 432 ml Output Urine Total 0 ml # Bowel Movements 3 1 Laboratory Tests Test 02/03/19 05:30 White Blood Count 12.1 K/UL (4.8-10.8) H Red Blood Count 2.57 M/UL (4.70-6.10) L Hemoglobin 8.5 G/DL (14.2-18.0) L Hematocrit 25.7 % (42.0-52.0) L Mean Corpuscular Volume 100 FL (80-99) H Mean Corpuscular Hemoglobin 33.2 PG (27.0-31.0) H Mean Corpuscular Hemoglobin Concent 33.1 G/DL (32.0-36.0) Red Cell Distribution Width 13.2 % (11.6-14.8) Platelet Count 202 K/UL (150-450) Mean Platelet Volume 5.0 FL (6.5-10.1) L Neutrophils (%) (Auto) % (45.0-75.0) Lymphocytes (%) (Auto) % (20.0-45.0) Monocytes (%) (Auto) % (1.0-10.0) Eosinophils (%) (Auto) % (0.0-3.0) Basophils (%) (Auto) % (0.0-2.0) Sodium Level 144 MMOL/L (136-145) Potassium Level 4.7 MMOL/L (3.5-5.1) Chloride Level 106 MMOL/L (98-107) Carbon Dioxide Level 20 MMOL/L (21-32) L Anion Gap 18 mmol/L (5-15) H Blood Urea Nitrogen 102 mg/dL (7-18) H Creatinine 8.3 MG/DL (0.55-1.30) H Estimat Glomerular Filtration Rate mL/min (>60) Glucose Level 64 MG/DL (74-106) L Calcium Level 8.3 MG/DL (8.5-10.1) L Objective HEAD AND NECK: Mild JVD. LUNGS: Coarse rhonchi. CARDIOVASCULAR: Regular S1 and S2 with no gallop. ABDOMEN: Soft.PEG in place EXTREMITIES: 1+ pitting edema. Sawyer Christie MD Feb 03, 2019 16:28
--- NOTE | 2019-02-03 19:25 | NUR ---
NURSE NOTES: Received report from Yuan RN, pt. in bed awake, A/O x's1-2, no signs or symptoms of acute cardiac or respiratory distress noted, bed in lowest position and call light within easy reach, bed alarm on, side rails x's3 and safety brakes engaged, Nepro running via G tube at 48cc/hr- no residual noted, pt. appears to be comfortable and clean and dry, LFA 18G IV intact and patent, pt. has left and right AV shunt- Rt. AV shunt is being used for HD, per endorsement- pt. maybe getting discharged awaiting for call from general manager [employer] data cloud from [facility], safety measures continued, will continue with plan of care.
--- NOTE | 2019-02-03 19:30 | NUR ---
HAND-OFF: Report given to TESHA Raza.
[2019-02-03 20:00] VITALS: BP 114/75
[2019-02-03] MEDS: Atorvastatin 20mg tab GT SCH (20:33)
--- NOTE | 2019-02-03 22:38 | NUR ---
NURSE NOTES: Aleah wealth management manager calling from [facility] and other # if she is not available. per Aleah pt. was not accepted to [facility] and was accepted to [facility] fax - she will set up Ambulance transport as pt. is accepted to facility and call back with ambulance information for molded goods spot picker time. Per Aleah family is aware pt has been accepted to [facility]- will notify family upon discharge.
--- NOTE | 2019-02-03 23:08 | NUR ---
NURSE NOTES: Aleah case hardener calling back states pt. will be picked up by [facility] ambulance and that Son is aware.
--- NOTE | 2019-02-03 23:16 | NUR ---
NURSE NOTES: Called Tracy RAMOS at [facility]- [facility] ambulance is on the way to picker and sorter load and unload patient- report given to her. Per Tracy pt. will be going to room #4.
[2019-02-04] VITALS: BP 119/73
--- NOTE | 2019-02-04 01:00 | NUR ---
NURSE NOTES: report given to Clem from [facility]-PT. BEING DISCHARGED- PT. REMAINS STABLE AND NO SIGNS OF DISTRESS NOTED.
[2019-02-04] MEDS ORDERED: NS 275ml ONE (01:13)
[2019-02-04] MEDS ORDERED: D5NS 1000ml IV ONE (01:13)
[2019-02-04] MEDS ORDERED: Tubing IV Blood Pump IV ONE (01:13)
--- NOTE | 2019-02-06 15:15 | Discharge Summary ---
Discharge Summary Discharge Summary _ DATE OF ADMISSION: 01/19/2019 DATE OF DISCHARGE: 02/04/2018 DISCHARGED BY: Dr. Chuck Conley CONSULTANTS: Dr. David Ortega [facility] HOSPITAL COURSE: Patient is an 84-year-old gentleman with history of end-stage renal disease on hemodialysis 3 times a week, was brought in by EMS to ED due to acute encephalopathy and lethargy. He missed dialysis because of his worsening condition. At baseline, patient is confused but was able to talk. At that time , he was noted to be unresponsive. There was no reported fever or chills, no cough, no congestion. No pain. No vomiting. On arrival to ED, patient presented with respiratory failure secondary to pulmonary edema. Initial ABG showed respiratory acidosis with high CO2. Repeat ABG showed worsening of acidosis and CO2. pH 6.9, PCO2 142. Patient was emergently intubated for airway protection. He was put on a mechanical ventilator. Blood work showed elevated potassium level 5.7. BUN 75 and creatinine was 8.8. Troponin 0 0.136. proBNP greater than 35,000. Urinalysis showed +3 leukocyte esterase, too many to count urine RBC, 20-30 urine WBC. There were no EKG changes seen. He was initially bradycardic but after 2 A\ amps of bicarb, heart rate went up from 50s to 70s. Chest x-ray showed pulmonary edema and pleural effusion mostly right-sided. Clinically there was no evidence of pneumonia. Antibiotics were given for UTI. Patient was unstable to be transferred. Patient was then admitted to ICU. Emergent hemodialysis was ordered. Label Drier was consulted. He was continued on vent support. NGT was inserted. Patient was ordered ultrasound-guided thoracentesis. Radiologist attempted to do bedside thoracentesis. After initial ultrasound scan, there was a demonstrated large right pleural effusion and an adjacent right anterolateral acute rib fractures. Patient became combative and attempted to self extubate even after temporary restraints were placed. Patient likely had a tender area at the right rib fractures. Thoracentesis was deferred until pain was adequately managed. Entry Level Mechanical Engineer was consulted for evaluation of congestive heart failure and elevated troponin. Patient was given Lipitor and aspirin. He was given amlodipine. He was placed on low-dose beta-winnie. Echocardiogram done showed EF of 50%. Elevated troponin was likely due to end-stage renal disease. Defer cardiac catheterization. Finally on 01/20/2019, he underwent right lung thoracentesis, yielding 3 L of fluid. Postthoracentesis, chest x-ray did not show any pneumothorax. He was started on weaning process. Chest x-ray done on 01/22/2019 showed endotracheal tube in the right mainstem bronchus. Endotracheal tube was pulled back appropriately. Patient was slowly improving. He was failing weaning trials. Family changed CODE STATUS to DNR. On 01/27/2019, he was finally extubated. He was eventually transferred out of ICU. Patient had poor oral intake. Swallow evaluation showed dysphagia and high risk for aspiration. GI was consulted. Patient family was not able to decide about PEG tube placement. NG tube was replaced. Video swallow showed positive for penetration of nectar thick and thin liquid barium. Patient failed swallow evaluation. On 01/31/2019, he underwent EGD with PEG tube placement. He was given a dose of Ancef prior to procedure. He tolerated procedure well. Findings showed gastritis and duodenitis. Post PEG placement, abdominal binder was placed. Ordered to elevate head of bed at all times. He was eventually started on G-tube feeding. There was reported bloody stools, most likely bleed from G-tube site. Patient was placed on n.p.o. He was given proton pump inhibitors. Hemoglobin dropped to 6.8, hematocrit 20. He was given 2 units packed RBC blood transfusion. Hemoglobin was stable posttransfusion. Vital signs were stable. He was tolerating G-tube feedings well. There was no further bleeding at the G-tube site. He was saturating well on room air. He was eventually discharged to SNF. FINAL DIAGNOSES: Acute respiratory failure status post intubation on 01/19/2019 and extubation on 01/27/2019 Pulmonary edema due to missed hemodialysis Elevated troponin, possible ACS, but likely due to end-stage renal disease on hemodialysis Hypertension End-stage renal disease on hemodialysis Right-sided pleural effusion status post 3 L thoracentesis on 01/20/2019 Status post PEG on 01/31/2019 Severe anemia due to acute blood loss, status post blood transfusion Severe hyperkalemia, resolved Hypothyroidism Severe protein calorie malnutrition Dementia Failure to thrive DISPOSITION: Patient was discharged to a SNF. DISCHARGE MEDICATIONS: Refer to Discharge Medication List. I have been assigned to complete a discharge summary on this account, I was not involved with the patient's management.--SAVANNA Bettencourt Jacqueline Robles NP Feb 06, 2019 15:15
== END 2019-02-04 01:14 | DRG 130 ==
LOC: EDBD 22:38 → EMR 23:15 → EDBEDREQ 01-19 00:04 → ICU 01-19 01:23 → EDBEDREQSVC 01-19 01:40 → EDBEDREQ 01-19 02:14 → 2W 01-27 23:04 → 4E 01-29 06:59 → 2W 01-31 20:00
PROC: 0W993ZZ Drainage of Right Pleural Cavity, Percutaneous Approach (ICD-10-PCS; principal; 2019-01-19)
PROC: 5A1955Z Respiratory Ventilation, Greater than 96 Consecutive Hours (ICD-10-PCS; 2019-01-19)
PROC: 0BH17EZ Insertion of Endotracheal Airway into Trachea, Via Natural or Artificial Opening (ICD-10-PCS; 2019-01-19)
PROC: 5A1D70Z Performance of Urinary Filtration, Intermittent, Less than 6 Hours Per Day (ICD-10-PCS; 2019-01-19)
PROC: 0DJ08ZZ Inspection of Upper Intestinal Tract, Via Natural or Artificial Opening Endoscopic (ICD-10-PCS; 2019-01-31)
PROC: 0DH63UZ Insertion of Feeding Device into Stomach, Percutaneous Approach (ICD-10-PCS; 2019-01-31)
DX: J96.02 Acute respiratory failure with hypercapnia (principal); S22.31XA Fracture of one rib, right side, initial encounter for closed fracture; J96.01 Acute respiratory failure with hypoxia; J90 Pleural effusion, not elsewhere classified; J44.9 Chronic obstructive pulmonary disease, unspecified; I13.2 Hypertensive heart and chronic kidney disease with heart failure and with stage 5 chronic kidney disease, or end stage renal disease; N18.6 End stage renal disease; I50.9 Heart failure, unspecified; Z99.2 Dependence on renal dialysis; E87.5 Hyperkalemia; E78.5 Hyperlipidemia, unspecified; E03.9 Hypothyroidism, unspecified; G93.40 Encephalopathy, unspecified; D63.1 Anemia in chronic kidney disease; N39.0 Urinary tract infection, site not specified; E87.2 Acidosis; I24.9 Acute ischemic heart disease, unspecified; Z66 Do not resuscitate; E43 Unspecified severe protein-calorie malnutrition; Z68.25 Body mass index [BMI] 25.0-25.9, adult; R62.7 Adult failure to thrive; F03.90 Unspecified dementia, unspecified severity, without behavioral disturbance, psychotic disturbance, mood disturbance, and anxiety; D62 Acute posthemorrhagic anemia; K29.70 Gastritis, unspecified, without bleeding; K29.80 Duodenitis without bleeding; R13.10 Dysphagia, unspecified; K94.21 Gastrostomy hemorrhage
CPT/HCPCS: 36415; 36600; 71045; 74018; 74230; 76942; 80048; 80053; 81003; 82550; 82553; 82803; 82962; 83615; 83735; 83880; 84100; 84484; 85007; 85025; 85610; 85730; 86706; 86707; 86803; 86850; 86900; 86901; 86920; 87040; 87070; 87081; 87086; 87181; 87205; 87340; 93005; 93306; 94002; 94003; 94150; 94664; 96365; 96375; 99291; J2250